=== PATIENT | female | born 1990 | race Caucasian/White ===

== ENCOUNTER 2016-06-29 15:29 | Emergency (ER) | payer MEDICAID ==
[~2016-06-29] VITALS: Ht 154.9 cm; Wt 68.5 kg
[~2016-06-29 15:29] MED LIST: ALB0.5V IH; AMOX500C2 PO; BENZ-13 PO; BENZ200C25 PO; BUTA1CAP45 PO; CEFD300C3 PO; CEPH-507 PO; CEPH500C PO; CLIN-81 PO; CYCL10TA9 PO; DIPH25TA82 PO; FAMO20TA5 PO; GABA-488 PO; HYDR-3812 PO; HYDR-3816 PO; HYOS0.1216 PO; IBUP800T26 PO; MECL25TA56 PO; MELO7.5T46 PO; METH4TAB PO; NAPR-243 PO; NAPR500T PO; NITR-65 PO; ONDA-42 SL; PHEN-639 PO; POTA-51 PO; PRD20T PO; PRED20TA PO; PREN1TAB39; SULF-222 PO; SULF1TAB7 PO; TRAM50TA2 PO
[2016-06-29] MEDS ORDERED: AMOX500C2 PO ×2 (15:41→16:06)
[2016-06-29] MEDS ORDERED: ONDA8TAB9 PO ×2 (15:41→16:06)
--- NOTE | 2016-06-29 15:42 | ED General ---
General Stated Complaint: N/V, SINUS TROUBLE Source of Information: Patient Exam Limitations: No Limitations History of Present Illness Time Seen by Provider: 15:39 Initial Comments To ER with nasal congestion and rhinorrhea since 5 a.m. this morning. She's also had an itchy right ear as well as nausea without vomiting or diarrhea. No fevers or chills. She is taken nothing for this. Timing/Duration: 4-6 Hours Allergies and Home Medications Allergies Coded Allergies: metoclopramide (Unverified Allergy, Mild, 12/30/08) promethazine (Unverified Allergy, Mild, 12/30/08) morphine (Unverified Adverse Reaction, Severe, PAIN, 05/31/14) Home Medications Albuterol Sulfate 2.5 Mg/0.5 Ml Vial.neb #1 2.5 MG IH Q4H Prescribed by: JOSE RODRIGUEZ on 03/27/161856 Amoxicillin 500 Mg Capsule #21 500 MG PO TID Prescribed by: NUBIA MURRAY on 06/29/16 154 Benzonatate 100 Mg Capsule #30 1-2 TAB PO TID Prescribed by: JOSE RODRIGUEZ on 03/27/161851 Cefdinir 300 Mg Capsule #20 300 MG PO BID Prescribed by: JOSE RODRIGUEZ on 03/27/161851 Cyclobenzaprine HCl 10 Mg Tablet 10 MG PO HS (Reported) Methylprednisolone 4 Mg Tab.ds.pk #1 4 MG PO UD Prescribed by: JOSE RODRIGUEZ on 03/27/161851 Ondansetron 8 Mg Tab.rapdis #10 8 MG PO Q6H PRN PRN NAUSEA/VOMITING Prescribed by: NUBIA MURRAY on 06/29/16 1541 Constitutional: see HPI chillsNo fever EENTM: ear pain see HPI Respiratory: see HPI Cardiovascular: no symptoms reported Gastrointestinal: No abdominal pain, nauseaNo vomiting Genitourinary: no symptoms reported Musculoskeletal: no symptoms reported Skin: no symptoms reported Psychiatric/Neurological: No Symptoms Reported Past Vuxasyh-Ckerdd-Qsdpny Hx Patient Social History Type Used: Cigarettes Recent Foreign Travel: No Contact w/Someone Who Travel: No Recent Hopitalizations: No Immunizations Up To Date Tetanus Booster (TDap): Less than 5yrs PED Vaccines UTD: Yes Seasonal Allergies Seasonal Allergies: No Surgeries HX Surgeries: Yes (S-CECTION X 2, BTL. 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 Genitourinary Hx Genitourinary Disorders: Yes Genitourinary Disorders: Kidney Stones Gastrointestinal Hx Gastrointestinal Disorders: Yes Gastrointestinal Disorders: Irritable Bowel Musculoskeletal Hx Musculoskeletal Disorders: Yes Musculoskeletal Disorders: Chronic Back Pain Endocrine Hx Endocrine Disorders: No HEENT HX ENT Disorders: No Loss of Vision: Denies Hearing Impairment: Denies Cancer Hx Cancer: No Psychosocial Hx Psychiatric Problems: No Integumentary HX Skin/Integumentary Disorder: Yes (SHINGLES; CELLULITIS) Skin/Integumentary Disorders: Recent Skin Changes Blood Transfusions Hx Blood Disorders: No Adverse Reaction to a Blood Tr: No Family Medical History Significant Family History: Heart Disease Family Medial History: Diabetes mellitus 19 FATHER Myocardial infarction 19 FATHER Thyroid disease G8 SISTER Physical Exam Vital Signs Vital Sign - Last 12Hours 06/29/16 15:40 Temp 99.1 Pulse 86 Resp 16 B/P 134/101 Pulse Ox 97 O2 Delivery Room Air Capillary Refill : General Appearance: No Apparent Distress WD/WN Eyes: Bilateral Eye EOMI, Bilateral Eye Normal Inspection, Bilateral Eye PERRL HEENT: PERRL/EOMI TMs Normal TM Abnormal (R) (erythematous and bulging) Neck: Full Range of Motion Normal Inspection Respiratory: Normal Breath Sounds No Accessory Muscle Use No Respiratory Distress Cardiovascular: Regular Rate, Rhythm Normal Peripheral Pulses Gastrointestinal: Normal Bowel Sounds Non Tender Soft Extremity: Normal Capillary Refill Normal Inspection Neurologic/Psychiatric: Alert Oriented x3 Skin: Normal Color Warm/Dry Progress/Results/Core Measures Results/Orders My Orders Orders-NUBIA MURRAY APRN Ondansetron Oral Dissolve Tab (Zofran (06/29/16 15:45) Medications Given in ED Current Medications Medications Dose Ordered Sig/Elisabeth Route Start Time Stop Time Status Last Admin Dose Admin Ondansetron HCl 8 mg ONCE ONCE PO 06/29/16 15:45 06/29/16 15:46 DC 06/29/16 15:51 8 MG Vital Signs/I&O Vital Sign - Last 12Hours 06/29/16 15:40 Temp 99.1 Pulse 86 Resp 16 B/P 134/101 Pulse Ox 97 O2 Delivery Room Air Departure Impression Impression: Primary Impression: Right otitis media Qualified Code: H66.001 - Acute suppurative otitis media without spontaneous rupture of ear drum, right ear Disposition: HOME, SELF-CARE Condition: Stable Departure-Patient Inst. Decision time for Depature: 15:40 Referrals: NADEEN GERARD MD (PCP/Family) Primary Care Physician Patient Instructions: NO INSTRUCTIONS GIVEN Add. Discharge Instructions: 1. Tylenol and Motrin for pain or fevers 2. Nausea medication as directed 3. Antibiotics as directed 4. Follow-up with your regular doctor this week Scripts Ondansetron (Zofran Odt)8 Mg Tab.rapdis8 Mg PO Q6H PRN NAUSEA/VOMITING #10 TAB Prov:NUBIA MURRAY APRN 06/29/16 Amoxicillin 500 Mg Pavnpxi241 Mg PO TID #21 CAP Prov:NUBIA MURRAY APRN 06/29/16 Work/School Note: Work Release Form Date Seen in the Emergency Department: Jun 29, 2016 Return to Work: Jul 01, 2016 NUBIA MURRAY APRN Jun 29, 2016 15:41
[2016-06-29] MEDS ORDERED: ONDANSETRON 4 MG (ZOFRAN) ORAL DISSOLVE TAB PO ONE (15:45)
[2016-06-29 16:10] VITALS: BP 134/98
== END 2016-06-29 16:09 | disposition home or self-care (01) ==
LOC: EDUNIT# 15:29 → ER 15:31
DX: H66.91 Otitis media, unspecified, right ear (principal); R09.81 Nasal congestion
CPT/HCPCS: 99283

== ENCOUNTER 2016-10-12 13:12 | Emergency (ER) | payer SELFPAY ==
[~2016-10-12] VITALS: Ht 152.4 cm; Wt 65.8 kg
[~2016-10-12 13:12] MED LIST changes: +ONDA8TAB9 PO
[2016-10-12] MEDS ORDERED: AMOX500C2 PO (13:38)
[2016-10-12] MEDS ORDERED: TRAM-42 PO (13:38)
--- NOTE | 2016-10-12 13:39 | ED EENT ---
History of Present Illness General Chief Complaint: Dental Problems/Pain Stated Complaint: R SIDE DENTAL PAIN/HEADACHE Nursing Triage Note: AMB TO ROOM C/O TOOTH ACHE WITH HEADACHE Source: patient Exam Limitations: no limitations History of Present Illness Time seen by provider: 13:36 Initial Comments To ER with right lower dental pain and headache. Tooth has been bothering her for about a week. Plans on seeing health dental clinic tomorrow. Timing/Duration: gradual Severity: moderate Location: dental Associated Symptoms: No cough, No fever, tooth pain Allergies and Home Medications Allergies Coded Allergies: metoclopramide (Unverified Allergy, Mild, 12/30/08) promethazine (Unverified Allergy, Mild, 12/30/08) morphine (Unverified Adverse Reaction, Severe, PAIN, 05/31/14) Review of Systems Constitutional: see HPI, No chills, No fever Eyes: No Symptoms Reported Ears: No Symptoms Reported Nose: no symptoms reported Mouth: see HPI, pain, denies swelling Throat: no symptoms reported Respiratory: no symptoms reported Musculoskeletal: no symptoms reported Past Tukfait-Aaynqj-Kowagx Hx Patient Social History Alcohol Use: Denies Use Recreational Drug Use: No Smoking Status: Current Everyday Smoker Type Used: Cigarettes Recent Foreign Travel: No Contact w/Someone Who Travel: No Recent Infectious Disease Expo: No Recent Hopitalizations: No Immunizations Up To Date Tetanus Booster (TDap): Less than 5yrs PED Vaccines UTD: Yes Seasonal Allergies Seasonal Allergies: No Surgeries HX Surgeries: Yes (S-CECTION X 2, BTL. 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 Genitourinary Hx Genitourinary Disorders: Yes Genitourinary Disorders: Kidney Stones Gastrointestinal Hx Gastrointestinal Disorders: Yes Gastrointestinal Disorders: Irritable Bowel Musculoskeletal Hx Musculoskeletal Disorders: Yes Musculoskeletal Disorders: Chronic Back Pain Endocrine Hx Endocrine Disorders: No HEENT HX ENT Disorders: No Loss of Vision: Denies Hearing Impairment: Denies Cancer Hx Cancer: No Psychosocial Hx Psychiatric Problems: No Integumentary HX Skin/Integumentary Disorder: Yes (SHINGLES; CELLULITIS) Skin/Integumentary Disorders: Recent Skin Changes Blood Transfusions Hx Blood Disorders: No Adverse Reaction to a Blood Tr: No Family Medical History Significant Family History: Heart Disease Family Medial History: Diabetes mellitus 19 FATHER Myocardial infarction 19 FATHER Thyroid disease G8 SISTER Physical Exam Vital Signs Vital Sign - Last 12Hours 10/12/16 13:25 Temp 99.0 Pulse 105 Resp 18 B/P (MAP) 128/66 Pulse Ox 99 General Appearance: WD/WN, no apparent distress Eyes: bilateral eye EOMI, bilateral eye PERRL, bilateral eye normal inspection Ears: bilateral ear TM normal, bilateral ear auricle normal, bilateral ear canal normal Mouth/Throat: dental tenderness Neck: non-tender (daycare), full range of motion Respiratory: normal breath sounds, no respiratory distress, no accessory muscle use Gastrointestinal: normal bowel sounds, non tender, soft Progress/Results/Core Measures Results/Orders Vital Signs/I&O Vital Sign - Last 12Hours 10/12/16 13:25 Temp 99.0 Pulse 105 Resp 18 B/P (MAP) 128/66 Pulse Ox 99 Blood Pressure Mean: 86 Departure Impression Impression: Primary Impression: Dental caries Disposition: HOME, SELF-CARE Condition: Stable Departure-Patient Inst. Decision time for Depature: 13:37 Referrals: NADEEN GERARD MD (PCP/Family) Primary Care Physician Patient Instructions: Dental Pain (DC) Add. Discharge Instructions: 1. Medication as directed 2. Follow-up with your doctor next week 3. All discharge instructions reviewed with patient and/or family. Voiced understanding. Scripts Tramadol HCl (Ultram) 50 Mg Tablet 50 MG PO Q6H Y for PAIN-MODERATE, #14 TAB Do not fill unless amoxicillin was also filled Prov: NUBIA MURRAY APRN 10/12/16 Amoxicillin (Amoxicillin) 500 Mg Capsule 500 MG PO TID, #21 CAP Prov: NUBIA MURRAY APRN 10/12/16 Work/School Note: Work Release Form Date Seen in the Emergency Department: October 12, 2016 Return to Work: October 13, 2016 Images Mouth/Nose 1 - Caries NUBIA MURRAY APRN October 12, 2016 13:39
[2016-10-12 13:47] VITALS: BP 128/66
== END 2016-10-12 13:47 | disposition home or self-care (01) ==
LOC: EDUNIT# 13:12 → ER 13:14
DX: K02.9 Dental caries, unspecified (principal); F17.210 Nicotine dependence, cigarettes, uncomplicated
CPT/HCPCS: 99285

== ENCOUNTER 2016-11-07 17:12 | Emergency (ER) | payer MEDICAID, OTHER ==
[~2016-11-07] VITALS: Ht 154.9 cm; Wt 65.8 kg
[~2016-11-07 17:12] MED LIST changes: +TRAM-42 PO
[2016-11-07] MEDS ORDERED: CEPH-507 PO (18:18)
--- NOTE | 2016-11-07 18:18 | ED Integumentary General ---
General Chief Complaint: Skin/Wound Problems Stated Complaint: PAINFUL/ITCHY RED SPOTS ON SKIN Source: patient Exam Limitations: no limitations History of Present Illness Time seen by provider: 18:09 Initial Comments This 26-year-old young lady presents to the emergency room with intensely pruritic lesions that started yesterday. She does not know where she obtained them. She has spent a lot of time outside recently and may have obtained insect bites. She has fake nails and has deeply excoriated and bruised the lesions from scratching in her sleep. She has used some Benadryl but has otherwise not taken anything. She is concerned about their appearance because she has required hospitalization for cellulitis in the past. Her cellulitis was secondary to insect bites. Allergies and Home Medications Allergies Coded Allergies: metoclopramide (Unverified Allergy, Mild, 12/30/08) promethazine (Unverified Allergy, Mild, 12/30/08) morphine (Unverified Adverse Reaction, Severe, PAIN, 05/31/14) Home Medications Amoxicillin 500 Mg Capsule, 500 MG PO TID, #21 Prescribed by: NUBIA MURRAY on 10/12/16 1338 Cephalexin 500 Mg Capsule, 500 MG PO QID, #28 Prescribed by: DAX SU on 11/07/16 1818 Hydroxyzine HCl 25 Mg Tablet, 25 MG PO Q6H PRN for ITCHING, #20 Prescribed by: DAX SU on 11/07/16 1828 Tramadol HCl 50 Mg Tablet, 50 MG PO Q6H PRN for PAIN-MODERATE, #14 Do not fill unless amoxicillin was also filled Prescribed by: NUBIA MURRAY on 10/12/16 1338 Constitutional: no symptoms reported EENTM: no symptoms reported Respiratory: no symptoms reported Cardiovascular: no symptoms reported Gastrointestinal: no symptoms reported Genitourinary: no symptoms reported Musculoskeletal: no symptoms reported Skin: see HPI Psychiatric/Neurological: No Symptoms Reported Past Vgeiepr-Eprnqi-Ulpqpm Hx Patient Social History Type Used: Cigarettes Recent Foreign Travel: No Contact w/Someone Who Travel: No Recent Hopitalizations: No Immunizations Up To Date Tetanus Booster (TDap): Less than 5yrs PED Vaccines UTD: Yes Seasonal Allergies Seasonal Allergies: No Surgeries HX Surgeries: Yes (S-CECTION X 2, BTL. 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 Genitourinary Hx Genitourinary Disorders: Yes Genitourinary Disorders: Kidney Stones Gastrointestinal Hx Gastrointestinal Disorders: Yes Gastrointestinal Disorders: Irritable Bowel Musculoskeletal Hx Musculoskeletal Disorders: Yes Musculoskeletal Disorders: Chronic Back Pain Endocrine Hx Endocrine Disorders: No HEENT HX ENT Disorders: No Loss of Vision: Denies Hearing Impairment: Denies Cancer Hx Cancer: No Psychosocial Hx Psychiatric Problems: No Integumentary HX Skin/Integumentary Disorder: Yes (SHINGLES; CELLULITIS requiring hospitalization) Skin/Integumentary Disorders: Recent Skin Changes Blood Transfusions Hx Blood Disorders: No Adverse Reaction to a Blood Tr: No Family Medical History Significant Family History: Heart Disease Family Medial History: Diabetes mellitus 19 FATHER Myocardial infarction 19 FATHER Thyroid disease G8 SISTER Physical Exam Vital Signs Vital Sign - Last 12Hours 11/07/16 18:13 Temp 98.2 Pulse 74 Resp 16 B/P (MAP) 134/84 Pulse Ox 98 Capillary Refill : General Appearance: WD/WN, no apparent distress HEENT: normal ENT inspection Cardiovascular: regular rate, rhythm, no edema, no murmur Respiratory: lungs clear, normal breath sounds, no respiratory distress, no accessory muscle use Extremities: normal inspection, no pedal edema Neurologic/Psychiatric: herd tester II-XII nml as tested, no motor/sensory deficits, alert, normal mood/affect, oriented x 3, EOM palsy, depressed affect Skin: warm/dry, ecchymosis, other (scattered excoriated insect bites with surrounding ecchymosis and petechiae from scratching) Progress/Results/Core Measures Results/Orders Vital Signs/I&O Vital Sign - Last 12Hours 11/07/16 18:13 Temp 98.2 Pulse 74 Resp 16 B/P (MAP) 134/84 Pulse Ox 98 Departure Impression Impression: Primary Impression: Insect bite Qualified Codes: W57.XXXA - Bitten or stung by nonvenomous insect and other nonvenomous arthropods, initial encounter Disposition: 01 HOME, SELF-CARE Condition: Stable Departure-Patient Inst. Decision time for Depature: 18:16 Referrals: NADEEN GERARD MD (PCP/Family) Primary Care Physician Patient Instructions: Insect Bites and Stings Add. Discharge Instructions: You may continue using anti-itch medication such as Benadryl or the prescribed hydroxyzine. Hydroxyzine may help you sleep better than Benadryl. You may use topical anti-itch medication such as topical Benadryl (diphenhydramine), Solarcaine spray, etc. Inspect your bedding and mattress to ensure these bites are not caused by bedbugs. If you feel any of your spots are becoming infected (increasing pain and redness) start the antibiotic as prescribed. All discharge instructions reviewed with patient and/or family. Voiced understanding. Scripts Hydroxyzine HCl (Hydroxyzine HCl) 25 Mg Tablet 25 MG PO Q6H Y for ITCHING, #20 TAB Prov: DAX HELMS MD 11/07/16 Cephalexin (Keflex) 500 Mg Capsule 500 MG PO QID, #28 CAP Prov: DAX HELMS MD 11/07/16 DAX HELMS MD Nov 07, 2016 18:18
[2016-11-07] MEDS ORDERED: HYDR-700 PO (18:28)
[2016-11-07 18:35] VITALS: BP 134/84
== END 2016-11-07 18:35 | disposition home or self-care (01) ==
LOC: EDUNIT# 17:12 → ER 17:13
DX: L29.9 Pruritus, unspecified (principal); T14.8 Other injury of unspecified body region; W57.XXXA Bitten or stung by nonvenomous insect and other nonvenomous arthropods, initial encounter
CPT/HCPCS: 99282

== ENCOUNTER 2016-11-22 18:23 | Emergency (ER) | payer MEDICAID ==
[~2016-11-22] VITALS: Ht 152.4 cm; Wt 67.6 kg
[~2016-11-22 18:23] MED LIST changes: +HYDR-700 PO
--- NOTE | 2016-11-22 18:44 | ED Back Pain ---
General Chief Complaint: Back Problems Stated Complaint: BACK PAIN Source of Information: Patient Exam Limitations: No Limitations History of Present Illness Time Seen by Provider: 18:41 Initial Comments To ER with midline low back pain that occasionally radiates down the posterior aspect of the right thigh. This back pain began a few days ago after she states she was playing with her son and she lifted him up and felt a popping sensation of her back. She had no pain initially and was alarmed by this because she states she has back pain "all the time". No urinary symptoms. No fevers or chills. No fall or trauma. Location: Lumbar Spine Timing/Duration: 3-4 Days Severity: Moderate Associated Symptoms: lower back pain Allergies and Home Medications Allergies Coded Allergies: metoclopramide (Unverified Allergy, Mild, 12/30/08) promethazine (Unverified Allergy, Mild, 12/30/08) morphine (Unverified Adverse Reaction, Severe, PAIN, 05/31/14) Home Medications Amoxicillin 500 Mg Capsule, 500 MG PO TID, #21 Prescribed by: NUBIA MURRAY on 10/12/16 1338 Escitalopram Oxalate 10 Mg Tablet, 5 MG PO DAILY, (Reported) Hydrocodone/Acetaminophen 1 Each Tablet, 1 EACH PO Q4H PRN for PAIN, (Reported) Hydroxyzine HCl 25 Mg Tablet, 25 MG PO Q6H PRN for ITCHING, #20 Prescribed by: DAX SU on 11/07/16 1828 Constitutional: see HPI EENTM: see HPI Respiratory: no symptoms reported Cardiovascular: no symptoms reported Genitourinary: no symptoms reported Musculoskeletal: see HPI, back pain Skin: no symptoms reported Psychiatric/Neurological: No Symptoms Reported Past Mggpczi-Wkuvuq-Xyzmij Hx Patient Social History Type Used: Cigarettes 2nd Hand Smoke Exposure: No Recent Foreign Travel: No Contact w/Someone Who Travel: No Recent Hopitalizations: No Immunizations Up To Date Tetanus Booster (TDap): Less than 5yrs PED Vaccines UTD: Yes Seasonal Allergies Seasonal Allergies: No Surgeries HX Surgeries: Yes (S-CECTION X 2, BTL. 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 Genitourinary Hx Genitourinary Disorders: Yes Genitourinary Disorders: Kidney Stones Gastrointestinal Hx Gastrointestinal Disorders: Yes Gastrointestinal Disorders: Irritable Bowel Musculoskeletal Hx Musculoskeletal Disorders: Yes Musculoskeletal Disorders: Chronic Back Pain Endocrine Hx Endocrine Disorders: No HEENT HX ENT Disorders: No Loss of Vision: Denies Hearing Impairment: Denies Cancer Hx Cancer: No Psychosocial Hx Psychiatric Problems: No Integumentary HX Skin/Integumentary Disorder: Yes (SHINGLES; CELLULITIS requiring hospitalization) Skin/Integumentary Disorders: Recent Skin Changes Blood Transfusions Hx Blood Disorders: No Adverse Reaction to a Blood Tr: No Family Medical History Significant Family History: Heart Disease Family Medial History: Diabetes mellitus 19 FATHER Myocardial infarction 19 FATHER Thyroid disease G8 SISTER Physical Exam Vital Signs Vital Sign - Last 12Hours 11/22/16 18:41 Temp 98.1 Pulse 105 Resp 20 B/P (MAP) 147/91 Pulse Ox 99 O2 Delivery Room Air Capillary Refill : General Appearance: No Apparent Distress, WD/WN HEENT: PERRL/EOMI, TMs Normal Neck: Full Range of Motion, Normal Inspection Respiratory: No Accessory Muscle Use, No Respiratory Distress Gastrointestinal: Non Tender, Soft Extremity: Normal Capillary Refill, Normal Inspection Neurologic/Psychiatric: Alert, Oriented x3 Skin: Normal Color, Warm/Dry Progress/Results/Core Measures Results/Orders My Orders Orders - NUBIA MURRAY APRN Ketorolac Injection (Toradol Injection) (11/22/16 18:45) Orphenadrine Injection (Norflex Injectio (11/22/16 18:45) Vital Signs/I&O Vital Sign - Last 12Hours 11/22/16 18:41 Temp 98.1 Pulse 105 Resp 20 B/P (MAP) 147/91 Pulse Ox 99 O2 Delivery Room Air Departure Communication Progress Notes K tracks show the patient had a 5 day supply of hydrocodone filled 4 days ago. She does not report this as one of her medications to me. Impression Impression: Primary Impression: Acute low back pain Disposition: 01 HOME, SELF-CARE Condition: Stable Departure-Patient Inst. Decision time for Depature: 18:43 Referrals: NADEEN GERARD MD (Family) Primary Care Physician Patient Instructions: Low Back Pain (DC) Add. Discharge Instructions: 1. Medication as directed 2. All discharge instructions reviewed with patient and/or family. Voiced understanding. Scripts Cyclobenzaprine HCl (Cyclobenzaprine HCl) 5 Mg Tablet 5 MG PO TID Y for PAIN-MODERATE, #14 TAB Prov: NUBIA MURRAY APRN 11/22/16 Prednisone (Prednisone) 20 Mg Tab 40 MG PO DAILY, #8 TAB Prov: NUBIA MURRAY APRN 11/22/16 NUBIA MURRAY APRN Nov 22, 2016 18:44
[2016-11-22] MEDS ORDERED: ORPHENADRINE 60 MG/2 ML (NORFLEX) AMP IM ONE (18:45)
[2016-11-22] MEDS ORDERED: KETOROLAC 60 MG/2 ML VIAL IM ONE (18:45)
[2016-11-22] MEDS ORDERED: HYDR-3812 PO (18:45)
[2016-11-22] MEDS ORDERED: ESCI10TA PO (18:45)
[2016-11-22] MEDS ORDERED: CYCL5TAB PO (18:46)
[2016-11-22] MEDS ORDERED: PRD20T PO (18:46)
[2016-11-22 19:05] VITALS: BP 144/79
--- OUTSIDE RECORDS SUMMARY | 2016-11-24 17:26 | XMS REPORT | Continuity of Care Document ---
Author Author [facility] Address Unknown Phone Unavailable Allergies Active Description Code Type Severity Reaction Onset Reported/Identified Relationship to Patient Clinical Status Yes metoclopramide [id number] Drug Allergy Mild N/A 12/30/2008 Yes promethazine [id number] Drug Allergy Mild N/A 12/30/2008 Yes morphine [id number] Drug Allergy Severe PAIN 05/31/2014 Yes Phenergan Drug Allergy N/A N/A 08/22/2014 Yes Reglan Drug Allergy N/A N/A 08/22/2014 Medications Problems Date Dx Coded Attending Type Code Diagnosis Diagnosed By 09/26/2011 Ot 780.4 DIZZINESS AND GIDDINESS 09/26/2011 Ot 789.00 ABDOMINAL PAIN, UNSPECIFIED SITE 10/15/2011 Ot 373.11 HORDEOLUM EXTERNUM 10/15/2011 Ot 379.92 SWELLING OR MASS OF EYE 05/28/2014 NUBIA MURRAY APRN Ot 558.9 NONINF GASTROENTERIT NEC 05/28/2014 NUBIA MURRAY APRN Ot 787.03 VOMITING ALONE 05/31/2014 RICKY NELSON Ot 708.9 URTICARIA NOS 05/31/2014 RICKY NELSON Ot 913.4 INSECT BITE FOREARM 05/31/2014 RICKY NELSON Ot E000.8 OTHER EXTERNAL CAUSE STATUS 05/31/2014 RICKY NELSON Ot E849.0 ACCIDENT IN HOME 05/31/2014 RICKY NELSON Ot E906.4 NONVENOM ARTHROPOD BITE 08/10/2014 Ot 305.1 TOBACCO USE DISORDER 08/10/2014 Ot 682.3 CELLULITIS OF ARM 08/22/2014 MARCUS MARTINES DO 682.3 CELLULITIS AND ABSCESS OF UPPER ARM AND FOREARM 08/22/2014 MARCUS MARTINES DO 728.71 PLANTAR FASCIAL FIBROMATOSIS 08/22/2014 MARCUS MARTINES DO 783.1 ABNORMAL WEIGHT GAIN 12/10/2014 RICKY NELSON Ot 611.0 INFLAM DISEASE OF BREAST 12/10/2014 RICKY NELSON Ot 911.4 INSECT BITE TRUNK 12/10/2014 RICKY NELSON Ot E000.8 OTHER EXTERNAL CAUSE STATUS 12/10/2014 RICKY NELSON Ot E906.4 NONVENOM ARTHROPOD BITE 01/01/2015 DAX HELMS MD Ot 305.1 TOBACCO USE DISORDER 01/01/2015 DAX HELMS MD Ot 462 ACUTE PHARYNGITIS 01/01/2015 DAX HELMS MD Ot 465.9 ACUTE URI NOS 01/01/2015 DAX HELMS MD Ot 786.2 COUGH 01/20/2015 RICKY NELSON Ot 521.00 UNSPEC DENTAL CARIES 01/20/2015 RICKY NELSON Ot 784.92 JAW PAIN 03/27/2015 RICKY NELSON Ot E87.6 HYPOKALEMIA 03/27/2015 RICYK NELSON Ot F17.210 NICOTINE DEPENDENCE, CIGARETTES, UNCOMPL 03/27/2015 RICKY NELSON Ot M79.642 PAIN IN LEFT HAND 05/06/2015 RICKY NELSON Ot F17.210 NICOTINE DEPENDENCE, CIGARETTES, UNCOMPL 05/06/2015 RICKY NELSON Ot J06.9 ACUTE UPPER RESPIRATORY INFECTION, UNSPE 05/06/2015 RICKY NELSON Ot R10.9 UNSPECIFIED ABDOMINAL PAIN 05/06/2015 RICKY NELSON Ot R35.0 FREQUENCY OF MICTURITION 05/11/2015 SOPHIA JOSÉ MD Ot F17.210 NICOTINE DEPENDENCE, CIGARETTES, UNCOMPL 05/11/2015 SOPHIA JOSÉ MD Ot J01.90 ACUTE SINUSITIS, UNSPECIFIED 05/11/2015 SOPHIA JOSÉ MD Ot J06.9 ACUTE UPPER RESPIRATORY INFECTION, UNSPE 05/21/2015 SOPHIA JOSÉ MD Ot F17.210 NICOTINE DEPENDENCE, CIGARETTES, UNCOMPL 05/21/2015 SOPHIA JOSÉ MD Ot L03.115 CELLULITIS OF RIGHT LOWER LIMB 06/01/2015 RICKY NESLON Ot F17.210 NICOTINE DEPENDENCE, CIGARETTES, UNCOMPL 06/01/2015 RICKY NELSON Ot S93.602A UNSPECIFIED SPRAIN OF LEFT FOOT, INITIAL 06/01/2015 RICKY NELSON Ot W08.XXXA FALL FROM OTHER FURNITURE, INITIAL ENCOU 06/01/2015 RICKY NELSON Ot Y92.[address] [facility] PL[facility] IN SINGLE-FAMILY (PRIVATE) 06/01/2015 RICKY NELSON Ot Y93.83 ACTIVITY, ROUGH HOUSING AND HORSEPLAY 06/01/2015 RICKY NELSON Ot Y99.8 OTHER EXTERNAL CAUSE STATUS 07/17/2015 RICKY NELSON Ot F17.210 NICOTINE DEPENDENCE, CIGARETTES, UNCOMPL 07/17/2015 RIKCY NELSON Ot H92.02 OTALGIA, LEFT EAR 07/17/2015 RICKY NELSON Ot J03.90 ACUTE TONSILLITIS, UNSPECIFIED 08/08/2015 JOSE RODRIGUEZ DO Ot R51 HEADACHE 09/02/2015 Ot F17.210 NICOTINE DEPENDENCE, CIGARETTES, UNCOMPL 09/02/2015 Ot S46.911[facility]UP A 09/02/2015 Ot X58.XXXA EXPOSURE TO OTHER SPECIFIED FACTORS, INI 09/02/[address] IN [facility] NON-INSTITUT (PRIVATE 09/02/2015 Ot Y99.0 CIVILIAN ACTIVITY DONE FOR INCOME OR PAY 09/04/2015 Ot F17.210 09/04/2015 Ot S46.911A 09/04/2015 Ot X58.XXXA 09/04/2015 Ot Y92.009 09/04/2015 Ot Y99.0 12/21/2015 NUBIA MURRAY APRN Ot M54.12 RADICULOPATHY, CERVICAL REGION 01/07/2016 RICKY NELSON Ot F17.210 NICOTINE DEPENDENCE, CIGARETTES, UNCOMPL 01/07/2016 RICKY NELSON Ot J03.00 ACUTE STREPTOCOCCAL TONSILLITIS, UNSPECI 01/07/2016 RICKY NELSON Ot R50.9 FEVER, UNSPECIFIED 01/08/2016 RICKY NELSON Ot F17.210 NICOTINE DEPENDENCE, CIGARETTES, UNCOMPL 01/08/2016 RICKY NELSON Ot J03.00 ACUTE STREPTOCOCCAL TONSILLITIS, UNSPECI 01/08/2016 RICKY NELSON Ot R50.9 FEVER, UNSPECIFIED 02/09/2016 SOPHIA JOSÉ MD Ot F17.210 NICOTINE DEPENDENCE, CIGARETTES, UNCOMPL 02/09/2016 SOPHIA JOSÉ MD Ot J02.9 ACUTE PHARYNGITIS, UNSPECIFIED 02/09/2016 SOPHIA JOSÉ MD Ot J06.9 ACUTE UPPER RESPIRATORY INFECTION, UNSPE 02/09/2016 SOPHIA JOSÉ MD Ot M79.1 MYALGIA 02/12/2016 SOPHIA JOSÉ MD Ot F17.210 NICOTINE DEPENDENCE, CIGARETTES, UNCOMPL 02/12/2016 SOPHIA JOSÉ MD Ot J02.9 ACUTE PHARYNGITIS, UNSPECIFIED 02/12/2016 SOPHIA JOSÉ MD Ot J06.9 ACUTE UPPER RESPIRATORY INFECTION, UNSPE 02/12/2016 SOPHIA JOSÉ MD Ot M79.1 MYALGIA 03/07/2016 ELLIOT ROMERO, MANA Fried Ot R10.11 RIGHT UPPER QUADRANT PAIN 03/07/2016 ELLIOT ROMERO, MANA Fried Ot R10.11 RIGHT UPPER QUADRANT PAIN 03/19/2016 ELLIOT ROMERO, MANA Fried Ot R10.11 RIGHT UPPER QUADRANT PAIN 03/21/2016 ELLIOT ROMERO, MANA Fried Ot R10.11 RIGHT UPPER QUADRANT PAIN 03/24/2016 ELLIOT ROMERO, MANA Fried Ot R10.13 EPIGASTRIC PAIN 03/27/2016 VICTORIANO RODRIGUEZ DOA Sharon Ot J06.9 ACUTE UPPER RESPIRATORY INFECTION, UNSPE 03/27/2016 VCITORIANO RODRIGUEZ DOA Sharon Ot J20.9 ACUTE BRONCHITIS, UNSPECIFIED 03/27/2016 VICTORIANO RODRIGUEZ DOA Sharon Ot R06.02 SHORTNESS OF BREATH 2016 VICTROIANO RODRIGUEZ DOA Sharon Ot J06.9 ACUTE UPPER RESPIRATORY INFECTION, UNSPE 2016 VICTORIANO RODRIGUEZ DOA Sharon Ot J20.9 ACUTE BRONCHITIS, UNSPECIFIED 2016 JOSE RODRIGUEZ DO Ot R06.02 SHORTNESS OF BREATH 04/07/2016 ELLIOT ROMERO, MANA Fried Ot R10.13 EPIGASTRIC PAIN 06/29/2016 NUBIA MURRAY APRN Ot H66.91 OTITIS MEDIA, UNSPECIFIED, RIGHT EAR 06/29/2016 NUBIA MURRAY APRN Ot R09.81 NASAL CONGESTION 06/29/2016 NUBIA MURRAY APRN Ot R11.2 NAUSEA WITH VOMITING, UNSPECIFIED 07/01/2016 NUBIA MURRAY APRN Ot H66.91 OTITIS MEDIA, UNSPECIFIED, RIGHT EAR 07/01/2016 NUBIA MURRAY APRN Ot R09.81 NASAL CONGESTION 07/01/2016 NUBIA MURRAY APRN Ot R11.2 NAUSEA WITH VOMITING, UNSPECIFIED 10/12/2016 MANA ZARATE MD Ot R10.11 RIGHT UPPER QUADRANT PAIN 10/12/2016 MANA ZARATE MD Ot R10.13 EPIGASTRIC PAIN 10/12/2016 NUBIA MURRAY APRN Ot F17.210 NICOTINE DEPENDENCE, CIGARETTES, UNCOMPL 10/12/2016 NUBIA MURRAY APRN Ot K02.9 DENTAL CARIES, UNSPECIFIED 10/12/2016 NUBIA MURRAY APRN Ot K08.9 DISORDER OF TEETH AND SUPPORTING STRUCTU 10/12/2016 MANA ZARATE MD Ot R10.11 RIGHT UPPER QUADRANT PAIN 10/12/2016 MANA ZARATE MD Ot R10.13 EPIGASTRIC PAIN 10/14/2016 NUBIA MURRAY APRN Ot F17.210 NICOTINE DEPENDENCE, CIGARETTES, UNCOMPL 10/14/2016 NUBIA MURRAY APRN Ot K02.9 DENTAL CARIES, UNSPECIFIED 10/14/2016 NUBIA MURRAY APRN Ot K08.9 DISORDER OF TEETH AND SUPPORTING STRUCTU 11/07/2016 ANALIA ROMERO, DAX Foote Ot L29.9 PRURITUS, UNSPECIFIED 11/07/2016 ANALIA ROMERO, DAX Foote Ot T14.8 OTHER INJURY OF UNSPECIFIED BODY REGION 11/07/2016 ANALIA ROMERO, DAX Foote Ot W57.XXXA BIT/STUNG BY NONVENOM INSECT OTH NONVE 11/07/2016 MANA ZARATE MD Ot R10.11 RIGHT UPPER QUADRANT PAIN 11/07/2016 ELLIOT ROMERO, MANA Fried Ot R10.13 EPIGASTRIC PAIN 11/09/2016 ANALIA ROMERO, DAX Foote Ot L29.9 PRURITUS, UNSPECIFIED 11/09/2016 ANALIA ROMERO, DAX Foote Ot T14.8 OTHER INJURY OF UNSPECIFIED BODY REGION 11/09/2016 ANALIA ROMERO, DAX Foote Ot W57.XXXA BIT/STUNG BY NONVENOM INSECT OTH NONVE 11/13/2016 ANALIA ROMERO, DAX Foote Ot L29.9 PRURITUS, UNSPECIFIED 11/13/2016 ANALIA ROMERO, DAX Foote Ot T14.8 OTHER INJURY OF UNSPECIFIED BODY REGION 11/13/2016 ANALIA ROMREO, DAX Foote Ot W57.XXXA BIT/STUNG BY NONVENOM INSECT OTH NONVE Procedures Code [place] [address] ROUTINE VENIPUNCTURE 08/22/2014 THYANA THYROID ANALYZER 08/22/2014 Results Test Result Range Streptococcus pyogenes antigen detection - 01/07/16 17:45 Streptococcus pyogenes antigen detection POSITIVE NEGATIVE Streptococcus pyogenes antigen detection - 02/09/16 08:17 Streptococcus pyogenes antigen detection NEGATIVE NEGATIVE Bacterial throat culture - 02/09/16 08:17 Bacterial throat culture NBS NRG Encounters ACCT No. Visit Date/Time Discharge Status Pt. Type Provider Facility Loc./Unit Complaint [id number] 08/22/2014 14:39:00 08/22/2014 23: 59:59 [facility] Outpatient MARCUS MARTINES DO
== END 2016-11-22 19:05 | disposition home or self-care (01) ==
LOC: EDUNIT# 18:23 → ER 18:25
DX: M54.5 Low back pain (principal); F17.210 Nicotine dependence, cigarettes, uncomplicated; Z87.442 Personal history of urinary calculi
CPT/HCPCS: 99281

== ENCOUNTER 2017-01-03 20:35 | Emergency (ER) | payer MEDICAID ==
[~2017-01-03] VITALS: Ht 152.4 cm; Wt 66.7 kg
[~2017-01-03 20:35] MED LIST changes: +CYCL5TAB PO; +ESCI10TA PO
[2017-01-03] MEDS ORDERED: HYDROcodone/APAP 7.5 MG/325 MG (LORTAB, LORCET PLUS) TABLET PO STA (21:30)
[2017-01-03] MEDS ORDERED: LIDOCAINE 2% VISCOUS 15 ML UDC PO ONE (21:30)
[2017-01-03] MEDS ORDERED: RX-AMOXICILLIN 500 MG CAP #3 PPK PO ONE (21:30)
[2017-01-03] MEDS ORDERED: ONDANSETRON 4 MG (ZOFRAN) ORAL DISSOLVE TAB SL STA (21:30)
[2017-01-03] MEDS ORDERED: RX-HYDROCODONE/APAP 5/325 MG #4 TAB PK PO PRN (21:30)
[2017-01-03] MEDS ORDERED: AMOX500C2 PO (21:37)
[2017-01-03] MEDS ORDERED: HYDR-3812 PO (21:37)
--- NOTE | 2017-01-03 21:37 | ED EENT ---
History of Present Illness General Chief Complaint: Dental Problems/Pain Stated Complaint: TOOTH PAIN Nursing Triage Note: Patient advises dental pain began yesterday and has become progressively worse. History of Present Illness Time seen by provider: 21:15 Initial Comments Patient reports that she was told in September 2016 that she needed to have a root canal however she was unable to afford it. Her symptoms improved after taking amoxicillin and September. She acutely began having right lower dental pain yesterday , it has gotten worse today. Timing/Duration: abrupt Location: mouth Prearrival Treatment: no prearrival treatment Associated Symptoms: poor fluid intake, poor solids intake Allergies and Home Medications Allergies Coded Allergies: metoclopramide (Unverified Allergy, Mild, 01/03/17) promethazine (Unverified Allergy, Mild, 01/03/17) morphine (Unverified Adverse Reaction, Severe, PAIN, 01/03/17) Home Medications Amoxicillin 500 Mg Capsule, 500 MG PO TID, #21 Prescribed by: NUBIA MURRAY on 10/12/16 1338 Amoxicillin 500 Mg Capsule, 500 MG PO TID, #18 Ref 0 Prescribed by: TATIANA CIFUENTES on 01/03/17 2137 Cyclobenzaprine HCl 5 Mg Tablet, 5 MG PO TID PRN for PAIN-MODERATE, #14 Prescribed by: NUBIA MURRAY on 11/22/16 1846 Escitalopram Oxalate 10 Mg Tablet, 5 MG PO DAILY, (Reported) Hydrocodone/Acetaminophen 1 Each Tablet, 1 EACH PO Q4H PRN for PAIN, (Reported) Hydrocodone/Acetaminophen 1 Each Tablet, 1 EACH PO Q4H PRN for PAIN, #12 Ref 0 Prescribed by: TATIANA CIFUENTES on 01/03/172136 Hydroxyzine HCl 25 Mg Tablet, 25 MG PO Q6H PRN for ITCHING, #20 Prescribed by: DAX SU on 11/07/16 1828 Prednisone 20 Mg Tab, 40 MG PO DAILY, #8 Prescribed by: NUBIA MURRAY on 11/22/16 184 Review of Systems Constitutional: no symptoms reported, see HPI Mouth: see HPI, pain (right lower) All Other Systems Reviewed Negative Unless Noted: Yes Past Xaqwrai-Rgppma-Kacbet Hx Patient Social History Alcohol Use: Denies Use Recreational Drug Use: No Type Used: Cigarettes 2nd Hand Smoke Exposure: Yes Recent Foreign Travel: No Contact w/Someone Who Travel: No Recent Infectious Disease Expo: No Recent Hopitalizations: No Immunizations Up To Date Tetanus Booster (TDap): Less than 5yrs PED Vaccines UTD: Yes Seasonal Allergies Seasonal Allergies: No Surgeries HX Surgeries: Yes (S-CECTION X 2, BTL. 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 Genitourinary Hx Genitourinary Disorders: Yes Genitourinary Disorders: Kidney Stones Gastrointestinal Hx Gastrointestinal Disorders: Yes Gastrointestinal Disorders: Irritable Bowel Musculoskeletal Hx Musculoskeletal Disorders: Yes Musculoskeletal Disorders: Chronic Back Pain Endocrine Hx Endocrine Disorders: No HEENT HX ENT Disorders: No Loss of Vision: Denies Hearing Impairment: Denies Cancer Hx Cancer: No Psychosocial Hx Psychiatric Problems: No Integumentary HX Skin/Integumentary Disorder: Yes (SHINGLES; CELLULITIS requiring hospitalization) Skin/Integumentary Disorders: Recent Skin Changes Blood Transfusions Hx Blood Disorders: No Adverse Reaction to a Blood Tr: No Reviewed Nursing Assessment Reviewed/Agree w Nursing PMH: Yes Family Medical History Significant Family History: Heart Disease Family Medial History: Diabetes mellitus 19 FATHER Myocardial infarction 19 FATHER Thyroid disease G8 SISTER Physical Exam Vital Signs Vital Sign - Last 12Hours 01/03/17 20:53 Temp 98.5 Pulse 88 Resp 14 B/P (MAP) 142/102 Pulse Ox 98 O2 Delivery Room Air General Appearance: WD/WN, no apparent distress Eyes: bilateral eye EOMI, bilateral eye PERRL, bilateral eye normal inspection Ears: bilateral ear TM normal, bilateral ear auricle normal, bilateral ear canal normal Nose: normal inspection, No active bleeding, No discharge Mouth/Throat: pharynx normal, dental tenderness (right lower molars), No excessive drooling, No mandibular swelling, No maxillary swelling Neck: non-tender, normal inspection, lymphadenopathy (R) Cardiovascular: normal peripheral pulses, regular rate, rhythm Respiratory: chest non-tender, lungs clear Neurologic/Psychiatric: no motor/sensory deficits, alert, normal mood/affect, oriented x 3 Skin: normal color, warm/dry Progress/Results/Core Measures Results/Orders My Orders Orders - ESAU,TATIANA DISBURSING AGENT Rx-Amoxicillin Capsule (Rx-Polymox Capsu (01/03/17 21:30) Ondansetron Oral Dissolve Tab (Zofran (01/03/17 21:30) Hydrocodone/Apap 7.5/325 Tab (Lortab 7. (01/03/17 21:30) Rx-Hydrocodone/Apap 5-325 Mg (Rx-Vicodin (01/03/17 21:30) Lidocaine 2% Viscous 15 Ml (Xylocaine Vi (01/03/17 21:30) Medications Given in ED Current Medications Medications Dose Ordered Sig/Elisabeth Route Start Time Stop Time Status Last Admin Dose Admin Acetaminophen/ Hydrocodone Bitart 1 ea Q4H PRN PO 01/03/17 21:30 01/03/17 21:51 DC 01/03/17 21:44 1 EA Amoxicillin 500 mg ONCE ONCE PO 01/03/17 21:30 01/03/17 21:33 DC 01/03/17 21:44 500 MG Lidocaine HCl 5 ml ONCE ONCE PO 01/03/17 21:30 01/03/17 21:33 DC 01/03/17 21:44 5 ML Vital Signs/I&O Vital Sign - Last 12Hours 01/03/17 01/03/17 20:53 21:51 Temp 98.5 98.5 Pulse 88 83 Resp 14 16 B/P (MAP) 142/102 Pulse Ox 98 98 O2 Delivery Room Air Room Air Blood Pressure Mean: 115 Departure Impression Impression: Primary Impression: Dental caries Additional Impression: Dental abscess Disposition: 01 HOME, SELF-CARE Condition: Improved Departure-Patient Inst. Decision time for Depature: 21:30 Referrals: NO,LOCAL PHYSICIAN (PCP/Family) Primary Care Physician Patient Instructions: Fractured Tooth (DC), Tooth Decay, Adult (DC), Dental Pain (DC) Add. Discharge Instructions: Alternate heat and ice to cheek. Apply lidocaine patches every 2-4 hours as needed to area of dental pain, remove before sleeping. Ibuprofen 600 mg every 8 hours Take prescribed medicine as directed. Return to emergency department if symptoms worsen, fever greater than 101, inability to eat or drink, or new problems. See Dr. Alvarez on Thursday. All discharge instructions reviewed with patient and/or family. Voiced understanding. Scripts Hydrocodone/Acetaminophen (Hydrocodon -Acetaminophen 5-325) 1 Each Tablet 1 EACH PO Q4H Y for PAIN, #12 TAB 0 Refills Prov: TATIANA CIFUENTES 01/03/17 Amoxicillin (Amoxicillin) 500 Mg Capsule 500 MG PO TID, #18 CAP 0 Refills Prov: TATIANA CIFUENTES 01/03/17 TATIANA CIFUENTES Jan 03, 2017 21:37
[2017-01-03 21:51] VITALS: BP 139/94
== END 2017-01-03 21:51 | disposition home or self-care (01) ==
LOC: EDUNIT# 20:35 → ER 20:36
DX: K04.7 Periapical abscess without sinus (principal); K02.9 Dental caries, unspecified; Z98.51 Tubal ligation status; G89.29 Other chronic pain; M54.9 Dorsalgia, unspecified; G43.909 Migraine, unspecified, not intractable, without status migrainosus; J45.909 Unspecified asthma, uncomplicated; Z87.42 Personal history of other diseases of the female genital tract; Z87.59 Personal history of other complications of pregnancy, childbirth and the puerperium; Z87.442 Personal history of urinary calculi
CPT/HCPCS: 99283

== ENCOUNTER 2017-03-02 16:47 | Emergency (ER) | payer MEDICAID ==
[~2017-03-02] VITALS: Ht 152.4 cm; Wt 63.5 kg
--- NOTE | 2017-03-02 17:55 | ED GU-Female ---
General Stated Complaint: R SIDE LOWER BACK PAIN/NAUSEA Source: patient Exam Limitations: no limitations History of Present Illness Time seen by provider: 17:53 Initial Comments To ER with right sided back pain. This was very sharp and became worse upon standing just about 30 minutes before she came here. The pain radiated straight through to the front of her abdomen. She has associated nausea and dysuria stating that she feels as though when she does urinate she is unable to completely empty her bladder and she needs to go again very soon. Last menstrual period was 2 weeks ago and was normal for her. She states that she's actually been having a bit of achy pain to this region for the past few days. Timing/Duration: constant Severity/Quality: moderate Location: right flank Radiation: none Activities at Onset: none Prior Genitourinary Problems: none Modifying Factors: Improves With Analgesics Allergies and Home Medications Allergies Coded Allergies: metoclopramide (Unverified Allergy, Mild, 01/03/17) promethazine (Unverified Allergy, Mild, 01/03/17) morphine (Unverified Adverse Reaction, Severe, PAIN, 01/03/17) Home Medications Amoxicillin 500 Mg Capsule, 500 MG PO TID, #21 Prescribed by: NUBIA MURRAY on 10/12/16 1338 Amoxicillin 500 Mg Capsule, 500 MG PO TID, #18 Ref 0 Prescribed by: TATIANA CIFUENTES on 01/03/177 Cyclobenzaprine HCl 5 Mg Tablet, 5 MG PO TID PRN for PAIN-MODERATE, #14 Prescribed by: NUBIA MURRAY on 11/22/16 1846 Escitalopram Oxalate 10 Mg Tablet, 5 MG PO DAILY, (Reported) Hydrocodone/Acetaminophen 1 Each Tablet, 1 EACH PO Q4H PRN for PAIN, (Reported) Hydrocodone/Acetaminophen 1 Each Tablet, 1 EACH PO Q4H PRN for PAIN, #12 Ref 0 Prescribed by: TATIANA CIFUENTES on 01/03/177 Hydroxyzine HCl 25 Mg Tablet, 25 MG PO Q6H PRN for ITCHING, #20 Prescribed by: DAX SU on 11/07/16 1828 Prednisone 20 Mg Tab, 40 MG PO DAILY, #8 Prescribed by: NUBIA MURRAY on 11/22/16 1846 Constitutional: see HPI, No chills, No fever EENTM: see HPI Respiratory: no symptoms reported Cardiovascular: no symptoms reported Gastrointestinal: nausea, No vomiting Genitourinary: see HPI, dysuria, frequency, flank pain Musculoskeletal: see HPI, back pain Skin: no symptoms reported Psychiatric/Neurological: No Symptoms Reported Past Fcuynib-Hbdfic-Bexznc Hx Patient Social History Type Used: Cigarettes 2nd Hand Smoke Exposure: Yes Recent Foreign Travel: No Contact w/Someone Who Travel: No Recent Hopitalizations: No Immunizations Up To Date Tetanus Booster (TDap): Less than 5yrs PED Vaccines UTD: Yes Seasonal Allergies Seasonal Allergies: No Surgeries History of Surgeries: Yes (S-CECTION X 2, BTL. 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 Genitourinary Genitourinary Disorders: Kidney Stones Gastrointestinal History of Gastrointestinal Di: Yes Gastrointestinal Disorders: Irritable Bowel Musculoskeletal History of Musculoskeletal Dis: Yes Musculoskeletal Disorders: Chronic Back Pain Endocrine History of Endocrine Disorders: No HEENT Loss of Vision: Denies Hearing Impairment: Denies Cancer History of Cancer: No Psychosocial History of Psychiatric Problem: No Integumentary History of Skin or Integumenta: Yes (SHINGLES; CELLULITIS) Skin/Integumentary Disorders: Recent Skin Changes Blood Transfusions History of Blood Disorders: No Adverse Reaction to a Blood Tr: No Family Medical History Significant Family History: Heart Disease Family Medial History: Diabetes mellitus 19 FATHER Myocardial infarction 19 FATHER Thyroid disease G8 SISTER Physical Exam Vital Signs Vital Sign - Last 12Hours 03/02/17 17:58 Temp 97.6 Pulse 57 Resp 18 B/P (MAP) 147/85 Pulse Ox 99 Capillary Refill : General Appearance: WD/WN, no apparent distress HEENT: PERRL/EOMI, normal ENT inspection Neck: non-tender, full range of motion Respiratory: normal breath sounds, no respiratory distress, no accessory muscle use Gastrointestinal: normal bowel sounds, non tender, soft Back: normal inspection, CVA tenderness (R), No CVA tenderness (L) Extremities: normal range of motion, non-tender Neurologic/Psychiatric: alert, normal mood/affect, oriented x 3 Skin: normal color, warm/dry Progress/Results/Core Measures Results/Orders Lab Results Laboratory Tests Test 03/02/17 18:02 Range/Units Urine Color YELLOW Urine Clarity CLEAR Urine pH 7 5-9 Urine Specific [place] 1.015 L 1.016-1.022 Urine Protein NEGATIVE NEGATIVE Urine Glucose (UA) NEGATIVE NEGATIVE Urine Ketones NEGATIVE NEGATIVE Urine Nitrite NEGATIVE NEGATIVE Urine Bilirubin NEGATIVE NEGATIVE Urine Urobilinogen NORMAL NORMAL MG/DL Urine Leukocyte Esterase NEGATIVE NEGATIVE Urine RBC (Auto) NEGATIVE NEGATIVE Urine RBC NONE /HPF Urine WBC NONE /HPF Urine Squamous Epithelial Cells 10-25 H /HPF Urine Crystals NONE /LPF Urine Amorphous Sediment MOD JONO URATES H /LPF Urine Bacteria NEGATIVE /HPF Urine Casts NONE /LPF Urine Mucus NEGATIVE /LPF Urine Culture Indicated NO My Orders Orders - NUBIA MURRAY APRN Ua Culture If Indicated (03/02/17 17:46) Urine Bedside (03/02/17 17:46) Ondansetron Oral Dissolve Tab (Zofran (03/02/17 18:00) Vital Signs/I&O Vital Sign - Last 12Hours 03/02/17 17:58 Temp 97.6 Pulse 57 Resp 18 B/P (MAP) 147/85 Pulse Ox 99 Departure Impression Impression: Primary Impression: Musculoskeletal back pain Disposition: 01 HOME, SELF-CARE Condition: Stable Departure-Patient Inst. Decision time for Depature: 18:22 Referrals: NO,LOCAL PHYSICIAN (PCP/Family) Primary Care Physician Patient Instructions: Low Back Pain (DC) Add. Discharge Instructions: 1. Medication as directed 2. Return to ER for any concerns 3. See your doctor later this week Scripts Cyclobenzaprine HCl (Cyclobenzaprine HCl) 5 Mg Tablet 5 MG PO TID Y for PAIN-MODERATE TO SEVERE, #20 TAB Prov: NUBIA MURRAY APRN 03/02/17 Naproxen (Naprosyn) 500 Mg Tablet 500 MG PO BID Y for PAIN-MODERATE, #30 TAB Prov: NUBIA MURRAY APRN 03/02/17 NUBIA MURRAY APRN Mar 02, 2017 17:55
[2017-03-02] MEDS ORDERED: ONDANSETRON 4 MG (ZOFRAN) ORAL DISSOLVE TAB PO ONE (18:00)
[2017-03-02 18:16] LABS: BILIRUBIN,URINE NEGATIVE (NEGATIVE); KETONES,URINE NEGATIVE (NEGATIVE); LEUKOCYTE ESTERASE ,URINE NEGATIVE (NEGATIVE); NITRITE,URINE NEGATIVE (NEGATIVE); PH,URINE 7 (5-9); PROTEIN,URINE NEGATIVE (NEGATIVE); UROBILINOGEN,URINE NORMAL (NORMAL)
[2017-03-02] MEDS ORDERED: CYCL5TAB PO (18:23)
[2017-03-02] MEDS ORDERED: NAPR500T PO (18:23)
[2017-03-02 18:27] VITALS: BP 120/78
== END 2017-03-02 18:27 | disposition home or self-care (01) ==
LOC: EDUNIT# 16:47 → ER 16:48
DX: M79.1 Myalgia (principal); M54.5 Low back pain; G43.909 Migraine, unspecified, not intractable, without status migrainosus; J45.909 Unspecified asthma, uncomplicated; Z87.42 Personal history of other diseases of the female genital tract; Z98.51 Tubal ligation status; Z87.59 Personal history of other complications of pregnancy, childbirth and the puerperium; Z77.22 Contact with and (suspected) exposure to environmental tobacco smoke (acute) (chronic)
CPT/HCPCS: 81000; 84703; 99282

== ENCOUNTER 2017-03-13 18:28 | Emergency (ER) | payer MEDICAID ==
[~2017-03-13] VITALS: Ht 152.4 cm; Wt 63.5 kg
[2017-03-13] MEDS ORDERED: ONDANSETRON 4 MG (ZOFRAN) ORAL DISSOLVE TAB PO ONE (19:30)
[2017-03-13] MEDS ORDERED: ALPRAZolam 0.5 MG (XANAX) TAB PO SCH (19:30)
--- NOTE | 2017-03-13 19:31 | ED General ---
General Chief Complaint: Dizziness/Syncope Stated Complaint: LIGHTHEADEDNESS,DIZZINESS,SOA Nursing Triage Note: patient reports dizziness and hot flashes while at work Nursing Sepsis Screen: No Definite Risk Source of Information: Patient Exam Limitations: No Limitations History of Present Illness Time Seen by Provider: 19:30 Initial Comments To ER with reports of dizziness and hot flashes as well as facial redness. She felt as though her heart was in her throat and beating very quickly. She did feel a bit anxious. She also has some sharp pains in the lower abdomen. Timing/Duration: 1-3 Hours Severity: Moderate Allergies and Home Medications Allergies Coded Allergies: metoclopramide (Unverified Allergy, Mild, 01/03/17) promethazine (Unverified Allergy, Mild, 01/03/17) morphine (Unverified Adverse Reaction, Severe, PAIN, 01/03/17) Home Medications Escitalopram Oxalate 10 Mg Tablet, 5 MG PO DAILY, (Reported) Constitutional: see HPI EENTM: see HPI Respiratory: no symptoms reported Cardiovascular: no symptoms reported Genitourinary: no symptoms reported Musculoskeletal: no symptoms reported Skin: no symptoms reported Psychiatric/Neurological: See HPI, Anxiety, Headache (left-sided typical for her based on previous headaches) Hematologic/Lymphatic: No Symptoms Reported Immunological/Allergic: no symptoms reported Past Laulgnn-Folduy-Zkxrat Hx Patient Social History Alcohol Use: Denies Use Recreational Drug Use: No Type Used: Cigarettes 2nd Hand Smoke Exposure: Yes Recent Foreign Travel: No Contact w/Someone Who Travel: No Recent Infectious Disease Expo: No Recent Hopitalizations: No Physical Abuse: No Sexual Abuse: No Immunizations Up To Date Tetanus Booster (TDap): Less than 5yrs PED Vaccines UTD: Yes Seasonal Allergies Seasonal Allergies: No Surgeries History of Surgeries: Yes (S-CECTION X 2, BTL. 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 Genitourinary History of Genitourinary Disor: Yes Genitourinary Disorders: Kidney Stones Gastrointestinal History of Gastrointestinal Di: Yes Gastrointestinal Disorders: Irritable Bowel Musculoskeletal History of Musculoskeletal Dis: Yes Musculoskeletal Disorders: Chronic Back Pain Endocrine History of Endocrine Disorders: No HEENT Loss of Vision: Denies Hearing Impairment: Denies Cancer History of Cancer: No Psychosocial History of Psychiatric Problem: Yes Behavioral Health Disorders: Depression Suicide Risk Score: 0 Integumentary History of Skin or Integumenta: Yes (SHINGLES; CELLULITIS) Skin/Integumentary Disorders: Recent Skin Changes Blood Transfusions History of Blood Disorders: No Adverse Reaction to a Blood Tr: No Family Medical History Significant Family History: Heart Disease Family Medial History: Diabetes mellitus 19 FATHER Myocardial infarction 19 FATHER Thyroid disease G8 SISTER Physical Exam Vital Signs Vital Sign - Last 12Hours 03/13/17 19:11 Temp 97.9 Pulse 87 Resp 18 B/P (MAP) 137/92 Pulse Ox 100 Capillary Refill : Less Than 3 Seconds General Appearance: No Apparent Distress, WD/WN, Other (normal sinus rhythm with no ectopy on the athletic monitor) Eyes: Bilateral Eye Normal Inspection, Bilateral Eye PERRL, Bilateral Eye EOMI HEENT: PERRL/EOMI, TMs Normal Neck: Full Range of Motion, Normal Inspection Respiratory: Normal Breath Sounds, No Accessory Muscle Use, No Respiratory Distress Cardiovascular: Regular Rate, Rhythm, Normal Peripheral Pulses Gastrointestinal: Normal Bowel Sounds, Non Tender, Soft Extremity: Normal Capillary Refill, Normal Inspection Neurologic/Psychiatric: Alert, Oriented x3, No Motor/Sensory Deficits Skin: Normal Color, Warm/Dry Progress/Results/Core Measures Results/Orders Lab Results Laboratory Tests Test 03/13/17 19:35 Range/Units White Blood Count 5.9 4.3-11.0 10^3/uL Red Blood Count 4.08 L 4.35-5.85 10^6/uL Hemoglobin 12.4 11.5-16.0 G/DL Hematocrit 38 35-52 % Mean Corpuscular Volume 92 80-99 FL Mean Corpuscular Hemoglobin 30 25-34 PG Mean Corpuscular Hemoglobin Concent 33 32-36 G/DL Red Cell Distribution Width 12.0 10.0-14.5 % Platelet Count 284 130-400 10^3/uL Mean Platelet Volume 10.7 H 7.4-10.4 FL Neutrophils (%) (Auto) 43 42-75 % Lymphocytes (%) (Auto) 43 12-44 % Monocytes (%) (Auto) 11 0-12 % Eosinophils (%) (Auto) 3 0-10 % Basophils (%) (Auto) 0 0-10 % Neutrophils # (Auto) 2.5 1.8-7.8 X 10^3 Lymphocytes # (Auto) 2.5 1.0-4.0 X 10^3 Monocytes # (Auto) 0.7 0.0-1.0 X 10^3 Eosinophils # (Auto) 0.2 0.0-0.3 10^3/uL Basophils # (Auto) 0.0 0.0-0.1 10^3/uL Sodium Level 140 135-145 MMOL/L Potassium Level 3.8 3.6-5.0 MMOL/L Chloride Level 104 98-107 MMOL/L Carbon Dioxide Level 25 21-32 MMOL/L Anion Gap 11 5-14 MMOL/L Blood Urea Nitrogen 14 7-18 MG/DL Creatinine 0.76 0.60-1.30 MG/DL Estimat Glomerular Filtration Rate > 60 BUN/Creatinine Ratio 18 Glucose Level 108 H 70-105 MG/DL Calcium Level 9.6 8.5-10.1 MG/DL Total Bilirubin 0.2 0.1-1.0 MG/DL Aspartate Amino Transf (AST/SGOT) 18 5-34 U/L Alanine Aminotransferase (ALT/SGPT) 16 0-55 U/L Alkaline Phosphatase 97 40-136 U/L Total Protein 7.1 6.4-8.2 GM/DL Albumin 4.2 3.2-4.5 GM/DL My Orders Orders - NUBIA MURRAY APRN Ua Culture If Indicated (03/13/17 19:13) Drug Screen Stat (Urine) (03/13/17 19:13) Cbc With Automated Diff (03/13/17 19:13) Comprehensive Metabolic Panel (03/13/17 19:13) Ondansetron Oral Dissolve Tab (Zofran (03/13/17 19:30) Alprazolam Tablet (Xanax Tablet) (03/13/17 19:30) Urine Bedside (03/13/17 19:38) Medications Given in ED Current Medications Medications Dose Ordered Sig/Elisabeth Route Start Time Stop Time Status Last Admin Dose Admin Ondansetron HCl 4 mg ONCE ONCE PO 03/13/17 19:30 03/13/17 19:31 DC 03/13/17 19:34 4 MG Vital Signs/I&O Vital Sign - Last 12Hours 03/13/17 19:11 Temp 97.9 Pulse 87 Resp 18 B/P (MAP) 137/92 Pulse Ox 100 Blood Pressure Mean: 107 Departure Communication (Admissions) Progress Notes 2038- patient feels better at this time stating "now I feel like I can breathe" . She states she does have a bowel movement and believes that her lower abdominal pain earlier. Impression Impression: Primary Impression: Anxiety Additional Impression: Flushing Disposition: HOME, SELF-CARE Condition: Stable Departure-Patient Inst. Decision time for Depature: 20:39 Referrals: NO,LOCAL PHYSICIAN (PCP/Family) Primary Care Physician Patient Instructions: NO INSTRUCTIONS GIVEN Add. Discharge Instructions: 1. Return to ER for any concerns 2. All discharge instructions reviewed with patient and/or family. Voiced understanding. Work/School Note: Work Release Form Date Seen in the Emergency Department: Mar 13, 2017 Return to Work: Mar 14, 2017 NUBIA MURRAY APRN Mar 13, 2017 19:31
[2017-03-13 19:44] LABS: BASOPHILS % (AUTO) 0 % (0-10); EOSINOPHILS # (AUTO) 0.2 10^3/uL (0.0-0.3); EOSINOPHILS % (AUTO) 3 % (0-10); LYMPHOCYTES # (AUTO) 2.5 X 10^3 (1.0-4.0); LYMPHOCYTES % (AUTO) 43 % (12-44); MEAN CORPUSCULAR HEMOGLOBIN 30 PG (25-34); MEAN CORPUSCULAR HGB CONC 33 G/DL (32-36); MEAN CORPUSCULAR VOLUME 92 FL (80-99); MEAN PLATELET VOLUME 10.7 FL (7.4-10.4); MONOCYTES # (AUTO) 0.7 X 10^3 (0.0-1.0); MONOCYTES % (AUTO) 11 % (0-12); NEUTROPHILS # (AUTO) 2.5 X 10^3 (1.8-7.8); NEUTROPHILS % (AUTO) 43 % (42-75); PLATELET COUNT 284 10^3/uL (130-400); RED BLOOD COUNT 4.08 10^6/uL (4.35-5.85); WHITE BLOOD COUNT 5.9 10^3/uL (4.3-11.0)
[2017-03-13 20:01] LABS: ALANINE AMINOTRANSFERASE 16 U/L (0-55); ALBUMIN 4.2 GM/DL (3.2-4.5); ANION GAP 11 MMOL/L (5-14); ASPARTATE AMINO TRANSFERASE 18 U/L (5-34); BILIRUBIN,TOTAL 0.2 MG/DL (0.1-1.0); BLOOD UREA NITROGEN 14 MG/DL (7-18); BUN/CREATININE RATIO 18; CALCIUM 9.6 MG/DL (8.5-10.1); CARBON DIOXIDE 25 MMOL/L (21-32); CHLORIDE 104 MMOL/L (98-107); CREATININE SERUM 0.76 MG/DL (0.60-1.30); GFR ESTIMATED > 60; GLUCOSE 108 MG/DL (70-105); POTASSIUM 3.8 MMOL/L (3.6-5.0); SODIUM 140 MMOL/L (135-145); TOTAL PROTEIN 7.1 GM/DL (6.4-8.2)
[2017-03-13 20:47] VITALS: BP 137/92
== END 2017-03-13 20:47 | disposition home or self-care (01) ==
LOC: EDUNIT# 18:28 → ER 18:29
DX: F41.9 Anxiety disorder, unspecified (principal); F32.9 Major depressive disorder, single episode, unspecified; R23.2 Flushing; G43.909 Migraine, unspecified, not intractable, without status migrainosus; K58.9 Irritable bowel syndrome, unspecified; Z77.22 Contact with and (suspected) exposure to environmental tobacco smoke (acute) (chronic); Z98.51 Tubal ligation status; Z87.59 Personal history of other complications of pregnancy, childbirth and the puerperium; Z87.42 Personal history of other diseases of the female genital tract; Z82.49 Family history of ischemic heart disease and other diseases of the circulatory system
CPT/HCPCS: 36415; 80053; 85025; 99283

== ENCOUNTER 2017-06-04 17:22 | Emergency (ER) | payer MEDICAID ==
[~2017-06-04] VITALS: Ht 154.9 cm; Wt 67.1 kg
[~2017-06-04 17:22] MED LIST changes: +ACHD5005 PO; -HYDR-3812 PO; +NAPR-1071 PO; -NAPR500T PO
[2017-06-04] MEDS ORDERED: AMOX500C2 PO (17:31)
[2017-06-04] MEDS ORDERED: PRD20T PO (17:31)
--- NOTE | 2017-06-04 17:31 | ED EENT ---
History of Present Illness General Stated Complaint: SORE THROAT Source: patient Exam Limitations: no limitations History of Present Illness Time seen by provider: 17:28 Initial Comments To ER with sore throat, nasal congestion, purulent nasal discharge, cough, fever up to 102 since 5 days ago. Timing/Duration: last week Severity: moderate Associated Symptoms: cough, fever, sore throat Allergies and Home Medications Allergies Coded Allergies: metoclopramide (Unverified Allergy, Mild, 01/03/17) promethazine (Unverified Allergy, Mild, 01/03/17) morphine (Unverified Adverse Reaction, Severe, PAIN, 01/03/17) Home Medications Escitalopram Oxalate 10 Mg Tablet, 5 MG PO DAILY, (Reported) Review of Systems Constitutional: see HPI Eyes: No Symptoms Reported Ears: No Symptoms Reported Nose: no symptoms reported Mouth: no symptoms reported Throat: no symptoms reported Respiratory: see HPI, cough Cardiovascular: no symptoms reported Musculoskeletal: no symptoms reported Past Khnryfl-Jleofm-Bjmupo Hx Patient Social History Type Used: Cigarettes 2nd Hand Smoke Exposure: Yes Recent Foreign Travel: No Contact w/Someone Who Travel: No Recent Hopitalizations: No Immunizations Up To Date Tetanus Booster (TDap): Less than 5yrs PED Vaccines UTD: Yes Seasonal Allergies Seasonal Allergies: No Surgeries History of Surgeries: Yes (S-CECTION X 2, BTL. 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 Genitourinary History of Genitourinary Disor: Yes Genitourinary Disorders: Kidney Stones Gastrointestinal History of Gastrointestinal Di: Yes Gastrointestinal Disorders: Irritable Bowel Musculoskeletal History of Musculoskeletal Dis: Yes Musculoskeletal Disorders: Chronic Back Pain Endocrine History of Endocrine Disorders: No HEENT Loss of Vision: Denies Hearing Impairment: Denies Cancer History of Cancer: No Psychosocial History of Psychiatric Problem: Yes Behavioral Health Disorders: Depression Integumentary History of Skin or Integumenta: Yes (SHINGLES; CELLULITIS) Skin/Integumentary Disorders: Recent Skin Changes Blood Transfusions History of Blood Disorders: No Adverse Reaction to a Blood Tr: No Family Medical History Significant Family History: Heart Disease Family Medial History: Diabetes mellitus 19 FATHER Myocardial infarction 19 FATHER Thyroid disease G8 SISTER Physical Exam General Appearance: WD/WN, no apparent distress Eyes: bilateral eye normal inspection, bilateral eye PERRL, bilateral eye EOMI Ears: bilateral ear auricle normal, bilateral ear canal normal, bilateral ear TM normal Mouth/Throat: other (pharyngeal erythema with cobblestoning of the oropharynx but no evidence of peritonsillar abscess) Neck: non-tender, full range of motion, lymphadenopathy (R) (mild anterior cervical chain), lymphadenopathy (L) (mild anterior cervical chain) Respiratory: normal breath sounds, no respiratory distress, no accessory muscle use Gastrointestinal: normal bowel sounds, non tender Neurologic/Psychiatric: alert, normal mood/affect, oriented x 3 Skin: normal color, warm/dry Departure Impression Impression: Primary Impression: Upper respiratory infection Disposition: 01 HOME, SELF-CARE Condition: Stable Departure-Patient Inst. Decision time for Depature: 17:30 Referrals: NO,LOCAL PHYSICIAN (PCP) Primary Care Physician Patient Instructions: NO INSTRUCTIONS GIVEN Add. Discharge Instructions: 1. Medication as directed 2. Return to ER for any concerns 3. Use [id number] DayQuil and NyQuil for symptom relief Scripts Prednisone (Prednisone) 20 Mg Tab 40 MG PO DAILY, #6 TAB Prov: NUBIA MURRAY APRN 06/04/17 Amoxicillin (Amoxicillin) 500 Mg Capsule 500 MG PO TID, #21 CAP Prov: NUBIA MURRAY APRN 06/04/17 Work/School Note: Work Release Form Date Seen in the Emergency Department: Jun 04, 2017 Return to Work: Jun 06, 2017 NUBIA MURRAY APRN Jun 04, 2017 17:31
[2017-06-04 17:33] VITALS: BP 123/83
== END 2017-06-04 17:33 | disposition home or self-care (01) ==
LOC: EDUNIT# 17:22 → ER 17:23
DX: J06.9 Acute upper respiratory infection, unspecified (principal); J45.909 Unspecified asthma, uncomplicated; G43.909 Migraine, unspecified, not intractable, without status migrainosus; F32.9 Major depressive disorder, single episode, unspecified; Z82.49 Family history of ischemic heart disease and other diseases of the circulatory system; Z87.19 Personal history of other diseases of the digestive system; Z87.448 Personal history of other diseases of urinary system; Z77.22 Contact with and (suspected) exposure to environmental tobacco smoke (acute) (chronic); Z98.51 Tubal ligation status; Z87.59 Personal history of other complications of pregnancy, childbirth and the puerperium
CPT/HCPCS: 99282

== ENCOUNTER 2017-06-06 17:46 | Emergency (ER) | payer MEDICAID ==
[~2017-06-06] VITALS: Ht 154.9 cm; Wt 67.1 kg
--- OUTSIDE RECORDS SUMMARY | 2017-06-06 17:56 | XMS REPORT | Continuity of Care Document ---
Author Author [facility] of [facility] Address Unknown Phone Unavailable Allergies Active Description Code Type Severity Reaction Onset Reported/Identified Relationship to Patient Clinical Status Yes Phenergan Drug Allergy N/A N/A 08/22/2014 Yes Reglan Drug Allergy N/A N/A 08/22/2014 Yes morphine [id number] Drug Allergy Severe PAIN 01/03/2017 Yes metoclopramide [id number] Drug Allergy Mild N/A 01/03/2017 Yes promethazine [id number] Drug Allergy Mild N/A 01/03/2017 Medications There is no data. Problems Date Dx Coded Attending Type Code [...] MARTINES DO 728.71 PLANTAR FASCIAL FIBROMATOSIS 08/22/2014 MARTINES DO, MARCUS K 783.1 ABNORMAL WEIGHT GAIN 12/10/2014 RICKY NELSON [...] 03/27/2015 RICKY NELSON Ot E87.6 HYPOKALEMIA 03/27/2015 RICKY NELSON Ot F17.210 NICOTINE DEPENDENCE, CIGARETTES, [...] CELLULITIS OF RIGHT LOWER LIMB 06/01/2015 RICKY NELSON Ot F17.210 NICOTINE DEPENDENCE, CIGARETTES, UNCOMPL 06/01/2015 RICKY NELSON Ot S93.602A UNSPECIFIED SPRAIN OF LEFT FOOT, INITIAL 06/01/2015 RICKY NELSON Ot W08.XXXA FALL FROM OTHER FURNITURE, INITIAL ENCOU 06/01/2015 RICKY NELSON Ot Y92.019 [facility] [email or web address] PLACE IN SINGLE-FAMILY (PRIVATE) 06/01/2015 RICKY NELSON Ot Y93.83 ACTIVITY, ROUGH HOUSING AND HORSEPLAY 06/01/2015 RICKY NELSON Ot Y99.8 OTHER EXTERNAL CAUSE STATUS 07/17/2015 RICKY NELSON Ot F17.210 NICOTINE DEPENDENCE, CIGARETTES, UNCOMPL 07/17/2015 RICKY NELSON Ot H92.02 OTALGIA, LEFT EAR 07/17/2015 RICKY NELSON Ot J03.90 ACUTE TONSILLITIS, UNSPECIFIED 08/08/2015 JOSE RODRIGUEZ DO Ot R51 HEADACHE 09/02/2015 Ot F17.210 NICOTINE DEPENDENCE, CIGARETTES, UNCOMPL 09/02/2015 Ot S46.911A [facility]/UP A 09/02/2015 Ot X58.XXXA EXPOSURE TO OTHER SPECIFIED FACTORS, INI 09/02/[address] [facility] [email or web address] NON-INSTITUT (PRIVATE 09/02/2015 Ot Y99.0 CIVILIAN ACTIVITY [...] SOPHIA JOSÉ MD Ot M79.1 MYALGIA 03/07/2016 MANA ZARATE MD Ot R10.11 RIGHT UPPER QUADRANT PAIN 03/07/2016 ELLIOT ROMERO, MANA Fried Ot R10.11 RIGHT UPPER QUADRANT PAIN 03/19/2016 MANA ZARATE MD Ot R10.11 RIGHT UPPER QUADRANT PAIN 03/21/2016 MANA ZARATE MD Ot R10.11 RIGHT UPPER QUADRANT PAIN 03/24/2016 MANA ZARATE MD Ot R10.13 EPIGASTRIC PAIN 03/27/2016 VICTORIANO RODRIGUEZ DOA Sharon Ot J06.9 ACUTE UPPER RESPIRATORY INFECTION, UNSPE 03/27/2016 VICTORIANO RODRIGUEZ DOA Sharon Ot J20.9 ACUTE BRONCHITIS, UNSPECIFIED 03/27/2016 JOSE RODRIGUEZ DO Ot R06.02 SHORTNESS OF BREATH 2016 VICTORIANO RODRIGUEZ DOA Sharon Ot J06.9 ACUTE [...] DAX Foote Ot L29.9 PRURITUS, UNSPECIFIED 11/09/2016 DAX HELMS MD Ot T14.8 OTHER INJURY OF UNSPECIFIED BODY REGION 11/09/2016 DAX HELMS MD Ot W57.XXXA BIT/STUNG BY NONVENOM INSECT OTH NONVE 11/13/2016 DAX HELMS MD Ot L29.9 PRURITUS, UNSPECIFIED 11/13/2016 DAX HELMS MD Ot T14.8 OTHER INJURY OF UNSPECIFIED BODY REGION 11/13/2016 DAX HELMS MD Ot W57.XXXA BIT/STUNG BY NONVENOM INSECT OTH NONVE 11/22/2016 NUBIA MURRAY GENERAL REPAIRER Ot F17.210 NICOTINE DEPENDENCE, CIGARETTES, UNCOMPL 11/22/2016 NUBIA MURRAY APRN Ot M54.5 LOW BACK PAIN 11/22/2016 NUBIA MURRAY APRN Ot Z87.442 PERSONAL HISTORY OF URINARY CALCULI 11/22/2016 MANA ZARATE MD Ot R10.11 RIGHT UPPER QUADRANT PAIN 11/22/2016 MANA ZARATE MD Ot R10.13 EPIGASTRIC PAIN 11/28/2016 NUBIA MURRAY GENERAL REPAIRER Ot F17.210 NICOTINE DEPENDENCE, CIGARETTES, UNCOMPL 11/28/2016 NUBIA MURRAY APRN Ot M54.5 LOW BACK PAIN 11/28/2016 NUBIA MURARY GENERAL REPAIRER Ot Z87.442 PERSONAL HISTORY OF URINARY CALCULI 01/03/2017 MANA ZARATE MD Ot R10.11 RIGHT UPPER QUADRANT PAIN 01/03/2017 MANA ZARATE MD Ot R10.13 EPIGASTRIC PAIN 01/03/2017 TATIANA CIFUENTES Ot G43.909 MIGRAINE, UNSP, NOT INTRACTABLE, WITHOUT 01/03/2017 TATIANA CIFUENTES Ot G89.29 OTHER CHRONIC PAIN 01/03/2017 TATIANA CIFUENTES Ot J45.909 UNSPECIFIED ASTHMA, UNCOMPLICATED 01/03/2017 ESAU, TATIANA FORMS EXAMINER Ot K02.9 DENTAL CARIES, UNSPECIFIED 01/03/2017 ESAU, TATIANA FORMS EXAMINER Ot K04.7 PERIAPICAL ABSCESS WITHOUT SINUS 01/03/2017 ESAU, TATIANA FORMS EXAMINER Ot K08.89 OTHER SPECIFIED DISORDERS OF TEETH AND S 01/03/2017 ESAU, TATIANA FORMS EXAMINER Ot M54.9 DORSALGIA, UNSPECIFIED 01/03/2017 ESAU, TATIANA FORMS EXAMINER Ot Z87.42 PERSONAL HISTORY OF OTH DISEASES OF THE 01/03/2017 ESAU, TATIANA FORMS EXAMINER Ot Z87.442 PERSONAL HISTORY OF URINARY CALCULI 01/03/2017 ESAU, TATIANA FORMS EXAMINER Ot Z87.59 PERSONAL HISTORY OF COMP OF PREG, CHLDBR 01/03/2017 ESAU, TATIANA FORMS EXAMINER Ot Z98.51 TUBAL LIGATION STATUS 01/05/2017 ESUA, TATIANA FORMS EXAMINER Ot G43.909 MIGRAINE, UNSP, NOT INTRACTABLE, WITHOUT 01/05/2017 ESAU, TATIANA FORMS EXAMINER Ot G89.29 OTHER CHRONIC PAIN 01/05/2017 ESAU, TATIANA FORMS EXAMINER Ot J45.909 UNSPECIFIED ASTHMA, UNCOMPLICATED 01/05/2017 ESAU, TATIANA FORMS EXAMINER Ot K02.9 DENTAL CARIES, UNSPECIFIED 01/05/2017 ESAU, TATIANA FORMS EXAMINER Ot K04.7 PERIAPICAL ABSCESS WITHOUT SINUS 01/05/2017 ESAU, TATIANA FORMS EXAMINER Ot K08.89 OTHER SPECIFIED DISORDERS OF TEETH AND S 01/05/2017 ESAU, TATIANA FORMS EXAMINER Ot M54.9 DORSALGIA, UNSPECIFIED 01/05/2017 ESAU, TATIANA FORMS EXAMINER Ot Z87.42 PERSONAL HISTORY OF OTH DISEASES OF THE 01/05/2017 ESAU, TATIANA FORMS EXAMINER Ot Z87.442 PERSONAL HISTORY OF URINARY CALCULI 01/05/2017 ESAU, TATIANA FORMS EXAMINER Ot Z87.59 PERSONAL HISTORY OF COMP OF PREG, CHLDBR 01/05/2017 ESAU, TATIANA FORMS EXAMINER Ot Z98.51 TUBAL LIGATION STATUS 01/09/2017 ESAU, TATIANA FORMS EXAMINER Ot G43.909 MIGRAINE, UNSP, NOT INTRACTABLE, WITHOUT 01/09/2017 ESAU, TATIANA FORMS EXAMINER Ot G89.29 OTHER CHRONIC PAIN 01/09/2017 ESAU, TATIANA FORMS EXAMINER Ot J45.909 UNSPECIFIED ASTHMA, UNCOMPLICATED 01/09/2017 ESAU, TATIANA FORMS EXAMINER Ot K02.9 DENTAL CARIES, UNSPECIFIED 01/09/2017 TATIANA CIFUENTESP Ot K04.7 PERIAPICAL ABSCESS WITHOUT SINUS 01/09/2017 TATIANA CIFUENTES FORMS EXAMINER Ot K08.89 OTHER SPECIFIED DISORDERS OF TEETH AND S 01/09/2017 ESAU TATIANA JORDANP Ot M54.9 DORSALGIA, UNSPECIFIED 01/09/2017 TATIANA CIFUENTES FORMS EXAMINER Ot Z87.42 PERSONAL HISTORY OF OTH DISEASES OF THE 01/09/2017 ESAU TATIANA JORDANP Ot Z87.442 PERSONAL HISTORY OF URINARY CALCULI 01/09/2017 TATIANA CIFUENTES FORMS EXAMINER Ot Z87.59 PERSONAL HISTORY OF COMP OF PREG, CHLDBR 01/09/2017 TATIANA CIFUENTESP Ot Z98.51 TUBAL LIGATION STATUS 03/02/2017 NUBIA MURRAY APRN Ot G43.909 MIGRAINE, UNSP, NOT INTRACTABLE, WITHOUT 03/02/2017 NUBIA MURRAY APRN Ot J45.909 UNSPECIFIED ASTHMA, UNCOMPLICATED 03/02/2017 NUBIA MURRAY APRN Ot M54.5 LOW BACK PAIN 03/02/2017 NUBIA MURRAY APRN Ot M79.1 MYALGIA 03/02/2017 NUBIA MURRAY APRN Ot Z77.22 CNTCT W AND EXPSR TO ENVIRON TOBACCO SMO 03/02/2017 NUBIA MURRAY APRN Ot Z87.42 PERSONAL HISTORY OF OTH DISEASES OF THE 03/02/2017 NUBIA MURRAY APRN Ot Z87.59 PERSONAL HISTORY OF COMP OF PREG, CHLDBR 03/02/2017 NUBIA MURRAY APRN Ot Z98.51 TUBAL LIGATION STATUS 03/04/2017 NUBIA MURRAY APRN Ot G43.909 MIGRAINE, UNSP, NOT INTRACTABLE, WITHOUT 03/04/2017 NUBIA MURRAY APRN Ot J45.909 UNSPECIFIED ASTHMA, UNCOMPLICATED 03/04/2017 NUBIA MURRAY APRN Ot M54.5 LOW BACK PAIN 03/04/2017 NUBIA MURRAY APRN Ot M79.1 MYALGIA 03/04/2017 NUBIA MURRAY APRN Ot Z77.22 CNTCT W AND EXPSR TO ENVIRON TOBACCO SMO 03/04/2017 NUBIA MURRAY APRN Ot Z87.42 PERSONAL HISTORY OF OTH DISEASES OF THE 03/04/2017 NUBIA MURRAY APRN Ot Z87.59 PERSONAL HISTORY OF COMP OF PREG, CHLDBR 03/04/2017 NUBIA MURRAY APRN Ot Z98.51 TUBAL LIGATION STATUS 03/13/2017 NBUIA MURRAY APRN Ot F32.9 MAJOR DEPRESSIVE DISORDER, SINGLE EPISOD 03/13/2017 NUBIA MURRAY APRN Ot F41.9 ANXIETY DISORDER, UNSPECIFIED 03/13/2017 NUBIA MURRAY APRN Ot G43.909 MIGRAINE, UNSP, NOT INTRACTABLE, WITHOUT 03/13/2017 NUBIA MURRAY APRN Ot K58.9 IRRITABLE BOWEL SYNDROME WITHOUT DIARRHE 03/13/2017 NUBIA MURRAY APRN Ot R23.2 FLUSHING 03/13/2017 NUBIA MURRAY APRN Ot R42 DIZZINESS AND GIDDINESS 03/13/2017 NUBIA MURRAY APRN Ot Z77.22 CNTCT W AND EXPSR TO ENVIRON TOBACCO SMO 03/13/2017 NUBIA MURRAY APRN Ot Z82.49 FAMILY HX OF ISCHEM HEART DIS AND OTH DI 03/13/2017 NUBIA MURRAY APRN Ot Z87.42 PERSONAL HISTORY OF OTH DISEASES OF THE 03/13/2017 NUBIA MURRAY APRN Ot Z87.59 PERSONAL HISTORY OF COMP OF PREG, CHLDBR 03/13/2017 NUBIA MURRAY APRN Ot Z98.51 TUBAL LIGATION STATUS 04/12/2017 ANALIA ROMERO, DAX Foote Ot F17.210 NICOTINE DEPENDENCE, CIGARETTES, UNCOMPL 04/12/2017 DAX HELMS MD Ot F32.9 MAJOR DEPRESSIVE DISORDER, SINGLE EPISOD 04/12/2017 DAX HELMS MD Ot G43.909 MIGRAINE, UNSP, NOT INTRACTABLE, WITHOUT 04/12/2017 DAX HELMS MD Ot J45.909 UNSPECIFIED ASTHMA, UNCOMPLICATED 04/12/2017 DAX HELMS MD Ot K58.9 IRRITABLE BOWEL SYNDROME WITHOUT DIARRHE 04/12/2017 DAX HELMS MD Ot M53.3 SACROCOCCYGEAL DISORDERS, NOT ELSEWHERE 04/12/2017 DAX HELMS MD Ot M54.5 LOW BACK PAIN 04/12/2017 DAX HELMS MD, Ot R10.32 LEFT LOWER QUADRANT PAIN 04/12/2017 DAX HELMS MD, Ot Z82.49 FAMILY HX OF ISCHEM HEART DIS AND OTH DI 04/12/2017 DAX HELMS MD, Ot Z87.42 PERSONAL HISTORY OF OTH DISEASES OF THE 04/12/2017 DAX HELMS MD, Ot Z87.442 PERSONAL HISTORY OF URINARY CALCULI 04/12/2017 DAX HELMS MD, Ot Z87.59 PERSONAL HISTORY OF COMP OF PREG, CHLDBR 04/12/2017 DAX HELMS MD, Ot Z98.51 TUBAL LIGATION STATUS Procedures Code Description [place] [id number] ROUTINE VENIPUNCTURE 08/22/2014 THYANA THYROID ANALYZER 08/22/2014 Results Test Result Range Streptococcus pyogenes antigen detection - 01/07/16 17:45 Streptococcus pyogenes antigen detection POSITIVE NEGATIVE Streptococcus pyogenes antigen detection - 02/09/16 08:17 Streptococcus pyogenes antigen detection NEGATIVE NEGATIVE Bacterial throat culture - 02/09/16 08:17 Bacterial throat culture NBS NRG Complete urinalysis with reflex to culture - 03/02/17 18:02 Urine color determination YELLOW NRG Urine clarity determination CLEAR NRG Urine pH measurement by test strip 7 5-9 Specific gravity of urine by test strip 1.015 1.016- 1.022 Urine protein assay by test strip, semi-quantitative NEGATIVE NEGATIVE Urine glucose detection by automated test strip NEGATIVE NEGATIVE Erythrocytes detection in urine sediment by light microscopy NEGATIVE NEGATIVE Urine ketones detection by automated test strip NEGATIVE NEGATIVE Urine nitrite detection by test strip NEGATIVE NEGATIVE Urine total bilirubin detection by test strip NEGATIVE NEGATIVE Urine urobilinogen measurement by automated test strip (mass/volume) NORMAL NORMAL Urine leukocyte esterase detection by dipstick NEGATIVE NEGATIVE Automated urine sediment erythrocyte count by microscopy (number/high power field) NONE NRG Automated urine sediment leukocyte count by microscopy (number/high power field ) NONE NRG Bacteria detection in urine sediment by light microscopy NEGATIVE NRG Squamous epithelial cells detection in urine sediment by light microscopy 10-25 NRG Crystals detection in urine sediment by light microscopy NONE NRG Casts detection in urine sediment by light microscopy NONE NRG Mucus detection in urine sediment by light microscopy NEGATIVE NRG Complete urinalysis with reflex to culture NO NRG Amorphous sediment detection in urine sediment by light microscopy MOD JONO URATES NRG Complete blood count (CBC) with automated white blood cell (WBC) differential - 03/13/17 19:35 Blood leukocytes automated count (number/volume) 5.9 10*3/uL 4.3-11.0 Blood erythrocytes automated count (number/volume) 4.08 10*6/uL 4.35-5.85 Venous blood hemoglobin measurement (mass/volume) 12.4 g/dL 11.5-16.0 Blood hematocrit (volume fraction) 38 % 35-52 Automated erythrocyte mean corpuscular volume 92 [foz_us] 80-99 Automated erythrocyte mean corpuscular hemoglobin (mass per erythrocyte) 30 pg 25-34 Automated erythrocyte mean corpuscular hemoglobin concentration measurement ( mass/volume) 33 g/dL 32-36 Automated erythrocyte distribution width ratio 12.0 % 10.0-14.5 Automated blood platelet count (count/volume) 284 10*3/uL 130-400 Automated blood platelet mean volume measurement 10.7 [foz_us] 7.4-10.4 Automated blood neutrophils/100 leukocytes 43 % 42-75 Automated blood lymphocytes/100 leukocytes 43 % 12-44 Blood monocytes/100 leukocytes 11 % 0-12 Automated blood eosinophils/100 leukocytes 3 % 0-10 Automated blood basophils/100 leukocytes 0 % 0-10 Blood neutrophils automated count (number/volume) 2.5 10*3 1.8-7.8 Blood lymphocytes automated count (number/volume) 2.5 10*3 1.0-4.0 Blood monocytes automated count (number/volume) 0.7 10*3 0.0-1.0 Automated eosinophil count 0.2 10*3/uL 0.0-0.3 Automated blood basophil count (count/volume) 0.0 10*3/uL 0.0-0.1 Comprehensive metabolic panel - 03/13/17 19:35 Serum or plasma sodium measurement (moles/volume) 140 mmol/L 135-145 Serum or plasma potassium measurement (moles/volume) 3.8 mmol/L 3.6-5.0 Serum or plasma chloride measurement (moles/volume) 104 mmol/L 98-107 Carbon dioxide 25 mmol/L 21-32 Serum or plasma anion gap determination (moles/volume) 11 mmol/L 5-14 Serum or plasma urea nitrogen measurement (mass/volume) 14 mg/dL 7-18 Serum or plasma creatinine measurement (mass/volume) 0.76 mg/dL 0.60-1.30 Serum or plasma urea nitrogen/creatinine mass ratio 18 NRG Serum or plasma creatinine measurement with calculation of estimated glomerular filtration rate > NRG Serum or plasma glucose measurement (mass/volume) 108 mg/dL 70-105 Serum or plasma calcium measurement (mass/volume) 9.6 mg/dL 8.5-10.1 Serum or plasma total bilirubin measurement (mass/volume) 0.2 mg/dL 0.1-1.0 Serum or plasma alkaline phosphatase measurement (enzymatic activity/volume) 97 U/L 40-136 Serum or plasma aspartate aminotransferase measurement (enzymatic activity/ volume) 18 U/L 5-34 Serum or plasma alanine aminotransferase measurement (enzymatic activity/volume ) 16 U/L 0-55 Serum or plasma protein measurement (mass/volume) 7.1 g/dL 6.4-8.2 Serum or plasma albumin measurement (mass/volume) 4.2 g/dL 3.2-4.5 Complete urinalysis with reflex to culture - 04/11/17 21:18 Urine color determination YELLOW NRG Urine clarity determination SLIGHTLY CLOUDY NRG Urine pH measurement by test strip 6 5-9 Specific gravity of urine by test strip 1.025 1.016- 1.022 Urine protein assay by test strip, semi-quantitative NEGATIVE NEGATIVE Urine glucose detection by automated test strip NEGATIVE NEGATIVE Erythrocytes detection in urine sediment by light microscopy 1+ NEGATIVE Urine ketones detection by automated test strip NEGATIVE NEGATIVE Urine nitrite detection by test strip NEGATIVE NEGATIVE Urine total bilirubin detection by test strip NEGATIVE NEGATIVE Urine urobilinogen measurement by automated test strip (mass/volume) 1 mg/dL NORMAL Urine leukocyte esterase detection by dipstick 1+ NEGATIVE Automated urine sediment erythrocyte count by microscopy (number/high power field) RARE NRG Automated urine sediment leukocyte count by microscopy (number/high power field ) [HPF] NRG Bacteria detection in urine sediment by light microscopy FEW NRG Squamous epithelial cells detection in urine sediment by light microscopy 25-50 NRG Crystals detection in urine sediment by light microscopy NONE NRG Casts detection in urine sediment by light microscopy NONE NRG Mucus detection in urine sediment by light microscopy MODERATE NRG Complete urinalysis with reflex to culture NO NRG Complete blood count (CBC) with automated white blood cell (WBC) differential - 04/11/17 22:00 Blood leukocytes automated count (number/volume) 8.0 10*3/uL 4.3-11.0 Blood erythrocytes automated count (number/volume) 4.03 10*6/uL 4.35-5.85 Venous blood hemoglobin measurement (mass/volume) 12.8 g/dL 11.5-16.0 Blood hematocrit (volume fraction) 37 % 35-52 Automated erythrocyte mean corpuscular volume 91 [foz_us] 80-99 Automated erythrocyte mean corpuscular hemoglobin (mass per erythrocyte) 32 pg 25-34 Automated erythrocyte mean corpuscular hemoglobin concentration measurement ( mass/volume) 35 g/dL 32-36 Automated erythrocyte distribution width ratio 12.0 % 10.0-14.5 Automated blood platelet count (count/volume) 284 10*3/uL 130-400 Automated blood platelet mean volume measurement 10.4 [foz_us] 7.4-10.4 Automated blood neutrophils/100 leukocytes 51 % 42-75 Automated blood lymphocytes/100 leukocytes 35 % 12-44 Blood monocytes/100 leukocytes 10 % 0-12 Automated blood eosinophils/100 leukocytes 3 % 0-10 Automated blood basophils/100 leukocytes 0 % 0-10 Blood neutrophils automated count (number/volume) 4.1 10*3 1.8-7.8 Blood lymphocytes automated count (number/volume) 2.8 10*3 1.0-4.0 Blood monocytes automated count (number/volume) 0.8 10*3 0.0-1.0 Automated eosinophil count 0.3 10*3/uL 0.0-0.3 Automated blood basophil count (count/volume) 0.0 10*3/uL 0.0-0.1 Serum or plasma choriogonadotropin ( test) detection - 04/11/17 22:00 Serum or plasma choriogonadotropin ( test) detection NEGATIVE NEGATIVE Comprehensive metabolic panel - 04/11/17 22:00 Serum or plasma sodium measurement (moles/volume) 139 mmol/L 135-145 Serum or plasma potassium measurement (moles/volume) 3.8 mmol/L 3.6-5.0 Serum or plasma chloride measurement (moles/volume) 107 mmol/L 98-107 Carbon dioxide 23 mmol/L 21-32 Serum or plasma anion gap determination (moles/volume) 9 mmol/L 5-14 Serum or plasma urea nitrogen measurement (mass/volume) 12 mg/dL 7-18 Serum or plasma creatinine measurement (mass/volume) 0.71 mg/dL 0.60-1.30 Serum or plasma urea nitrogen/creatinine mass ratio 17 NRG Serum or plasma creatinine measurement with calculation of estimated glomerular filtration rate > NRG Serum or plasma glucose measurement (mass/volume) 90 mg/dL 70-105 Serum or plasma calcium measurement (mass/volume) 9.5 mg/dL 8.5-10.1 Serum or plasma total bilirubin measurement (mass/volume) 0.3 mg/dL 0.1-1.0 Serum or plasma alkaline phosphatase measurement (enzymatic activity/volume) 77 U/L 40-136 Serum or plasma aspartate aminotransferase measurement (enzymatic activity/ volume) 17 U/L 5-34 Serum or plasma alanine aminotransferase measurement (enzymatic activity/volume ) 18 U/L 0-55 Serum or plasma protein measurement (mass/volume) 6.7 g/dL 6.4-8.2 Serum or plasma albumin measurement (mass/volume) 4.1 g/dL 3.2-4.5 Lipase - 04/11/17 22:00 Lipase 26 U/L 8-78 Encounters ACCT No. Visit Date/Time Discharge Status Pt. Type Provider Facility Loc./Unit Complaint [id number] 08/22/2014 14:39:00 08/22/2014 23:59:59 [facility] Outpatient BOBBI MARCUS URBAN [id number] 04/11/2017 20:49:00 04/12/2017 01:59:00 DIS Emergency ANALIA ROMERO, DAX Foote [facility] ER KIDNEY PAIN,NAUSEA [id number] 03/13/2017 18:29:00 03/13/2017 20:47:00 DIS Emergency NUBIA MURRAY APRN [facility] ER LIGHTHEADEDNESS,DIZZINESS, SOA [id number] 03/02/2017 16:48:00 03/02/2017 18:27:00 DIS Emergency NUBIA MURRAY APRN [facility] ER R SIDE LOWER BACK PAIN/ NAUSEA [id number] 01/03/2017 20:36:00 01/03/2017 21:51:00 DIS Emergency TATIANA CIFUENTES [facility] ER TOOTH PAIN [id number] 11/22/2016 18:25:00 11/22/2016 19:05:00 DIS Emergency NUBIA MURRAY APRN [facility] ER BACK PAIN [id number] 11/07/2016 17:13:00 11/07/2016 18:35:00 DIS Emergency DAX HELMS MD [facility] ER PAINFUL/ITCHY RED SPOTS ON SKIN [id number] 10/12/2016 13:14:00 10/12/2016 13:47:00 DIS Emergency NUBIA MURRAY APRN [facility] ER R SIDE DENTAL PAIN/ HEADACHE [id number] 06/29/2016 15:31:00 06/29/2016 16:09:00 DIS Emergency NUBIA MURRAY APRN [facility] ER N/V, SINUS TROUBLE [id number] 03/27/2016 17:52:00 03/27/2016 19:21:00 DIS Emergency JOSE RODRIGUEZ DO [facility] ER SOA [id number] 03/21/2016 11:40:00 03/21/2016 23:59:59 CLS Outpatient MANA ZARATE MD [facility] CARD RT UPPRER ABDOMINAL PAIN [id number] 03/06/2016 08:31:00 03/06/2016 23:59:59 CLS Outpatient MANA ZARATE MD [facility] RAD RUQ ABD PAIN [id number] 02/09/2016 07:28:00 02/09/2016 08:48:00 DIS Emergency SOPHIA JOSÉ MD [facility] ER BODY ACHES [id number] 01/07/2016 17:31:00 01/07/2016 18:53:00 DIS Emergency RICKY NELSON [facility] ER FEVER [id number] 12/21/2015 12:08:00 12/21/2015 13:24:00 DIS Emergency NUBIA MURRAY APRN [facility] ER RIGHT SHOULDER PAIN [id number] 08/08/2015 09:08:00 08/08/2015 12:16:00 DIS Emergency JOSE RODRIGUEZ DO [facility] ER MIGRAINE [id number] 07/17/2015 19:11:00 07/17/2015 21:23:00 DIS Emergency RICKY NELSON [facility] ER L EAR PAIN [id number] 06/01/2015 18:38:00 06/01/2015 19:47:00 DIS Emergency RICKY NELSON [facility] ER L FOOT INJ/PAIN [id number] 05/20/2015 23:50:00 05/21/2015 01:32:00 DIS Emergency SOPHIA JOSÉ MD [facility] ER RT LEG PAIN/KNOT [id number] 05/11/2015 21:12:00 05/11/2015 22:49:00 DIS Emergency SOPHIA JOSÉ MD [facility] ER SORE THROAT;COUGH; FEVER [id number] 05/06/2015 18:32:00 05/06/2015 23:32:00 DIS Emergency RICKY NELSON [facility] ER FEVER,CHILLS/BODY ACHES [id number] 03/26/2015 20:21:00 03/27/2015 00:12:00 DIS Emergency RICKY NELSON [facility] ER L HAND JULIET [id number] 01/20/2015 17:58:00 01/20/2015 19:17:00 DIS Emergency RICKY NELSON [facility] ER ORAL PAIN/LFT JAW [id number] 01/01/2015 18:57:00 01/01/2015 20:16:00 DIS Emergency DAX HELMS MD [facility] ER COUGHING,SOA [id number] 12/10/2014 21:39:00 12/10/2014 22:19:00 DIS Emergency RICKY NELSON [facility] ER SPIDER BITE [id number] 05/31/2014 16:59:00 05/31/2014 18:10:00 DIS Emergency RICKY NELSON [facility] ER INSECT BITE/STING [id number] 05/28/2014 16:45:00 05/28/2014 18:23:00 DIS Emergency NUBIA MURRAY APRN [facility] ER VOMITING,FEVER [id number] 09/02/2015 20:34:00 Document Registration [id number] 05/14/2015 18:01:00 Document Registration [id number] 05/14/2015 18:01:00 Document Registration [id number] 08/09/2014 01:45:00 Document Registration [id number] 10/15/2011 17:32:00 Document Registration [id number] 09/26/2011 12:18:00 Document Registration
[2017-06-06] MEDS ORDERED: RT-ALBUTEROL/IPRATROPIUM 3 ML (DUONEB) VIAL INH ONE (18:30)
[2017-06-06] MEDS ORDERED: DEXAMETHASONE 4 MG/ML SDV (DECADRON) IH ONE (18:30)
--- NOTE | 2017-06-06 18:31 | ED Cough/URI ---
General Chief Complaint: Respiratory Problems Stated Complaint: SOA Nursing Triage Note: pt reports soa/cough/congestion worse starting today. pt states she was diagnosed with a virus several days ago but thinks her asthma is acting up. Source: patient, old records History of Present Illness Time seen by provider: 18:15 Initial Comments PT STATES SHE HAS BEEN SICK X 1 WEEK WITH COUGH/CONGESTION AND SORE THROAT HAS HAD FEVER-- UP TO 103 LAST PM LAST PM SHE COUGHED REALLY HARD AND COUGHED UP "HARD MUCOUS" AND HAS BEEN SHORT OF BREATH SINCE THEN CHEST HURTS TO BREATHE SEEN HERE 06/04/16 FOR THIS PROBLEM AND GIVEN RX FOR AMOXIL AND PREDNISONE-- FINISHED PREDNISONE TODAY STATES IT FEELS LIKE SHE IS HAVING AN ASTHMA ATTACK BUT NO RELIEF WITH ALBUTEROL INHALER X 1 AT 0830 THIS AM AND ALBUTEROL NEBULIZER X 1 TODAY AT 1500 --HAS NOT USED AT ANY OTHER TIME THIS WEEK HAS NOT TAKEN ANYTHING ELSE FOR SYMPTOMS NO KNOWN SICK CONTACTS, AND HAS CHILDREN AT HOME--THEY ARE NOT ILL DID NOT RECEIVE FLU VACCINE THIS YEAR LMP 1 MONTH AGO, NORMAL, S/P BTL MULTIPLE ER VISITS--USUALLY VARIOUS PAIN COMPLAINTS--8 VISITS IN 2017 PCP: LEANNA- Allergies and Home Medications Allergies Coded Allergies: metoclopramide (Unverified Allergy, Mild, 01/03/17) promethazine (Unverified Allergy, Mild, 01/03/17) morphine (Unverified Adverse Reaction, Severe, PAIN, 01/03/17) Home Medications Amoxicillin 500 Mg Capsule, 500 MG PO TID, #21 Prescribed by: NUBIA MURRAY on 06/04/171730 Benzonatate 100 Mg Capsule, 1-2 TAB PO TID, #30 Prescribed by: JOSE RODRIGUEZ on 06/06/171957 Budesonide 1 Mg/2 Ml Ampul.neb, 1 MG IH BID, #1 Prescribed by: JOSE RODRIGUEZ on 06/06/171957 Cefdinir 300 Mg Capsule, 300 MG PO BID, #20 Prescribed by: JOSE RODRIGUEZ on 06/06/171957 Escitalopram Oxalate 10 Mg Tablet, 5 MG PO DAILY, (Reported) Methylprednisolone 4 Mg Tab.ds.pk, 4 MG PO UD, #1 Prescribed by: JOSE RODRIGUEZ on 06/06/171957 Prednisone 20 Mg Tab, 40 MG PO DAILY, #6 Prescribed by: NUBIA MURRAY on 06/04/17 1731 Constitutional: see HPI, fever, malaise, weakness EENTM: see HPI, nose congestion, throat pain Respiratory: see HPI, cough, phlegm, short of breath Cardiovascular: see HPI, chest pain (FROM COUGHING) Gastrointestinal: no symptoms reported Genitourinary: no symptoms reported : No LMP: May 05, 2017 Musculoskeletal: no symptoms reported Skin: no symptoms reported Psychiatric/Neurological: No Symptoms Reported Hematologic/Lymphatic: No Symptoms Reported Immunological/Allergic: no symptoms reported Past Cmgfbnh-Xsbqkr-Jolwdv Hx Patient Social History Alcohol Use: Denies Use Recreational Drug Use: No Smoking Status: Current Everyday Smoker (1 PPD) Type Used: Cigarettes (1 PPD) 2nd Hand Smoke Exposure: Yes Recent Foreign Travel: No Contact w/Someone Who Travel: No Recent Infectious Disease Expo: No Recent Hopitalizations: No Physical Abuse: No Sexual Abuse: No Mistreated: No Fear: No Immunizations Up To Date Tetanus Booster (TDap): Less than 5yrs PED Vaccines UTD: Yes Seasonal Allergies Seasonal Allergies: No Surgeries History of Surgeries: Yes (S-CECTION X 2, BTL. 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 Genitourinary History of Genitourinary Disor: Yes Genitourinary Disorders: Kidney Stones Gastrointestinal History of Gastrointestinal Di: Yes Gastrointestinal Disorders: Irritable Bowel Musculoskeletal History of Musculoskeletal Dis: Yes Musculoskeletal Disorders: Chronic Back Pain Endocrine History of Endocrine Disorders: No HEENT History of HEENT Disorders: No Loss of Vision: Denies Hearing Impairment: Denies Cancer History of Cancer: No Psychosocial History of Psychiatric Problem: Yes Behavioral Health Disorders: Anxiety, Depression Suicide Risk Score: 0 Integumentary History of Skin or Integumenta: Yes (SHINGLES; CELLULITIS) Blood Transfusions History of Blood Disorders: No Adverse Reaction to a Blood Tr: No Family Medical History Significant Family History: Heart Disease Family Medial History: Diabetes mellitus 19 FATHER Myocardial infarction 19 FATHER Thyroid disease G8 SISTER Physical Exam Vital Signs Vital Sign - Last 12Hours 06/06/17 06/06/17 17:55 19:30 Temp 97.6 Pulse 92 Resp 18 B/P (MAP) 144/91 (108) Pulse Ox 99 O2 Delivery Room Air Capillary Refill : Less Than 3 Seconds General Appearance: WD/WN, other (DRAMATIC, "LABORED" BREATHING WHEN STAFF IN ROOM; HAIR IS T[place]ISE/GREEN) HEENT: PERRL/EOMI, normal ENT inspection, TMs normal, pharynx normal Neck: non-tender, full range of motion, supple, normal inspection, No lymphadenopathy (R), No lymphadenopathy (L) Respiratory: normal breath sounds, no respiratory distress, no accessory muscle use, other (NO TACHYPNEA) Cardiovascular: normal peripheral pulses, regular rate, rhythm, no edema, no JVD, no murmur, No tachycardia Gastrointestinal: normal bowel sounds, non tender, soft Extremities: normal inspection, no pedal edema, no calf tenderness, normal capillary refill 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, no motor/sensory deficits, alert, oriented x 3 Skin: normal color, warm/dry, tattoos/piercings Focused Exam Evaluation Lactate Level Laboratory Tests 06/06/17 18:42: Lactic Acid Level 2.19*H Lactic Acid Level Laboratory Tests Test 06/06/17 18:42 Lactic Acid Level 2.19 MMOL/L (0.50-2.00) *H Progress/Results/Core Measures Suspected Sepsis Recent Fever Within 48 Hours: No Infection Criteria Present: None New/Unexplained Altered Menta: No Sepsis Screen: No Definite Risk Sepsis Diagnosis: SIRS Temperature:97.6 Pulse: 92 Respiratory Rate: 18 Laboratory Tests 06/06/17 18:42: White Blood Count 12.8H Blood Pressure 144 /91 Mean: 108 Laboratory Tests 06/06/17 18:42: Lactic Acid Level 2.19*H Laboratory Tests 06/06/17 18:42: Creatinine 0.72, Platelet Count 356, Total Bilirubin 0.2 Results/Orders Lab Results Laboratory Tests Test 06/06/17 18:42 Range/Units White Blood Count 12.8 H 4.3-11.0 10^3/uL Red Blood Count 4.36 4.35-5.85 10^6/uL Hemoglobin 13.4 11.5-16.0 G/DL Hematocrit 38 35-52 % Mean Corpuscular Volume 87 80-99 FL Mean Corpuscular Hemoglobin 31 25-34 PG Mean Corpuscular Hemoglobin Concent 36 32-36 G/DL Red Cell Distribution Width 11.7 10.0-14.5 % Platelet Count 356 130-400 10^3/uL Mean Platelet Volume 10.4 7.4-10.4 FL Neutrophils (%) (Auto) 93 H 42-75 % Lymphocytes (%) (Auto) 5 L 12-44 % Monocytes (%) (Auto) 3 0-12 % Eosinophils (%) (Auto) 0 0-10 % Basophils (%) (Auto) 0 0-10 % Neutrophils # (Auto) 11.9 H 1.8-7.8 X 10^3 Lymphocytes # (Auto) 0.6 L 1.0-4.0 X 10^3 Monocytes # (Auto) 0.4 0.0-1.0 X 10^3 Eosinophils # (Auto) 0.0 0.0-0.3 10^3/uL Basophils # (Auto) 0.0 0.0-0.1 10^3/uL Neutrophils % (Manual) 87 % Lymphocytes % (Manual) 7 % Monocytes % (Manual) 4 % Eosinophils % (Manual) 0 % Basophils % (Manual) 0 % Band Neutrophils 2 % Blood Morphology Comment NORMAL Sodium Level 140 135-145 MMOL/L Potassium Level 4.1 3.6-5.0 MMOL/L Chloride Level 106 98-107 MMOL/L Carbon Dioxide Level 21 21-32 MMOL/L Anion Gap 13 5-14 MMOL/L Blood Urea Nitrogen 8 7-18 MG/DL Creatinine 0.72 0.60-1.30 MG/DL Estimat Glomerular Filtration Rate > 60 BUN/Creatinine Ratio 11 Glucose Level 184 H 70-105 MG/DL Lactic Acid Level 2.19 *H 0.50-2.00 MMOL/L Calcium Level 9.7 8.5-10.1 MG/DL Magnesium Level 2.1 1.8-2.4 MG/DL Total Bilirubin 0.2 0.1-1.0 MG/DL Aspartate Amino Transf (AST/SGOT) 17 5-34 U/L Alanine Aminotransferase (ALT/SGPT) 24 0-55 U/L Alkaline Phosphatase 101 40-136 U/L Total Protein 7.8 6.4-8.2 GM/DL Albumin 4.5 3.2-4.5 GM/DL Serum Test, Qualitative NEGATIVE NEGATIVE Micro Results Microbiology 06/06/17 Influenza Types A,B Antigen (BETZAIDA) - Final, Complete My Orders Orders - JENNIFERJOSE Sharon DO Saline Lock/Iv-Start (06/06/17 18:24) Monitor-Rhythm Ecg Trace Only (06/06/17 18:24) Cbc With Automated Diff (06/06/17 18:24) Comprehensive Metabolic Panel (06/06/17 18:24) Hcg,Qualitative Serum (06/06/17 18:24) Magnesium (06/06/17 18:24) Blood Culture (06/06/17 18:24) Influenza A And B Antigens (06/06/17 18:24) Chest Pa/Lat (2 View) (06/06/17 18:24) Albuterol/Ipra Inhalation Soln (Duoneb I (06/06/17 18:30) Dexamethasone Injection (Decadron Inject (06/06/17 18:30) Rt Request For Service (06/06/17 18:24) Svn Sm Volume Nebulizer Rt-Rfs (06/06/17 18:24) Lactic Acid Analyzer (06/06/17 18:31) Manual Differential (06/06/17 18:42) Methylprednisolone Sod Succ (Solu-Medrol (06/06/17 19:56) Ceftriaxone Injection (Rocephin Injectio (06/06/17 20:00) Benzonatate Capsule (Tessalon Perles) (06/06/17 20:00) Medications Given in ED Current Medications Medications Dose Ordered Sig/Elisabeth Route Start Time Stop Time Status Last Admin Dose Admin Albuterol/ Ipratropium 3 ml ONCE ONCE INH 06/06/17 18:30 06/06/17 18:31 DC 06/06/17 19:30 3 ML Ceftriaxone Sodium 1000 mg/ Sodium Chloride 50 ml @ 100 mls/hr ONCE ONCE IV 06/06/17 20:00 06/06/17 20:29 06/06/17 20:02 100 MLS/HR Dexamethasone Sodium Phosphate 20 mg ONCE ONCE IH 06/06/17 18:30 06/06/17 18:31 DC 06/06/17 19:30 20 MG Vital Signs/I&O Vital Sign - Last 12Hours 06/06/17 06/06/17 17:55 19:30 Temp 97.6 Pulse 92 Resp 18 B/P (MAP) 144/91 (108) Pulse Ox 99 95 O2 Delivery Room Air Capillary Refill : Less Than 3 Seconds Blood Pressure Mean: 108 Progress Note : Progress Note O2 SAT 100% ON ROOM AIR NO LONGER WITH "LABORED" BREATHING AT DISMISSAL NO COUGH NOTED AT DISMISSAL Diagnostic Imaging Comments CXR--NO ACUTE PROCESS, PER RADIOLOGIST REPORT @ 1954 Reviewed: Reviewed by Me Departure Impression Impression: Primary Impression: Bronchitis Disposition: HOME, SELF-CARE Condition: Stable Departure-Patient Inst. Referrals: [facility] Patient Instructions: Acute Bronchitis, Adult (DC) Add. Discharge Instructions: LOTS OF CLEAR LIQUIDS USE YOUR ALBUTEROL INHALER OR NEBULIZER EVERY 4 HOURS NEEDED FOR BREATHING TYLENOL AND MOTRIN FOR PAIN OR FEVER FOLLOW UP WITH YOUR DR IN 3-4 DAYS IF NO BETTER All discharge instructions reviewed with patient and/or family. Voiced understanding. Scripts Benzonatate (Tessalon Perle) 100 Mg Capsule 1-2 TAB PO TID for Cough, #30 CAP Prov: JOSE RODRIGUEZ DO 06/06/17 Budesonide (Pulmicort) 1 Mg/2 Ml Ampul.neb 1 MG IH BID, #1 UNIT Prov: JOSE RODRIGUEZ DO 06/06/17 Methylprednisolone (Medrol) 4 Mg Tab.ds.pk 4 MG PO UD, #1 PKG Prov: JOSE RODRIGUEZ DO 06/06/17 Cefdinir (Cefdinir) 300 Mg Capsule 300 MG PO BID for FOR INFECTION, #20 CAP Prov: JOSE RODRIGUEZ K DO 06/06/17 JOSE RODRIGUEZ DO Jun 06, 2017 18:31
[2017-06-06 18:59] LABS: BASOPHILS % (AUTO) 0 % (0-10); EOSINOPHILS % (AUTO) 0 % (0-10); HEMATOCRIT 38 % (35-52); HEMOGLOBIN 13.4 G/DL (11.5-16.0); LYMPHOCYTES # (AUTO) 0.6 X 10^3 (1.0-4.0); LYMPHOCYTES % (AUTO) 5 % (12-44); MEAN CORPUSCULAR HEMOGLOBIN 31 PG (25-34); MEAN CORPUSCULAR HGB CONC 36 G/DL (32-36); MEAN CORPUSCULAR VOLUME 87 FL (80-99); MEAN PLATELET VOLUME 10.4 FL (7.4-10.4); MONOCYTES # (AUTO) 0.4 X 10^3 (0.0-1.0); MONOCYTES % (AUTO) 3 % (0-12); NEUTROPHILS # (AUTO) 11.9 X 10^3 (1.8-7.8); NEUTROPHILS % (AUTO) 93 % (42-75); PLATELET COUNT 356 10^3/uL (130-400); RED BLOOD COUNT 4.36 10^6/uL (4.35-5.85); RED CELL DISTRIBUTION WIDTH 11.7 % (10.0-14.5); WHITE BLOOD COUNT 12.8 10^3/uL (4.3-11.0)
[2017-06-06 19:23] LABS: BAND NEUTROPHILS 2 %; BASOPHILS % (MANUAL) 0 %; EOSINOPHILS % (MANUAL) 0 %; LYMPHOCYTES % (MANUAL) 7 %; MONOCYTES % (MANUAL) 4 %; NEUTROPHILS % (MANUAL) 87 %; RBC MORPH NORMAL
[2017-06-06 19:24] LABS: ALANINE AMINOTRANSFERASE 24 U/L (0-55); ALBUMIN 4.5 GM/DL (3.2-4.5); ALKALINE PHOSPHATASE 101 U/L (40-136); BILIRUBIN,TOTAL 0.2 MG/DL (0.1-1.0); BUN/CREATININE RATIO 11; CALCIUM 9.7 MG/DL (8.5-10.1); CARBON DIOXIDE 21 MMOL/L (21-32); CHLORIDE 106 MMOL/L (98-107); CREATININE SERUM 0.72 MG/DL (0.60-1.30); GFR ESTIMATED > 60; GLUCOSE 184 MG/DL (70-105); MAGNESIUM 2.1 MG/DL (1.8-2.4); POTASSIUM 4.1 MMOL/L (3.6-5.0); SODIUM 140 MMOL/L (135-145); TOTAL PROTEIN 7.8 GM/DL (6.4-8.2)
--- NOTE | 2017-06-06 19:50 | Diagnostic Imaging Report ---
INDICATION: Cough and sore throat. Comparison is made to prior from 03/27/2016. FINDINGS: The lungs demonstrate no focal infiltrate or evidence of an effusion. There is no pneumothorax. Heart size and mediastinal contours are appropriate. Pulmonary vascularity appears normal. There is no acute osseous abnormality. IMPRESSION: No radiographic evidence of an acute cardiopulmonary process. Dictated by: Dictated on workstation # [id number]
[2017-06-06] MEDS ORDERED: methylPREDNISolone 125 MG (Solu-MEDROL) VIAL IV STA (19:56)
[2017-06-06] MEDS ORDERED: BENZ-13 PO (19:58)
[2017-06-06] MEDS ORDERED: BUDE1AMP IH (19:58)
[2017-06-06] MEDS ORDERED: CEFD300C3 PO (19:58)
[2017-06-06] MEDS ORDERED: METH4TAB PO (19:58)
[2017-06-06] MEDS ORDERED: BENZONATATE 100 MG (TESSALON) CAPSULE PO SCH (20:00)
[2017-06-06] MEDS ORDERED: cefTRIAXone INJECTION 1,000 MG in NS (IVPB) 50 ML IV ONE (20:00)
[2017-06-06 20:07] VITALS: BP 120/91
== END 2017-06-06 20:07 | disposition home or self-care (01) ==
LOC: EDUNIT# 17:46 → ER 17:47
DX: J40 Bronchitis, not specified as acute or chronic (principal); G43.909 Migraine, unspecified, not intractable, without status migrainosus; F41.9 Anxiety disorder, unspecified; F32.9 Major depressive disorder, single episode, unspecified; F17.210 Nicotine dependence, cigarettes, uncomplicated; Z87.59 Personal history of other complications of pregnancy, childbirth and the puerperium; Z87.42 Personal history of other diseases of the female genital tract; Z87.442 Personal history of urinary calculi; Z98.51 Tubal ligation status; Z82.49 Family history of ischemic heart disease and other diseases of the circulatory system
CPT/HCPCS: 36415; 71046; 80053; 83605; 83735; 84703; 85007; 85027; 87040; 87804; 93041; 94640

== ENCOUNTER 2017-08-15 23:31 | Emergency (ER) | payer MEDICAID ==
[~2017-08-15] VITALS: Ht 154.9 cm; Wt 67.1 kg
[~2017-08-15 23:31] MED LIST changes: +BUDE1AMP IH; +HYDR-34 PO; -HYDR-3816 PO
--- OUTSIDE RECORDS SUMMARY | 2017-08-15 23:42 | XMS REPORT | Continuity of Care Document ---
Author Author Formerly [facility] Address Unknown Phone Unavailable Allergies Active Description Code Type Severity Reaction Onset Reported/Identified Relationship to Patient Clinical Status Yes Phenergan Drug Allergy N/A N/A 08/22/2014 Yes Reglan Drug Allergy N/A N/A 08/22/2014 Yes morphine [id number] Drug Allergy Severe PAIN 01/03/2017 Yes metoclopramide [id number] Drug Allergy Mild N/A 01/03/2017 Yes promethazine [id number] Drug Allergy Mild N/A 01/03/2017 Medications There [...] INITIAL ENCOU 06/01/2015 RICKY NELSON Ot Y92.[address] [facility] PL[address] IN SINGLE-FAMILY (PRIVATE) 06/01/2015 RICKY [...] DEPENDENCE, CIGARETTES, UNCOMPL 09/02/2015 Ot S46.911[facility]/UP A 09/02/2015 Ot X58.XXXA EXPOSURE TO OTHER SPECIFIED FACTORS, INI 09/02/[address] [facility] NON-INSTITUT (PRIVATE 09/02/2015 Ot Y99.0 CIVILIAN [...] Foote Ot L29.9 PRURITUS, UNSPECIFIED 11/09/2016 DAX HEMLS MD Ot T14.8 OTHER INJURY OF UNSPECIFIED BODY REGION 11/09/2016 DAX HELMS MD Ot W57.XXXA BIT/STUNG BY NONVENOM INSECT OTH NONVE 11/13/2016 DAX HELMS MD Ot L29.9 PRURITUS, UNSPECIFIED 11/13/2016 DAX HELMS MD Ot T14.8 OTHER INJURY OF UNSPECIFIED BODY REGION 11/13/2016 DAX HELMS MD Ot W57.XXXA BIT/STUNG BY NONVENOM INSECT OTH NONVE 11/22/2016 NUBIA MURRAY EDGE BONDER Ot F17.210 NICOTINE DEPENDENCE, CIGARETTES, UNCOMPL 11/22/2016 NUBIA MURRAY APRN Ot M54.5 LOW BACK PAIN 11/22/2016 NUBIA MURRAY APRN Ot Z87.442 PERSONAL HISTORY OF URINARY CALCULI 11/22/2016 MANA ZARATE MD Ot R10.11 RIGHT UPPER QUADRANT PAIN 11/22/2016 MANA ZARATE MD Ot R10.13 EPIGASTRIC PAIN 11/28/2016 NUBIA MURRAY EDGE BONDER Ot F17.210 NICOTINE DEPENDENCE, CIGARETTES, UNCOMPL 11/28/2016 NUBIA MURRAY APRN Ot M54.5 LOW BACK PAIN 11/28/2016 NUBIA MURRAY EDGE BONDER Ot Z87.442 PERSONAL HISTORY OF URINARY CALCULI 01/03/2017 MANA ZARATE MD Ot R10.11 RIGHT UPPER QUADRANT PAIN 01/03/2017 MAAN ZARATE MD Ot R10.13 EPIGASTRIC PAIN 01/03/2017 TATIANA CIFUENTES Ot G43.909 MIGRAINE, UNSP, NOT INTRACTABLE, WITHOUT 01/03/2017 TATIANA CIFUENTES Ot G89.29 OTHER CHRONIC PAIN 01/03/2017 TATIANA CIFUENTES Ot J45.909 UNSPECIFIED ASTHMA, UNCOMPLICATED 01/03/2017 ESAU, TATIANA SOLID WASTE MANAGER Ot K02.9 DENTAL CARIES, UNSPECIFIED 01/03/2017 ESAU, TATIANA SOLID WASTE MANAGER Ot K04.7 PERIAPICAL ABSCESS WITHOUT SINUS 01/03/2017 ESAU, TATIANA SOLID WASTE MANAGER Ot K08.89 OTHER SPECIFIED DISORDERS OF TEETH AND S 01/03/2017 ESAU, TATIANA SOLID WASTE MANAGER Ot M54.9 DORSALGIA, UNSPECIFIED 01/03/2017 ESAU, TATIANA SOLID WASTE MANAGER Ot Z87.42 PERSONAL HISTORY OF OTH DISEASES OF THE 01/03/2017 ESAU, TATIANA SOLID WASTE MANAGER Ot Z87.442 PERSONAL HISTORY OF URINARY CALCULI 01/03/2017 ESAU, TATIANA SOLID WASTE MANAGER Ot Z87.59 PERSONAL HISTORY OF COMP OF PREG, CHLDBR 01/03/2017 ESAU, TATIANA SOLID WASTE MANAGER Ot Z98.51 TUBAL LIGATION STATUS 01/05/2017 ESAU, TATIANA SOLID WASTE MANAGER Ot G43.909 MIGRAINE, UNSP, NOT INTRACTABLE, WITHOUT 01/05/2017 ESAU, TATIANA SOLID WASTE MANAGER Ot G89.29 OTHER CHRONIC PAIN 01/05/2017 ESAU, TATIANA SOLID WASTE MANAGER Ot J45.909 UNSPECIFIED ASTHMA, UNCOMPLICATED 01/05/2017 ESAU, TATIANA SOLID WASTE MANAGER Ot K02.9 DENTAL CARIES, UNSPECIFIED 01/05/2017 ESAU, TATIANA SOLID WASTE MANAGER Ot K04.7 PERIAPICAL ABSCESS WITHOUT SINUS 01/05/2017 ESAU, TATIANA SOLID WASTE MANAGER Ot K08.89 OTHER SPECIFIED DISORDERS OF TEETH AND S 01/05/2017 ESAU, TATIANA SOLID WASTE MANAGER Ot M54.9 DORSALGIA, UNSPECIFIED 01/05/2017 ESAU, TATIANA SOLID WASTE MANAGER Ot Z87.42 PERSONAL HISTORY OF OTH DISEASES OF THE 01/05/2017 ESAU, TATIANA SOLID WASTE MANAGER Ot Z87.442 PERSONAL HISTORY OF URINARY CALCULI 01/05/2017 ESAU, TATIANA SOLID WASTE MANAGER Ot Z87.59 PERSONAL HISTORY OF COMP OF PREG, CHLDBR 01/05/2017 ESAU, TATIANA SOLID WASTE MANAGER Ot Z98.51 TUBAL LIGATION STATUS 01/09/2017 ESAU, TATIANA SOLID WASTE MANAGER Ot G43.909 MIGRAINE, UNSP, NOT INTRACTABLE, WITHOUT 01/09/2017 ESAU, TATIANA SOLID WASTE MANAGER Ot G89.29 OTHER CHRONIC PAIN 01/09/2017 ESAU, TATIANA SOLID WASTE MANAGER Ot J45.909 UNSPECIFIED ASTHMA, UNCOMPLICATED 01/09/2017 ESAU, TATIANA SOLID WASTE MANAGER Ot K02.9 DENTAL CARIES, UNSPECIFIED 01/09/2017 TATIANA CIFUENTESP Ot K04.7 PERIAPICAL ABSCESS WITHOUT SINUS 01/09/2017 TATIANA CIFUENTES SOLID WASTE MANAGER Ot K08.89 OTHER SPECIFIED DISORDERS OF TEETH AND S 01/09/2017 ESAU TATIANA JORDANP Ot M54.9 DORSALGIA, UNSPECIFIED 01/09/2017 TATIANA CIFUENTES SOLID WASTE MANAGER Ot Z87.42 PERSONAL HISTORY OF OTH DISEASES OF THE 01/09/2017 ESAU TATIANA JORDANP Ot Z87.442 PERSONAL HISTORY OF URINARY CALCULI 01/09/2017 TATIANA CIFUENTES SOLID WASTE MANAGER Ot Z87.59 PERSONAL HISTORY OF COMP OF [...] APRN Ot Z98.51 TUBAL LIGATION STATUS 03/13/2017 NUBIA MURRAY APRN Ot F32.9 MAJOR DEPRESSIVE DISORDER, [...] M54.5 LOW BACK PAIN 04/12/2017 DAX HELMS MD Ot R10.32 LEFT LOWER QUADRANT PAIN 04/12/2017 DAX HELMS MD Ot Z82.49 FAMILY HX OF ISCHEM HEART DIS AND OTH DI 04/12/2017 DAX HELMS MD Ot Z87.42 PERSONAL HISTORY OF OTH DISEASES OF THE 04/12/2017 DAX HELMS MD Ot Z87.442 PERSONAL HISTORY OF URINARY CALCULI 04/12/2017 DXA HELMS MD Ot Z87.59 PERSONAL HISTORY OF COMP OF PREG, CHLDBR 04/12/2017 DAX HELMS MD Ot Z98.51 TUBAL LIGATION STATUS 06/04/2017 NUBIA MURRAY APRN Ot F32.9 MAJOR DEPRESSIVE DISORDER, SINGLE EPISOD 06/04/2017 NUBIA MURRAY APRN Ot G43.909 MIGRAINE, UNSP, NOT INTRACTABLE, WITHOUT 06/04/2017 NUBIA MURRAY APRN Ot J02.9 ACUTE PHARYNGITIS, UNSPECIFIED 06/04/2017 NUBIA MURRAY APRN Ot J06.9 ACUTE UPPER RESPIRATORY INFECTION, UNSPE 06/04/2017 NUBIA MURRAY APRN Ot J45.909 UNSPECIFIED ASTHMA, UNCOMPLICATED 06/04/2017 NUBIA MURRAY APRN Ot Z77.22 CNTCT W AND EXPSR TO ENVIRON TOBACCO SMO 06/04/2017 NUBIA MURRAY APRN Ot Z82.49 FAMILY HX OF ISCHEM HEART DIS AND OTH DI 06/04/2017 NUBIA MURRAY APRN Ot Z87.19 PERSONAL HISTORY OF OTHER DISEASES OF TH 06/04/2017 NUBIA MURRAY APRN Ot Z87.448 PERSONAL HISTORY OF OTHER DISEASES OF UR 06/04/2017 NUBIA MURRAY APRN Ot Z87.59 PERSONAL HISTORY OF COMP OF PREG, CHLDBR 06/04/2017 NUBIA MURRAY APRN Ot Z98.51 TUBAL LIGATION STATUS 06/04/2017 MANA ZARATE MD Ot R10.11 RIGHT UPPER QUADRANT PAIN 06/04/2017 MANA ZARATE MD Ot R10.13 EPIGASTRIC PAIN 06/06/2017 JOSE RODRIGUEZ DO Ot F17.210 NICOTINE DEPENDENCE, CIGARETTES, UNCOMPL 06/06/2017 JOSE RODRIGUEZ DO Ot F32.9 MAJOR DEPRESSIVE DISORDER, SINGLE EPISOD 06/06/2017 JOSE RODRIGUEZ DO Ot F41.9 ANXIETY DISORDER, UNSPECIFIED 06/06/2017 JOSE RODRIGUEZ DO Ot G43.909 MIGRAINE, UNSP, NOT INTRACTABLE, WITHOUT 06/06/2017 JENNIFER DO JOSE K Ot J40 BRONCHITIS, NOT SPECIFIED ACUTE OR CH 06/06/2017 JENNIFER URBAN JOSE Sharon Ot R06.02 SHORTNESS OF BREATH 06/06/2017 JENNIFER URBAN JOSE Sharon Ot Z82.49 FAMILY HX OF ISCHEM HEART DIS AND OTH DI 06/06/2017 JENNIFER URBAN JOSE K Ot Z87.42 PERSONAL HISTORY OF OTH DISEASES OF THE 06/06/2017 JENINFER URBANJOSE Ot Z87.442 PERSONAL HISTORY OF URINARY CALCULI 06/06/2017 JENNIFER DO JOSE K Ot Z87.59 PERSONAL HISTORY OF COMP OF PREG, CHLDBR 06/06/2017 JENNIFER JOSE K Ot Z98.51 TUBAL LIGATION STATUS 06/08/2017 NUBIA MURRAY APRN Ot F32.9 MAJOR DEPRESSIVE DISORDER, SINGLE EPISOD 06/08/2017 NUBIA MURRAY APRN Ot G43.909 MIGRAINE, UNSP, NOT INTRACTABLE, WITHOUT 06/08/2017 NUBIA MURRAY APRN Ot J02.9 ACUTE PHARYNGITIS, UNSPECIFIED 06/08/2017 NUBIA MURRAY APRN Ot J06.9 ACUTE UPPER RESPIRATORY INFECTION, UNSPE 06/08/2017 NUBIA MURRAY APRN Ot J45.909 UNSPECIFIED ASTHMA, UNCOMPLICATED 06/08/2017 NUBIA MURRAY APRN Ot Z77.22 CNTCT W AND EXPSR TO ENVIRON TOBACCO SMO 06/08/2017 NUBIA MURRAY APRN Ot Z82.49 FAMILY HX OF ISCHEM HEART DIS AND OTH DI 06/08/2017 NUBIA MURRAY APRN Ot Z87.19 PERSONAL HISTORY OF OTHER DISEASES OF TH 06/08/2017 NUBIA MURRAY APRN Ot Z87.448 PERSONAL HISTORY OF OTHER DISEASES OF UR 06/08/2017 NUBIA MURRAY APRN Ot Z87.59 PERSONAL HISTORY OF COMP OF PREG, CHLDBR 06/08/2017 NUBIA MURRAY APRN Ot Z98.51 TUBAL LIGATION STATUS 06/10/2017 NUBIA MURRAY APRN Ot F32.9 MAJOR DEPRESSIVE DISORDER, SINGLE EPISOD 06/10/2017 NUBIA MURRAY APRN Ot G43.909 MIGRAINE, UNSP, NOT INTRACTABLE, WITHOUT 06/10/2017 NUBIA MURRAY APRN Ot J02.9 ACUTE PHARYNGITIS, UNSPECIFIED 06/10/2017 NUBIA MURRAY APRN Ot J06.9 ACUTE UPPER RESPIRATORY INFECTION, UNSPE 06/10/2017 NUBIA MURRAY APRN Ot J45.909 UNSPECIFIED ASTHMA, UNCOMPLICATED 06/10/2017 NUBIA MURRAY APRN Ot Z77.22 CNTCT W AND EXPSR TO ENVIRON TOBACCO SMO 06/10/2017 NUBIA MURRAY APRN Ot Z82.49 FAMILY HX OF ISCHEM HEART DIS AND OTH DI 06/10/2017 NUBIA MURRAY APRN Ot Z87.19 PERSONAL HISTORY OF OTHER DISEASES OF TH 06/10/2017 NUBIA MURRAY APRN Ot Z87.448 PERSONAL HISTORY OF OTHER DISEASES OF UR 06/10/2017 NUBIA MURRAY APRN Ot Z87.59 PERSONAL HISTORY OF COMP OF PREG, CHLDBR 06/10/2017 NUBIA MURRAY APRN Ot Z98.51 TUBAL LIGATION STATUS Procedures Code Description [place] [id number] ROUTINE VENIPUNCTURE 08/22/2014 THYANA THYROID ANALYZER 08/22/2014 [...] - 04/11/17 22:00 Lipase 26 U/L 8-78 Serum or plasma choriogonadotropin ( test) detection - 06/06/17 18:42 Serum or plasma choriogonadotropin ( test) detection NEGATIVE NEGATIVE Blood lactic acid measurement (moles/volume) - 06/06/17 18:42 Blood lactic acid measurement (moles/volume) 2.19 mmol/L 0.50-2.00 Complete blood count (CBC) with automated white blood cell (WBC) differential - 06/06/17 18:42 Blood leukocytes automated count (number/volume) 12.8 10*3/uL 4.3-11.0 Blood erythrocytes automated count (number/volume) 4.36 10*6/uL 4.35-5.85 Venous blood hemoglobin measurement (mass/volume) 13.4 g/dL 11.5-16.0 Blood hematocrit (volume fraction) 38 % 35-52 Automated erythrocyte mean corpuscular volume 87 [foz_us] 80-99 Automated erythrocyte mean corpuscular hemoglobin (mass per erythrocyte) 31 pg 25-34 Automated erythrocyte mean corpuscular hemoglobin concentration measurement ( mass/volume) 36 g/dL 32-36 Automated erythrocyte distribution width ratio 11.7 % 10.0-14.5 Automated blood platelet count (count/volume) 356 10*3/uL 130-400 Automated blood platelet mean volume measurement 10.4 [foz_us] 7.4-10.4 Automated blood neutrophils/100 leukocytes 93 % 42-75 Automated blood lymphocytes/100 leukocytes 5 % 12-44 Blood monocytes/100 leukocytes 3 % 0-12 Automated blood eosinophils/100 leukocytes 0 % 0-10 Automated blood basophils/100 leukocytes 0 % 0-10 Blood neutrophils automated count (number/volume) 11.9 10*3 1.8-7.8 Blood lymphocytes automated count (number/volume) 0.6 10*3 1.0-4.0 Blood monocytes automated count (number/volume) 0.4 10*3 0.0-1.0 Automated eosinophil count 0.0 10*3/uL 0.0-0.3 Automated blood basophil count (count/volume) 0.0 10*3/uL 0.0-0.1 Blood manual differential performed detection - 06/06/17 18:42 Blood monocytes/100 leukocytes 4 % NR Manual blood segmented neutrophils/100 leukocytes 87 % NRG Blood band neutrophils/100 leukocytes 2 % NRG Manual blood lymphocytes/100 leukocytes 7 % NRG Manual eosinophils/100 leukocytes in nose 0 % NR Manual blood basophils/100 leukocytes 0 % NR Blood erythrocyte morphology finding identification [facility] Comprehensive metabolic panel - 06/06/17 18:42 Serum or plasma sodium measurement (moles/volume) 140 mmol/L 135-145 Serum or plasma potassium measurement (moles/volume) 4.1 mmol/L 3.6-5.0 Serum or plasma chloride measurement (moles/volume) 106 mmol/L 98-107 Carbon dioxide 21 mmol/L 21-32 Serum or plasma anion gap determination (moles/volume) 13 mmol/L 5-14 Serum or plasma urea nitrogen measurement (mass/volume) 8 mg/dL 7-18 Serum or plasma creatinine measurement (mass/volume) 0.72 mg/dL 0.60-1.30 Serum or plasma urea nitrogen/creatinine mass ratio 11 NRG Serum or plasma creatinine measurement with calculation of estimated glomerular filtration rate > NRG Serum or plasma glucose measurement (mass/volume) 184 mg/dL 70-105 Serum or plasma calcium measurement (mass/volume) 9.7 mg/dL 8.5-10.1 Serum or plasma total bilirubin measurement (mass/volume) 0.2 mg/dL 0.1-1.0 Serum or plasma alkaline phosphatase measurement (enzymatic activity/volume) 101 U/L 40-136 Serum or plasma aspartate aminotransferase measurement (enzymatic activity/ volume) 17 U/L 5-34 Serum or plasma alanine aminotransferase measurement (enzymatic activity/volume ) 24 U/L 0-55 Serum or plasma protein measurement (mass/volume) 7.8 g/dL 6.4-8.2 Serum or plasma albumin measurement (mass/volume) 4.5 g/dL 3.2-4.5 Magnesium - 06/06/17 18:42 Magnesium 2.1 mg/dL 1.8-2.4 Influenza virus A and B antigen detection - 06/06/17 18:44 FLU RESULT NEGATIVE FOR INFLUENZA A AND B ANTIGENS BY IA NRG Bacterial blood culture - 06/06/17 18:44 Bacterial blood culture NG NRG Bacterial blood culture - 06/06/17 18:48 Bacterial blood culture NG NRG Encounters ACCT No. Visit Date/Time Discharge Status Pt. Type Provider Facility Loc./Unit Complaint [id number] 08/22/2014 14:39:00 08/22/2014 23:59:59 CLS Outpatient MARCUS MARTINES DO [id number] 06/06/2017 17:47:00 06/06/2017 20:07:00 DIS Emergency JOSE RODRIGUEZ DO [facility] ER SOA [id number] 06/04/2017 17:23:00 06/04/2017 17:33:00 DIS Emergency NUBIA MURRAY APRN [facility] ER SORE THROAT [id number] 04/11/2017 20:49:00 04/12/2017 01:59:00 DIS Emergency ANALIA ROMERO, DAX Foote [facility] ER KIDNEY PAIN,NAUSEA [id number] 03/13/2017 18:29:00 03/13/2017 20:47:00 DIS Emergency NUBIA MURRAY APRN [facility] ER LIGHTHEADEDNESS,DIZZINESS, SOA [id number] 03/02/2017 16:48:00 03/02/2017 18:27:00 DIS Emergency NUBIA MURRAY APRN [facility] ER R SIDE LOWER BACK PAIN/ NAUSEA [id number] 01/03/2017 20:36:00 01/03/2017 21:51:00 DIS Emergency ESAUTATIANA [facility] ER TOOTH PAIN [id number] 11/22/2016 18:25:00 11/22/2016 19:05:00 DIS Emergency NUBIA MURRAY APRN [facility] ER BACK PAIN [id number] 11/07/2016 17:13:00 11/07/2016 18:35:00 DIS Emergency DAX HELMS MD [facility] ER PAINFUL/ITCHY RED SPOTS ON SKIN [id number] 10/12/2016 13:14:00 10/12/2016 13:47:00 DIS Emergency NUBIA MURRAY APRN [facility] ER R SIDE DENTAL PAIN/ HEADACHE [id number] 06/29/2016 15:31:00 06/29/2016 16:09:00 DIS Emergency NUBIA MURRAY APRN [facility] ER N/V, SINUS TROUBLE [id number] 03/27/2016 17:52:00 03/27/2016 19:21:00 DIS Emergency JOSE RODRIGUEZ DO [facility] ER SOA [id number] 03/21/2016 11:40:00 03/21/2016 23:59:59 [facility] Outpatient ELLIOT ROMERO, MANA Fried [facility] CARD RT UPPRER ABDOMINAL PAIN [id number] 03/06/2016 08:31:00 03/06/2016 23:59:59 CLS Outpatient ELLIOT ROMERO, MANA Fried [facility] RAD RUQ ABD PAIN [id number] 02/09/2016 07:28:00 02/09/2016 08:48:00 DIS Emergency SOPHIA JOSÉ MD [facility] ER BODY ACHES [id number] 01/07/2016 17:31:00 01/07/2016 18:53:00 DIS Emergency RICKY NELSON [facility] ER FEVER [id number] 12/21/2015 12:08:00 12/21/2015 13:24:00 DIS Emergency NUBIA MURRAY APRN [facility] ER RIGHT SHOULDER PAIN [id number] 08/08/2015 09:08:00 08/08/2015 12:16:00 DIS Emergency JENNIFER JOSE K [facility] ER MIGRAINE [id number] 07/17/2015 19:11:00 07/17/2015 21:23:00 DIS Emergency RICKY NELSON [facility] ER L EAR PAIN [id number] 06/01/2015 18:38:00 06/01/2015 19:47:00 DIS Emergency RICKY NELSON [facility] ER L FOOT INJ/PAIN [id number] 05/20/2015 23:50:00 05/21/2015 01:32:00 DIS Emergency SOPHIA JOSÉ MD [facility] ER RT LEG PAIN/KNOT [id number] 05/11/2015 21:12:00 05/11/2015 22:49:00 DIS Emergency SOPHIA JOSÉ MD [facility] ER SORE THROAT;COUGH; FEVER [id number] 05/06/2015 18:32:00 05/06/2015 23:32:00 DIS Emergency RICKY NELSON [facility] ER FEVER,CHILLS/BODY ACHES [id number] 03/26/2015 20:21:00 03/27/2015 00:12:00 DIS Emergency RICKY NELSON [facility] ER L HAND JULIET [id number] 01/20/2015 17:58:00 01/20/2015 19:17:00 DIS Emergency RICKY NELSON [facility] ER ORAL PAIN/LFT JAW [id number] 01/01/2015 18:57:00 01/01/2015 20:16:00 DIS Emergency DAX HELMS MD [facility] ER COUGHING,SOA [id number] 12/10/2014 21:39:00 12/10/2014 22:19:00 DIS Emergency RICKY NELSON [facility] ER SPIDER BITE [id number] 05/31/2014 16:59:00 05/31/2014 18:10:00 DIS Emergency RICKY NELSON [facility] ER INSECT BITE/STING [id number] 05/28/2014 16:45:00 05/28/2014 18:23:00 DIS Emergency NUBIA MURRAY APRN [facility] ER VOMITING,FEVER [id number] 09/02/2015 20:34:00 Document Registration [id number] 05/14/2015 18:01:00 Document Registration [id number] 05/14/2015 18:01:00 Document Registration [id number] 08/09/2014 01:45:00 Document Registration [id number] 10/15/2011 17:32:00 Document Registration [id number] 09/26/2011 12:18:00 Document Registration
--- NOTE | 2017-08-15 23:55 | ED EENT ---
History of Present Illness General Chief Complaint: Dental Problems/Pain Stated Complaint: TOOTH AND GUM PAIN Nursing Triage Note: c/o L upper dental pain since the of this month. patient reports taking motrin and aspirin without relief. patient denies contacting dentist Source: patient History of Present Illness Date Seen by Provider: Aug 15, 2017 Time Seen by Provider: 23:54 Initial Comments C/O DENTAL PAIN SINCE Thursday08/13/17, ALONG WITH SWELLING TO ROOF OF MOUTH NO FEVER STATES " I DIDN'T THING ANYTHING ABOUT IT UNTIL I GOT NAUSEATED TONIGHT" HAS NOT TAKEN ANYTHING FOR PAIN HAS NOT ATTEMPTED TO CONTACT DENTIST FOR THIS PROBLEM MULTITUDE OF ER VISITS--33 SINCE 2008 MOST FOR VARIOUS PAIN COMPLAINTS PCP: [facility] DENTIST: DR. VAZQUEZ' OFFICE--HAS NOT BEEN IN A YEAR Allergies and Home Medications Allergies Coded Allergies: metoclopramide (Unverified Allergy, Mild, 01/03/17) promethazine (Unverified Allergy, Mild, 01/03/17) morphine (Unverified Adverse Reaction, Severe, PAIN, 01/03/17) Home Medications Lidocaine HCl 15 Ml Solution, 5 ML MM Q 1-2 HOURS Prescribed by: JOSE RODRIGUEZ on 08/16/172 Naproxen 500 Mg Tablet, 500 MG PO BID Prescribed by: JOSE RODRIGUEZ on 08/16/172 Penicillin V Potassium 500 Mg Tablet, 500 MG PO QID Prescribed by: JOSE RODRIGUEZ on 08/16/17 0003 Patient Home Medication List Home Medication List Reviewed: Yes Review of Systems Constitutional: no symptoms reported, No chills, No fever Eyes: No Symptoms Reported Ears: No Symptoms Reported Nose: no symptoms reported Mouth: see HPI, pain, swelling Throat: no symptoms reported Respiratory: no symptoms reported Cardiovascular: no symptoms reported Gastrointestinal: see HPI, nausea, No vomiting LMP: Aug 11, 2017 (BTL) Musculoskeletal: no symptoms reported Skin: no symptoms reported Neurological: No Symptoms Reported Hematologic/Lymphatic: No Symptoms Reported Immunological/Allergic: no symptoms reported Past Qmdycgx-Wezapd-Zevnla Hx Patient Social History Alcohol Use: Denies Use Recreational Drug Use: No Smoking Status: Current Everyday Smoker (1 PPD) Type Used: Cigarettes (1 PPD) 2nd Hand Smoke Exposure: Yes Recent Foreign Travel: No Contact w/Someone Who Travel: No Recent Infectious Disease Expo: No Recent Hopitalizations: No Physical Abuse: No Sexual Abuse: No Immunizations Up To Date Tetanus Booster (TDap): Less than 5yrs PED Vaccines UTD: Yes Seasonal Allergies Seasonal Allergies: No Surgeries History of Surgeries: Yes (S-CECTION X 2, BTL. 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: Tubal Ligation Genitourinary History of Genitourinary Disor: Yes Genitourinary Disorders: Kidney Stones Gastrointestinal History of Gastrointestinal Di: Yes Gastrointestinal Disorders: Irritable Bowel Musculoskeletal History of Musculoskeletal Dis: Yes Musculoskeletal Disorders: Chronic Back Pain Endocrine History of Endocrine Disorders: No HEENT History of HEENT Disorders: Yes (DENTAL CARIES) Loss of Vision: Denies Hearing Impairment: Denies Cancer History of Cancer: No Psychosocial History of Psychiatric Problem: Yes Behavioral Health Disorders: Anxiety, Depression Suicide Risk Score: 0 Integumentary History of Skin or Integumenta: Yes (SHINGLES; CELLULITIS) Skin/Integumentary Disorders: Recent Skin Changes Blood Transfusions History of Blood Disorders: No Adverse Reaction to a Blood Tr: No Family Medical History Significant Family History: Heart Disease Family Medial History: Diabetes mellitus 19 FATHER Myocardial infarction 19 FATHER Thyroid disease G8 SISTER Physical Exam Vital Signs Vital Signs - First Documented 08/15/17 23:49 Temp 98.3 Pulse 88 Resp 18 B/P (MAP) 139/99 (112) Pulse Ox 96 General Appearance: WD/WN, no apparent distress Eyes: bilateral eye normal inspection, bilateral eye PERRL, bilateral eye EOMI Ears: bilateral ear auricle normal, bilateral ear canal normal, bilateral ear TM normal Nose: normal inspection Mouth/Throat: pharynx normal, dental tenderness, No mandibular swelling, No maxillary swelling, other (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 NO AREAS OF FLUCTUANCE. NO FACIAL SWELLING OR ERYTHEMA. ) Neck: normal inspection Cardiovascular: regular rate, rhythm, no murmur Respiratory: normal breath sounds Neurologic/Psychiatric: master control supervisor II-XII nml as tested, no motor/sensory deficits, alert, normal mood/affect, oriented x 3 Skin: normal color, warm/dry Progress/Results/Core Measures Results/Orders My Orders Orders - JENNIFER,JOSE K DO Rx-Naproxen (Rx-Naprosyn) (08/16/17 00:00) Rx-Penicillin Vk Tablet (Rx-Pen-Vee K Ta (08/16/17 00:00) Lidocaine 2% Viscous 15 Ml (Xylocaine Vi (08/16/17 00:00) Rx-Naproxen (Rx-Naprosyn) (08/16/17 00:06) Lidocaine 2% Viscous 15 Ml (Xylocaine Vi (08/16/17 00:06) Rx-Amoxicillin Capsule (Rx-Polymox Capsu (08/16/17 00:11) Rx-Amoxicillin Capsule (Rx-Polymox Capsu (08/16/17 00:16) Medications Given in ED Current Medications Medications Dose Ordered Sig/Elisabeth Route Start Time Stop Time Status Last Admin Dose Admin Lidocaine HCl 5 ml ONCE ONCE MM 08/16/17 00:00 08/16/17 00:01 DC 08/16/17 00:16 5 ML Vital Signs/I&O Vital Sign - Last 12Hours 08/15/17 23:49 Temp 98.3 Pulse 88 Resp 18 B/P (MAP) 139/99 (112) Pulse Ox 96 Blood Pressure Mean: 112 Departure Impression Impression: Primary Impression: Dental caries Additional Impression: Dental abscess Disposition: HOME, SELF-CARE Condition: Stable Departure-Patient Inst. Referrals: [facility] Patient Instructions: Tooth Decay, Adult (DC), Tooth Abscess (DC) Add. Discharge Instructions: FREQUENT [place] SWISHES FOLLOW UP WITH DENTIST THIS WEEK FOR FURTHER CARE All discharge instructions reviewed with patient and/or family. Voiced understanding. Scripts Naproxen (Naproxen) 500 Mg Tablet 500 MG PO BID, #20 TAB Prov: JENNIFER,JOSE K DO 08/16/17 Lidocaine HCl (Lidocaine HCl Viscous) 15 Ml Solution 5 ML MM Q 1-2 HOURS for Pain, #100 ML Prov: JENNIFER,JOSE K DO 08/16/17 Penicillin V Potassium (Penicillin V Potassium) 500 Mg Tablet 500 MG PO QID for FOR INFECTION, #40 TAB Prov: JOSE RODRIGUEZ DO 08/16/17 Images Mouth/Nose 1 - Caries, Swelling, Tenderness JOSE RODRIGUEZ DO Aug 15, 2017 23:55
[2017-08-16] MEDS ORDERED: RX-PENICILLIN V K 250MG TAB PPK#4 PO STA
[2017-08-16] MEDS ORDERED: RX-NAPROXEN (NAPROSYN) 250 MG TAB PPK#4 PO STA
[2017-08-16] MEDS ORDERED: LIDOCAINE 2% VISCOUS 15 ML UDC MM ONE
[2017-08-16] MEDS ORDERED: NAPR-915 PO (00:03)
[2017-08-16] MEDS ORDERED: PENI500T PO (00:03)
[2017-08-16] MEDS ORDERED: LIDO15SO2 MM (00:03)
[2017-08-16] MEDS ORDERED: RX-NAPROXEN (NAPROSYN) 250 MG TAB PPK#4 PO ONE (00:06)
[2017-08-16] MEDS ORDERED: LIDOCAINE 2% VISCOUS 15 ML UDC ONE (00:06)
[2017-08-16] MEDS ORDERED: RX-AMOXICILLIN 500 MG CAP #3 PPK PO ONE (00:11)
[2017-08-16] MEDS ORDERED: RX-AMOXICILLIN 500 MG CAP #3 PPK PO STA (00:16)
[2017-08-16 00:17] VITALS: BP 139/99
== END 2017-08-16 00:17 | disposition home or self-care (01) ==
LOC: EDUNIT# 23:31 → ER 23:34
DX: K02.9 Dental caries, unspecified (principal); K04.7 Periapical abscess without sinus; J45.909 Unspecified asthma, uncomplicated; F32.9 Major depressive disorder, single episode, unspecified; F41.9 Anxiety disorder, unspecified; G43.909 Migraine, unspecified, not intractable, without status migrainosus; F17.210 Nicotine dependence, cigarettes, uncomplicated; Z82.49 Family history of ischemic heart disease and other diseases of the circulatory system; Z88.5 Allergy status to narcotic agent; Z87.448 Personal history of other diseases of urinary system; Z87.19 Personal history of other diseases of the digestive system; Z88.8 Allergy status to other drugs, medicaments and biological substances; Z87.59 Personal history of other complications of pregnancy, childbirth and the puerperium; Z98.51 Tubal ligation status; Z97.5 Presence of (intrauterine) contraceptive device
CPT/HCPCS: 99283

== ENCOUNTER 2017-10-11 19:28 | Emergency (ER) | payer SELFPAY ==
[~2017-10-11] VITALS: Ht 154.9 cm; Wt 67.1 kg
[~2017-10-11 19:28] MED LIST changes: +LIDO15SO2 MM; +NAPR-915 PO; +PENI500T PO
--- OUTSIDE RECORDS SUMMARY | 2017-10-11 19:34 | XMS REPORT ---
Author Author HEMANT JOHNSON Organization [facility] Address [address] [place] [address] Care Team Providers Care Farm Contractor Buyer Name Role Phone HEMANT JOHNSON Unavailable PROBLEMS Type Condition ICD9-CM Code [id number] Code Onset Dates Condition Status SNOMED Code Problem Abnormal weight gain 783.1 Active 751882194 Problem Generalized anxiety disorder F41.1 Active 91235173 Problem Severe episode of recurrent major depressive disorder, without psychotic features F33.2 Active 60217057 Problem Cellulitis and abscess of upper arm and forearm 682.3 Active 361560621 Problem Plantar fascial fibromatosis 728.71 Active 55065130 Problem Dysthymic disorder F34.1 Active 44094682 Problem Panic disorder F41.0 Active 068983845 ALLERGIES Substance Reaction Event Type Date Status Reglan restless and ''very uneasy'' Drug Allergy Dec, Active Phenergan restless and ''very uneasy'' Drug Allergy Dec, Active ENCOUNTERS Encounter Location Date Diagnosis [facility] [id number] [place] [phone] 05 May, 2017 Abdominal pain R10.9 and Viral gastroenteritis A08.4 [facility] [id number] [place] [phone] Apr, Acute gastroenteritis K52.9 [facility] [address] [place] [id number] Dec, Encounter for dental examination Z01.20 [facility] [place] [id number] [place] [phone] Oct, Panic disorder F41.0 ; Generalized anxiety disorder F41.1 and Severe episode of recurrent major depressive disorder, without psychotic features F33.2 [facility] [place] [id number] [place] [address] [phone] 14 Oct, 2016 Dysthymic disorder F34.1 and Panic disorder F41.0 [facility] [place] [id number] [place] [address] 45114- [phone] 06 Jan, 2016 Pain in right shoulder M25.511 and Other chronic pain G89.29 [facility] [place] [id number] [place] [address] [phone] Nov, Pain in right shoulder M25.511 [facility] [place] [id number] [place] [address] [phone]- [phone] Aug, Rotator cuff strain S46.019A [facility] [id number] [place] [phone] Aug, Right shoulder injury S49.91XA [facility] [address] [id number] Dec, Dental examination V72.2 [facility] [address] [id number] Dec, Dental examination V72.2 [facility] [place] [id number] [place] [address] [phone] Dec, Tooth pain 525.9 [facility] [place] [id number] [place] [address] [phone] 14 Aug, 2014 [facility] [place] [id number] [place] [address] [phone] Aug, [facility] [place] [id number] [place] [address] [phone] Jul, [facility] [place] [id number] [place] [address] [phone] Jul, [facility] [place] [id number] [place] [address] [phone] Jul, [facility] [place] [id number] [place] [address] [phone] Jul, IMMUNIZATIONS No Known Immunizations SOCIAL HISTORY Never Assessed REASON FOR VISIT PLAN OF CARE Activity Details Follow Up as needed Reason: VITAL SIGNS MEDICATIONS Medication Instructions Dosage Frequency Start Date End Date Duration Status [place] 5-325 MG Orally every 6 hrs 1 tablet as needed 6h Dec,Jan 3 days Active Lexapro 10 mg Orally Once a day for two weeks, then 1 tablet daily 0.5 tablet Oct, 30 day(s) Active Amoxicillin 500 MG Orally every 12 hrs 1 capsule 12h Active RESULTS No Results PROCEDURES Procedure Date Ordered Result Body Site LTD ORAL EVALUATION - PROBLEM FOCUS Jan 29, 2017 INTRAORL-PERIAPICAL 1 FILM [id number] Jan 29, 2017 INSTRUCTIONS MEDICATIONS ADMINISTERED No Known Medications MEDICAL (GENERAL) HISTORY Type Description Date Medical History asthma Surgical History wisdom teeth 2008 Surgical History section x2 Surgical History tubal ligation Hospitalization History x3 days for cellulitis 2014 Hospitalization History kidney stones 2010
--- OUTSIDE RECORDS SUMMARY | 2017-10-11 19:36 | XMS REPORT ---
Author Author AUTUMN TUTTLE [facility] Address [address] [place] [address] Care Team Providers Care Drawing Supervisor Name Role Phone AUTUMN TUTTLE Unavailable PROBLEMS Type Condition ICD9-CM Code NDT52-EP Code Onset Dates Condition Status SNOMED Code Problem Abnormal weight gain 783.1 Active 720023943 Problem Generalized anxiety disorder F41.1 Active 98517578 Problem Severe episode of recurrent major depressive disorder, without psychotic features F33.2 Active 27998008 Problem Cellulitis and abscess of upper arm and forearm 682.3 Active 783438062 Problem Plantar fascial fibromatosis 728.71 Active 52961414 Problem Dysthymic disorder F34.1 Active 68334220 Problem Panic disorder F41.0 Active 150472040 ALLERGIES Substance Reaction Event Type Date Status Reglan restless and ''very uneasy'' Drug Allergy Oct, Active Phenergan restless and ''very uneasy'' Drug Allergy Oct, Active ENCOUNTERS Encounter Location Date Diagnosis [facility] [id number] [place] [phone] May, Abdominal pain R10.9 and Viral gastroenteritis A08.4 [facility] [id number] [place] [phone] Apr, Acute gastroenteritis K52.9 [facility] [id number] [place] [address] [phone] Dec, Encounter for dental examination Z01.20 [facility] [id number] [place] [address] [phone] Oct, Panic disorder F41.0 ; Generalized anxiety disorder F41.1 and Severe episode of recurrent major depressive disorder, without psychotic features F33.2 [facility] [id number] [place] [address] [phone] 14 Oct, 2016 Dysthymic disorder F34.1 and Panic disorder F41.0 [facility] [address] [place] [address] [phone]- [phone] 06 Jan, 2016 Pain in right shoulder M25.511 and Other chronic pain G89.29 [facility] [id number] [place] [address] [phone] Nov, Pain in right shoulder M25.511 [facility] [id number] [place] [address] 92940- [phone] Aug, Rotator cuff strain S46.019A [facility] [id number] [place] [address] 12016 -[phone] Aug, Right shoulder injury S49.91XA [facility] [id number] [place] [address] [phone] Dec, Dental examination V72.2 [facility] [address] [id number] Dec, Dental examination V72.2 [facility] [id number] [place] [address] [phone]- [phone] Dec, Tooth pain 525.9 [facility] [address] [place] [address] [phone] 14 Aug, 2014 [facility] [address] [place] [address] [phone] Aug, [facility] [id number] [place] [address] [phone] Jul, [facility] [id number] [place] [address] [phone] Jul, [facility] [id number] [place] [address] [phone] Jul, [facility] [id number] [place] [address] [phone] Jul, IMMUNIZATIONS No Known Immunizations SOCIAL HISTORY Never Assessed REASON FOR VISIT intake - Lew DOE PLAN OF CARE Activity Details Follow Up 4 Weeks Reason: f/u VITAL SIGNS Height 60 in 2016-11-20 Weight 149.2 lbs 2016-11-20 Heart Rate 72 bpm 2016-11-20 Respiratory Rate 18 2016-11-20 BMI 29.14 kg/m2 2016-11-20 Blood pressure systolic 132 mmHg 2016-11-20 Blood pressure diastolic 93 mmHg 2016-11-20 MEDICATIONS Medication Instructions Dosage Frequency Start Date End Date Duration Status Lexapro 10 mg Orally Once a day for two weeks, then 1 tablet daily 0.5 tablet Oct, 30 day(s) Active HydrOXYzine HCl 50 mg Orally 2 times a day as needed for sleep/anxiety 0.5-1 tablet as needed Oct, 30 days Active Amoxicillin 500 MG Orally every 12 hrs 1 capsule 12h Active RESULTS No Results PROCEDURES No Known procedures INSTRUCTIONS MEDICATIONS ADMINISTERED No Known Medications MEDICAL (GENERAL) HISTORY Type Description Date Medical History asthma Surgical History wisdom teeth 2008 Surgical History section x2 Surgical History tubal ligation Hospitalization History x3 days for cellulitis 2014 Hospitalization History kidney stones 2010
--- OUTSIDE RECORDS SUMMARY | 2017-10-11 19:37 | XMS REPORT | Continuity of Care Document ---
Author Author [facility] Ctr of [facility] Ctr of [facility] Address Unknown Phone Unavailable Allergies Active Description Code Type Severity Reaction Onset Reported/Identified Relationship to Patient Clinical Status Yes Phenergan Drug Allergy N/A N/A 08/22/2014 Yes Reglan Drug Allergy N/A N/A 08/22/2014 Yes morphine [id number] Drug Allergy Severe PAIN 01/03/2017 Yes metoclopramide [id number] Drug Allergy Mild N/A 01/03/2017 Yes promethazine [id number] Drug Allergy Mild N/A 01/03/2017 Medications There [...] NELSON Ot E906.4 NONVENOM ARTHROPOD BITE 01/01/2015 DXA HELMS MD Ot 305.1 TOBACCO USE DISORDER [...] INITIAL ENCOU 06/01/2015 RICKY NELSON Ot Y92.019 [facility] PL[facility] IN SINGLE-FAMILY (PRIVATE) 06/01/2015 RICKY NELSON [...] DEPENDENCE, CIGARETTES, UNCOMPL 09/02/2015 Ot S46.911[facility]/UP A 09/02/2015 Ot X58.XXXA EXPOSURE TO OTHER SPECIFIED FACTORS, INI 09/02/[address] IN [facility] NON-INSTITUT (PRIVATE 09/02/2015 Ot Y99.0 CIVILIAN ACTIVITY [...] NONVENOM INSECT OTH NONVE 11/22/2016 NUBIA MURRAY ASBESTOS BRAKE LINING FINISHER Ot F17.210 NICOTINE DEPENDENCE, CIGARETTES, UNCOMPL 11/22/2016 NUBIA MURRAY APRN Ot M54.5 LOW BACK PAIN 11/22/2016 NUBIA MURRAY APRN Ot Z87.442 PERSONAL HISTORY OF URINARY CALCULI 11/22/2016 MANA ZARATE MD Ot R10.11 RIGHT UPPER QUADRANT PAIN 11/22/2016 MANA ZARATE MD Ot R10.13 EPIGASTRIC PAIN 11/28/2016 NUBIA MURRAY ASBESTOS BRAKE LINING FINISHER Ot F17.210 NICOTINE DEPENDENCE, CIGARETTES, UNCOMPL 11/28/2016 NUBIA MURRAY APRN Ot M54.5 LOW BACK PAIN 11/28/2016 NUBIA MURRAY ASBESTOS BRAKE LINING FINISHER Ot Z87.442 PERSONAL HISTORY OF URINARY CALCULI 01/03/2017 MANA ZARATE MD Ot R10.11 RIGHT UPPER QUADRANT PAIN 01/03/2017 MANA ZARATE MD Ot R10.13 EPIGASTRIC PAIN 01/03/2017 TATIANA CIFUENTES Ot G43.909 MIGRAINE, UNSP, NOT INTRACTABLE, WITHOUT 01/03/2017 TATIANA CIFUENTES Ot G89.29 OTHER CHRONIC PAIN 01/03/2017 TATIANA CIFUENTES Ot J45.909 UNSPECIFIED ASTHMA, UNCOMPLICATED 01/03/2017 ESAU, TATIANA PART TIME RECEPTIONIST Ot K02.9 DENTAL CARIES, UNSPECIFIED 01/03/2017 ESAU, TATIANA PART TIME RECEPTIONIST Ot K04.7 PERIAPICAL ABSCESS WITHOUT SINUS 01/03/2017 ESAU, TATIANA PART TIME RECEPTIONIST Ot K08.89 OTHER SPECIFIED DISORDERS OF TEETH AND S 01/03/2017 ESAU, TATIANA PART TIME RECEPTIONIST Ot M54.9 DORSALGIA, UNSPECIFIED 01/03/2017 ESAU, TATIANA PART TIME RECEPTIONIST Ot Z87.42 PERSONAL HISTORY OF OTH DISEASES OF THE 01/03/2017 ESAU, TATIANA PART TIME RECEPTIONIST Ot Z87.442 PERSONAL HISTORY OF URINARY CALCULI 01/03/2017 ESAU, TATIANA PART TIME RECEPTIONIST Ot Z87.59 PERSONAL HISTORY OF COMP OF PREG, CHLDBR 01/03/2017 ESAU, TATIANA PART TIME RECEPTIONIST Ot Z98.51 TUBAL LIGATION STATUS 01/05/2017 ESAU, TATIANA PART TIME RECEPTIONIST Ot G43.909 MIGRAINE, UNSP, NOT INTRACTABLE, WITHOUT 01/05/2017 ESAU, TATIANA PART TIME RECEPTIONIST Ot G89.29 OTHER CHRONIC PAIN 01/05/2017 ESAU, TATIANA PART TIME RECEPTIONIST Ot J45.909 UNSPECIFIED ASTHMA, UNCOMPLICATED 01/05/2017 ESAU, TATIANA PART TIME RECEPTIONIST Ot K02.9 DENTAL CARIES, UNSPECIFIED 01/05/2017 ESAU, TATIANA PART TIME RECEPTIONIST Ot K04.7 PERIAPICAL ABSCESS WITHOUT SINUS 01/05/2017 ESAU, TATIANA PART TIME RECEPTIONIST Ot K08.89 OTHER SPECIFIED DISORDERS OF TEETH AND S 01/05/2017 ESAU, TATIANA PART TIME RECEPTIONIST Ot M54.9 DORSALGIA, UNSPECIFIED 01/05/2017 ESAU, TATIANA PART TIME RECEPTIONIST Ot Z87.42 PERSONAL HISTORY OF OTH DISEASES OF THE 01/05/2017 ESAU, TATIANA PART TIME RECEPTIONIST Ot Z87.442 PERSONAL HISTORY OF URINARY CALCULI 01/05/2017 ESAU, TATIANA PART TIME RECEPTIONIST Ot Z87.59 PERSONAL HISTORY OF COMP OF PREG, CHLDBR 01/05/2017 ESAU, TATIANA PART TIME RECEPTIONIST Ot Z98.51 TUBAL LIGATION STATUS 01/09/2017 ESAU, TATIANA PART TIME RECEPTIONIST Ot G43.909 MIGRAINE, UNSP, NOT INTRACTABLE, WITHOUT 01/09/2017 ESAU, TATIANA PART TIME RECEPTIONIST Ot G89.29 OTHER CHRONIC PAIN 01/09/2017 ESAU, TATIANA PART TIME RECEPTIONIST Ot J45.909 UNSPECIFIED ASTHMA, UNCOMPLICATED 01/09/2017 ESAU, TATIANA PART TIME RECEPTIONIST Ot K02.9 DENTAL CARIES, UNSPECIFIED 01/09/2017 TATIANA CIFUENTESP Ot K04.7 PERIAPICAL ABSCESS WITHOUT SINUS 01/09/2017 TATIANA CIFUENTES PART TIME RECEPTIONIST Ot K08.89 OTHER SPECIFIED DISORDERS OF TEETH AND S 01/09/2017 ESAU TATIANA JORDANP Ot M54.9 DORSALGIA, UNSPECIFIED 01/09/2017 TATIANA CIFUENTES PART TIME RECEPTIONIST Ot Z87.42 PERSONAL HISTORY OF OTH DISEASES OF THE 01/09/2017 ESAU TATIANA JORDANP Ot Z87.442 PERSONAL HISTORY OF URINARY CALCULI 01/09/2017 TATIANA CIFUENTES PART TIME RECEPTIONIST Ot Z87.59 PERSONAL HISTORY OF COMP OF [...] HISTORY OF URINARY CALCULI 04/12/2017 DAX HELMS MD Ot Z87.59 PERSONAL HISTORY OF [...] HISTORY OF OTH DISEASES OF THE 06/06/2017 JENNIFER URBANJOSE Ot Z87.442 PERSONAL HISTORY OF URINARY [...] Ot J45.909 UNSPECIFIED ASTHMA, UNCOMPLICATED 06/08/2017 NUBIA MURARY APRN Ot Z77.22 CNTCT W AND EXPSR [...] MURRAY APRN Ot Z98.51 TUBAL LIGATION STATUS 08/15/2017 ELLIOT ROMERO, MANA Fried Ot R10.11 RIGHT UPPER QUADRANT PAIN 08/15/2017 MANA ZARATE MD Ot R10.13 EPIGASTRIC PAIN 08/16/2017 JOSE RODRIGUEZ DO Ot F17.210 NICOTINE DEPENDENCE, CIGARETTES, UNCOMPL 08/16/2017 VICTORIANO RODRIGUEZ DOA Sharon Ot F32.9 MAJOR DEPRESSIVE DISORDER, SINGLE EPISOD 08/16/2017 VICTORIANO RODRIGUEZ DOA Sharon Ot F41.9 ANXIETY DISORDER, UNSPECIFIED 08/16/2017 JOSE RODRIGUEZ DO Ot G43.909 MIGRAINE, UNSP, NOT INTRACTABLE, WITHOUT 08/16/2017 JENNIFERVICTORIANO Cristina DOA K Ot J45.909 UNSPECIFIED ASTHMA, UNCOMPLICATED 08/16/2017 VICTORIANO RODRIGUEZ DOA Sharon Ot K02.9 DENTAL CARIES, UNSPECIFIED 08/16/2017 JOSE RODRIGUEZ DO Ot K04.7 PERIAPICAL ABSCESS WITHOUT SINUS 08/16/2017 JENNIFER JOSE URBAN Ot K08.89 OTHER SPECIFIED DISORDERS OF TEETH AND S 08/16/2017 JOSE RODRIGUEZ DO Ot Z82.49 FAMILY HX OF ISCHEM HEART DIS AND OTH DI 08/16/2017 JENNIFER JOSE URBAN Ot Z87.19 PERSONAL HISTORY OF OTHER DISEASES OF TH 08/16/2017 JENNIFER JOSE URBAN Ot Z87.448 PERSONAL HISTORY OF OTHER DISEASES OF UR 08/16/2017 JENNIFER JOSE URBAN Ot Z87.59 PERSONAL HISTORY OF COMP OF PREG, CHLDBR 08/16/2017 JENNIFER JOSE URBAN Ot Z88.5 ALLERGY STATUS TO NARCOTIC AGENT STATUS 08/16/2017 JENNIFER JOSE URBAN Ot Z88.8 ALLERGY STATUS TO OTH DRUG/MEDS/BIOL SUB 08/16/2017 JENNIFER JOSE URBAN Ot Z97.5 PRESENCE OF (INTRAUTERINE) CONTRACEPTIVE 08/16/2017 JENNIFER JOSE URBAN Ot Z98.51 TUBAL LIGATION STATUS 08/18/2017 JENNIFER JOSE URBAN Ot F17.210 NICOTINE DEPENDENCE, CIGARETTES, UNCOMPL 08/18/2017 JENNIFER JOSE URBAN Ot F32.9 MAJOR DEPRESSIVE DISORDER, SINGLE EPISOD 08/18/2017 JENNIFER JOSE URBAN Ot F41.9 ANXIETY DISORDER, UNSPECIFIED 08/18/2017 JENNIFER JOSE URBAN Ot G43.909 MIGRAINE, UNSP, NOT INTRACTABLE, WITHOUT 08/18/2017 JENNIFER JOSE URBAN Ot J45.909 UNSPECIFIED ASTHMA, UNCOMPLICATED 08/18/2017 JENNIFER JOSE URBAN Ot K02.9 DENTAL CARIES, UNSPECIFIED 08/18/2017 CAMDEN JOSE URBAN Ot K04.7 PERIAPICAL ABSCESS WITHOUT SINUS 08/18/2017 JENNIFER JOES URBAN Ot K08.89 OTHER SPECIFIED DISORDERS OF TEETH AND S 08/18/2017 JENNIFER JOSE URBAN Ot Z82.49 FAMILY HX OF ISCHEM HEART DIS AND OTH DI 08/18/2017 EJNNIFER JOSE URBAN Ot Z87.19 PERSONAL HISTORY OF OTHER DISEASES OF TH 08/18/2017 JENNIFER JOSE URBAN Ot Z87.448 PERSONAL HISTORY OF OTHER DISEASES OF UR 08/18/2017 JOSE RODRIGUEZ DO Ot Z87.59 PERSONAL HISTORY OF COMP OF PREG, CHLDBR 08/18/2017 JOSE RODRIGUEZ DO Ot Z88.5 ALLERGY STATUS TO NARCOTIC AGENT STATUS 08/18/2017 JOSE RODRIGUEZ DO Ot Z88.8 ALLERGY STATUS TO OTH DRUG/MEDS/BIOL SUB 08/18/2017 JOSE RODRIGUEZ DO Ot Z97.5 PRESENCE OF (INTRAUTERINE) CONTRACEPTIVE 08/18/2017 JOSE RODRIGUEZ DO Ot Z98.51 TUBAL LIGATION STATUS Procedures Code Description [place] [address] ROUTINE VENIPUNCTURE 08/22/2014 THYANA THYROID ANALYZER 08/22/2014 [...] 06/06/17 18:42 Blood monocytes/100 leukocytes 4 % NRG Manual blood segmented neutrophils/100 leukocytes 87 % NRG Blood band neutrophils/100 leukocytes 2 % NRG Manual blood lymphocytes/100 leukocytes 7 % NRG Manual eosinophils/100 leukocytes in nose 0 % NRG Manual blood basophils/100 leukocytes 0 % NRG Blood erythrocyte morphology finding identification [facility] Comprehensive metabolic panel - 06/06/17 18:42 Serum [...] Status Pt. Type Provider Facility Loc./Unit Complaint [id number] 08/22/2014 14:39:00 08/22/2014 23:59:59 CLS Outpatient MARTINES MARCUS URBAN [id number] 05/05/2017 08:35:00 05/05/2017 23:59:59 CLS Outpatient NINI MALDONADO [facility] [id number] 08/15/2017 23:34:00 08/16/2017 00:17:00 DIS Emergency JOSE RODRIGUEZ DO Via [facility] ER TOOTH AND GUM PAIN [id number] 06/06/2017 17:47:00 06/06/2017 20:07:00 DIS Emergency JOSE RODRIGUEZ DO Via [facility] ER SOA [id number] 06/04/2017 17:23:00 06/04/2017 17:33:00 DIS Emergency NUBIA MURRAY APRN [facility] ER SORE THROAT [id number] 04/11/2017 20:49:00 04/12/2017 01:59:00 DIS Emergency ANALIA ROMERO, DAX Foote Via [facility] ER KIDNEY PAIN,NAUSEA [id number] 03/13/2017 18:29:00 03/13/2017 20:47:00 DIS Emergency NUBIA MURRAY APRN [facility] ER LIGHTHEADEDNESS,DIZZINESS, SOA [id number] 03/02/2017 16:48:00 03/02/2017 18:27:00 DIS Emergency NUBIA MURRAY APRN Via [facility] ER R SIDE LOWER BACK PAIN/ NAUSEA [id number] 01/03/2017 20:36:00 01/03/2017 21:51:00 DIS Emergency TATIANA CIFUENTES Via [facility] ER TOOTH PAIN [id number] 11/22/2016 18:25:00 11/22/2016 19:05:00 DIS Emergency NUBIA MURRAY APRN [facility] ER BACK PAIN [id number] 11/07/2016 17:13:00 11/07/2016 18:35:00 DIS Emergency DAX HELMS MD Via [facility] ER PAINFUL/ITCHY RED SPOTS ON SKIN [id number] 10/12/2016 13:14:00 10/12/2016 13:47:00 DIS Emergency NUBIA MURRAY APRN [facility] ER R SIDE DENTAL PAIN/ HEADACHE [id number] 06/29/2016 15:31:00 06/29/2016 16:09:00 DIS Emergency NUBIA MURRAY APRN Via [facility] ER N/V, SINUS TROUBLE [id number] 03/27/2016 17:52:00 03/27/2016 19:21:00 DIS Emergency JENNIFER URBAN JOSE K [facility] ER SOA [id number] 03/21/2016 11:40:00 03/21/2016 23:59:59 CLS Outpatient MANA ZARATE MD [facility] CARD RT UPPRER ABDOMINAL PAIN [id number] 03/06/2016 08:31:00 03/06/2016 23:59:59 CLS Outpatient MANA ZARATE MD [facility] RAD RUQ ABD PAIN [id number] 02/09/2016 07:28:00 02/09/2016 08:48:00 DIS Emergency SOPHIA JOSÉ MD [facility] ER BODY ACHES [id number] 01/07/2016 17:31:00 01/07/2016 18:53:00 DIS Emergency RICKY NELSON [facility] ER FEVER [id number] 12/21/2015 12:08:00 12/21/2015 13:24:00 DIS Emergency TREVOR NUBIA Acosta APRN [facility] ER RIGHT SHOULDER PAIN [id number] 08/08/2015 09:08:00 08/08/2015 12:16:00 DIS Emergency JOSE RODRIGUEZ DO [facility] ER MIGRAINE [id number] 07/17/2015 19:11:00 07/17/2015 21:23:00 DIS Emergency RICKY NELSON [facility] ER L EAR PAIN [id number] 06/01/2015 18:38:00 06/01/2015 19:47:00 DIS Emergency RICKY NELSON [facility] ER L FOOT INJ/PAIN [id number] 05/20/2015 23:50:00 05/21/2015 01:32:00 DIS Emergency SOPHIA JOSÉ MD [facility] ER RT LEG PAIN/KNOT [id number] 05/11/2015 21:12:00 05/11/2015 22:49:00 DIS Emergency SOPHIA JOSÉ MD [facility] ER SORE THROAT;COUGH; FEVER [id number] 05/06/2015 18:32:00 05/06/2015 23:32:00 DIS Emergency RICKY NELSON [facility] ER FEVER,CHILLS/BODY ACHES [id number] 03/26/2015 20:21:00 03/27/2015 00:12:00 DIS Emergency RICKY NELSON [facility] ER L HAND JULIET [id number] 01/20/2015 17:58:00 01/20/2015 19:17:00 DIS Emergency RICKY NELSON [facility] ER ORAL PAIN/LFT JAW [id number] 01/01/2015 18:57:00 01/01/2015 20:16:00 DIS Emergency DAX HELMS MD [facility] ER COUGHING,SOA [id number] 12/10/2014 21:39:00 12/10/2014 22:19:00 DIS Emergency RICKY NELSON [facility] ER SPIDER BITE [id number] 05/31/2014 16:59:00 05/31/2014 18:10:00 DIS Emergency RICKY NELSON [facility] ER INSECT BITE/STING [id number] 05/28/2014 16:45:00 05/28/2014 18:23:00 DIS Emergency NUBIA MURRAY APRN [facility] ER VOMITING,FEVER [id number] 09/02/2015 20:34:00 Document Registration [id number] 05/14/2015 18:01:00 Document Registration [id number] 05/14/2015 18:01:00 Document Registration [id number] 08/09/2014 01:45:00 Document Registration [id number] 10/15/2011 17:32:00 Document Registration [id number] 09/26/2011 12:18:00 Document Registration
[2017-10-11] MEDS ORDERED: NAPR-1071 PO (19:51)
[2017-10-11] MEDS ORDERED: ORPH100T PO (19:51)
--- NOTE | 2017-10-11 19:52 | ED Upper Extremity ---
General Chief Complaint: Upper Extremity Stated Complaint: R SHOULDER PAIN Nursing Triage Note: c/o R shoulder pain since night/thursday morning. Patient denies injury. Nursing Sepsis Screen: No Definite Risk Source: patient Exam Limitations: no limitations History of Present Illness Date Seen by Provider: October 11, 2017 Time Seen by Provider: 19:47 Initial Comments To ER with right shoulder pain since 10/08/17 after playing with her niece. Does not recall any particular injury but she does report a grinding sensation and limited range of motion due to pain with any movement of the right shoulder. The pain seems to radiate up into the base of her neck and to the right scapula. Onset: last week Severity: moderate Pain/Injury Location: right shoulder Modifying Factors: Worse With Movement Allergies and Home Medications Allergies Coded Allergies: metoclopramide (Unverified Allergy, Mild, 01/03/17) promethazine (Unverified Allergy, Mild, 01/03/17) morphine (Unverified Adverse Reaction, Severe, PAIN, 01/03/17) Home Medications Lidocaine HCl 15 Ml Solution, 5 ML MM Q 1-2 HOURS Prescribed by: JOSE RODRIGUEZ on 08/16/172 Naproxen 500 Mg Tablet, 500 MG PO BID Prescribed by: JOSE RODRIGUEZ on 08/16/172 Naproxen 500 Mg Tablet, 500 MG PO BID Prescribed by: NUBIA MURRAY on 10/11/171950 Orphenadrine Citrate 100 Mg Tablet.er, 100 MG PO BID PRN for PAIN-MODERATE Prescribed by: NUBIA MURRAY on 10/11/171950 Penicillin V Potassium 500 Mg Tablet, 500 MG PO QID Prescribed by: JOSE RODRIGUEZ on 08/16/17 0003 Patient Home Medication List Home Medication List Reviewed: Yes Constitutional: see HPI EENTM: see HPI Respiratory: no symptoms reported Cardiovascular: no symptoms reported Genitourinary: no symptoms reported Musculoskeletal: see HPI Skin: no symptoms reported Psychiatric/Neurological: No Symptoms Reported Past Esbqlin-Ldsand-Hhnqoq Hx Patient Social History Alcohol Use: Denies Use Recreational Drug Use: No Type Used: Cigarettes 2nd Hand Smoke Exposure: Yes Recent Foreign Travel: No Contact w/Someone Who Travel: No Recent Infectious Disease Expo: No Recent Hopitalizations: No Physical Abuse: No Sexual Abuse: No Immunizations Up To Date Tetanus Booster (TDap): Less than 5yrs PED Vaccines UTD: Yes Seasonal Allergies Seasonal Allergies: No Past Medical History Surgeries: Yes (S-CECTION X 2, BTL. 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 Sexually Transmitted Disease: No HIV/AIDS: No Genitourinary: Yes Kidney Stones Gastrointestinal: Yes Irritable Bowel Musculoskeletal: Yes Chronic Back Pain Endocrine: No HEENT: Yes (DENTAL CARIES) Loss of Vision: Denies Hearing Impairment: Denies Cancer: No Psychosocial: Yes Anxiety, Depression Nursing Suicide Risk Score: 0 Integumentary: Yes (SHINGLES; CELLULITIS) Recent Skin Changes Blood Disorders: No Adverse Reaction/Blood Tranf: No Family Medical History Diabetes mellitus 19 FATHER Myocardial infarction 19 FATHER Thyroid disease G8 SISTER Heart Disease Physical Exam Vital Signs Vital Signs - First Documented 10/11/17 19:40 Temp 98.2 Pulse 90 Resp 18 B/P (MAP) 137/88 (104) Pulse Ox 97 Capillary Refill : Less Than 3 Seconds General Appearance: WD/WN, no apparent distress HEENT: PERRL/EOMI, normal ENT inspection Neck: non-tender, full range of motion Respiratory: no respiratory distress, no accessory muscle use Gastrointestinal: normal bowel sounds, non tender Shoulder: normal inspection, non-tender, limited ROM, pain Elbow/Forearm: normal inspection, non-tender, Right Wrist: Yes normal inspection, Yes non-tender Hand: normal inspection, non-tender Neurologic/Psychiatric: alert, normal mood/affect, oriented x 3 Skin: normal color, warm/dry Progress/Results/Core Measures Results/Orders My Orders Orders - NUBIA MURRAY APRN Shoulder, Right, 3 Views (10/11/17 19:46) Ketorolac Injection (Toradol Injection) (10/11/17 20:00) Orphenadrine Injection (Norflex Injectio (10/11/17 20:00) Medications Given in ED Current Medications Medications Dose Ordered Sig/Elisabeth Route Start Time Stop Time Status Last Admin Dose Admin Ketorolac Tromethamine 60 mg ONCE ONCE IM 10/11/17 20:00 10/11/17 20:01 DC 10/11/17 20:04 60 MG Orphenadrine Citrate 60 mg ONCE ONCE IM 10/11/17 20:00 10/11/17 20:01 DC 10/11/17 20:04 60 MG Vital Signs/I&O 10/11/17 10/11/17 19:40 20:20 Temp 98.2 98.2 Pulse 90 90 Resp 18 18 B/P (MAP) 137/88 (104) 137/88 (104) Pulse Ox 97 97 Blood Pressure Mean: 104 Departure Impression Primary Impression: Internal derangement of right shoulder Disposition: HOME, SELF-CARE Condition: Stable Departure-Patient Inst. Decision time for Depature: 19:49 Referrals: NO,LOCAL PHYSICIAN (PCP/Family) Primary Care Physician Patient Instructions: Shoulder Sprain Add. Discharge Instructions: 1. Wear the sling as directed 2. Ice pack to the shoulder several times per day 3. Medication as directed 4. Follow-up with an orthopedic surgeon of your choosing this week to have further evaluation of the shoulder.. Alternatively you may follow-up with your family physician for further evaluation of the shoulder. All discharge instructions reviewed with patient and/or family. Voiced understanding. Scripts Orphenadrine Citrate (Orphenadrine Citrate) 100 Mg Tablet.er 100 MG PO BID PRN for PAIN-MODERATE, #20 TAB Prov: NUBIA MURRAY APRN 10/11/17 Naproxen (Naprosyn) 500 Mg Tablet 500 MG PO BID, #30 TAB Prov: NUBIA MURRAY APRN 10/11/17 Work/School Note: Work Release Form Date Seen in the Emergency Department: October 11, 2017 Return to Work: October 12, 2017 Other Restrictions Listed Below: Right Arm in sling times one week NUBIA MURRAY APRN October 11, 2017 19:52
--- NOTE | 2017-10-11 19:58 | Diagnostic Imaging Report ---
INDICATION: Right shoulder pain x 3 days. EXAMINATION: Three views of the right shoulder were obtained. FINDINGS: No fracture, dislocation or other acute abnormality. IMPRESSION: Normal right shoulder. Dictated by: Dictated on workstation # [id number]
[2017-10-11] MEDS ORDERED: ORPHENADRINE 60 MG/2 ML (NORFLEX) AMP IM ONE (20:00)
[2017-10-11] MEDS ORDERED: KETOROLAC 60 MG/2 ML VIAL IM ONE (20:00)
[2017-10-11 20:20] VITALS: BP 137/88
== END 2017-10-11 20:20 | disposition home or self-care (01) ==
LOC: EDUNIT# 19:28 → ER 19:29
DX: M24.111 Other articular cartilage disorders, right shoulder (principal); G43.909 Migraine, unspecified, not intractable, without status migrainosus; F41.9 Anxiety disorder, unspecified; F32.9 Major depressive disorder, single episode, unspecified; Z87.442 Personal history of urinary calculi; Z88.8 Allergy status to other drugs, medicaments and biological substances; Z88.6 Allergy status to analgesic agent; Z77.22 Contact with and (suspected) exposure to environmental tobacco smoke (acute) (chronic); Z98.51 Tubal ligation status; Z87.59 Personal history of other complications of pregnancy, childbirth and the puerperium; Z82.49 Family history of ischemic heart disease and other diseases of the circulatory system
CPT/HCPCS: 73030; 96372

== ENCOUNTER 2017-11-05 22:31 | Emergency (ER) | payer SELFPAY ==
[~2017-11-05] VITALS: Ht 154.9 cm; Wt 67.1 kg
[~2017-11-05 22:31] MED LIST changes: +ORPH100T PO
--- OUTSIDE RECORDS SUMMARY | 2017-11-05 22:40 | XMS REPORT ---
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 Name Role Phone RANDY DALE Unavailable PROBLEMS Type Condition ICD9-CM Code [id number] Code Onset Dates Condition Status SNOMED Code Problem Abnormal weight gain 783.1 Active 736369851 Problem Generalized anxiety disorder F41.1 Active 07497185 Problem Severe episode of recurrent major depressive disorder, without psychotic features F33.2 Active 13306795 Problem Cellulitis and abscess of upper arm and forearm 682.3 Active 863644813 Problem Plantar fascial fibromatosis 728.71 Active 36669443 Problem Dysthymic disorder F34.1 Active 49410174 Problem Panic disorder F41.0 Active 608627801 ALLERGIES Substance Reaction Event Type Date Status Reglan restless and ''very uneasy'' Drug Allergy May, Active Phenergan restless and ''very uneasy'' Drug Allergy May, Active ENCOUNTERS Encounter Location Date Diagnosis [facility] IN [facility] [id number] [place] [phone] May, Abdominal pain R10.9 and Viral gastroenteritis A08.4 [facility] [id number] [place] [phone] Apr, Acute gastroenteritis K52.9 [facility] [id number] [place] [phone] Dec, Encounter for dental examination Z01.20 [facility] [id number] [place] [phone] Oct, Panic disorder F41.0 ; Generalized anxiety disorder F41.1 and Severe episode of recurrent major depressive disorder, without psychotic features F33.2 [facility] [id number] [place] [phone] 14 Oct, 2016 Dysthymic disorder F34.1 and Panic disorder F41.0 [facility] [id number] [place] [phone] 06 Jan, 2016 Pain in right shoulder M25.511 and Other chronic pain G89.29 [facility] [id number] [place] [phone] Nov, Pain in right shoulder M25.511 [facility] [id number] [place] [phone] Aug, Rotator cuff strain S46.019A [facility] [id number] [place] [phone] Aug, Right shoulder injury S49.91XA [facility] [id number] [place] [address] [phone] Dec, Dental examination V72.2 [facility] [id number] [place] [phone] Dec, Dental examination V72.2 [facility] [id number] [place] [phone] Dec, Tooth pain 525.9 [facility] [address] [place] [phone][address] [phone] 14 Aug, 2014 [facility] [id number] [place] [address] [phone] Aug, [facility] [id number] [place] [phone] Jul, [facility] [id number] [place] [phone] Jul, [facility] [id number] [place] [address] [phone] Jul, [facility] [id number] [place] [address] [phone] Jul, IMMUNIZATIONS No Known Immunizations SOCIAL HISTORY Never Assessed REASON FOR VISIT Abdominal pain RUQ that comes and goes. sharp pain. happened one time last noc...woke up and have vomitted 2 times this am. pt reports the pain has eased up. last menstural period was 3 weeks ago. denies pain with intercourse. [email or web address] PLAN OF CARE Activity Details Follow Up prn Reason: VITAL SIGNS Height 60 in 2017-05-05 Weight 148.2 lbs 2017-05-05 Temperature 98.9 degrees Fahrenheit 2017-05-05 Heart Rate 84 bpm 2017-05-05 Respiratory Rate 20 2017-05-05 BMI 28.94 kg/m2 2017-05-05 Blood pressure systolic 118 mmHg 2017-05-05 Blood pressure diastolic 72 mmHg 2017-05-05 MEDICATIONS Medication Instructions Dosage Frequency Start Date End Date Duration Status Cyclobenzaprine HCl 10 mg Orally Three times a day 1 tablet 8h Aug, Not-Taking Motrin 800 mg Orally tid, ac 1 tablet Dec, Not-Taking Lexapro 10 mg Orally Once a day for two weeks, then 1 tablet daily 0.5 tablet Oct, 30 day(s) Active Zofran ODT 4 MG Orally every 8 hrs 1 tablet on the tongue and allow to dissolve 8h May, 5 days Active Tylenol 325 MG Orally every 6 hrs 2 tablets as needed 6h Not- Taking HydrOXYzine HCl 50 mg Orally 2 times a day as needed for sleep/anxiety 0.5-1 tablet as needed Oct, 30 days Not-Taking Amoxicillin 500 MG Orally every 12 hrs 1 capsule 12h Not-Taking RESULTS Name Result Date Reference Range UA LONG DIP (IN HOUSE) 2017-05-05 Lot # [id number] Exp date 04/30/18 Clarity clear Color yellow Odor no GLU Trace NIURKA negative KET negative SG 1.020 BLO negative pH 7.0 Protein negative URO 0.2 NIT negative JULIO CESAR negative Lot # [id number] Exp date 07/2017 Xray : KUB (IN HOUSE) 2017-05-05 PROCEDURES Procedure Date Ordered Result Body Site URINALYSIS, AUTO, W/O SCOPE May 05, 2017 X-RAY EXAM OF ABDOMEN May 05, 2017 INSTRUCTIONS MEDICATIONS ADMINISTERED No Known Medications MEDICAL (GENERAL) HISTORY Type Description Date Medical History asthma Surgical History wisdom teeth 2008 Surgical History section x2 Surgical History tubal ligation Hospitalization History x3 days for cellulitis 2014 Hospitalization History kidney stones 2011
[2017-11-05] MEDS ORDERED: RT-ALBUTEROL/IPRATROPIUM 3 ML (DUONEB) VIAL INH ONE (23:00)
[2017-11-05] MEDS ORDERED: methylPREDNISolone 125 MG (Solu-MEDROL) VIAL IM STA (23:36)
[2017-11-05 23:41] LABS: BILIRUBIN,URINE NEGATIVE (NEGATIVE); COLOR,URINE YELLOW; GLUCOSE, URINE (UA) NEGATIVE (NEGATIVE); KETONES,URINE NEGATIVE (NEGATIVE); LEUKOCYTE ESTERASE ,URINE 3+ (NEGATIVE); NITRITE,URINE NEGATIVE (NEGATIVE); PH,URINE 8 (5-9); PROTEIN,URINE NEGATIVE (NEGATIVE); UROBILINOGEN,URINE NORMAL (NORMAL)
[2017-11-05] MEDS ORDERED: LIDOCAINE 1% INJ 50 ML (XYLOCAINE) VIAL IJ ONE (23:45)
[2017-11-05] MEDS ORDERED: cefTRIAXone 1 GM (ROCEPHIN) VIAL IM ONE (23:45)
[2017-11-05] MEDS ORDERED: LIDOCAINE 1% INJ 20 ML 20 ML VIAL ONE (23:48)
[2017-11-05 23:52] LABS: BACTERIA,URINE TRACE /HPF; CLARITY,URINE SLIGHTLY CLOUDY; SQUAMOUS EPITHELIAL CELL,UR 25-50 /HPF; WBC,URINE 0-2 /HPF
[2017-11-05 23:53] LABS: AMORPHOUS SEDIMENT,UR MOD AMOR PHOSPHATE /LPF
[2017-11-05 23:55] LABS: AMPHETAMINE SCREEN, URINE POSITIVE (NEGATIVE); BARBITURATE SCREEN URINE NEGATIVE (NEGATIVE); BENZODIAZEPINES SCREEN URINE NEGATIVE (NEGATIVE); CANNABINOID SCREEN, URINE NEGATIVE (NEGATIVE); COCAINE SCREEN URINE NEGATIVE (NEGATIVE); METHADONE STAT NEGATIVE (NEGATIVE); METHAMPHETAMINE SCREEN URINE S NEGATIVE (NEGATIVE); OPIATE SCREEN URINE NEGATIVE (NEGATIVE); OXYCODONE STAT NEGATIVE (NEGATIVE); PROPOXYPHENE STAT NEGATIVE (NEGATIVE); TRICYCLIC ANTIDEPRESSANTS SCRE NEGATIVE (NEGATIVE)
--- NOTE | 2017-11-06 00:12 | ED Respiratory ---
General Chief Complaint: Respiratory Problems Stated Complaint: CONGESTION/SOB Nursing Triage Note: c/o SOA since thursday Source: patient History of Present Illness Date Seen by Provider: Nov 05, 2017 Time Seen by Provider: 22:49 Initial Comments PT ARRIVES VIA POV FROM HOME C/O NON-PRODUCTIVE COUGH AND NASAL CONGESTION X 1 WEEK STATES SYMPTOMS ARE WORSE WITH LAYING DOWN--STATES THIS MORNING IT FEELS LIKE SOMEONE HAS THEIR HANDS AROUND MY THROAT" HAS ASTHMA, AND HAS ALBUTEROL, BUT HAS NOT USED IT TODAY, USED IT ONCE YESTERDAY AND WAS BETTER FOR 30 MINUTES THEN BAD AGAIN. HAS NEVER HAD A SPACER. HAD FEVER OF 102.7--TOOK TYLENOL 2-3 HOURS AGO TOOK BENADRYL 50 MG AT 0600 THIS AM--STATES IT FELT LIKE ALLERGIES NO KNOWN SICK CONTACTS LMP 10/12/17. NORMAL . NO CONTROL. PT WITH MULTITUDE OF VISITS--5 IN 2018, VARIOUS COMPLAINTS, BUT USUALLY PAIN COMPLAINTS OR RESPIRATORY COMPLAINTS PT CONTINUES TO SMOKE AT LEAST 1 PPD. PCP: [facility] Allergies and Home Medications Allergies Coded Allergies: metoclopramide (Unverified Allergy, Mild, 01/03/17) promethazine (Unverified Allergy, Mild, 01/03/17) morphine (Unverified Adverse Reaction, Severe, PAIN, 01/03/17) Home Medications Albuterol Sulfate 1 Puff Puff, 2 PUFF IH Q4H USE WITH SPACER AT ALL TIMES Prescribed by: JOSE RODRIGUEZ on 11/06/1713 Benzonatate 100 Mg Capsule, 1-2 TAB PO TID Prescribed by: JOSE RODRIGUEZ on 11/06/1713 Cefdinir 300 Mg Capsule, 300 MG PO BID Prescribed by: JOSE RODRIGUEZ on 11/06/1713 Lidocaine HCl 15 Ml Solution, 5 ML MM Q 1-2 HOURS Prescribed by: JOSE RODRIGUEZ on 08/16/172 Methylprednisolone 4 Mg Tab.ds.pk, 4 MG PO UD Prescribed by: JOSE RODRIGUEZ on 11/06/1713 Naproxen 500 Mg Tablet, 500 MG PO BID Prescribed by: JOSE RODRIGUEZ on 08/16/172 Naproxen 500 Mg Tablet, 500 MG PO BID Prescribed by: NUBIA MURRAY on 10/11/171950 Orphenadrine Citrate 100 Mg Tablet.er, 100 MG PO BID PRN for PAIN-MODERATE Prescribed by: NUBIA MURRAY on 10/11/17 195 Penicillin V Potassium 500 Mg Tablet, 500 MG PO QID Prescribed by: JOSE RODRIGUEZ on 08/16/17 0003 Triamcinolone Acetonide 10.8 Ml [place], 2 SPRAY NSEACH BID Prescribed by: JOSE RODRIGUEZ on 11/06/17 0014 Patient Home Medication List Home Medication List Reviewed: Yes Review of Systems Constitutional: see HPI, fever EENTM: see HPI, nose congestion, throat pain Respiratory: see HPI, cough, short of breath Cardiovascular: no symptoms reported Gastrointestinal: no symptoms reported Genitourinary: no symptoms reported Musculoskeletal: no symptoms reported Skin: no symptoms reported Psychiatric/Neurological: No Symptoms Reported, Other (QUIT TAKING LEXAPRO IN SEPTEMBER BECAUSE SHE THINKS IT CAUSED INSOMNIA) Hematologic/Lymphatic: No Symptoms Reported Immunological/Allergic: see HPI Past Anoadik-Yvkmoa-Pefeyn Hx Patient Social History Alcohol Use: Occasionally Uses Recreational Drug Use: Yes (THC) Smoking Status: Current Everyday Smoker (1 PPD) Type Used: Cigarettes 2nd Hand Smoke Exposure: Yes Recent Foreign Travel: No Contact w/Someone Who Travel: No Recent Infectious Disease Expo: No Recent Hopitalizations: No Physical Abuse: No Sexual Abuse: No Immunizations Up To Date Tetanus Booster (TDap): Less than 5yrs PED Vaccines UTD: Yes Seasonal Allergies Seasonal Allergies: Yes Past Medical History Surgeries: Yes (S-CECTION X 2, BTL. 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 Transmitted Disease: No HIV/AIDS: No Genitourinary: Yes Kidney Stones Gastrointestinal: Yes Irritable Bowel Musculoskeletal: Yes Chronic Back Pain Endocrine: No HEENT: Yes (DENTAL CARIES) Loss of Vision: Denies Hearing Impairment: Denies Cancer: No Psychosocial: Yes Anxiety, Depression Nursing Suicide Risk Score: 0 Integumentary: Yes (SHINGLES; CELLULITIS) Blood Disorders: No Adverse Reaction/Blood Tranf: No Family Medical History Diabetes mellitus 19 FATHER Myocardial infarction 19 FATHER Thyroid disease G8 SISTER Heart Disease Physical Exam Vital Signs Capillary Refill : Less Than 3 Seconds General Appearance: WD/WN, no apparent distress, other (DRAMATIC, WITH HARSH/ FORCED DRY COUGH WHEN STAFF IN ROOM. THIS STOPS WHEN STAFF LEAVE ROOM. ANXIOUS. TALKS VERY RAPIDLY. REEKS OF CIGARETTES ) HEENT: PERRL/EOMI, TMs normal; No pharyngeal erythema, No tonsillar exudate; other (NASAL CONGESTION AND CLEAR POST NASAL DRAINAGE. 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, no motor/sensory deficits, alert, oriented x 3 Skin: normal color, warm/dry, tattoos/piercings (TATTOOS) Progress/Results/Core Measures Suspected Sepsis Recent Fever Within 48 Hours: No Infection Criteria Present: None New/Unexplained Altered Menta: No Sepsis Screen: No Definite Risk SIRS Temperature:100.2 Pulse: 111 Respiratory Rate: 20 Blood Pressure 128 /96 Mean: 107 Results/Orders Lab Results Laboratory Tests Test 11/05/17 23:30 Range/Units Urine Color YELLOW Urine Clarity SLIGHTLY CLOUDY Urine pH 8 5-9 Urine Specific [place] 1.015 L 1.016-1.022 Urine Protein NEGATIVE NEGATIVE Urine Glucose (UA) NEGATIVE NEGATIVE Urine Ketones NEGATIVE NEGATIVE Urine Nitrite NEGATIVE NEGATIVE Urine Bilirubin NEGATIVE NEGATIVE Urine Urobilinogen NORMAL NORMAL MG/DL Urine Leukocyte Esterase 3+ H NEGATIVE Urine RBC (Auto) 1+ H NEGATIVE Urine RBC NONE /HPF Urine WBC 0-2 /HPF Urine Squamous Epithelial Cells 25-50 H /HPF Urine Crystals PRESENT H /LPF Urine Amorphous Sediment MOD JONO PHOSPHATE H /LPF Urine Bacteria TRACE /HPF Urine Casts NONE /LPF Urine Mucus NEGATIVE /LPF Urine Culture Indicated NO Urine Test NEGATIVE NEGATIVE Urine Opiates Screen NEGATIVE NEGATIVE Urine Oxycodone Screen NEGATIVE NEGATIVE Urine Methadone Screen NEGATIVE NEGATIVE Urine Propoxyphene Screen NEGATIVE NEGATIVE Urine Barbiturates Screen NEGATIVE NEGATIVE Ur Tricyclic Antidepressants Screen NEGATIVE NEGATIVE Urine Phencyclidine Screen NEGATIVE NEGATIVE Urine Amphetamines Screen POSITIVE H NEGATIVE Urine Methamphetamines Screen NEGATIVE NEGATIVE Urine Benzodiazepines Screen NEGATIVE NEGATIVE Urine Cocaine Screen NEGATIVE NEGATIVE Urine Cannabinoids Screen NEGATIVE NEGATIVE My Orders Orders - JOSE RODRIGUEZ DO Drug Screen Stat (Urine) (11/05/17 22:51) Ua Culture If Indicated (11/05/17 22:51) Chest Pa/Lat (2 View) (11/05/17 22:51) Albuterol/Ipra Inhalation Soln (Duoneb I (11/05/17 23:00) Rt Request For Service (11/05/17 22:51) Svn Small Volume Nebulizer (11/05/17 22:51) Urine Bedside (11/05/17 22:51) Ceftriaxone Injection (Rocephin Injectio (11/05/17 23:45) Methylprednisolone Sod Succ (Solu-Medrol (11/05/17 23:36) Lidocaine 1% Inj 50 Ml (Xylocaine 1% Inj (11/05/17 23:45) Lidocaine 1% Inj 20 Ml (Xylocaine 1% Inj (11/05/17 23:48) Hcg,Qualitative Urine (11/06/17 00:06) Im/Sub-Q Injection Non-Ab Ed (11/05/17 ) Im Injection Antibiotic Ed (11/05/17 ) Medications Given in ED Vital Signs/I&O Capillary Refill : Less Than 3 Seconds Blood Pressure Mean: 107 Progress Note : Progress Note SYMPTOMS IMPROVED AT DISMISSAL--INCREASED AERATION, DECREASED COUGH. Departure Impression Primary Impression: Bronchitis Additional Impressions: Smoker Upper respiratory infection Disposition: 01 HOME, SELF-CARE Condition: Improved Departure-Patient Inst. Referrals: [facility] Patient Instructions: Acute Bronchitis, Adult (DC) Add. Discharge Instructions: NO SMOKING TYLENOL AND MOTRIN NEEDED FOR PAIN OR FEVER ROBITUSSIN DM FOR COUGH USE INHALER WITH SPACER AT ALL TIMES LOTS OF CLEAR LIQUIDS FOLLOW UP WITH [facility] IN 2-3 DAYS IF NO BETTER RETURN TO ER IF WORSE All discharge instructions reviewed with patient and/or family. Voiced understanding. Scripts Benzonatate (Tessalon Perle) 100 Mg Capsule 1-2 TAB PO TID for Cough, #30 CAP Prov: JENNIFER,JOSE K DO 11/06/17 Triamcinolone Acetonide (Nasacort) 10.8 Ml [place] 2 SPRAY NSEACH BID, #1 SPRAY Prov: JENNIFER,JOSE K DO 11/06/17 Methylprednisolone (Medrol) 4 Mg Tab.ds.pk 4 MG PO UD, #1 PKG Prov: JENNIFER,JOSE K DO 11/06/17 Cefdinir (Cefdinir) 300 Mg Capsule 300 MG PO BID for FOR INFECTION, #20 CAP Prov: JOSE RODRIGUEZ DO 11/06/17 Albuterol Sulfate (PROAIR HFA) 1 Puff Puff 2 PUFF IH Q4H for BREATHING, #1 GM USE WITH SPACER AT ALL TIMES Prov: JOSE RODRIGUEZ DO 11/06/17 JOSE RODRIGUEZ DO Nov 06, 2017 00:12
[2017-11-06] MEDS ORDERED: CEFD300C3 PO (00:14)
[2017-11-06] MEDS ORDERED: RT-ALBUINH IH (00:14)
[2017-11-06] MEDS ORDERED: BENZ-13 PO (00:14)
[2017-11-06] MEDS ORDERED: METH4TAB PO (00:14)
[2017-11-06] MEDS ORDERED: TRIA10.8 NSEACH (00:14)
[2017-11-06 00:20] VITALS: BP 128/96
--- NOTE | 2017-11-06 08:08 | Diagnostic Imaging Report ---
INDICATION: Cough and shortness of breath PA and lateral chest obtained at 1131 PM. Heart and mediastinal silhouette are normal in appearance. The lungs are clear. There is no pneumothorax or pleural fluid. IMPRESSION: Negative chest. Dictated by: Dictated on workstation # [id number]
== END 2017-11-06 00:20 | disposition home or self-care (01) ==
LOC: EDUNIT# 22:31 → ER 22:32
DX: J40 Bronchitis, not specified as acute or chronic (principal); F41.9 Anxiety disorder, unspecified; F32.9 Major depressive disorder, single episode, unspecified; G43.909 Migraine, unspecified, not intractable, without status migrainosus; F17.210 Nicotine dependence, cigarettes, uncomplicated; Z87.59 Personal history of other complications of pregnancy, childbirth and the puerperium; Z87.448 Personal history of other diseases of urinary system; Z82.49 Family history of ischemic heart disease and other diseases of the circulatory system; Z87.442 Personal history of urinary calculi; Z98.51 Tubal ligation status; Z88.8 Allergy status to other drugs, medicaments and biological substances; Z88.5 Allergy status to narcotic agent; Z79.52 Long term (current) use of systemic steroids; Z79.51 Long term (current) use of inhaled steroids
CPT/HCPCS: 71046; 80306; 81000; 84703; 94640; 96372

== ENCOUNTER 2018-02-03 18:48 | Emergency (ER) | payer SELFPAY ==
[~2018-02-03] VITALS: Ht 154.9 cm; Wt 67.1 kg
[~2018-02-03 18:48] MED LIST changes: -BENZ-13 PO; +BENZ100C18 PO; +RT-ALBUINH IH; +TRIA10.8 NSEACH
--- NOTE | 2018-02-03 18:56 | ED EENT ---
History of Present Illness General Stated Complaint: L SIDE FACIAL/DENTAL PAIN Source: patient Exam Limitations: no limitations History of Present Illness Date Seen by Provider: Feb 03, 2018 Time Seen by Provider: 19:07 Initial Comments To ER with left upper dental pain that began last night. She's been seen here before for this. She tried to call her dentist but was unable to contact her. Timing/Duration: abrupt Severity: moderate Location: dental Allergies and Home Medications Allergies Coded Allergies: metoclopramide (Unverified Allergy, Mild, 01/03/17) promethazine (Unverified Allergy, Mild, 01/03/17) morphine (Unverified Adverse Reaction, Severe, PAIN, 01/03/17) Home Medications Albuterol Sulfate 1 Puff Puff, 2 PUFF IH Q4H USE WITH SPACER AT ALL TIMES Prescribed by: JOSE RODRIGUEZ on 11/06/1713 Benzonatate 100 Mg Capsule, 1-2 TAB PO TID Prescribed by: JOSE RODRIGUEZ on 11/06/1713 Cefdinir 300 Mg Capsule, 300 MG PO BID Prescribed by: JOSE RODRIGUEZ on 11/06/1713 Lidocaine HCl 15 Ml Solution, 5 ML MM Q 1-2 HOURS Prescribed by: JOSE RODRIGUEZ on 08/16/172 Methylprednisolone 4 Mg Tab.ds.pk, 4 MG PO UD Prescribed by: JOSE RODRIGUEZ on 11/06/1713 Naproxen 500 Mg Tablet, 500 MG PO BID Prescribed by: JOSE RODRIGUEZ on 08/16/172 Naproxen 500 Mg Tablet, 500 MG PO BID Prescribed by: NUBIA MURRAY on 10/11/171950 Naproxen 500 Mg Tablet, 500 MG PO BID PRN for PAIN-MODERATE TO SEVERE Prescribed by: NUBIA MURRAY on 02/03/181857 Orphenadrine Citrate 100 Mg Tablet.er, 100 MG PO BID PRN for PAIN-MODERATE Prescribed by: NUBIA MURRAY on 10/11/171950 Penicillin V Potassium 500 Mg Tablet, 500 MG PO QID Prescribed by: JOSE RODRIGUEZ on 08/16/172 Penicillin V Potassium 500 Mg Tablet, 500 MG PO Q6H Prescribed by: NUBIA MURRAY on 02/03/181857 Triamcinolone Acetonide 10.8 Ml [place], 2 SPRAY NSEACH BID Prescribed by: JOSE RODRIGUEZ on 11/06/17 0014 Patient Home Medication List Home Medication List Reviewed: Yes Review of Systems Review of Systems Constitutional: see HPI Eyes: No Symptoms Reported Ears: No Symptoms Reported Nose: no symptoms reported Mouth: see HPI, pain Throat: no symptoms reported Respiratory: no symptoms reported Cardiovascular: no symptoms reported Musculoskeletal: no symptoms reported Skin: no symptoms reported Neurological: No Symptoms Reported Hematologic/Lymphatic: No Symptoms Reported Past Dpjuoks-Srpdww-Bnpyzl Hx Patient Social History Type Used: Cigarettes 2nd Hand Smoke Exposure: Yes Recent Foreign Travel: No Contact w/Someone Who Travel: No Recent Hopitalizations: No Immunizations Up To Date Tetanus Booster (TDap): Less than 5yrs PED Vaccines UTD: Yes Seasonal Allergies Seasonal Allergies: Yes Past Medical History Surgeries: Yes (S-CECTION X 2, BTL. 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 0oz. 67.017606uq; 28.91 BMI Method:Stated General Appearance: WD/WN, no apparent distress Eyes: bilateral eye normal inspection, bilateral eye PERRL, bilateral eye EOMI Ears: bilateral ear auricle normal, bilateral ear canal normal, bilateral ear TM normal Mouth/Throat: dental tenderness; No mandibular swelling, No maxillary swelling , No tonsillar swelling, No trismus, No uvula swelling Neck: non-tender, full range of motion Respiratory: no respiratory distress Gastrointestinal: normal bowel sounds, non tender Neurologic/Psychiatric: alert, normal mood/affect, oriented x 3 Skin: normal color, warm/dry Departure Impression Primary Impression: Pain, dental Disposition: 01 HOME, SELF-CARE Condition: Stable Departure-Patient Inst. Decision time for Depature: 18:56 Referrals: NO,LOCAL PHYSICIAN (PCP/Family) Primary Care Physician Patient Instructions: Dental Pain Add. Discharge Instructions: 1. Call your dentist tomorrow. Return to ER for any concerns 2. Antibiotics as directed Scripts Naproxen (Naprosyn) 500 Mg Tablet 500 MG PO BID PRN for PAIN-MODERATE TO SEVERE, #20 TAB Prov: NUBIA MURRAY APRN 02/03/18 Penicillin V Potassium (Penicillin V Potassium) 500 Mg Tablet 500 MG PO Q6H, #28 TAB Prov: NUBIA MURRAY APRN 02/03/18 Work/School Note: Work Release Form Date Seen in the Emergency Department: Feb 03, 2018 Return to Work: Feb 04, 2018 Images Mouth/Nose 1 - Caries, Tenderness NUBIA MURRAY APRN Feb 03, 2018 18:56
[2018-02-03] MEDS ORDERED: PENI500T PO (18:58)
[2018-02-03] MEDS ORDERED: NAPR-1071 PO (18:58)
--- OUTSIDE RECORDS SUMMARY | 2018-02-03 19:01 | XMS REPORT | Continuity of Care Document ---
Author Author [facility] of [facility] Address Unknown Phone Unavailable Allergies Active Description Code Type Severity Reaction Onset Reported/Identified Relationship to Patient Clinical Status Yes Phenergan Drug Allergy N/A N/A 08/22/2014 Yes Reglan Drug Allergy N/A N/A 08/22/2014 Yes morphine [id number] Drug Allergy Severe PAIN 01/03/2017 Yes metoclopramide [id number] Drug Allergy Mild N/A 01/03/2017 Yes promethazine [id number] Drug Allergy Mild N/A 01/03/2017 Medications There [...] INITIAL ENCOU 06/01/[address] [facility] PL[facility] IN SINGLE-FAMILY (PRIVATE) 06/01/2015 [...] DEPENDENCE, CIGARETTES, UNCOMPL 09/02/2015 Ot S46.911A [facility]TEND AT SHLDR/UP A 09/02/2015 Ot X58.XXXA EXPOSURE TO OTHER SPECIFIED FACTORS, INI 09/02/[address] [facility] NON-INSTITUT (PRIVATE 09/02/2015 Ot Y99.0 [...] NONVENOM INSECT OTH NONVE 11/22/2016 NUBIA MURRAY RATE CLERK Ot F17.210 NICOTINE DEPENDENCE, CIGARETTES, UNCOMPL 11/22/2016 NUBIA MURRAY APRN Ot M54.5 LOW BACK PAIN 11/22/2016 NUBIA MURRAY APRN Ot Z87.442 PERSONAL HISTORY OF URINARY CALCULI 11/22/2016 MANA ZARATE MD Ot R10.11 RIGHT UPPER QUADRANT PAIN 11/22/2016 MANA ZARATE MD Ot R10.13 EPIGASTRIC PAIN 11/28/2016 NUBIA MURRAY RATE CLERK Ot F17.210 NICOTINE DEPENDENCE, CIGARETTES, UNCOMPL 11/28/2016 NUBIA MURRAY APRN Ot M54.5 LOW BACK PAIN 11/28/2016 NUBIA MURRAY RATE CLERK Ot Z87.442 PERSONAL HISTORY OF URINARY CALCULI 01/03/2017 MANA ZARATE MD Ot R10.11 RIGHT UPPER QUADRANT PAIN 01/03/2017 MANA ZARATE MD Ot R10.13 EPIGASTRIC PAIN 01/03/2017 TATIANA CIFUENTES Ot G43.909 MIGRAINE, UNSP, NOT INTRACTABLE, WITHOUT 01/03/2017 TATIANA CIFUENTES Ot G89.29 OTHER CHRONIC PAIN 01/03/2017 TATIANA CIFUENTES Ot J45.909 UNSPECIFIED ASTHMA, UNCOMPLICATED 01/03/2017 ESAU, TATIANA GRAIN UNLOADER MACHINE Ot K02.9 DENTAL CARIES, UNSPECIFIED 01/03/2017 ESAU, TATIANA GRAIN UNLOADER MACHINE Ot K04.7 PERIAPICAL ABSCESS WITHOUT SINUS 01/03/2017 ESAU, TATIANA GRAIN UNLOADER MACHINE Ot K08.89 OTHER SPECIFIED DISORDERS OF TEETH AND S 01/03/2017 ESAU, TATIANA GRAIN UNLOADER MACHINE Ot M54.9 DORSALGIA, UNSPECIFIED 01/03/2017 ESAU, TATIANA GRAIN UNLOADER MACHINE Ot Z87.42 PERSONAL HISTORY OF OTH DISEASES OF THE 01/03/2017 ESAU, TATIANA GRAIN UNLOADER MACHINE Ot Z87.442 PERSONAL HISTORY OF URINARY CALCULI 01/03/2017 ESAU, TATIANA GRAIN UNLOADER MACHINE Ot Z87.59 PERSONAL HISTORY OF COMP OF PREG, CHLDBR 01/03/2017 ESAU, TATIANA GRAIN UNLOADER MACHINE Ot Z98.51 TUBAL LIGATION STATUS 01/05/2017 ESAU, TATIANA GRAIN UNLOADER MACHINE Ot G43.909 MIGRAINE, UNSP, NOT INTRACTABLE, WITHOUT 01/05/2017 ESAU, TATIANA GRAIN UNLOADER MACHINE Ot G89.29 OTHER CHRONIC PAIN 01/05/2017 ESAU, TATIANA GRAIN UNLOADER MACHINE Ot J45.909 UNSPECIFIED ASTHMA, UNCOMPLICATED 01/05/2017 ESAU, TATIANA GRAIN UNLOADER MACHINE Ot K02.9 DENTAL CARIES, UNSPECIFIED 01/05/2017 ESAU, TATIANA GRAIN UNLOADER MACHINE Ot K04.7 PERIAPICAL ABSCESS WITHOUT SINUS 01/05/2017 ESAU, TATIANA GRAIN UNLOADER MACHINE Ot K08.89 OTHER SPECIFIED DISORDERS OF TEETH AND S 01/05/2017 ESAU, TATIANA GRAIN UNLOADER MACHINE Ot M54.9 DORSALGIA, UNSPECIFIED 01/05/2017 ESAU, TATIANA GRAIN UNLOADER MACHINE Ot Z87.42 PERSONAL HISTORY OF OTH DISEASES OF THE 01/05/2017 ESAU, TATIANA GRAIN UNLOADER MACHINE Ot Z87.442 PERSONAL HISTORY OF URINARY CALCULI 01/05/2017 ESAU, TATIANA GRAIN UNLOADER MACHINE Ot Z87.59 PERSONAL HISTORY OF COMP OF PREG, CHLDBR 01/05/2017 ESAU, TATIANA GRAIN UNLOADER MACHINE Ot Z98.51 TUBAL LIGATION STATUS 01/09/2017 ESAU, TATIANA GRAIN UNLOADER MACHINE Ot G43.909 MIGRAINE, UNSP, NOT INTRACTABLE, WITHOUT 01/09/2017 ESAU, TATIANA GRAIN UNLOADER MACHINE Ot G89.29 OTHER CHRONIC PAIN 01/09/2017 ESAU, TATIANA GRAIN UNLOADER MACHINE Ot J45.909 UNSPECIFIED ASTHMA, UNCOMPLICATED 01/09/2017 ESAU, TATIANA GRAIN UNLOADER MACHINE Ot K02.9 DENTAL CARIES, UNSPECIFIED 01/09/2017 TATIANA CIFUENTESP Ot K04.7 PERIAPICAL ABSCESS WITHOUT SINUS 01/09/2017 TATIANA CIFUENTES GRAIN UNLOADER MACHINE Ot K08.89 OTHER SPECIFIED DISORDERS OF TEETH AND S 01/09/2017 ESAU TATIANA JORDANP Ot M54.9 DORSALGIA, UNSPECIFIED 01/09/2017 TATIANA CIFUENTES GRAIN UNLOADER MACHINE Ot Z87.42 PERSONAL HISTORY OF OTH DISEASES OF THE 01/09/2017 ESAU TATIANA JORDANP Ot Z87.442 PERSONAL HISTORY OF URINARY CALCULI 01/09/2017 TATIANA CIFUENTES GRAIN UNLOADER MACHINE Ot Z87.59 PERSONAL HISTORY OF COMP OF [...] APRN Ot Z98.51 TUBAL LIGATION STATUS 03/04/2017 NUIBA MURRAY APRN Ot G43.909 MIGRAINE, UNSP, NOT [...] APRN Ot J45.909 UNSPECIFIED ASTHMA, UNCOMPLICATED 06/04/2017 NUIBA MURRAY APRN Ot Z77.22 CNTCT W AND [...] URBAN Ot K02.9 DENTAL CARIES, UNSPECIFIED 08/18/2017 [place] JOSE URBAN Ot K04.7 PERIAPICAL ABSCESS WITHOUT SINUS 08/18/2017 JENNIFER JOSE URBAN Ot K08.89 OTHER SPECIFIED DISORDERS OF TEETH AND S 08/18/2017 JENNIFER JOSE URBAN Ot Z82.49 FAMILY HX OF ISCHEM HEART DIS AND OTH DI 08/18/2017 JENNIFER JOSE URBAN Ot Z87.19 PERSONAL HISTORY OF OTHER DISEASES OF TH 08/18/2017 JENNIFER JOSE URBAN Ot Z87.448 PERSONAL HISTORY OF OTHER DISEASES OF UR 08/18/2017 JENNIFER DOJOSE Ot Z87.59 PERSONAL HISTORY OF COMP OF PREG, CHLDBR 08/18/2017 JENNIFER URBAN JOSE Sharon Ot Z88.5 ALLERGY STATUS TO NARCOTIC AGENT STATUS 08/18/2017 JENNIFER URBAN JOSE K Ot Z88.8 ALLERGY STATUS TO OTH DRUG/MEDS/BIOL SUB 08/18/2017 JENNIFER URBAN JOSE Sharon Ot Z97.5 PRESENCE OF (INTRAUTERINE) CONTRACEPTIVE 08/18/2017 JENNIFER DOJOSE Ot Z98.51 TUBAL LIGATION STATUS 10/11/2017 NUBIA MURRAY APRN Ot F32.9 MAJOR DEPRESSIVE DISORDER, SINGLE EPISOD 10/11/2017 NUBIA MURRAY APRN Ot F41.9 ANXIETY DISORDER, UNSPECIFIED 10/11/2017 NUBIA MURRAY APRN Ot G43.909 MIGRAINE, UNSP, NOT INTRACTABLE, WITHOUT 10/11/2017 NUBIA MURRAY APRN Ot M24.111 OTHER ARTICULAR CARTILAGE DISORDERS, RIG 10/11/2017 NUBIA MURRAY APRN Ot M25.511 PAIN IN RIGHT SHOULDER 10/11/2017 NUIBA MURRAY APRN Ot Z77.22 CNTCT W AND EXPSR TO ENVIRON TOBACCO SMO 10/11/2017 NUBIA MURRAY APRN Ot Z82.49 FAMILY HX OF ISCHEM HEART DIS AND OTH DI 10/11/2017 NUBIA MURRAY APRN Ot Z87.442 PERSONAL HISTORY OF URINARY CALCULI 10/11/2017 NUBIA MURRAY APRN Ot Z87.59 PERSONAL HISTORY OF COMP OF PREG, CHLDBR 10/11/2017 NUBIA MURRAY APRN Ot Z88.6 ALLERGY STATUS TO ANALGESIC AGENT STATUS 10/11/2017 NUBIA MURRAY APRN Ot Z88.8 ALLERGY STATUS TO OTH DRUG/MEDS/BIOL SUB 10/11/2017 NUBIA MURRAY APRN Ot Z98.51 TUBAL LIGATION STATUS 10/11/2017 ELLIOT ROMERO, MANA Fried Ot R10.11 RIGHT UPPER QUADRANT PAIN 10/11/2017 ELLIOT ROMERO, MANA Fried Ot R10.13 EPIGASTRIC PAIN 10/17/2017 NUBIA MURRAY APRN Ot F32.9 MAJOR DEPRESSIVE DISORDER, SINGLE EPISOD 10/17/2017 NUBIA MURRAY APRN Ot F41.9 ANXIETY DISORDER, UNSPECIFIED 10/17/2017 NUBIA MURRAY APRN Ot G43.909 MIGRAINE, UNSP, NOT INTRACTABLE, WITHOUT 10/17/2017 NUBIA MURRAY APRN Ot M24.111 OTHER ARTICULAR CARTILAGE DISORDERS, RIG 10/17/2017 NUBIA MURRAY APRN Ot M25.511 PAIN IN RIGHT SHOULDER 10/17/2017 NUBIA MURRAY APRN Ot Z77.22 CNTCT W AND EXPSR TO ENVIRON TOBACCO SMO 10/17/2017 NUBIA MURRAY APRN Ot Z82.49 FAMILY HX OF ISCHEM HEART DIS AND OTH DI 10/17/2017 NUBIA MURRAY APRN Ot Z87.442 PERSONAL HISTORY OF URINARY CALCULI 10/17/2017 NUBIA MURRAY APRN Ot Z87.59 PERSONAL HISTORY OF COMP OF PREG, CHLDBR 10/17/2017 NUBIA MURRAY APRN Ot Z88.6 ALLERGY STATUS TO ANALGESIC AGENT STATUS 10/17/2017 NUBIA MURRAY APRN Ot Z88.8 ALLERGY STATUS TO OTH DRUG/MEDS/BIOL SUB 10/17/2017 NUBIA MURRAY APRN Ot Z98.51 TUBAL LIGATION STATUS 11/09/2017 JOSE RODRIGUEZ DO Ot F17.210 NICOTINE DEPENDENCE, CIGARETTES, UNCOMPL 11/09/2017 JOSE RODRIGUEZ DO Ot F32.9 MAJOR DEPRESSIVE DISORDER, SINGLE EPISOD 11/09/2017 JOSE RODRIGUEZ DO Ot F41.9 ANXIETY DISORDER, UNSPECIFIED 11/09/2017 JOSE RODRIGUEZ DO Ot G43.909 MIGRAINE, UNSP, NOT INTRACTABLE, WITHOUT 11/09/2017 JOSE RODRIGUEZ DO Ot J40 BRONCHITIS, NOT SPECIFIED ACUTE OR CH 11/09/2017 JOSE RODRIGUEZ DO Ot R06.02 SHORTNESS OF BREATH 11/09/2017 JOSE RODRIGUEZ DO Ot Z79.51 CONTROL CLERK (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 OF INHALED STERO 11/09/2017 JOSE RODRIGUEZ DO Ot Z79.52 CONTROL CLERK (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 OF SYSTEMIC STER 11/09/2017 JOSE RODRIGUEZ DO Ot Z82.49 FAMILY HX OF ISCHEM HEART DIS AND OTH DI 11/09/2017 JOSE RODRIGUEZ DO Ot Z87.442 PERSONAL HISTORY OF URINARY CALCULI 11/09/2017 JOSE RODRIGUEZ DO Ot Z87.448 PERSONAL HISTORY OF OTHER DISEASES OF UR 11/09/2017 JOSE RODRIGUEZ DO Ot Z87.59 PERSONAL HISTORY OF COMP OF PREG, CHLDBR 11/09/2017 JOSE RODRIGUEZ DO Ot Z88.5 ALLERGY STATUS TO NARCOTIC AGENT STATUS 11/09/2017 JOSE RODRIGUEZ DO Ot Z88.8 ALLERGY STATUS TO OTH DRUG/MEDS/BIOL SUB 11/09/2017 JOSE RODRIGUEZ DO Ot Z98.51 TUBAL LIGATION STATUS Procedures Code Description [place] [address] ROUTINE VENIPUNCTURE 08/22/2014 THYANA THYROID ANALYZER 08/22/2014 [...] NRG Blood erythrocyte morphology finding identification NORMAL [facility] Comprehensive metabolic panel - 06/06/17 18:42 [...] 06/06/17 18:48 Bacterial blood culture NG NRG Complete urinalysis with reflex to culture - 11/05/17 23:30 Urine color determination YELLOW NRG Urine clarity determination SLIGHTLY CLOUDY NRG Urine pH measurement by test strip 8 5-9 Specific gravity of urine by test [...] NORMAL Urine leukocyte esterase detection by dipstick 3+ NEGATIVE Automated urine sediment erythrocyte count by microscopy (number/high power field) NONE NRG Automated urine sediment leukocyte count by microscopy (number/high power field ) [HPF] NRG Bacteria detection in urine sediment by light microscopy TRACE NRG Squamous epithelial cells detection in urine sediment by light microscopy 25-50 NRG Crystals detection in urine sediment by light microscopy PRESENT NRG Casts detection in urine sediment by light microscopy NONE NRG Mucus detection in urine sediment by light microscopy NEGATIVE NRG Complete urinalysis with reflex to culture NO NRG Amorphous sediment detection in urine sediment by light microscopy MOD JONO PHOSPHATE NRG Urine drug screening test - 11/05/17 23:30 Urine phencyclidine detection by screening method NEGATIVE NEGATIVE Urine benzodiazepines detection by screening method NEGATIVE NEGATIVE Urine cocaine detection NEGATIVE NEGATIVE Urine amphetamines detection by screening method POSITIVE NEGATIVE Urine methamphetamine detection by screening method NEGATIVE NEGATIVE Urine cannabinoids detection by screening method NEGATIVE NEGATIVE Urine opiates detection by screening method NEGATIVE NEGATIVE Urine barbiturates detection NEGATIVE NEGATIVE Screening urine tricyclic antidepressants detection NEGATIVE NEGATIVE Urine methadone detection by screening method NEGATIVE NEGATIVE Urine oxycodone detection NEGATIVE NEGATIVE Urine propoxyphene detection NEGATIVE NEGATIVE Urine beta human chorionic gonadotropin (hCG) measurement - 11/05/17 23:30 Urine beta human chorionic gonadotropin (hCG) measurement NEGATIVE NEGATIVE Encounters ACCT No. Visit Date/Time Discharge Status Pt. Type Provider Facility Loc./Unit Complaint [id number] 08/22/2014 14:39:00 08/22/2014 23:59:59 [place] [id number] 05/05/2017 08:35:00 05/05/2017 23:59:59 CLS Outpatient NINI MALDONADO [id number] 11/12/2017 15:04:29 11/12/2017 23:59:59 CLS Outpatient [id number] 11/05/2017 22:32:00 11/06/2017 00:20:00 DIS Outpatient JENNIFERJOSE Cristina DO [facility] ER CONGESTION/SOB [id number] 10/11/2017 19:29:00 10/11/2017 20:20:00 DIS Outpatient NUBIA MURRAY APRN [facility] ER R SHOULDER PAIN [id number] 08/15/2017 23:34:00 08/16/2017 00:17:00 DIS Emergency JOSE RODRIGUEZ DO [facility] ER TOOTH AND GUM PAIN [id number] 06/06/2017 17:47:00 06/06/2017 20:07:00 DIS Emergency JENNIFER JOSE URBAN [facility] ER SOA [id number] 06/04/2017 17:23:00 06/04/2017 17:33:00 DIS Emergency NUBIA MURRAY APRN [facility] ER SORE THROAT [id number] 04/11/2017 20:49:00 04/12/2017 01:59:00 DIS Emergency DAX HELMS MD [facility] ER KIDNEY PAIN,NAUSEA [id number] 03/13/2017 18:29:00 03/13/2017 20:47:00 DIS Emergency NUBIA MURRAY APRN [facility] ER LIGHTHEADEDNESS,DIZZINESS, SOA [id number] 03/02/2017 16:48:00 03/02/2017 18:27:00 DIS Emergency NUBIA MURRAY APRN [facility] ER R SIDE LOWER BACK PAIN/ NAUSEA [id number] 01/03/2017 20:36:00 01/03/2017 21:51:00 DIS Emergency TATIANA CIFUENTES [facility] ER TOOTH PAIN [id number] 11/22/2016 18:25:00 11/22/2016 19:05:00 DIS Emergency NUBIA MURRAY APRN [facility] ER BACK PAIN [id number] 11/07/2016 17:13:00 11/07/2016 18:35:00 DIS Emergency DAX HELMS MD [facility] ER PAINFUL/ITCHY RED SPOTS ON SKIN [id number] 10/12/2016 13:14:00 10/12/2016 13:47:00 DIS Emergency NUBIA MURRAY APRN [facility] ER R SIDE DENTAL PAIN/ HEADACHE [id number] 06/29/2016 15:31:00 06/29/2016 16:09:00 DIS Emergency NUBIA MURRAY APRN [facility] ER N/V, SINUS TROUBLE [id number] 03/27/2016 17:52:00 03/27/2016 19:21:00 DIS Emergency JOSE RODRIGUEZ DO [facility] ER SOA [id number] 03/21/2016 11:40:00 03/21/2016 23:59:59 CLS Outpatient MANA ZARATE MD [facility] CARD RT UPPRER ABDOMINAL PAIN [id number] 03/06/2016 08:31:00 03/06/2016 23:59:59 CLS Outpatient MANA ZARATE MD [facility] RAD RUQ ABD PAIN [id number] 02/09/2016 07:28:00 02/09/2016 08:48:00 DIS Emergency SOPHIA JOSÉ MD [facility] ER BODY ACHES [id number] 01/07/2016 17:31:00 01/07/2016 18:53:00 DIS Emergency RICKY NELSON [facility] ER FEVER [id number] 12/21/2015 12:08:00 12/21/2015 13:24:00 DIS Emergency MURRAYNUBIA APRN [facility] ER RIGHT SHOULDER PAIN [id number] 08/08/2015 09:08:00 08/08/2015 12:16:00 DIS Emergency JOSE RODRIGUEZ DO [facility] ER MIGRAINE [id number] 07/17/2015 19:11:00 07/17/2015 21:23:00 DIS Emergency RICKY NELSON [facility] ER L EAR PAIN [id number] 06/01/2015 18:38:00 06/01/2015 19:47:00 DIS Emergency RICKY NELSON [facility] ER L FOOT INJ/PAIN [id number] 05/20/2015 23:50:00 05/21/2015 01:32:00 DIS Emergency SOPHIA JOSÉ MD [facility] ER RT LEG PAIN/KNOT [id number] 05/11/2015 21:12:00 05/11/2015 22:49:00 DIS Emergency SOPHIA JOSÉ MD [facility] ER SORE THROAT;COUGH; FEVER [id number] 05/06/2015 18:32:00 05/06/2015 23:32:00 DIS Emergency RICKY NELSON [facility] ER FEVER,CHILLS/BODY ACHES [id number] 03/26/2015 20:21:00 03/27/2015 00:12:00 DIS Emergency RICKY NELSON [facility] ER L HAND JULIET [id number] 01/20/2015 17:58:00 01/20/2015 19:17:00 DIS Emergency RICKY NELSON [facility] ER ORAL PAIN/LFT JAW [id number] 01/01/2015 18:57:00 01/01/2015 20:16:00 DIS Emergency DAX HELMS MD [facility] ER COUGHING,SOA [id number] 12/10/2014 21:39:00 12/10/2014 22:19:00 DIS Emergency RICKY NELSON [facility] ER SPIDER BITE [id number] 05/31/2014 16:59:00 05/31/2014 18:10:00 DIS Emergency RICKY NELSON [facility] ER INSECT BITE/STING [id number] 05/28/2014 16:45:00 05/28/2014 18:23:00 DIS Emergency NUBIA MURRAY APRN [facility] ER VOMITING,FEVER [id number] 09/02/2015 20:34:00 Document Registration [id number] 05/14/2015 18:01:00 Document Registration [id number] 05/14/2015 18:01:00 Document Registration [id number] 08/09/2014 01:45:00 Document Registration [id number] 10/15/2011 17:32:00 Document Registration [id number] 09/26/2011 12:18:00 Document Registration
[2018-02-03] MEDS ORDERED: AMOXICILLIN 500 MG (POLYMOX) CAP PO STA (19:07)
[2018-02-03] MEDS ORDERED: ONDANSETRON 4 MG (ZOFRAN) ORAL DISSOLVE TAB PO ONE (19:15)
[2018-02-03] MEDS ORDERED: KETOROLAC 60 MG/2 ML VIAL IM ONE (19:15)
[2018-02-03 19:20] VITALS: BP 153/99
== END 2018-02-03 19:20 | disposition home or self-care (01) ==
LOC: EDUNIT# 18:48 → ER 18:49
DX: K08.89 Other specified disorders of teeth and supporting structures (principal); J45.909 Unspecified asthma, uncomplicated; G43.909 Migraine, unspecified, not intractable, without status migrainosus; F41.9 Anxiety disorder, unspecified; F32.9 Major depressive disorder, single episode, unspecified; Z82.49 Family history of ischemic heart disease and other diseases of the circulatory system; Z86.19 Personal history of other infectious and parasitic diseases; Z87.19 Personal history of other diseases of the digestive system; Z87.448 Personal history of other diseases of urinary system; Z88.5 Allergy status to narcotic agent; Z88.8 Allergy status to other drugs, medicaments and biological substances; Z79.51 Long term (current) use of inhaled steroids; Z79.52 Long term (current) use of systemic steroids; Z77.22 Contact with and (suspected) exposure to environmental tobacco smoke (acute) (chronic); Z98.890 Other specified postprocedural states; Z98.51 Tubal ligation status
CPT/HCPCS: 96372; 99284

== ENCOUNTER 2018-02-11 15:47 | Emergency (ER) | payer SELFPAY ==
[~2018-02-11] VITALS: Ht 154.9 cm; Wt 66.2 kg
--- NOTE | 2018-02-11 17:12 | ED Lower Extremity ---
General Chief Complaint: Lower Extremity Stated Complaint: R SIDE HIP PAIN,HEARD IT POP WHEN BENDING DOWN Nursing Triage Note: Pt c/o R side hip pain. Pt reports dull pain x1 year but pain much worse for past 2-3 days. 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 Nursing Sepsis Screen: No Definite Risk Source: patient Exam Limitations: no limitations History of Present Illness Date Seen by Provider: Feb 11, 2018 Time Seen by Provider: 17:09 Initial Comments To ER with reports of right lateral hip pain, numbness, pain worse than usual for a couple of hours. She has some chronic aches and pains but feels like she has [id number] in her right hip. She states that she bent down to check the bottom shelf at work and upon standing up she felt a popping sensation in the right hip. Her right foot intermittently goes numb. No low back pain. Onset: just prior to arrival Severity: moderate Pain/Injury Location: right hip Method of Injury: fell Modifying Factors: Worse With Movement Allergies and Home Medications Allergies Coded Allergies: metoclopramide (Unverified Allergy, Mild, 01/03/17) promethazine (Unverified Allergy, Mild, 01/03/17) morphine (Unverified Adverse Reaction, Severe, PAIN, 01/03/17) Home Medications Albuterol Sulfate 1 Puff Puff, 2 PUFF IH Q4H USE WITH SPACER AT ALL TIMES Prescribed by: JOSE RODRIGUEZ on 11/06/1713 Benzonatate 100 Mg Capsule, 1-2 TAB PO TID Prescribed by: JOSE RODRIGUEZ on 11/06/1713 Cefdinir 300 Mg Capsule, 300 MG PO BID Prescribed by: JOSE RODRIGUEZ on 11/06/1713 Lidocaine HCl 15 Ml Solution, 5 ML MM Q 1-2 HOURS Prescribed by: JOSE RODRIGUEZ on 08/16/172 Methylprednisolone 4 Mg Tab.ds.pk, 4 MG PO UD Prescribed by: JOSE RODRIGUEZ on 11/06/1713 Naproxen 500 Mg Tablet, 500 MG PO BID Prescribed by: JOSE RODRIGUEZ on 08/16/172 Naproxen 500 Mg Tablet, 500 MG PO BID Prescribed by: NUBIA MURRAY on 10/11/171950 Naproxen 500 Mg Tablet, 500 MG PO BID PRN for PAIN-MODERATE TO SEVERE Prescribed by: NUBIA MURRAY on 02/03/181857 Orphenadrine Citrate 100 Mg Tablet.er, 100 MG PO BID PRN for PAIN-MODERATE Prescribed by: NUBIA MURRAY on 10/11/171950 Penicillin V Potassium 500 Mg Tablet, 500 MG PO QID Prescribed by: JOSE RODRIGUEZ on 08/16/17 0003 Penicillin V Potassium 500 Mg Tablet, 500 MG PO Q6H Prescribed by: NUBIA MURRAY on 02/03/181857 Triamcinolone Acetonide 10.8 Ml Kerrick, 2 SPRAY NSEACH BID Prescribed by: JOSE RODRIGUEZ on 11/06/17 0014 Patient Home Medication List Home Medication List Reviewed: Yes Review of Systems Constitutional: see HPI EENTM: see HPI Respiratory: no symptoms reported Cardiovascular: no symptoms reported Genitourinary: no symptoms reported Musculoskeletal: see HPI Skin: no symptoms reported Psychiatric/Neurological: No Symptoms Reported Past Keirlsa-Fqhytb-Pvghyh Hx Patient Social History Alcohol Use: Denies Use Recreational Drug Use: No Type Used: Cigarettes 2nd Hand Smoke Exposure: Yes Recent Foreign Travel: No Contact w/Someone Who Travel: No Recent Infectious Disease Expo: No Recent Hopitalizations: No Immunizations Up To Date Tetanus Booster (TDap): Less than 5yrs PED Vaccines UTD: Yes Seasonal Allergies Seasonal Allergies: Yes Past Medical History Surgeries: Yes (S-CECTION X 2, BTL. 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 Sexually Transmitted Disease: No HIV/AIDS: No Genitourinary: Yes Kidney Stones Gastrointestinal: Yes Irritable Bowel Musculoskeletal: Yes Chronic Back Pain Endocrine: No HEENT: Yes (DENTAL CARIES) Loss of Vision: Denies Hearing Impairment: Denies Cancer: No Psychosocial: Yes Anxiety, Depression Integumentary: Yes (SHINGLES; CELLULITIS) Recent Skin Changes Blood Disorders: No Adverse Reaction/Blood Tranf: No Family Medical History Diabetes mellitus 19 FATHER Myocardial infarction 19 FATHER Thyroid disease G8 SISTER Heart Disease Physical Exam Vital Signs Vital Signs - First Documented 02/11/18 17:02 Temp 98.2 Pulse 86 Resp 18 B/P (MAP) 124/91 (102) Pulse Ox 96 O2 Delivery Room Air Capillary Refill : Less Than 3 Seconds Height, Weight, BMI Height: 5'1.00" Weight: 146lbs. 0oz. 66.630261ef; 28.91 BMI Method:Stated General Appearance: WD/WN, no apparent distress HEENT: PERRL/EOMI, normal ENT inspection Neck: non-tender, full range of motion Cardiovascular: regular rate, rhythm, no murmur Respiratory: normal breath sounds, no respiratory distress, no accessory muscle use Gastrointestinal: normal bowel sounds, non tender, soft Hips: right hip pain, right hip soft tissue tenderness, right hip swelling Legs: bilateral leg non-tender, bilateral leg normal inspection, bilateral leg normal range of motion Knees: bilateral knee non-tender, bilateral knee normal inspection, bilateral knee normal range of motion Ankles: bilateral ankle non-tender, bilateral ankle normal inspection, bilateral ankle normal range of motion Feet: bilateral foot non-tender, bilateral foot normal inspection, bilateral foot normal range of motion Neurologic/Tendon: normal sensation, normal motor functions Neurologic/Psychiatric: alert, normal mood/affect, oriented x 3 Skin: normal color, warm/dry Progress/Results/Core Measures Results/Orders My Orders Orders - NUBIA MURRAY APRN Ketorolac Injection (Toradol Injection) (02/11/18 17:15) Orphenadrine Injection (Norflex Injectio (02/11/18 17:15) Hip, Right, 2 Views (02/11/18 17:09) Vital Signs/I&O 02/11/18 17:02 Temp 98.2 Pulse 86 Resp 18 B/P (MAP) 124/91 (102) Pulse Ox 96 O2 Delivery Room Air Blood Pressure Mean: 102 Departure Impression Primary Impression: Sprain of right hip Disposition: 01 HOME, SELF-CARE Condition: Stable Departure-Patient Inst. Decision time for Depature: 17:15 Referrals: NO,LOCAL PHYSICIAN (PCP/Family) Primary Care Physician Patient Instructions: Hip Pain Add. Discharge Instructions: 1. Return to ER for any concerns 2. Follow-up with your doctor next week 3. Scripts Methocarbamol (Robaxin-750) 750 Mg Tablet 750 MG PO Q6H PRN for PAIN-SEVERE, #10 TAB Prov: NUBIA MURRAY APRN 02/11/18 Work/School Note: Work Release Form Date Seen in the Emergency Department: Feb 11, 2018 Return to Work: Feb 12, 2018 NUBIA MURRAY APRN Feb 11, 2018 17:11
[2018-02-11] MEDS ORDERED: ORPHENADRINE 60 MG/2 ML (NORFLEX) AMP IM ONE (17:15)
[2018-02-11] MEDS ORDERED: KETOROLAC 60 MG/2 ML VIAL IM ONE (17:15)
[2018-02-11] MEDS ORDERED: METH-313 PO (17:16)
--- NOTE | 2018-02-11 17:39 | Diagnostic Imaging Report ---
Two views of the right hip. INDICATION: Hip pain. Previous hip dislocation. FINDINGS: The right hip currently appears located. The morphology of the femoral head appears normal. There is no proximal femoral fracture evident. Acetabulum appears normal in configuration. The visualized portion of the pelvic ring appears intact. IMPRESSION: 1. Right hip currently located without evidence of an acute fracture. Dictated by: Dictated on workstation # [id number]
[2018-02-11 18:35] VITALS: BP 124/91
== END 2018-02-11 18:35 | disposition home or self-care (01) ==
LOC: EDUNIT# 15:47 → ER 15:48
DX: S73.101A Unspecified sprain of right hip, initial encounter (principal); J45.909 Unspecified asthma, uncomplicated; G43.909 Migraine, unspecified, not intractable, without status migrainosus; F41.9 Anxiety disorder, unspecified; F32.9 Major depressive disorder, single episode, unspecified; Z86.19 Personal history of other infectious and parasitic diseases; Z82.49 Family history of ischemic heart disease and other diseases of the circulatory system; Z87.19 Personal history of other diseases of the digestive system; Z87.442 Personal history of urinary calculi; Z88.5 Allergy status to narcotic agent; Z88.8 Allergy status to other drugs, medicaments and biological substances; Z79.51 Long term (current) use of inhaled steroids; Z79.52 Long term (current) use of systemic steroids; Z77.22 Contact with and (suspected) exposure to environmental tobacco smoke (acute) (chronic); Z98.890 Other specified postprocedural states; Z98.51 Tubal ligation status; X50.1XXA Overexertion from prolonged static or awkward postures, initial encounter; Y92.59 Other trade areas as the place of occurrence of the external cause; Y99.0 Civilian activity done for income or pay
CPT/HCPCS: 73502; 96372; 99284

== ENCOUNTER 2018-02-19 09:00 | Emergency (ER) | payer SELFPAY ==
[~2018-02-19] VITALS: Ht 154.9 cm; Wt 66.2 kg
[~2018-02-19 09:00] MED LIST changes: +METH-313 PO
--- OUTSIDE RECORDS SUMMARY | 2018-02-19 09:13 | XMS REPORT | Continuity of Care Document ---
Author Author [facility] Address Unknown Phone Unavailable Allergies Active Description Code Type Severity Reaction Onset Reported/Identified Relationship to Patient Clinical Status Yes Phenergan Drug Allergy N/A N/A 08/22/2014 Yes Reglan Drug Allergy N/A N/A 08/22/2014 Yes morphine [id number] Drug Allergy Severe PAIN 01/03/2017 Yes metoclopramide [id number] Drug Allergy Mild N/A 01/03/2017 Yes promethazine [id number] Drug Allergy Mild N/A 01/03/2017 Medications There [...] H66.91 OTITIS MEDIA, UNSPECIFIED, RIGHT EAR 07/01/2016 NBUIA MURRAY APRN Ot R09.81 NASAL CONGESTION 07/01/2016 [...] NONVENOM INSECT OTH NONVE 11/22/2016 NUBIA MURRAY CORPORATE DEVELOPMENT INTERN Ot F17.210 NICOTINE DEPENDENCE, CIGARETTES, UNCOMPL 11/22/2016 NUBIA MURRAY APRN Ot M54.5 LOW BACK PAIN 11/22/2016 NUBIA MURRAY APRN Ot Z87.442 PERSONAL HISTORY OF URINARY CALCULI 11/22/2016 MANA ZARATE MD Ot R10.11 RIGHT UPPER QUADRANT PAIN 11/22/2016 MANA ZARATE MD Ot R10.13 EPIGASTRIC PAIN 11/28/2016 NUBIA MURRAY CORPORATE DEVELOPMENT INTERN Ot F17.210 NICOTINE DEPENDENCE, CIGARETTES, UNCOMPL 11/28/2016 NUBIA MURRAY APRN Ot M54.5 LOW BACK PAIN 11/28/2016 NUBIA MURRAY CORPORATE DEVELOPMENT INTERN Ot Z87.442 PERSONAL HISTORY OF URINARY CALCULI 01/03/2017 MANA ZARATE MD Ot R10.11 RIGHT UPPER QUADRANT PAIN 01/03/2017 MANA ZARATE MD Ot R10.13 EPIGASTRIC PAIN 01/03/2017 TATIANA CIFUENTES Ot G43.909 MIGRAINE, UNSP, NOT INTRACTABLE, WITHOUT 01/03/2017 TATIANA CIFUENTES Ot G89.29 OTHER CHRONIC PAIN 01/03/2017 TATIANA CIFUENTES Ot J45.909 UNSPECIFIED ASTHMA, UNCOMPLICATED 01/03/2017 ESAU, TATIANA DIRECTOR OF PRODUCT MANAGEMENT Ot K02.9 DENTAL CARIES, UNSPECIFIED 01/03/2017 ESAU, TATIANA DIRECTOR OF PRODUCT MANAGEMENT Ot K04.7 PERIAPICAL ABSCESS WITHOUT SINUS 01/03/2017 ESAU, TATIANA DIRECTOR OF PRODUCT MANAGEMENT Ot K08.89 OTHER SPECIFIED DISORDERS OF TEETH AND S 01/03/2017 ESAU, TATIANA DIRECTOR OF PRODUCT MANAGEMENT Ot M54.9 DORSALGIA, UNSPECIFIED 01/03/2017 ESAU, TATIANA DIRECTOR OF PRODUCT MANAGEMENT Ot Z87.42 PERSONAL HISTORY OF OTH DISEASES OF THE 01/03/2017 ESAU, TATIANA DIRECTOR OF PRODUCT MANAGEMENT Ot Z87.442 PERSONAL HISTORY OF URINARY CALCULI 01/03/2017 ESAU, TATIANA DIRECTOR OF PRODUCT MANAGEMENT Ot Z87.59 PERSONAL HISTORY OF COMP OF PREG, CHLDBR 01/03/2017 ESAU, TATIANA DIRECTOR OF PRODUCT MANAGEMENT Ot Z98.51 TUBAL LIGATION STATUS 01/05/2017 ESAU, TATIANA DIRECTOR OF PRODUCT MANAGEMENT Ot G43.909 MIGRAINE, UNSP, NOT INTRACTABLE, WITHOUT 01/05/2017 ESAU, TATIANA DIRECTOR OF PRODUCT MANAGEMENT Ot G89.29 OTHER CHRONIC PAIN 01/05/2017 ESAU, TATIANA DIRECTOR OF PRODUCT MANAGEMENT Ot J45.909 UNSPECIFIED ASTHMA, UNCOMPLICATED 01/05/2017 ESAU, TATIANA DIRECTOR OF PRODUCT MANAGEMENT Ot K02.9 DENTAL CARIES, UNSPECIFIED 01/05/2017 ESAU, TATIANA DIRECTOR OF PRODUCT MANAGEMENT Ot K04.7 PERIAPICAL ABSCESS WITHOUT SINUS 01/05/2017 ESAU, TATIANA DIRECTOR OF PRODUCT MANAGEMENT Ot K08.89 OTHER SPECIFIED DISORDERS OF TEETH AND S 01/05/2017 ESAU, TATIANA DIRECTOR OF PRODUCT MANAGEMENT Ot M54.9 DORSALGIA, UNSPECIFIED 01/05/2017 ESAU, TATIANA DIRECTOR OF PRODUCT MANAGEMENT Ot Z87.42 PERSONAL HISTORY OF OTH DISEASES OF THE 01/05/2017 ESAU, TATIANA DIRECTOR OF PRODUCT MANAGEMENT Ot Z87.442 PERSONAL HISTORY OF URINARY CALCULI 01/05/2017 ESAU, TATIANA DIRECTOR OF PRODUCT MANAGEMENT Ot Z87.59 PERSONAL HISTORY OF COMP OF PREG, CHLDBR 01/05/2017 ESAU, TATIANA DIRECTOR OF PRODUCT MANAGEMENT Ot Z98.51 TUBAL LIGATION STATUS 01/09/2017 ESAU, TATIANA DIRECTOR OF PRODUCT MANAGEMENT Ot G43.909 MIGRAINE, UNSP, NOT INTRACTABLE, WITHOUT 01/09/2017 ESAU, TATIANA DIRECTOR OF PRODUCT MANAGEMENT Ot G89.29 OTHER CHRONIC PAIN 01/09/2017 ESAU, TATIANA DIRECTOR OF PRODUCT MANAGEMENT Ot J45.909 UNSPECIFIED ASTHMA, UNCOMPLICATED 01/09/2017 ESAU, TATIANA DIRECTOR OF PRODUCT MANAGEMENT Ot K02.9 DENTAL CARIES, UNSPECIFIED 01/09/2017 TATIANA CIFUENTESP Ot K04.7 PERIAPICAL ABSCESS WITHOUT SINUS 01/09/2017 TATIANA CIFUENTES DIRECTOR OF PRODUCT MANAGEMENT Ot K08.89 OTHER SPECIFIED DISORDERS OF TEETH AND S 01/09/2017 ESAU TATIANA JORDANP Ot M54.9 DORSALGIA, UNSPECIFIED 01/09/2017 TATIANA CIFUENTES DIRECTOR OF PRODUCT MANAGEMENT Ot Z87.42 PERSONAL HISTORY OF OTH DISEASES OF THE 01/09/2017 SEAU TATIANA JORDANP Ot Z87.442 PERSONAL HISTORY OF URINARY CALCULI 01/09/2017 TATIANA CIFUENTES DIRECTOR OF PRODUCT MANAGEMENT Ot Z87.59 PERSONAL HISTORY OF COMP OF PREG, CHLDBR 01/09/2017 TATIANA CIFUENTESP Ot Z98.51 TUBAL LIGATION STATUS 03/02/2017 NUBIA MURARY APRN Ot G43.909 MIGRAINE, UNSP, NOT INTRACTABLE, [...] MIGRAINE, UNSP, NOT INTRACTABLE, WITHOUT 04/12/2017 DAX HELSM MD Ot J45.909 UNSPECIFIED ASTHMA, UNCOMPLICATED 04/12/2017 [...] Sharon Ot R06.02 SHORTNESS OF BREATH 06/06/2017 JNENIFER URABN JOSE Sharon Ot Z82.49 FAMILY HX OF [...] URBAN Ot K02.9 DENTAL CARIES, UNSPECIFIED 08/18/2017 [place] JOSE URBAN Ot K04.7 PERIAPICAL ABSCESS WITHOUT [...] Ot M25.511 PAIN IN RIGHT SHOULDER 10/11/2017 NUBIA MURRAY APRN Ot Z77.22 CNTCT W [...] MURRAY APRN Ot Z98.51 TUBAL LIGATION STATUS 11/06/2017 JOSE RODRIGUEZ DO Ot F17.210 NICOTINE DEPENDENCE, CIGARETTES, UNCOMPL 11/06/2017 JOSE RODRIGUEZ DO Ot F32.9 MAJOR DEPRESSIVE DISORDER, SINGLE EPISOD 11/06/2017 JOSE RODRIGUEZ DO Ot F41.9 ANXIETY DISORDER, UNSPECIFIED 11/06/2017 JOSE RODRIGUEZ DO Ot G43.909 MIGRAINE, UNSP, NOT INTRACTABLE, WITHOUT 11/06/2017 JOSE RODRIGUEZ DO Ot J40 BRONCHITIS, NOT SPECIFIED ACUTE OR CH 11/06/2017 JOSE RODRIGUEZ DO Ot R06.02 SHORTNESS OF BREATH 11/06/2017 JOSE RODRIGUEZ DO Ot 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.51 FORESTRY 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 OF INHALED STERO 11/06/2017 JOSE RODRIGUEZ DO Ot Z79.52 FORESTRY 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 OF SYSTEMIC STER 11/06/2017 JOSE RODRIGUEZ DO Ot Z82.49 FAMILY HX OF ISCHEM HEART DIS AND OTH DI 11/06/2017 JOSE RODRIGUEZ DO Ot Z87.442 PERSONAL HISTORY OF URINARY CALCULI 11/06/2017 JOSE RODRIGUEZ DO Ot Z87.448 PERSONAL HISTORY OF OTHER DISEASES OF UR 11/06/2017 JOSE RODRIGUEZ DO Ot Z87.59 PERSONAL HISTORY OF COMP OF PREG, CHLDBR 11/06/2017 JENNIFER JOSE URBAN Ot Z88.5 ALLERGY STATUS TO NARCOTIC AGENT STATUS 11/06/2017 JENNIFER JOSE URBAN Ot Z88.8 ALLERGY STATUS TO OTH DRUG/MEDS/BIOL SUB 11/06/2017 JENNIFER DOJOSE Ot Z98.51 TUBAL LIGATION STATUS 11/09/2017 JENNIFER JOSE URBAN Ot F17.210 NICOTINE DEPENDENCE, CIGARETTES, UNCOMPL 11/09/2017 JOSE RODRIGUEZ DO Ot F32.9 MAJOR DEPRESSIVE DISORDER, SINGLE EPISOD 11/09/2017 JENNIFER JOSE URBAN Ot F41.9 ANXIETY DISORDER, UNSPECIFIED 11/09/2017 JENNIFER JOSE URBAN Ot G43.909 MIGRAINE, UNSP, NOT INTRACTABLE, WITHOUT 11/09/2017 JOSE RODRIGUEZ DO Ot J40 BRONCHITIS, NOT SPECIFIED ACUTE OR CH 11/09/2017 JOSE RODRIGUEZ DO Ot R06.02 SHORTNESS OF BREATH 11/09/2017 JOSE RODRIGUEZ DO Ot 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.51 FORESTRY 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 OF 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 STERO 11/09/2017 JOSE RODRIGUEZ DO Ot Z79.52 FORESTRY 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 OF SYSTEMIC STER 11/09/2017 JOSE RODRIGUEZ DO Ot Z82.49 FAMILY HX OF ISCHEM HEART DIS AND OTH DI 11/09/2017 JOSE RODRIGUEZ DO Ot Z87.442 PERSONAL HISTORY OF URINARY CALCULI 11/09/2017 JENNIFER JOSE URBAN Ot Z87.448 PERSONAL HISTORY OF OTHER DISEASES OF UR 11/09/2017 JENNIFER JOSE URBAN Ot Z87.59 PERSONAL HISTORY OF COMP OF PREG, CHLDBR 11/09/2017 JOSE RODRIGUEZ DO Ot Z88.5 ALLERGY STATUS TO NARCOTIC AGENT STATUS 11/09/2017 JENNIFER JOSE URBAN Ot Z88.8 ALLERGY STATUS TO OTH DRUG/MEDS/BIOL SUB 11/09/2017 JENNIFER JOSE URBAN Ot Z98.51 TUBAL LIGATION STATUS 02/03/2018 NUBIA MURRAY APRN Ot F32.9 MAJOR DEPRESSIVE DISORDER, SINGLE EPISOD 02/03/2018 NUBIA MURRAY APRN Ot F41.9 ANXIETY DISORDER, UNSPECIFIED 02/03/2018 NUBIA MURRAY APRN Ot G43.909 MIGRAINE, UNSP, NOT INTRACTABLE, WITHOUT 02/03/2018 NUBIA MURRAY APRN Ot J45.909 UNSPECIFIED ASTHMA, UNCOMPLICATED 02/03/2018 NUBIA MURRAY APRN Ot K08.89 OTHER SPECIFIED DISORDERS OF TEETH AND S 02/03/2018 NUBIA MURRAY APRN Ot Z77.22 CNTCT W AND EXPSR TO ENVIRON TOBACCO SMO 02/03/2018 NUBIA MURRAY APRN Ot Z79.51 JAIL (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 OF INHALED STERO 02/03/2018 NUBIA MURRAY APRN Ot Z79.52 FORESTRY 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 OF SYSTEMIC STER 02/03/2018 NUBIA MURRAY APRN Ot Z82.49 FAMILY HX OF ISCHEM HEART DIS AND OTH DI 02/03/2018 NUBIA MURRAY APRN Ot Z86.19 PERSONAL HISTORY OF OTHER INFECTIOUS AND 02/03/2018 NUBIA MURRAY APRN Ot Z87.19 PERSONAL HISTORY OF OTHER DISEASES OF TH 02/03/2018 NUBIA MURRAY APRN Ot Z87.448 PERSONAL HISTORY OF OTHER DISEASES OF UR 02/03/2018 NUBIA MURRAY APRN Ot Z88.5 ALLERGY STATUS TO NARCOTIC AGENT STATUS 02/03/2018 UNBIA MURRAY APRN Ot Z88.8 ALLERGY STATUS TO OTH DRUG/MEDS/BIOL SUB 02/03/2018 NUBIA MURRAY APRN Ot Z98.51 TUBAL LIGATION STATUS 02/03/2018 NUBIA MURRAY APRN Ot Z98.890 OTHER SPECIFIED POSTPROCEDURAL STATES 02/05/2018 NUBIA MURRAY APRN Ot F32.9 MAJOR DEPRESSIVE DISORDER, SINGLE EPISOD 02/05/2018 NUBIA MURRAY APRN Ot F41.9 ANXIETY DISORDER, UNSPECIFIED 02/05/2018 NUBIA MURRAY APRN Ot G43.909 MIGRAINE, UNSP, NOT INTRACTABLE, WITHOUT 02/05/2018 NUBIA MURRAY APRN Ot J45.909 UNSPECIFIED ASTHMA, UNCOMPLICATED 02/05/2018 NUBIA MURRAY APRN Ot K08.89 OTHER SPECIFIED DISORDERS OF TEETH AND S 02/05/2018 NUBIA MURRAY APRN Ot Z77.22 CNTCT W AND EXPSR TO ENVIRON TOBACCO SMO 02/05/2018 NUBIA MURRAY APRN Ot Z79.51 JAIL (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 OF INHALED STERO 02/05/2018 NUBIA MURRAY APRN Ot Z79.52 FORESTRY 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 OF SYSTEMIC STER 02/05/2018 NUBIA MURRAY APRN Ot Z82.49 FAMILY HX OF ISCHEM HEART DIS AND OTH DI 02/05/2018 NUBIA MURRAY APRN Ot Z86.19 PERSONAL HISTORY OF OTHER INFECTIOUS AND 02/05/2018 NUBIA MURRAY APRN Ot Z87.19 PERSONAL HISTORY OF OTHER DISEASES OF TH 02/05/2018 NUBIA MURRAY APRN Ot Z87.448 PERSONAL HISTORY OF OTHER DISEASES OF UR 02/05/2018 NUBIA MURRAY APRN Ot Z88.5 ALLERGY STATUS TO NARCOTIC AGENT STATUS 02/05/2018 NUBIA MURRAY APRN Ot Z88.8 ALLERGY STATUS TO OTH DRUG/MEDS/BIOL SUB 02/05/2018 NUBIA MURRAY APRN Ot Z98.51 TUBAL LIGATION STATUS 02/05/2018 NUBIA MURRAY APRN Ot Z98.890 OTHER SPECIFIED POSTPROCEDURAL STATES 02/10/2018 NUBIA MURRAY APRN Ot F32.9 MAJOR DEPRESSIVE DISORDER, SINGLE EPISOD 02/10/2018 NUBIA MURRAY APRN Ot F41.9 ANXIETY DISORDER, UNSPECIFIED 02/10/2018 NUBIA MURRAY APRN Ot G43.909 MIGRAINE, UNSP, NOT INTRACTABLE, WITHOUT 02/10/2018 NUBIA MURRAY APRN Ot J45.909 UNSPECIFIED ASTHMA, UNCOMPLICATED 02/10/2018 NUBAI MURRAY APRN Ot K08.89 OTHER SPECIFIED DISORDERS OF TEETH AND S 02/10/2018 NUBIA MURRAY APRN Ot Z77.22 CNTCT W AND EXPSR TO ENVIRON TOBACCO SMO 02/10/2018 NUBIA MURRAY APRN Ot 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.51 FORESTRY 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 OF 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 STERO 02/10/2018 NUBIA MURRAY APRN Ot Z79.52 FORESTRY 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 OF SYSTEMIC STER 02/10/2018 NUBIA MURRAY APRN Ot Z82.49 FAMILY HX OF ISCHEM HEART DIS AND OTH DI 02/10/2018 NUBIA MURRAY APRN Ot Z86.19 PERSONAL HISTORY OF OTHER INFECTIOUS AND 02/10/2018 NUBIA MURRAY APRN Ot Z87.19 PERSONAL HISTORY OF OTHER DISEASES OF TH 02/10/2018 NUBIA MURRAY APRN Ot Z87.448 PERSONAL HISTORY OF OTHER DISEASES OF UR 02/10/2018 NUBIA MURRAY APRN Ot Z88.5 ALLERGY STATUS TO NARCOTIC AGENT STATUS 02/10/2018 NUBIA MURRAY APRN Ot Z88.8 ALLERGY STATUS TO OT DRUG/MEDS/BIOL SUB 02/10/2018 NUBIA MURRAY APRN Ot Z98.51 TUBAL LIGATION STATUS 02/10/2018 NUBIA MURRAY APRN Ot Z98.890 OTHER SPECIFIED POSTPROCEDURAL STATES 02/11/2018 ELLIOT ROMERO, MANA Fried Ot R10.11 RIGHT UPPER QUADRANT PAIN 02/11/2018 ELLIOT ROMERO, MANA Fried Ot R10.13 EPIGASTRIC PAIN 02/15/2018 NUBIA MURRAY APRN Ot F32.9 MAJOR DEPRESSIVE DISORDER, SINGLE EPISOD 02/15/2018 NUBIA MURRAY APRN Ot F41.9 ANXIETY DISORDER, UNSPECIFIED 02/15/2018 NUBIA MURRAY APRN Ot G43.909 MIGRAINE, UNSP, NOT INTRACTABLE, WITHOUT 02/15/2018 NUBIA MURRAY APRN Ot J45.909 UNSPECIFIED ASTHMA, UNCOMPLICATED 02/15/2018 NUBIA MURRAY APRN Ot M25.551 PAIN IN RIGHT HIP 02/15/2018 NUBIA MURRAY APRN Ot S73.101A UNSPECIFIED SPRAIN OF RIGHT HIP, INITIAL 02/15/2018 NUBIA MURRAY APRN Ot X50.1XXA OVEREXERTION FROM PROLONGED STATIC OR AW 02/15/2018 NUBIA MURRAY APRN Ot Y92.[address] 02/15/2018 NUBIA MURRAY APRN Ot Y99.0 CIVILIAN ACTIVITY DONE FOR INCOME OR PAY 02/15/2018 NUBIA MURRAY APRN Ot Z77.22 CNTCT W AND EXPSR TO ENVIRON TOBACCO SMO 02/15/2018 NUBIA MURRAY APRN Ot Z79.51 FORESTRY 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 OF INHALED STERO 02/15/2018 NUBIA MURRAY APRN Ot Z79.52 FORESTRY 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 OF SYSTEMIC STER 02/15/2018 NUBIA MURRAY APRN Ot Z82.49 FAMILY HX OF ISCHEM HEART DIS AND OTH DI 02/15/2018 NUBIA MURRAY APRN Ot Z86.19 PERSONAL HISTORY OF OTHER INFECTIOUS AND 02/15/2018 NUBIA MURRAY APRN Ot Z87.19 PERSONAL HISTORY OF OTHER DISEASES OF TH 02/15/2018 NUBIA MURRAY APRN Ot Z87.442 PERSONAL HISTORY OF URINARY CALCULI 02/15/2018 NUBIA MURRAY APRN Ot Z88.5 ALLERGY STATUS TO NARCOTIC AGENT STATUS 02/15/2018 NUBIA MURRAY APRN Ot Z88.8 ALLERGY STATUS TO OT DRUG/MEDS/BIOL SUB 02/15/2018 NUBIA MURRAY APRN Ot Z98.51 TUBAL LIGATION STATUS 02/15/2018 NUBIA MURRAY APRN Ot Z98.890 OTHER SPECIFIED POSTPROCEDURAL STATES Procedures Code [place] [address] ROUTINE VENIPUNCTURE 08/22/2014 THYANA THYROID ANALYZER 08/22/2014 Results Test Result Range Streptococcus pyogenes antigen detection - 01/07/16 17:45 Streptococcus pyogenes antigen detection POSITIVE NEGATIVE Streptococcus pyogenes antigen detection - 02/09/16 08:17 Streptococcus pyogenes antigen detection NEGATIVE NEGATIVE Bacterial throat culture - 02/09/16 08:17 Bacterial throat culture [facility] NRG Complete urinalysis with reflex to culture [...] 35-52 Automated erythrocyte mean corpuscular volume 87 [[facility]] 80-99 Automated erythrocyte mean corpuscular hemoglobin (mass [...] NRG Blood erythrocyte morphology finding identification [facility] Comprehensive metabolic panel - 06/06/17 18:42 Serum [...] Status Pt. Type Provider Facility Loc./Unit Complaint [id number] 08/22/2014 14:39:00 08/22/2014 23:59:59 [place] [id number] 05/05/2017 08:35:00 05/05/2017 23:59:59 CLS Outpatient NINI MALDONADO [facility] [id number] 11/12/2017 15:04:29 11/12/2017 23:59:59 CLS Outpatient [id number] 02/11/2018 15:48:00 02/11/2018 18:35:00 DIS Outpatient NUBIA MURRAY APRN [facility] ER R SIDE HIP PAIN,HEARD IT POP WHEN BENDING DOWN [id number] 02/03/2018 18:49:00 02/03/2018 19:20:00 DIS Outpatient NUBIA MURRAY APRN [facility] ER L SIDE FACIAL/DENTAL PAIN [id number] 11/05/2017 22:32:00 11/06/2017 00:20:00 DIS Emergency JENNIFER JOSE K [facility] ER CONGESTION/SOB [id number] 10/11/2017 19:29:00 10/11/2017 20:20:00 DIS Emergency NUBIA MURRAY APRN [facility] ER R SHOULDER PAIN [id number] 08/15/2017 23:34:00 08/16/2017 00:17:00 DIS Emergency JENNIFER DOJOSE K [facility] ER TOOTH AND GUM PAIN [id number] 06/06/2017 17:47:00 06/06/2017 20:07:00 DIS Emergency JOSE RODRIGUEZ DO K [facility] ER SOA [id number] 06/04/2017 17:23:00 06/04/2017 17:33:00 DIS Emergency NUBIA MURRAY APRN [facility] ER SORE THROAT [id number] 04/11/2017 20:49:00 04/12/2017 01:59:00 DIS Emergency ANALIA ROMERO, DAX Foote [facility] ER KIDNEY PAIN,NAUSEA [id number] 03/13/2017 18:29:00 03/13/2017 20:47:00 DIS Emergency NUBIA MURRAY APRN [facility] ER LIGHTHEADEDNESS,DIZZINESS, SOA [id number] 03/02/2017 16:48:00 03/02/2017 18:27:00 DIS Emergency NUBIA MURRAY APRN [facility] ER R SIDE LOWER BACK PAIN/ NAUSEA [id number] 01/03/2017 20:36:00 01/03/2017 21:51:00 DIS Emergency ESAU, TATIANA DIRECTOR OF PRODUCT MANAGEMENT [facility] ER TOOTH PAIN [id number] 11/22/2016 18:25:00 11/22/2016 19:05:00 DIS Emergency NUBIA MURRAY APRN [facility] ER BACK PAIN [id number] 11/07/2016 17:13:00 11/07/2016 18:35:00 DIS Emergency DAX HELMS MD [facility] ER PAINFUL/ITCHY RED SPOTS ON SKIN [id number] 10/12/2016 13:14:00 10/12/2016 13:47:00 DIS Emergency NUBIA MURRAY APRN [facility] ER R SIDE DENTAL PAIN/ HEADACHE [id number] 06/29/2016 15:31:00 06/29/2016 16:09:00 DIS Emergency NUBIA MURRAY APRN [facility] ER N/V, SINUS TROUBLE [id number] 03/27/2016 17:52:00 03/27/2016 19:21:00 DIS Emergency JOSE RODRIGUEZ DO [facility] ER SOA [id number] 03/21/2016 11:40:00 03/21/2016 23:59:59 CLS Outpatient MANA ZARATE MD [facility] CARD RT UPPRER ABDOMINAL PAIN [id number] 03/06/2016 08:31:00 03/06/2016 23:59:59 CLS Outpatient MANA ZARATE MD [facility] RAD RUQ ABD PAIN [id number] 02/09/2016 07:28:00 02/09/2016 08:48:00 DIS Emergency SOPHIA JOSÉ MD [facility] ER BODY ACHES [id number] 01/07/2016 17:31:00 01/07/2016 18:53:00 DIS Emergency RICKY NELSON [facility] ER FEVER [id number] 12/21/2015 12:08:00 12/21/2015 13:24:00 DIS Emergency NUBIA MURRAY APRN [facility] ER RIGHT SHOULDER PAIN [id number] 08/08/2015 09:08:00 08/08/2015 12:16:00 DIS Emergency JOSE RODRIGUEZ DO [facility] ER MIGRAINE [id number] 07/17/2015 19:11:00 07/17/2015 21:23:00 DIS Emergency RICKY NELSON [facility] ER L EAR PAIN [id number] 06/01/2015 18:38:00 06/01/2015 19:47:00 DIS Emergency RICKY NELSON [facility] ER L FOOT INJ/PAIN [id number] 05/20/2015 23:50:00 05/21/2015 01:32:00 DIS Emergency SOPHIA JOSÉ MD [facility] ER RT LEG PAIN/KNOT [id number] 05/11/2015 21:12:00 05/11/2015 22:49:00 DIS Emergency ESTEFANÍA ROMERO, SOPHIA Fields [facility] ER SORE THROAT;COUGH; FEVER [id number] 05/06/2015 18:32:00 05/06/2015 23:32:00 DIS Emergency RICKY NELSON [facility] ER FEVER,CHILLS/BODY ACHES [id number] 03/26/2015 20:21:00 03/27/2015 00:12:00 DIS Emergency RICKY NELSON [facility] ER L HAND JULIET [id number] 01/20/2015 17:58:00 01/20/2015 19:17:00 DIS Emergency RICKY NELSON [facility] ER ORAL PAIN/LFT JAW [id number] 01/01/2015 18:57:00 01/01/2015 20:16:00 DIS Emergency ANALIA ROMERO, DAX Foote [facility] ER COUGHING,SOA [id number] 12/10/2014 21:39:00 12/10/2014 22:19:00 DIS Emergency RICKY NELSON [facility] ER SPIDER BITE [id number] 05/31/2014 16:59:00 05/31/2014 18:10:00 DIS Emergency RICKY NELSON [facility] ER INSECT BITE/STING [id number] 05/28/2014 16:45:00 05/28/2014 18:23:00 DIS Emergency NUBIA MURRAY APRN [facility] ER VOMITING,FEVER [id number] 09/02/2015 20:34:00 Document Registration [id number] 05/14/2015 18:01:00 Document Registration [id number] 05/14/2015 18:01:00 Document Registration [id number] 08/09/2014 01:45:00 Document Registration [id number] 10/15/2011 17:32:00 Document Registration [id number] 09/26/2011 12:18:00 Document Registration
--- NOTE | 2018-02-19 09:40 | ED Integumentary General ---
General Chief Complaint: Bite-Animal/Human/Insect Stated Complaint: BUG BITE Nursing Triage Note: PT HAS BITE ON R UPPER ARM, STATES NOTICED YESTERDAY AREA TODAY LARGE, REDDEND ITCHY AND TENDER TO TOUCH. Source: patient Exam Limitations: no limitations History of Present Illness Date Seen by Provider: Feb 19, 2018 Time Seen by Provider: 09:35 Initial Comments This 27-year-old white female presents with a complaint of a progressive cellulitis to the right upper extremity. The patient had an area of redness to the medial aspect of her right arm just superior to the elbow last night. This was circled by the nurse last night. This morning the redness had clearly increased and a second st. croix was placed. Patient was sent to the emergency department for further evaluation and care. Patient is complaining of pain over the inflamed area of the medial aspect of the right arm as well as in the axilla of the right arm. The patient's had a similar episode in the past requiring treatment with 3 days of IV vancomycin. Patient denies IV drug use. She denies history of immune incompetency, subacute bacterial endocarditis, associated shortness of breath, chest discomfort, or productive cough. Allergies and Home Medications Allergies Coded Allergies: metoclopramide (Unverified Allergy, Mild, 01/03/17) promethazine (Unverified Allergy, Mild, 01/03/17) morphine (Unverified Adverse Reaction, Severe, PAIN, 01/03/17) Home Medications Amoxicillin/Potassium Clav 1 Each Tablet, 1 EACH PO BID Prescribed by: YVETTE CHRISTENSEN on 02/19/18 1125 Methocarbamol 750 Mg Tablet, 750 MG PO Q6H PRN for PAIN-SEVERE Prescribed by: NUBIA MURRAY on 02/11/18 1716 Sulfamethoxazole/Trimethoprim 1 Each Tablet, 1 EACH PO BID Prescribed by: YVETTE CHRISTENSEN on 02/19/18 1125 Patient Home Medication List Home Medication List Reviewed: Yes Review of Systems Review of Systems Constitutional: No chills, No fever; malaise EENTM: No hearing loss Respiratory: No cough, No short of breath Cardiovascular: No chest pain, No palpitations Gastrointestinal: No abdominal pain, No diarrhea, No nausea, No vomiting Genitourinary: No dysuria : No Musculoskeletal: No back pain Skin: other (there is an area of erythema approximately 20 cm in diameter extending from just superior to the elbow to just inferior to the axilla.) Psychiatric/Neurological: No Symptoms Reported Endocrine: No Symptoms Reported Hematologic/Lymphatic: No Symptoms Reported Past Ozihpeh-Kqdbdq-Pqaura Hx Past Med/Social Hx: Reviewed Nursing Past Med/Soc Hx Patient Social History Alcohol Use: Denies Use Recreational Drug Use: No Smoking Status: Current Everyday Smoker Type Used: Cigarettes 2nd Hand Smoke Exposure: Yes Recent Foreign Travel: No Contact w/Someone Who Travel: No Recent Infectious Disease Expo: No Recent Hopitalizations: No Physical Abuse: No Sexual Abuse: No Immunizations Up To Date Tetanus Booster (TDap): Less than 5yrs PED Vaccines UTD: Yes Seasonal Allergies Seasonal Allergies: Yes Past Medical History Surgeries: Yes (S-CECTION X 2, BTL. 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 Sexually Transmitted Disease: No HIV/AIDS: No Genitourinary: Yes Kidney Stones Gastrointestinal: Yes Irritable Bowel Musculoskeletal: Yes Chronic Back Pain Endocrine: No HEENT: Yes (DENTAL CARIES) Loss of Vision: Denies Hearing Impairment: Denies Cancer: No Psychosocial: Yes Anxiety, Depression Integumentary: Yes (SHINGLES; CELLULITIS) Recent Skin Changes Blood Disorders: No Adverse Reaction/Blood Tranf: No Family Medical History Diabetes mellitus 19 FATHER Myocardial infarction 19 FATHER Thyroid disease G8 SISTER Heart Disease Physical Exam Vital Signs Vital Signs - First Documented 02/19/18 09:10 Temp 97.7 Pulse 84 Resp 18 B/P (MAP) 140/68 (92) Pulse Ox 96 Capillary Refill : Less Than 3 Seconds General Appearance: WD/WN, no apparent distress HEENT: normal ENT inspection Neck: supple, normal inspection Cardiovascular: regular rate, rhythm Respiratory: lungs clear Gastrointestinal: normal bowel sounds Back: normal inspection Extremities: normal range of motion Neurologic/Psychiatric: no motor/sensory deficits, alert, normal mood/affect Skin: other (there is area of inflammation suggestive of a cellulitis to the medial aspect of the right arm from the elbow to the armpit.) Skin Problem Location: upper extremities (right upper extremity.) Skin Problem Character: erythema Lymphatic: axilla node tender (R) (right axilla) Progress/Results/Core Measures Results/Orders Lab Results Laboratory Tests Test 02/19/18 09:49 Range/Units White Blood Count 6.7 4.3-11.0 10^3/uL Red Blood Count 4.26 L 4.35-5.85 10^6/uL Hemoglobin 13.1 11.5-16.0 G/DL Hematocrit 38 35-52 % Mean Corpuscular Volume 89 80-99 FL Mean Corpuscular Hemoglobin 31 25-34 PG Mean Corpuscular Hemoglobin Concent 35 32-36 G/DL Red Cell Distribution Width 12.6 10.0-14.5 % Platelet Count 303 130-400 10^3/uL Mean Platelet Volume 10.9 H 7.4-10.4 FL Neutrophils (%) (Auto) 54 42-75 % Lymphocytes (%) (Auto) 30 12-44 % Monocytes (%) (Auto) 11 0-12 % Eosinophils (%) (Auto) 4 0-10 % Basophils (%) (Auto) 0 0-10 % Neutrophils # (Auto) 3.7 1.8-7.8 X 10^3 Lymphocytes # (Auto) 2.0 1.0-4.0 X 10^3 Monocytes # (Auto) 0.7 0.0-1.0 X 10^3 Eosinophils # (Auto) 0.3 0.0-0.3 10^3/uL Basophils # (Auto) 0.0 0.0-0.1 10^3/uL Sodium Level 138 135-145 MMOL/L Potassium Level 3.7 3.6-5.0 MMOL/L Chloride Level 104 98-107 MMOL/L Carbon Dioxide Level 24 21-32 MMOL/L Anion Gap 10 5-14 MMOL/L Blood Urea Nitrogen 8 7-18 MG/DL Creatinine 0.76 0.60-1.30 MG/DL Estimat Glomerular Filtration Rate > 60 BUN/Creatinine Ratio 11 Glucose Level 78 70-105 MG/DL Lactic Acid Level 0.69 0.50-2.00 MMOL/L Calcium Level 9.5 8.5-10.1 MG/DL Corrected Calcium 8.5-10.1 MG/DL Total Bilirubin 0.6 0.1-1.0 MG/DL Aspartate Amino Transf (AST/SGOT) 17 5-34 U/L Alanine Aminotransferase (ALT/SGPT) 12 0-55 U/L Alkaline Phosphatase 93 40-136 U/L C-Reactive Protein High Sensitivity 1.30 H 0.00-0.50 MG/DL Total Protein 7.3 6.4-8.2 GM/DL Albumin 4.6 H 3.2-4.5 GM/DL My Orders Orders - DINORA SHELDON MD Cbc With Automated Diff (02/19/18 09:32) Comprehensive Metabolic Panel (02/19/18 09:32) Hs C Reactive Protein (02/19/18 09:32) Ondansetron Injection (Zofran Injectio (02/19/18 09:45) Vancomycin Injection (Vancomycin Injecti (02/19/18 09:45) Blood Culture (02/19/18 09:33) Lactic Acid Analyzer (02/19/18 09:33) Fentanyl Injection (Sublimaze Injection (02/19/18 09:45) Medications Given in ED Current Medications Medications Dose Ordered Sig/Elisabeth Route Start Time Stop Time Status Last Admin Dose Admin Fentanyl Citrate 50 mcg ONCE ONCE IVP 02/19/18 09:45 02/19/18 09:46 DC 02/19/18 09:55 50 MCG Ondansetron HCl 4 mg ONCE ONCE IVP 02/19/18 09:45 02/19/18 09:46 DC 02/19/18 09:55 4 MG Vancomycin HCl 1000 mg/Sodium Chloride 250 ml @ 250 mls/hr ONCE ONCE IV 02/19/18 09:45 02/19/18 10:44 DC 02/19/18 10:59 250 MLS/HR Vital Signs/I&O 02/19/18 09:10 Temp 97.7 Pulse 84 Resp 18 B/P (MAP) 140/68 (92) Pulse Ox 96 Blood Pressure Mean: 92 Progress Progress Note : Time: 11:26 Progress Note The patient received a gram of vancomycin IV. Patient's CBC was unremarkable. Her CRP was minimally elevated. I talked to Dr. Christensen concerning the patient's presentation. We will arrange for the patient to receive Augmentin 875 twice a day and Bactrim DS twice a day for the next 10 days. Medication was TO apply for care by Dr. Christensen. Arrangements were made for close follow-up on February 22 at [facility] with Dr. Lew. I asked patient to watch the area closely for further increase in redness swelling or pain. I invited her to return to the emergency room should any further problems or questions. Initial ECG Impression Date: Feb 19, 2018 Departure Impression Primary Impression: Cellulitis of right arm Disposition: 01 HOME, SELF-CARE Condition: Improved Departure-Patient Inst. Decision time for Depature: 11:28 Referrals: [facility] (PCP/Family) Primary Care Physician Patient Instructions: Cellulitis (Skin Infection), Adult (DC) Add. Discharge Instructions: Go to a [facility] pharmacy now for Bactrim and Augmentin for 10 days of treatment. Follow up closely with Dr. Lew on February 22, Thursday, for further close evaluation. Watch for further signs of redness swelling or progressive pain in the right arm. Return to emergency department if the inflammation is getting worse. All discharge instructions reviewed with patient and/or family. Voiced understanding. Scripts Sulfamethoxazole/Trimethoprim (Bactrim Ds Tablet) 1 Each Tablet 1 EACH PO BID, #10 TAB Prov: YVETTE CHRISTENSEN DO 02/19/18 Amoxicillin/Potassium Clav (Augmentin 875-125 Tablet) 1 Each Tablet 1 EACH PO BID, #20 TAB Prov: YVETTE CHRISTENSEN DO 02/19/18 DINORA SHELDON MD Feb 19, 2018 09:40
[2018-02-19] MEDS ORDERED: ONDANSETRON 4 MG/2 ML (SDV) Z0FRAN IVP ONE (09:45)
[2018-02-19] MEDS ORDERED: fentaNYL INJECTION 100 MCG/2 ML AMP IVP ONE (09:45)
[2018-02-19] MEDS ORDERED: VANCOMYCIN INJECTION 1,000 MG in NS (IVPB) 250 ML IV ONE (09:45)
[2018-02-19 09:57] LABS: BASOPHILS % (AUTO) 0 % (0-10); EOSINOPHILS # (AUTO) 0.3 10^3/uL (0.0-0.3); EOSINOPHILS % (AUTO) 4 % (0-10); HEMATOCRIT 38 % (35-52); HEMOGLOBIN 13.1 G/DL (11.5-16.0); LYMPHOCYTES % (AUTO) 30 % (12-44); MEAN CORPUSCULAR HEMOGLOBIN 31 PG (25-34); MEAN CORPUSCULAR HGB CONC 35 G/DL (32-36); MEAN CORPUSCULAR VOLUME 89 FL (80-99); MEAN PLATELET VOLUME 10.9 FL (7.4-10.4); MONOCYTES # (AUTO) 0.7 X 10^3 (0.0-1.0); MONOCYTES % (AUTO) 11 % (0-12); NEUTROPHILS # (AUTO) 3.7 X 10^3 (1.8-7.8); NEUTROPHILS % (AUTO) 54 % (42-75); PLATELET COUNT 303 10^3/uL (130-400); RED BLOOD COUNT 4.26 10^6/uL (4.35-5.85); RED CELL DISTRIBUTION WIDTH 12.6 % (10.0-14.5); WHITE BLOOD COUNT 6.7 10^3/uL (4.3-11.0)
[2018-02-19 10:14] LABS: ALANINE AMINOTRANSFERASE 12 U/L (0-55); ALBUMIN 4.6 GM/DL (3.2-4.5); ALKALINE PHOSPHATASE 93 U/L (40-136); BILIRUBIN,TOTAL 0.6 MG/DL (0.1-1.0); BUN/CREATININE RATIO 11; CALCIUM 9.5 MG/DL (8.5-10.1); CARBON DIOXIDE 24 MMOL/L (21-32); CHLORIDE 104 MMOL/L (98-107); CREATININE SERUM 0.76 MG/DL (0.60-1.30); GFR ESTIMATED > 60; GLUCOSE 78 MG/DL (70-105); POTASSIUM 3.7 MMOL/L (3.6-5.0); SODIUM 138 MMOL/L (135-145); TOTAL PROTEIN 7.3 GM/DL (6.4-8.2)
[2018-02-19] MEDS ORDERED: AMOX-358 PO (11:25)
[2018-02-19] MEDS ORDERED: SULF1TAB35 PO (11:25)
--- NOTE | 2018-02-19 11:28 | Progress Note-Hospitalist ---
Progress Note Contacted by Dr Cespedes in need of close f/u with [facility] her PCP for cellulitis since labs were normal and not septic so sent in needed meds to [facility] and obtained f/u appt with Honey Osei for 02/22/18 at 1:40pm with Dr Lew. YVETTE CHRISTENSEN DO Feb 19, 2018 11:28
[2018-02-19] MEDS ORDERED: methylPREDNISolone 125 MG (Solu-MEDROL) VIAL IVP ONE (11:45)
[2018-02-19] MEDS ORDERED: diphenhydrAMINE 50 MG/ML INJ (BENADRYL) IVP ONE (11:45)
[2018-02-19 12:12] VITALS: BP 140/68
== END 2018-02-19 12:12 | disposition home or self-care (01) ==
LOC: EDUNIT# 09:00 → ER 09:01
DX: L03.113 Cellulitis of right upper limb (principal); J45.909 Unspecified asthma, uncomplicated; G43.909 Migraine, unspecified, not intractable, without status migrainosus; F41.9 Anxiety disorder, unspecified; F32.9 Major depressive disorder, single episode, unspecified; F17.210 Nicotine dependence, cigarettes, uncomplicated; Z87.442 Personal history of urinary calculi; Z87.19 Personal history of other diseases of the digestive system; Z98.51 Tubal ligation status; Z82.49 Family history of ischemic heart disease and other diseases of the circulatory system; Z87.448 Personal history of other diseases of urinary system; Z98.890 Other specified postprocedural states; Z88.5 Allergy status to narcotic agent; Z88.8 Allergy status to other drugs, medicaments and biological substances
CPT/HCPCS: 36415; 80053; 83605; 85025; 86141; 87040; 96365; 96375

== ENCOUNTER 2018-03-23 08:17 | Emergency (ER) | payer SELFPAY ==
[~2018-03-23] VITALS: Ht 154.9 cm; Wt 70.8 kg
[~2018-03-23 08:17] MED LIST changes: +AMOX-358 PO; +SULF1TAB35 PO
--- OUTSIDE RECORDS SUMMARY | 2018-03-23 08:24 | XMS REPORT ---
Author Author ALLAN STEELE [facility] Address [address] [place] [address] Care Team Providers Care Direct Care Provider Name Role Phone ALLAN STEELE Unavailable PROBLEMS ALLERGIES ENCOUNTERS IMMUNIZATIONS No Known Immunizations SOCIAL HISTORY No smoking Hx information available REASON FOR VISIT PLAN OF CARE VITAL SIGNS MEDICATIONS RESULTS No Results PROCEDURES No Known procedures INSTRUCTIONS MEDICATIONS ADMINISTERED No Known Medications MEDICAL (GENERAL) HISTORY
--- OUTSIDE RECORDS SUMMARY | 2018-03-23 08:32 | XMS REPORT | Continuity of Care Document ---
Author Author [facility] Address Unknown Phone Unavailable Allergies Active Description Code Type Severity Reaction Onset Reported/Identified Relationship to Patient Clinical Status Yes Phenergan Drug Allergy N/A N/A 08/22/2014 Yes Reglan Drug Allergy N/A N/A 08/22/2014 Yes morphine [id number] Drug Allergy Severe PAIN 01/03/2017 Yes metoclopramide [id number] Drug Allergy Mild N/A 01/03/2017 Yes promethazine [id number] Drug Allergy Mild N/A 01/03/2017 Yes vancomycin [id number] Drug Allergy Unknown N/A 02/19/2018 Medications There is no data. Problems Date [...] PLANTAR FASCIAL FIBROMATOSIS 08/22/2014 MARCUS MARTINES DO K 783.1 ABNORMAL WEIGHT GAIN 12/10/2014 RIKCY NELSON Ot 611.0 INFLAM DISEASE OF BREAST [...] Ot F17.210 NICOTINE DEPENDENCE, CIGARETTES, UNCOMPL 05/21/2015 FRANKIE JOSÉ MDOTHY D Ot L03.115 CELLULITIS OF RIGHT LOWER LIMB 06/01/2015 RICKY NELSON Ot F17.210 NICOTINE DEPENDENCE, CIGARETTES, UNCOMPL 06/01/2015 RICKY NELSON Ot S93.602A UNSPECIFIED SPRAIN OF LEFT FOOT, INITIAL 06/01/2015 RICKY NELSON Ot W08.XXXA FALL FROM OTHER FURNITURE, INITIAL ENCOU 06/01/2015 RICKY NELSON Ot Y92.[address] [facility] PL[facility] IN SINGLE-FAMILY (PRIVATE) 06/01/2015 RICKY NELSON [...] DEPENDENCE, CIGARETTES, UNCOMPL 09/02/2015 Ot S46.911A STRAIN [facility] MUSC/FASC/TEND AT SHLDR/UP A 09/02/2015 Ot X58.XXXA EXPOSURE TO OTHER SPECIFIED FACTORS, INI 09/02/2015 Ot Y92.[address] [facility] [address] IN [facility] NON-INSTITUT (PRIVATE 09/02/2015 Ot Y99.0 CIVILIAN ACTIVITY [...] Ot R10.11 RIGHT UPPER QUADRANT PAIN 03/07/2016 MANA ZARATE MD Ot R10.11 RIGHT UPPER QUADRANT PAIN 03/19/2016 MANA ZARATE MD Ot R10.11 RIGHT UPPER QUADRANT PAIN 03/21/2016 MANA ZARATE MD Ot R10.11 RIGHT UPPER QUADRANT PAIN 03/24/2016 MANA ZARATE MD Ot R10.13 EPIGASTRIC PAIN 03/27/2016 JOSE RODRIGUEZ DO Ot J06.9 ACUTE UPPER RESPIRATORY INFECTION, UNSPE 03/27/2016 JOSE RODRIGUEZ DO Ot J20.9 ACUTE BRONCHITIS, UNSPECIFIED 03/27/2016 JOSE RODRIGUEZ DO Ot R06.02 SHORTNESS OF BREATH 2016 JOSE RODRIGUEZ DO Ot J06.9 ACUTE UPPER RESPIRATORY INFECTION, UNSPE 2016 JOSE RODRIGUEZ DO Ot J20.9 ACUTE BRONCHITIS, UNSPECIFIED 2016 JOSE RODRIGUEZ DO Ot R06.02 SHORTNESS OF BREATH 04/07/2016 MANA ZARATE MD Ot R10.13 EPIGASTRIC PAIN 06/29/2016 NUBIA MURRAY [...] Ot R10.11 RIGHT UPPER QUADRANT PAIN 11/07/2016 MANA ZARATE MD Ot R10.13 EPIGASTRIC PAIN 11/09/2016 ANALIA ROMERO, DAX Fotoe Ot L29.9 PRURITUS, UNSPECIFIED 11/09/2016 ANALIA ROMERO, [...] NONVENOM INSECT OTH NONVE 11/22/2016 NUBIA MURRAY ROBOTICS TECHNICIAN Ot F17.210 NICOTINE DEPENDENCE, CIGARETTES, UNCOMPL 11/22/2016 NUBIA MURRAY APRN Ot M54.5 LOW BACK PAIN 11/22/2016 NUBIA MURRAY APRN Ot Z87.442 PERSONAL HISTORY OF URINARY CALCULI 11/22/2016 MANA ZARATE MD Ot R10.11 RIGHT UPPER QUADRANT PAIN 11/22/2016 MANA ZARATE MD Ot R10.13 EPIGASTRIC PAIN 11/28/2016 NUBIA MURRAY ROBOTICS TECHNICIAN Ot F17.210 NICOTINE DEPENDENCE, CIGARETTES, UNCOMPL 11/28/2016 NUBIA MURRAY APRN Ot M54.5 LOW BACK PAIN 11/28/2016 NUBIA MURRAY ROBOTICS TECHNICIAN Ot Z87.442 PERSONAL HISTORY OF URINARY CALCULI 01/03/2017 MANA ZARATE MD Ot R10.11 RIGHT UPPER QUADRANT PAIN 01/03/2017 MANA ZARATE MD Ot R10.13 EPIGASTRIC PAIN 01/03/2017 TATIANA CIFUENTES Ot G43.909 MIGRAINE, UNSP, NOT INTRACTABLE, WITHOUT 01/03/2017 TATIANA CIFUENTES Ot G89.29 OTHER CHRONIC PAIN 01/03/2017 ESAU, TATIANA COIL INSPECTOR Ot J45.909 UNSPECIFIED ASTHMA, UNCOMPLICATED 01/03/2017 ESAU, TATIANA COIL INSPECTOR Ot K02.9 DENTAL CARIES, UNSPECIFIED 01/03/2017 ESAU, TATIANA COIL INSPECTOR Ot K04.7 PERIAPICAL ABSCESS WITHOUT SINUS 01/03/2017 ESAU, TATIANA COIL INSPECTOR Ot K08.89 OTHER SPECIFIED DISORDERS OF TEETH AND S 01/03/2017 ESAU, TATIANA COIL INSPECTOR Ot M54.9 DORSALGIA, UNSPECIFIED 01/03/2017 ESAU, TATIAAN COIL INSPECTOR Ot Z87.42 PERSONAL HISTORY OF OTH DISEASES OF THE 01/03/2017 ESAU, TATIANA COIL INSPECTOR Ot Z87.442 PERSONAL HISTORY OF URINARY CALCULI 01/03/2017 ESAU, TATIANA COIL INSPECTOR Ot Z87.59 PERSONAL HISTORY OF COMP OF PREG, CHLDBR 01/03/2017 ESAU, TATIANA COIL INSPECTOR Ot Z98.51 TUBAL LIGATION STATUS 01/05/2017 ESAU, TATIANA COIL INSPECTOR Ot G43.909 MIGRAINE, UNSP, NOT INTRACTABLE, WITHOUT 01/05/2017 ESAU, TATIANA COIL INSPECTOR Ot G89.29 OTHER CHRONIC PAIN 01/05/2017 ESAU, TATIANA COIL INSPECTOR Ot J45.909 UNSPECIFIED ASTHMA, UNCOMPLICATED 01/05/2017 ESAU, TATIANA COIL INSPECTOR Ot K02.9 DENTAL CARIES, UNSPECIFIED 01/05/2017 ESAU, TATIANA COIL INSPECTOR Ot K04.7 PERIAPICAL ABSCESS WITHOUT SINUS 01/05/2017 ESAU, TATIANA COIL INSPECTOR Ot K08.89 OTHER SPECIFIED DISORDERS OF TEETH AND S 01/05/2017 ESAU, TATIANA COIL INSPECTOR Ot M54.9 DORSALGIA, UNSPECIFIED 01/05/2017 ESAU, TATIANA COIL INSPECTOR Ot Z87.42 PERSONAL HISTORY OF OTH DISEASES OF THE 01/05/2017 ESAU, TATIANA COIL INSPECTOR Ot Z87.442 PERSONAL HISTORY OF URINARY CALCULI 01/05/2017 ESAU, TATIANA COIL INSPECTOR Ot Z87.59 PERSONAL HISTORY OF COMP OF PREG, CHLDBR 01/05/2017 ESAU, TATIANA COIL INSPECTOR Ot Z98.51 TUBAL LIGATION STATUS 01/09/2017 ESAU, TATIANA COIL INSPECTOR Ot G43.909 MIGRAINE, UNSP, NOT INTRACTABLE, WITHOUT 01/09/2017 ESAU, TATIANA COIL INSPECTOR Ot G89.29 OTHER CHRONIC PAIN 01/09/2017 ESAU, TATIANA COIL INSPECTOR Ot J45.909 UNSPECIFIED ASTHMA, UNCOMPLICATED 01/09/2017 TATIANA CIFUENTESP Ot K02.9 DENTAL CARIES, UNSPECIFIED 01/09/2017 TATIANA CIFUENTESP Ot K04.7 PERIAPICAL ABSCESS WITHOUT SINUS 01/09/2017 TATIANA CIFUENTES COIL INSPECTOR Ot K08.89 OTHER SPECIFIED DISORDERS OF TEETH AND S 01/09/2017 ESAU TATIANA JORDANP Ot M54.9 DORSALGIA, UNSPECIFIED 01/09/2017 ESAU TATIANA COIL INSPECTOR Ot Z87.42 PERSONAL HISTORY OF OTH DISEASES OF THE 01/09/2017 ESAUTATIANA COIL INSPECTOR Ot Z87.442 PERSONAL HISTORY OF URINARY CALCULI 01/09/2017 TATIANA CIFUENTES COIL INSPECTOR Ot Z87.59 PERSONAL HISTORY OF COMP OF [...] SACROCOCCYGEAL DISORDERS, NOT ELSEWHERE 04/12/2017 DAX HELMS MD, Ot M54.5 LOW BACK PAIN 04/12/2017 DAX [...] MIGRAINE, UNSP, NOT INTRACTABLE, WITHOUT 06/06/2017 JENNIFER URBAN JOSE Sharon Ot J40 BRONCHITIS, NOT SPECIFIED ACUTE OR CH 06/06/2017 JOSE RODRIGUEZ DO Ot R06.02 SHORTNESS OF BREATH 06/06/2017 JENNIFER URBAN JOSE Herrera Ot Z82.49 FAMILY HX OF ISCHEM HEART DIS AND OTH DI 06/06/2017 JENNIFER URBAN JOSE Herrera Ot Z87.42 PERSONAL HISTORY OF OTH DISEASES OF THE 06/06/2017 JENNIFER URBAN JOSE Sharon Ot Z87.442 PERSONAL HISTORY OF URINARY CALCULI 06/06/2017 JENNIFER URBAN JOSE Sharon Ot Z87.59 PERSONAL HISTORY OF COMP OF PREG, CHLDBR 06/06/2017 JENNIFER URBAN JOSE Sharon Ot Z98.51 TUBAL LIGATION STATUS 06/08/2017 NUBIA [...] APRN Ot Z98.51 TUBAL LIGATION STATUS 08/15/2017 MANA ZARATE MD Ot R10.11 RIGHT UPPER QUADRANT PAIN 08/15/2017 MANA ZARATE MD Ot R10.13 EPIGASTRIC PAIN 08/16/2017 JENNIFER URBAN JOSE K Ot F17.210 NICOTINE DEPENDENCE, CIGARETTES, UNCOMPL 08/16/2017 JENNIFER DO JOSE K Ot F32.9 MAJOR DEPRESSIVE DISORDER, SINGLE EPISOD 08/16/2017 JENNIFER DO JOES K Ot F41.9 ANXIETY DISORDER, UNSPECIFIED 08/16/2017 JENNIFER DO JOSE K Ot G43.909 MIGRAINE, UNSP, NOT INTRACTABLE, WITHOUT 08/16/2017 JENNIFER DO JOSE K Ot J45.909 UNSPECIFIED ASTHMA, UNCOMPLICATED 08/16/2017 JENNIFER DO JOSE K Ot K02.9 DENTAL CARIES, UNSPECIFIED 08/16/[facility] PERIAPICAL ABSCESS WITHOUT SINUS 08/16/2017 JENNIFER JOSE URBAN Ot K08.89 OTHER SPECIFIED DISORDERS OF TEETH AND S 08/16/2017 JENNIFER JOSE URBAN Ot Z82.49 FAMILY HX OF ISCHEM HEART DIS AND OTH DI 08/16/2017 JOSE RODRIGUEZ DO Ot Z87.19 PERSONAL HISTORY OF OTHER DISEASES OF TH 08/16/2017 JENNIFER JOSE URBAN Ot Z87.448 PERSONAL HISTORY OF OTHER DISEASES OF UR 08/16/2017 JENNIFER JOSE URBAN Ot Z87.59 PERSONAL HISTORY OF COMP OF PREG, CHLDBR 08/16/2017 JENNIFER JOSE URBAN Ot Z88.5 ALLERGY STATUS TO NARCOTIC AGENT STATUS 08/16/2017 JENNIFER DOJOSE Ot Z88.8 ALLERGY STATUS TO OTH DRUG/MEDS/BIOL SUB 08/16/2017 JENNIFER JOSE URBAN Ot Z97.5 PRESENCE OF (INTRAUTERINE) CONTRACEPTIVE 08/16/2017 JENNIFER JOSE URBAN Ot Z98.51 TUBAL LIGATION STATUS 08/18/2017 JENNIFER JOSE URBAN Ot F17.210 NICOTINE DEPENDENCE, CIGARETTES, UNCOMPL 08/18/2017 JOSE RODRIGUEZ DO Ot F32.9 MAJOR DEPRESSIVE DISORDER, SINGLE EPISOD 08/18/2017 JENNIFER JOSE URBAN Ot F41.9 ANXIETY DISORDER, UNSPECIFIED 08/18/2017 JENNIFER JOSE URBAN Ot G43.909 MIGRAINE, UNSP, NOT INTRACTABLE, WITHOUT 08/18/2017 JENNIFER JOSE URBAN Ot J45.909 UNSPECIFIED ASTHMA, UNCOMPLICATED 08/18/2017 JENNIFER JOSE URBAN Ot K02.9 DENTAL CARIES, UNSPECIFIED 08/18/2017 JENNIFER JOSE URBAN Ot K04.7 PERIAPICAL ABSCESS WITHOUT SINUS 08/18/2017 JENNIFER JOSE URBAN Ot K08.89 OTHER SPECIFIED DISORDERS OF TEETH AND S 08/18/2017 JOSE RODRIGUEZ DO Ot Z82.49 FAMILY HX OF ISCHEM HEART DIS AND OTH DI 08/18/2017 JENNIFER JOSE URBAN Ot Z87.19 PERSONAL HISTORY OF OTHER DISEASES OF TH 08/18/2017 JOSE RODRIGUEZ DO Sharon Ot Z87.448 PERSONAL HISTORY OF OTHER DISEASES OF UR 08/18/2017 JOSE RODRIGUEZ DO Sharon Ot Z87.59 PERSONAL HISTORY OF COMP OF PREG, CHLDBR 08/18/2017 JOSE RODRIGUEZ DO Ot Z88.5 ALLERGY STATUS TO NARCOTIC AGENT STATUS 08/18/2017 JOSE RODRIGUEZ DO Ot Z88.8 ALLERGY STATUS TO OTH DRUG/MEDS/BIOL SUB 08/18/2017 JOSE RODRIGUEZ DO Ot Z97.5 PRESENCE OF (INTRAUTERINE) CONTRACEPTIVE 08/18/2017 JENNIFER URBANJOSE Ot Z98.51 TUBAL LIGATION STATUS 10/11/2017 NUBIA [...] APRN Ot Z98.51 TUBAL LIGATION STATUS 10/11/2017 MANA ZARATE MD Ot R10.11 RIGHT UPPER QUADRANT PAIN 10/11/2017 MANA ZARATE MD Ot R10.13 EPIGASTRIC PAIN 10/17/2017 NUBIA MURRAY [...] DO Ot F41.9 ANXIETY DISORDER, UNSPECIFIED 11/06/2017 JOES RODRIGUEZ DO Ot G43.909 MIGRAINE, UNSP, NOT INTRACTABLE, WITHOUT 11/06/2017 JOSE RODRIGUEZ DO Ot J40 BRONCHITIS, NOT SPECIFIED ACUTE OR CH 11/06/2017 JOSE RODRIGUEZ DO Ot R06.02 SHORTNESS OF BREATH 11/06/2017 JOSE RODRIGUEZ DO Ot Z79.51 [facility] (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 OF INHALED STERO 11/06/2017 JOSE RODRIGUEZ DO Ot Z79.52 [facility] (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 OF SYSTEMIC STER 11/06/2017 JOSE RODRIGUEZ DO Ot Z82.49 FAMILY HX OF ISCHEM HEART DIS AND OTH DI 11/06/2017 JOSE RODRIGUEZ DO Ot Z87.442 PERSONAL HISTORY OF URINARY CALCULI 11/06/2017 JOSE RODRIGUEZ DO Ot Z87.448 PERSONAL HISTORY OF OTHER DISEASES OF UR 11/06/2017 JOSE RODRIGUEZ DO Ot Z87.59 PERSONAL HISTORY OF COMP OF PREG, CHLDBR 11/06/2017 JOSE RODRIGUEZ DO Ot Z88.5 ALLERGY STATUS TO NARCOTIC AGENT STATUS 11/06/2017 JOSE RODRIGUEZ DO Ot Z88.8 ALLERGY STATUS TO OTH DRUG/MEDS/BIOL SUB 11/06/2017 JOSE RODRIGUEZ DO Ot Z98.51 TUBAL LIGATION STATUS 11/09/2017 JOSE [...] BREATH 11/09/2017 JOSE RODRIGUEZ DO Ot Z79.51 DIRECTOR SAFETY (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 OF INHALED STERO 11/09/2017 JOSE RODRIGUEZ DO Ot Z79.52 [facility] (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 OF SYSTEMIC STER 11/09/2017 JOSE [...] STATUS TO OTH DRUG/MEDS/BIOL SUB 11/09/2017 JENNIFER URBAN JOSE Sharon Ot Z98.51 TUBAL LIGATION STATUS 02/03/2018 NUBIA [...] SMO 02/03/2018 NUBIA MURRAY APRN Ot Z79.51 DIRECTOR SAFETY (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 OF INHALED STERO 02/03/2018 NUBIA MURRAY APRN Ot Z79.52 [facility] (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 OF SYSTEMIC STER 02/03/2018 NUBIA [...] ALLERGY STATUS TO NARCOTIC AGENT STATUS 02/03/2018 NUBIA MURRAY APRN Ot Z88.8 ALLERGY STATUS [...] SMO 02/05/2018 NUBIA MURRAY APRN Ot Z79.51 DIRECTOR SAFETY (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 OF INHALED STERO 02/05/2018 NUBIA MURRAY APRN Ot Z79.52 DIRECTOR SAFETY (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 OF SYSTEMIC STER 02/05/2018 NUBIA [...] APRN Ot J45.909 UNSPECIFIED ASTHMA, UNCOMPLICATED 02/10/2018 NUBIA MURRAY APRN Ot K08.89 OTHER SPECIFIED DISORDERS OF TEETH AND S 02/10/2018 NUBIA MURRAY APRN Ot Z77.22 CNTCT W AND EXPSR TO ENVIRON TOBACCO SMO 02/10/2018 NUBIA MURRAY APRN Ot Z79.51 DIRECTOR SAFETY (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 OF INHALED STERO 02/10/2018 NUBIA MURRAY APRN Ot Z79.52 DIRECTOR SAFETY (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 OF SYSTEMIC STER 02/10/2018 NUBIA MURRAY APRN Ot Z82.49 FAMILY HX OF ISCHEM HEART DIS AND OTH DI 02/10/2018 NUBIA MURRAY APRN Ot Z86.19 PERSONAL HISTORY OF OTHER INFECTIOUS AND 02/10/2018 NUBIA MURRAY APRN Ot Z87.19 PERSONAL HISTORY OF OTHER DISEASES OF TH 02/10/2018 NUBIA MURRAY APRN Ot Z87.448 PERSONAL HISTORY OF OTHER DISEASES OF UR 02/10/2018 NUIBA MURRAY APRN Ot Z88.5 ALLERGY STATUS TO NARCOTIC AGENT STATUS 02/10/2018 NUBIA MURRAY APRN Ot Z88.8 ALLERGY STATUS TO OTH DRUG/MEDS/BIOL SUB 02/10/2018 NUBIA MURRAY APRN Ot Z98.51 TUBAL LIGATION STATUS 02/10/2018 NUBIA MURRAY APRN Ot Z98.890 OTHER SPECIFIED POSTPROCEDURAL STATES 02/11/2018 NUBIA MURRAY APRN Ot F32.9 MAJOR DEPRESSIVE DISORDER, SINGLE EPISOD 02/11/2018 NUBIA MURRAY APRN Ot F41.9 ANXIETY DISORDER, UNSPECIFIED 02/11/2018 NUBIA MURRAY APRN Ot G43.909 MIGRAINE, UNSP, NOT INTRACTABLE, WITHOUT 02/11/2018 NUBIA MURRAY APRN Ot J45.909 UNSPECIFIED ASTHMA, UNCOMPLICATED 02/11/2018 NUBIA MURRAY APRN Ot M25.551 PAIN IN RIGHT HIP 02/11/2018 NUBIA MURRAY APRN Ot S73.101A UNSPECIFIED SPRAIN OF RIGHT HIP, INITIAL 02/11/2018 NUBIA MURRAY APRN Ot X50.1XXA OVEREXERTION FROM PROLONGED STATIC OR AW 02/11/2018 NUBIA MURRAY APRN Ot Y92.[address] 02/11/2018 NUBIA MURRAY APRN Ot Y99.0 CIVILIAN ACTIVITY DONE FOR INCOME OR PAY 02/11/2018 NUBIA MURRAY APRN Ot Z77.22 CNTCT W AND EXPSR TO ENVIRON TOBACCO SMO 02/11/2018 NUBIA MURRAY APRN Ot Z79.51 DIRECTOR SAFETY (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 OF INHALED STERO 02/11/2018 NUBIA MURRAY APRN Ot Z79.52 DIRECTOR SAFETY (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 OF SYSTEMIC STER 02/11/2018 NUBIA MURRAY APRN Ot Z82.49 FAMILY HX OF ISCHEM HEART DIS AND OTH DI 02/11/2018 NUBIA MURRAY APRN Ot Z86.19 PERSONAL HISTORY OF OTHER INFECTIOUS AND 02/11/2018 NUBIA MURRAY APRN Ot Z87.19 PERSONAL HISTORY OF OTHER DISEASES OF TH 02/11/2018 NUBIA MURRAY APRN Ot Z87.442 PERSONAL HISTORY OF URINARY CALCULI 02/11/2018 NUBIA MURRAY APRN Ot Z88.5 ALLERGY STATUS TO NARCOTIC AGENT STATUS 02/11/2018 NUBIA MURRAY APRN Ot Z88.8 ALLERGY STATUS TO [facility] DRUG/MEDS/BIOL SUB 02/11/2018 NUBIA MURRAY APRN Ot Z98.51 TUBAL LIGATION STATUS 02/11/2018 NUBIA MURRAY APRN Ot Z98.890 OTHER SPECIFIED [...] SMO 02/15/2018 NUBIA MURRAY APRN Ot Z79.51 [facility] (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 OF INHALED STERO 02/15/2018 NUBIA MURRAY APRN Ot Z79.52 DIRECTOR SAFETY (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 OF SYSTEMIC STER 02/15/2018 NUBIA [...] Z88.8 ALLERGY STATUS TO OTH DRUG/MEDS/BIOL SUB 02/15/2018 NUBIA MURRAY APRN Ot Z98.51 TUBAL LIGATION STATUS 02/15/2018 NUBIA MURRAY APRN Ot Z98.890 OTHER SPECIFIED POSTPROCEDURAL STATES 02/19/2018 MONALISA ROMERO, DINORA Wilde Ot F17.210 NICOTINE DEPENDENCE, CIGARETTES, UNCOMPL 02/19/2018 MONALISA ROMERO, DINORA Wilde Ot F32.9 MAJOR DEPRESSIVE DISORDER, SINGLE EPISOD 02/19/2018 MONALISA ROMERO, DINORA Wilde Ot F41.9 ANXIETY DISORDER, UNSPECIFIED 02/19/2018 MONALISA ROMERO, DINORA Wilde Ot G43.909 MIGRAINE, UNSP, NOT INTRACTABLE, WITHOUT 02/19/2018 MONALISA ROMERO, DINORA Wilde Ot J45.909 UNSPECIFIED ASTHMA, UNCOMPLICATED 02/19/2018 MONALISA ROMERO, DINORA Wilde Ot L03.113 CELLULITIS OF RIGHT UPPER LIMB 02/19/2018 MONALISA ROMERO, DINORA Wilde Ot Z82.49 FAMILY HX OF ISCHEM HEART DIS AND OTH DI 02/19/2018 DINORA SHELDON MD Ot Z87.19 PERSONAL HISTORY OF OTHER DISEASES OF TH 02/19/2018 DINORA SHELDON MD Ot Z87.442 PERSONAL HISTORY OF URINARY CALCULI 02/19/2018 DINORA SHELDON MD Ot Z87.448 PERSONAL HISTORY OF OTHER DISEASES OF UR 02/19/2018 MONALISA ROMERO, DINORA Wilde Ot Z88.5 ALLERGY STATUS TO NARCOTIC AGENT STATUS 02/19/2018 MONALISA ROMERO, DINORA Wilde Ot Z88.8 ALLERGY STATUS TO OTH DRUG/MEDS/BIOL SUB 02/19/2018 MONALISA ROMERO, DINORA Wilde Ot Z98.51 TUBAL LIGATION STATUS 02/19/2018 MONALISA ROMERO, DINORA Wilde Ot Z98.890 OTHER SPECIFIED POSTPROCEDURAL STATES 02/22/2018 MONALISA ROMERO, DINORA Wilde Ot F17.210 NICOTINE DEPENDENCE, CIGARETTES, UNCOMPL 02/22/2018 MONALISA ROMERO, DINORA Wilde Ot F32.9 MAJOR DEPRESSIVE DISORDER, SINGLE EPISOD 02/22/2018 MONALISA ROMERO, DINORA Wilde Ot F41.9 ANXIETY DISORDER, UNSPECIFIED 02/22/2018 MONALISA ROMERO, DINORA Wilde Ot G43.909 MIGRAINE, UNSP, NOT INTRACTABLE, WITHOUT 02/22/2018 MONALISA ROMERO, DINORA Wilde Ot J45.909 UNSPECIFIED ASTHMA, UNCOMPLICATED 02/22/2018 OMNALISA ROMERO, DINORA Wilde Ot L03.113 CELLULITIS OF RIGHT UPPER LIMB 02/22/2018 MONALISA ROMERO, DINORA Wilde Ot Z82.49 FAMILY HX OF ISCHEM HEART DIS AND OTH DI 02/22/2018 MONALISA ROMERO, DINORA Wilde Ot Z87.19 PERSONAL HISTORY OF OTHER DISEASES OF TH 02/22/2018 MONALISA ROMERO, DINORA Wilde Ot Z87.442 PERSONAL HISTORY OF URINARY CALCULI 02/22/2018 MONALISA ROMREO, DINORA Wilde Ot Z87.448 PERSONAL HISTORY OF OTHER DISEASES OF UR 02/22/2018 MONALISA ROMERO, DINORA Wilde Ot Z88.5 ALLERGY STATUS TO NARCOTIC AGENT STATUS 02/22/2018 MONALISA ROMERO, DINORA Wilde Ot Z88.8 ALLERGY STATUS TO OTH DRUG/MEDS/BIOL SUB 02/22/2018 DINORA SHELDON MD Ot Z98.51 TUBAL LIGATION STATUS 02/22/2018 DINORA SHELDON MD Ot Z98.890 OTHER SPECIFIED POSTPROCEDURAL STATES 02/25/2018 DINORA SHELDON MD Ot F17.210 NICOTINE DEPENDENCE, CIGARETTES, UNCOMPL 02/25/2018 DINORA SHELDON MD Ot F32.9 MAJOR DEPRESSIVE DISORDER, SINGLE EPISOD 02/25/2018 MONALISADINORA Thao MD Ot F41.9 ANXIETY DISORDER, UNSPECIFIED 02/25/2018 DINORA SHELDON MD Ot G43.909 MIGRAINE, UNSP, NOT INTRACTABLE, WITHOUT 02/25/2018 DINORA SHELDON MD Ot J45.909 UNSPECIFIED ASTHMA, UNCOMPLICATED 02/25/2018 DNIORA SHELDON MD Ot L03.113 CELLULITIS OF RIGHT UPPER LIMB 02/25/2018 DINORA SHELDON MD Ot Z82.49 FAMILY HX OF ISCHEM HEART DIS AND OTH DI 02/25/2018 DINORA SHELDON MD Ot Z87.19 PERSONAL HISTORY OF OTHER DISEASES OF TH 02/25/2018 DINORA SHELDON MD Ot Z87.442 PERSONAL HISTORY OF URINARY CALCULI 02/25/2018 DINORA SHELDON MD Ot Z87.448 PERSONAL HISTORY OF OTHER DISEASES OF UR 02/25/2018 DINORA SHELDON MD Ot Z88.5 ALLERGY STATUS TO NARCOTIC AGENT STATUS 02/25/2018 DINORA SHELDON MD Ot Z88.8 ALLERGY STATUS TO OTH DRUG/MEDS/BIOL SUB 02/25/2018 DINORA SHELDON MD Ot Z98.51 TUBAL LIGATION STATUS 02/25/2018 DINORA SHELDON MD Ot Z98.890 OTHER SPECIFIED POSTPROCEDURAL STATES 03/16/2018 MANA ZARATE MD Ot R10.11 RIGHT UPPER QUADRANT PAIN 03/16/2018 MANA ZARATE MD Ot R10.13 EPIGASTRIC PAIN Procedures Code Description [place] [id number] ROUTINE VENIPUNCTURE 08/22/2014 THYANA THYROID ANALYZER 08/22/2014 [...] NRG Blood erythrocyte morphology finding identification NORMAL [facility] Comprehensive metabolic panel - 06/06/17 18:42 Serum [...] INFLUENZA A AND B ANTIGENS BY IA [facility] Bacterial blood culture - 06/06/17 18:44 Bacterial blood culture NG [facility] Bacterial blood culture - 06/06/17 18:48 Bacterial blood culture NG [facility] Complete urinalysis with reflex to culture - 11/05/17 23:30 Urine color determination YELLOW [facility] Urine clarity determination SLIGHTLY CLOUDY [facility] Urine pH measurement by test strip 8 [...] human chorionic gonadotropin (hCG) measurement NEGATIVE NEGATIVE Complete blood count (CBC) with automated white blood cell (WBC) differential - 02/19/18 09:49 Blood leukocytes automated count (number/volume) 6.7 10*3/uL 4.3-11.0 Blood erythrocytes automated count (number/volume) 4.26 10*6/uL 4.35-5.85 Venous blood hemoglobin measurement (mass/volume) 13.1 g/dL 11.5-16.0 Blood hematocrit (volume fraction) 38 % 35-52 Automated erythrocyte mean corpuscular volume 89 [foz_us] 80-99 Automated erythrocyte mean corpuscular hemoglobin (mass per erythrocyte) 31 pg 25-34 Automated erythrocyte mean corpuscular hemoglobin concentration measurement ( mass/volume) 35 g/dL 32-36 Automated erythrocyte distribution width ratio 12.6 % 10.0-14.5 Automated blood platelet count (count/volume) 303 10*3/uL 130-400 Automated blood platelet mean volume measurement 10.9 [foz_us] 7.4-10.4 Automated blood neutrophils/100 leukocytes 54 % 42-75 Automated blood lymphocytes/100 leukocytes 30 % 12-44 Blood monocytes/100 leukocytes 11 % 0-12 Automated blood eosinophils/100 leukocytes 4 % 0-10 Automated blood basophils/100 leukocytes 0 % 0-10 Blood neutrophils automated count (number/volume) 3.7 10*3 1.8-7.8 Blood lymphocytes automated count (number/volume) 2.0 10*3 1.0-4.0 Blood monocytes automated count (number/volume) 0.7 10*3 0.0-1.0 Automated eosinophil count 0.3 10*3/uL 0.0-0.3 Automated blood basophil count (count/volume) 0.0 10*3/uL 0.0-0.1 Blood lactic acid measurement (moles/volume) - 02/19/18 09:49 Blood lactic acid measurement (moles/volume) 0.69 mmol/L 0.50-2.00 Comprehensive metabolic panel - 02/19/18 09:49 Serum or plasma sodium measurement (moles/volume) 138 mmol/L 135-145 Serum or plasma potassium measurement (moles/volume) 3.7 mmol/L 3.6-5.0 Serum or plasma chloride measurement (moles/volume) 104 mmol/L 98-107 Carbon dioxide 24 mmol/L 21-32 Serum or plasma anion gap determination (moles/volume) 10 mmol/L 5-14 Serum or plasma urea nitrogen measurement (mass/volume) 8 mg/dL 7-18 Serum or plasma creatinine measurement (mass/volume) 0.76 mg/dL 0.60-1.30 Serum or plasma urea nitrogen/creatinine mass ratio 11 NRG Serum or plasma creatinine measurement with calculation of estimated glomerular filtration rate > NRG Serum or plasma glucose measurement (mass/volume) 78 mg/dL 70-105 Serum or plasma calcium measurement (mass/volume) 9.5 mg/dL 8.5-10.1 Serum or plasma total bilirubin measurement (mass/volume) 0.6 mg/dL 0.1-1.0 Serum or plasma alkaline phosphatase measurement (enzymatic activity/volume) 93 U/L 40-136 Serum or plasma aspartate aminotransferase measurement (enzymatic activity/ volume) 17 U/L 5-34 Serum or plasma alanine aminotransferase measurement (enzymatic activity/volume ) 12 U/L 0-55 Serum or plasma protein measurement (mass/volume) 7.3 g/dL 6.4-8.2 Serum or plasma albumin measurement (mass/volume) 4.6 g/dL 3.2-4.5 Serum or plasma C reactive protein measurement (mass/volume) - 02/19/18 09:49 Serum or plasma C reactive protein measurement (mass/volume) 1.30 mg /dL 0.00-0.50 Bacterial blood culture - 02/19/18 09:49 Bacterial blood culture NG NRG Bacterial blood culture - 02/19/18 10:43 Bacterial blood culture NG NRG Encounters ACCT No. Visit Date/Time Discharge Status Pt. Type Provider Facility Loc./Unit Complaint [id number] 08/22/2014 14:39:00 08/22/2014 23:59:59 [place] [id number] 05/05/2017 08:35:00 05/05/2017 23:59:59 CLS Outpatient NINI MALDONADO LAC [facility] [id number] 11/12/2017 15:04:29 11/12/2017 23:59:59 CLS Outpatient [id number] 02/19/2018 09:01:00 02/19/2018 12:12:00 DIS Emergency MONALISA ROMERO, DINORA Wilde [facility] ER BUG BITE [id number] 02/11/2018 15:48:00 02/11/2018 18:35:00 DIS Emergency NUBIA MURRAY APRN [facility] ER R SIDE HIP PAIN,HEARD IT POP WHEN BENDING DOWN [id number] 02/03/2018 18:49:00 02/03/2018 19:20:00 DIS Emergency NUBIA MURRAY APRN [facility] ER L SIDE FACIAL/DENTAL PAIN [id number] 11/05/2017 22:32:00 11/06/2017 00:20:00 DIS Emergency JOSE RODRIGUEZ DO [facility] ER CONGESTION/SOB [id number] 10/11/2017 19:29:00 10/11/2017 20:20:00 DIS Emergency NUBIA MURRAY APRN [facility] ER R SHOULDER PAIN [id number] 08/15/2017 23:34:00 08/16/2017 00:17:00 DIS Emergency JOSE RODRIGUEZ DO [facility] ER TOOTH AND GUM PAIN [id number] 06/06/2017 17:47:00 06/06/2017 20:07:00 DIS Emergency JOSE RODRIGUEZ DO [facility] ER SOA [id number] 06/04/2017 17:23:00 06/04/2017 17:33:00 DIS Emergency NUBIA MURRAY APRN [facility] ER SORE THROAT [id number] 04/11/2017 20:49:00 04/12/2017 01:59:00 DIS Emergency ANALIA ROMERO, DAX Foote [facility] ER KIDNEY PAIN,NAUSEA [id number] 03/13/2017 18:29:00 03/13/2017 20:47:00 DIS Emergency NUBIA MURRAY APRN [facility] ER LIGHTHEADEDNESS,DIZZINESS, SOA [id number] 03/02/2017 16:48:00 03/02/2017 18:27:00 DIS Emergency [facility]UR[facility] System ER R SIDE LOWER BACK PAIN/ NAUSEA [id number] 01/03/2017 20:36:00 01/03/2017 21:51:00 DIS Emergency ESAUTATIANA [facility] ER TOOTH PAIN [id number] 11/22/2016 18:25:00 11/22/2016 19:05:00 DIS Emergency NUBIA MURRAY APRN [facility] ER BACK PAIN [id number] 11/07/2016 17:13:00 11/07/2016 18:35:00 DIS Emergency ANALIA ROMERO, DAX Foote [facility] ER PAINFUL/ITCHY RED SPOTS ON SKIN [id number] 10/12/2016 13:14:00 10/12/2016 13:47:00 DIS Emergency NUBIA MURRAY APRN [facility] ER R SIDE DENTAL PAIN/ HEADACHE [id number] 06/29/2016 15:31:00 06/29/2016 16:09:00 DIS Emergency NUBIA MURRAY APRN [facility] ER N/V, SINUS TROUBLE [id number] 03/27/2016 17:52:00 03/27/2016 19:21:00 DIS Emergency JENNIFER DO JOSE Herrera [facility] ER SOA [id number] 03/21/2016 11:40:00 03/21/2016 23:59:59 CLS Outpatient MANA ZARATE MD [facility] CARD RT UPPRER ABDOMINAL PAIN [id number] 03/06/2016 08:31:00 03/06/2016 23:59:59 CLS Outpatient MANA ZARATE MD [facility] RAD RUQ ABD PAIN [id number] 02/09/2016 07:28:00 02/09/2016 08:48:00 DIS Emergency SOPHIA JOSÉ MD [facility] ER BODY ACHES [id number] 01/07/2016 17:31:00 01/07/2016 18:53:00 DIS Emergency RICKY NELSON [facility] ER FEVER [id number] 12/21/2015 12:08:00 12/21/2015 13:24:00 DIS Emergency NUBIA MURRAY APRN [facility] ER RIGHT SHOULDER PAIN [id number] 08/08/2015 09:08:00 08/08/2015 12:16:00 DIS Emergency JOSE RODRIGUEZ DO [facility] ER MIGRAINE [id number] 07/17/2015 19:11:00 07/17/2015 21:23:00 DIS Emergency RICKY NELSON [facility] ER L EAR PAIN [id number] 06/01/2015 18:38:00 06/01/2015 19:47:00 DIS Emergency RICKY NELSON [facility] ER L FOOT INJ/PAIN [id number] 05/20/2015 23:50:00 05/21/2015 01:32:00 DIS Emergency SOPHIA JOSÉ MD [facility] ER RT LEG PAIN/KNOT [id number] 05/11/2015 21:12:00 05/11/2015 22:49:00 DIS Emergency ESTEFANÍA ROMERO SOPHIA Fields [facility] ER SORE THROAT;COUGH; FEVER [id number] 05/06/2015 18:32:00 05/06/2015 23:32:00 DIS Emergency RICKY NELSON [facility] ER FEVER,CHILLS/BODY ACHES [id number] 03/26/2015 20:21:00 03/27/2015 00:12:00 DIS Emergency RICKY NELSON [facility] ER L HAND JULIET [id number] 01/20/2015 17:58:00 01/20/2015 19:17:00 DIS Emergency RICKY NELSON [facility] ER ORAL PAIN/LFT JAW [id number] 01/01/2015 18:57:00 01/01/2015 20:16:00 DIS Emergency DAX HELMS MD [facility] ER COUGHING,SOA [id number] 12/10/2014 21:39:00 12/10/2014 22:19:00 DIS Emergency RICKY NELSON [facility] ER SPIDER BITE [id number] 05/31/2014 16:59:00 05/31/2014 18:10:00 DIS Emergency RICKY NELSON [facility] ER INSECT BITE/STING [id number] 05/28/2014 16:45:00 05/28/2014 18:23:00 DIS Emergency NUBIA MURRAY APRN [facility] ER VOMITING,FEVER [id number] 03/23/2018 08:19:00 ACT Emergency SOPHIA JOSÉ MD [facility] ER ROOF OF MOUTH HURTS [id number] 09/02/2015 20:34:00 Document Registration [id number] 05/14/2015 18:01:00 Document Registration [id number] 05/14/2015 18:01:00 Document Registration [id number] 08/09/2014 01:45:00 Document Registration [id number] 10/15/2011 17:32:00 Document Registration [id number] 09/26/2011 12:18:00 Document Registration
[2018-03-23] MEDS ORDERED: HYDROcodone/APAP 7.5 MG/325 MG (LORTAB, LORCET PLUS) TABLET PO STA (09:53)
--- NOTE | 2018-03-23 09:54 | ED EENT ---
History of Present Illness General Chief Complaint: Oral/Throat Problems Stated Complaint: ROOF OF MOUTH HURTS Nursing Triage Note: PT PRESENTS TO ED WITH COMPLAINTS OF ORAL/PALATE PAIN/LESION STARTING YESTERDAY Source: patient Exam Limitations: no limitations History of Present Illness Date Seen by Provider: Mar 23, 2018 Time Seen by Provider: 09:43 Initial Comments Here with report of dental pain. Has tooth behind her rotation upper jaw left side of central that is inflamed. She is just finishing a course of antibiotics. She was unable to get in her dentist today but feels like she can get in this week. She has tried ibuprofen and Tylenol that has not helped. Reports pain significant that it's almost causing vomiting. Timing/Duration: gradual, last week Severity: moderate Location: dental Prearrival Treatment: over the counter meds, prescription meds Associated Symptoms: No fever, No sinus infection, No sore throat; tooth pain; No voice change Allergies and Home Medications Allergies Coded Allergies: metoclopramide (Unverified Allergy, Mild, 01/03/17) promethazine (Unverified Allergy, Mild, 01/03/17) vancomycin (Verified Allergy, Unknown, 02/19/18) morphine (Unverified Adverse Reaction, Severe, PAIN, 01/03/17) Home Medications Amoxicillin/Potassium Clav 1 Each Tablet, 1 EACH PO BID Prescribed by: YVETTE CHRISTENSEN on 02/19/18 1125 Methocarbamol 750 Mg Tablet, 750 MG PO Q6H PRN for PAIN-SEVERE Prescribed by: NUBIA MURRAY on 02/11/18 1716 Sulfamethoxazole/Trimethoprim 1 Each Tablet, 1 EACH PO BID Prescribed by: YVETTE CHRISTENSEN on 02/19/18 1125 Patient Home Medication List Home Medication List Reviewed: Yes Review of Systems Review of Systems Constitutional: see HPI; No fever Ears: No Symptoms Reported Nose: no symptoms reported Mouth: see HPI Throat: no symptoms reported Respiratory: no symptoms reported Cardiovascular: no symptoms reported Gastrointestinal: see HPI; No abdominal pain Past Mjjxyxp-Uwgstu-Qjainl Hx Past Med/Social Hx: Reviewed Nursing Past Med/Soc Hx Patient Social History Alcohol Use: Denies Use Recreational Drug Use: No Smoking Status: Current Everyday Smoker Type Used: Cigarettes 2nd Hand Smoke Exposure: Yes Recent Foreign Travel: No Contact w/Someone Who Travel: No Recent Infectious Disease Expo: No Recent Hopitalizations: No Physical Abuse: No Sexual Abuse: No Fear: No Immunizations Up To Date Tetanus Booster (TDap): Less than 5yrs PED Vaccines UTD: Yes Seasonal Allergies Seasonal Allergies: Yes Past Medical History Surgeries: Yes (S-CECTION X 2, BTL. 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 Sexually Transmitted Disease: No HIV/AIDS: No Genitourinary: Yes Kidney Stones Gastrointestinal: Yes Irritable Bowel Musculoskeletal: Yes Chronic Back Pain Endocrine: No HEENT: Yes (DENTAL CARIES) Loss of Vision: Denies Hearing Impairment: Denies Cancer: No Psychosocial: Yes Anxiety, Depression Integumentary: Yes (SHINGLES; CELLULITIS) Recent Skin Changes Blood Disorders: No Adverse Reaction/Blood Tranf: No Family Medical History Reviewed Nursing Family Hx Diabetes mellitus 19 FATHER Myocardial infarction 19 FATHER Thyroid disease G8 SISTER Heart Disease Physical Exam Vital Signs Vital Signs - First Documented 03/23/18 08:28 Temp 97.1 Pulse 72 Resp 18 B/P (MAP) 133/86 (102) Pulse Ox 99 Height, Weight, BMI Height: 5'1.00" Weight: 156lbs. 0oz. 70.918516yk; 28.91 BMI Method:Stated General Appearance: WD/WN, no apparent distress Mouth/Throat: pharynx normal, other (does have a tooth protruding through the gum line tissue just behind the lateral incisor/eyetooth area. This area is red , inflamed and very tender.) Neck: full range of motion, supple Cardiovascular: regular rate, rhythm, no murmur Respiratory: lungs clear, normal breath sounds Neurologic/Psychiatric: alert, oriented x 3 Progress/Results/Core Measures Results/Orders My Orders Orders - SOPHIA JOSÉ MD Hydrocodone/Apap 7.5/325 Tab (Lortab 7. (03/23/18 09:53) Lidocaine 2% Viscous 15 Ml (Xylocaine Vi (03/23/18 10:00) Vital Signs/I&O 03/23/18 08:28 Temp 97.1 Pulse 72 Resp 18 B/P (MAP) 133/86 (102) Pulse Ox 99 Blood Pressure Mean: 102 Progress Progress Note : Progress Note Seen and evaluated. Hydrocodone 7.5 one tab by mouth given. Lidocaine gauze pack given. Discharged home with return precautions. Patient verbalize understanding instructions and agreement with plan. Departure Impression Primary Impression: Pain, dental Disposition: HOME, SELF-CARE Condition: Stable Departure-Patient Inst. Decision time for Depature: 09:58 Referrals: [facility] (PCP/Family) Primary Care Physician Patient Instructions: Dental Pain (DC) Add. Discharge Instructions: All discharge instructions reviewed with patient and/or family. Voiced understanding. Follow-up with your dentist in the next one to 2 days. Take medications as directed. You may take ibuprofen 800 mg every 8 hours as needed for pain. You may take Tylenol/acetaminophen 1000 mg every 8 hours as needed for pain if you are not using the prescribed pain medicine. Do not take both as they both have acetaminophen in them. Follow-up with a dentist [facility]. Return for worse pain, fever, vomiting, breathing problems or other concerns as needed. Scripts Hydrocodone Bit/Acetaminophen (Hydrocodone/Acetaminophen 5/325mg Tablet) 1 Tab Tab 1 EACH PO Q6H PRN for PAIN-MODERATE MDD 10, #8 TAB Prov: SOPHIA JOSÉ MD 03/23/18 Amoxicillin (Amoxicillin) 500 Mg Capsule 500 MG PO TID, #21 CAP 0 Refills Prov: SOPHIA JOSÉ MD 03/23/18 SOPHIA JOSÉ MD Mar 23, 2018 09:54
[2018-03-23] MEDS ORDERED: ACHD5005 PO (10:00)
[2018-03-23] MEDS ORDERED: LIDOCAINE 2% VISCOUS 15 ML UDC PO ONE (10:00)
[2018-03-23] MEDS ORDERED: AMOX500C2 PO (10:00)
[2018-03-23 10:46] VITALS: BP 132/87
== END 2018-03-23 10:45 | disposition home or self-care (01) ==
LOC: EDUNIT# 08:17 → ER 08:19
DX: K08.89 Other specified disorders of teeth and supporting structures (principal); F17.210 Nicotine dependence, cigarettes, uncomplicated; J45.909 Unspecified asthma, uncomplicated; G43.909 Migraine, unspecified, not intractable, without status migrainosus; F41.9 Anxiety disorder, unspecified; F32.9 Major depressive disorder, single episode, unspecified; Z87.442 Personal history of urinary calculi; Z88.8 Allergy status to other drugs, medicaments and biological substances; Z88.6 Allergy status to analgesic agent; Z98.51 Tubal ligation status
CPT/HCPCS: 99283

== ENCOUNTER 2018-04-01 19:27 | Emergency (ER) | payer SELFPAY ==
[~2018-04-01] VITALS: Ht 152.4 cm; Wt 70.3 kg
--- OUTSIDE RECORDS SUMMARY | 2018-04-01 19:41 | XMS REPORT | Continuity of Care Document ---
Author Author [facility] Address Unknown Phone Unavailable Allergies Active Description Code Type Severity Reaction Onset Reported/Identified Relationship to Patient Clinical Status Yes Phenergan Drug Allergy N/A N/A 08/22/2014 Yes Reglan Drug Allergy N/A N/A 08/22/2014 Yes morphine [id number] Drug Allergy Severe PAIN 01/03/2017 Yes metoclopramide [id number] Drug Allergy Mild N/A 01/03/2017 Yes promethazine [id number] Drug Allergy Mild N/A 01/03/2017 Yes vancomycin [id number] Drug Allergy Unknown N/A 02/19/2018 Medications There [...] DO K 783.1 ABNORMAL WEIGHT GAIN 12/10/2014 RICKY [...] INITIAL ENCOU 06/01/2015 RICKY NELSON Ot Y92.[address] [facility] PLACE IN SINGLE-FAMILY (PRIVATE) 06/01/2015 RICKY NELSON [...] DEPENDENCE, CIGARETTES, UNCOMPL 09/02/2015 Ot S46.911A STRAIN [facility] MUSC/FASC/TEND AT SHLDR/UP A 09/02/2015 Ot X58.XXXA EXPOSURE TO OTHER SPECIFIED FACTORS, INI 09/02/2015 Ot Y92.[address] [facility] PL[address] IN [facility] NON-INSTITUT (PRIVATE 09/02/2015 Ot Y99.0 CIVILIAN ACTIVITY [...] R10.11 RIGHT UPPER QUADRANT PAIN 03/24/2016 MANA AZRATE MD Ot R10.13 EPIGASTRIC PAIN 03/27/2016 JOSE RODRIGUEZ DO Ot J06.9 ACUTE UPPER RESPIRATORY INFECTION, UNSPE 03/27/2016 JOSE RODRIGUEZ DO Ot J20.9 ACUTE BRONCHITIS, UNSPECIFIED 03/27/2016 JOSE RODRIGUEZ DO Ot R06.02 SHORTNESS OF BREATH 2016 OJSE RODRIGUEZ DO Ot J06.9 ACUTE UPPER RESPIRATORY INFECTION, UNSPE 2016 JOSE RODRIGEUZ DO Ot J20.9 ACUTE BRONCHITIS, UNSPECIFIED 2016 [...] NONVENOM INSECT OTH NONVE 11/22/2016 NUBIA MURRAY SHOTBLASTER Ot F17.210 NICOTINE DEPENDENCE, CIGARETTES, UNCOMPL 11/22/2016 NUBIA MURRAY APRN Ot M54.5 LOW BACK PAIN 11/22/2016 NUBIA MURRAY APRN Ot Z87.442 PERSONAL HISTORY OF URINARY CALCULI 11/22/2016 MANA ZARATE MD Ot R10.11 RIGHT UPPER QUADRANT PAIN 11/22/2016 MANA ZARATE MD Ot R10.13 EPIGASTRIC PAIN 11/28/2016 NUBIA MURRAY SHOTBLASTER Ot F17.210 NICOTINE DEPENDENCE, CIGARETTES, UNCOMPL 11/28/2016 NUBIA MURRAY APRN Ot M54.5 LOW BACK PAIN 11/28/2016 NUBIA MURRAY SHOTBLASTER Ot Z87.442 PERSONAL HISTORY OF URINARY CALCULI 01/03/2017 MANA ZARATE MD Ot R10.11 RIGHT UPPER QUADRANT PAIN 01/03/2017 MANA ZARATE MD Ot R10.13 EPIGASTRIC PAIN 01/03/2017 TATIANA CIFUENTES Ot G43.909 MIGRAINE, UNSP, NOT INTRACTABLE, WITHOUT 01/03/2017 TATIANA CIFUENTES Ot G89.29 OTHER CHRONIC PAIN 01/03/2017 ESAU, TATIANA CUSTOM HARVESTER Ot J45.909 UNSPECIFIED ASTHMA, UNCOMPLICATED 01/03/2017 ESAU, TATIANA CUSTOM HARVESTER Ot K02.9 DENTAL CARIES, UNSPECIFIED 01/03/2017 ESAU, TATIANA CUSTOM HARVESTER Ot K04.7 PERIAPICAL ABSCESS WITHOUT SINUS 01/03/2017 ESAU, TATIANA CUSTOM HARVESTER Ot K08.89 OTHER SPECIFIED DISORDERS OF TEETH AND S 01/03/2017 ESAU, TATIANA CUSTOM HARVESTER Ot M54.9 DORSALGIA, UNSPECIFIED 01/03/2017 ESAU, TATIANA CUSTOM HARVESTER Ot Z87.42 PERSONAL HISTORY OF OTH DISEASES OF THE 01/03/2017 ESAU, TATIANA CUSTOM HARVESTER Ot Z87.442 PERSONAL HISTORY OF URINARY CALCULI 01/03/2017 ESAU, TATIANA CUSTOM HARVESTER Ot Z87.59 PERSONAL HISTORY OF COMP OF PREG, CHLDBR 01/03/2017 ESAU, TATIANA CUSTOM HARVESTER Ot Z98.51 TUBAL LIGATION STATUS 01/05/2017 ESAU, TATIANA CUSTOM HARVESTER Ot G43.909 MIGRAINE, UNSP, NOT INTRACTABLE, WITHOUT 01/05/2017 ESAU, TATIANA CUSTOM HARVESTER Ot G89.29 OTHER CHRONIC PAIN 01/05/2017 ESAU, TATIANA CUSTOM HARVESTER Ot J45.909 UNSPECIFIED ASTHMA, UNCOMPLICATED 01/05/2017 SEAU, TATIANA CUSTOM HARVESTER Ot K02.9 DENTAL CARIES, UNSPECIFIED 01/05/2017 ESAU, TATIANA CUSTOM HARVESTER Ot K04.7 PERIAPICAL ABSCESS WITHOUT SINUS 01/05/2017 ESAU, TATIANA CUSTOM HARVESTER Ot K08.89 OTHER SPECIFIED DISORDERS OF TEETH AND S 01/05/2017 ESAU, TATIANA CUSTOM HARVESTER Ot M54.9 DORSALGIA, UNSPECIFIED 01/05/2017 ESAU, TATIANA CUSTOM HARVESTER Ot Z87.42 PERSONAL HISTORY OF OTH DISEASES OF THE 01/05/2017 ESAU, TATIANA CUSTOM HARVESTER Ot Z87.442 PERSONAL HISTORY OF URINARY CALCULI 01/05/2017 ESAU, TATIANA CUSTOM HARVESTER Ot Z87.59 PERSONAL HISTORY OF COMP OF PREG, CHLDBR 01/05/2017 ESAU, TATIANA CUSTOM HARVESTER Ot Z98.51 TUBAL LIGATION STATUS 01/09/2017 ESAU, TATIANA CUSTOM HARVESTER Ot G43.909 MIGRAINE, UNSP, NOT INTRACTABLE, WITHOUT 01/09/2017 ESAU, TATIANA CUSTOM HARVESTER Ot G89.29 OTHER CHRONIC PAIN 01/09/2017 ESAU, TATIANA CUSTOM HARVESTER Ot J45.909 UNSPECIFIED ASTHMA, UNCOMPLICATED 01/09/2017 TATIANA CIFUENTESP Ot K02.9 DENTAL CARIES, UNSPECIFIED 01/09/2017 TATIANA CIFUENTESP Ot K04.7 PERIAPICAL ABSCESS WITHOUT SINUS 01/09/2017 TATIANA CIFUENTES CUSTOM HARVESTER Ot K08.89 OTHER SPECIFIED DISORDERS OF TEETH AND S 01/09/2017 ESAU TATIANA JORDANP Ot M54.9 DORSALGIA, UNSPECIFIED 01/09/2017 ESAU TATIANA CUSTOM HARVESTER Ot Z87.42 PERSONAL HISTORY OF OTH DISEASES OF THE 01/09/2017 ESAUTATIANA CUSTOM HARVESTER Ot Z87.442 PERSONAL HISTORY OF URINARY CALCULI 01/09/2017 TATIANA CIFUENTES CUSTOM HARVESTER Ot Z87.59 PERSONAL HISTORY OF COMP OF [...] OF PREG, CHLDBR 06/06/2017 JENNIFER URBAN JOSE Sahron Ot Z98.51 TUBAL LIGATION STATUS 06/08/2017 NUBIA [...] DEPRESSIVE DISORDER, SINGLE EPISOD 08/16/2017 JENNIFER DO JOSE K Ot F41.9 ANXIETY DISORDER, UNSPECIFIED 08/16/2017 JENNIFER DO JOSE K Ot G43.909 MIGRAINE, UNSP, NOT INTRACTABLE, WITHOUT 08/16/2017 JENNIFER DO JOSE K Ot J45.909 UNSPECIFIED ASTHMA, UNCOMPLICATED 08/16/2017 JENNIFER DO JOSE K Ot K02.9 DENTAL CARIES, UNSPECIFIED 08/16/2017 [facility] PERIAPICAL ABSCESS WITHOUT [...] BREATH 11/06/2017 JOSE RODRIGUEZ DO Ot Z79.51 SENIOR CARE (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 OF INHALED STERO 11/06/2017 JOSE RODRIGUEZ DO Ot Z79.52 SENIOR CARE (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 OF SYSTEMIC STER 11/06/2017 JOSE [...] BREATH 11/09/2017 JOSE RODRIGUEZ DO Ot Z79.51 FIREWALL ENGINEER (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 OF INHALED STERO 11/09/2017 JOSE RODRIGUEZ DO Ot Z79.52 SENIOR CARE (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 OF SYSTEMIC STER 11/09/2017 JOSE [...] SMO 02/03/2018 NUBIA MURRAY APRN Ot Z79.51 FIREWALL ENGINEER (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 OF INHALED STERO 02/03/2018 NUBIA MURRAY APRN Ot Z79.52 SENIOR CARE (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 OF SYSTEMIC STER 02/03/2018 NUBIA [...] SMO 02/05/2018 NUBIA MURRAY APRN Ot Z79.51 FIREWALL ENGINEER (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 OF INHALED STERO 02/05/2018 NUBIA MURRAY APRN Ot Z79.52 FIREWALL ENGINEER (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 OF SYSTEMIC STER 02/05/2018 NUBIA [...] SMO 02/10/2018 NUBIA MURRAY APRN Ot Z79.51 FIREWALL ENGINEER (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 OF INHALED STERO 02/10/2018 NUBIA MURRAY APRN Ot Z79.52 FIREWALL ENGINEER (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 OF SYSTEMIC STER 02/10/2018 NUBIA [...] UNSPECIFIED SPRAIN OF RIGHT HIP, INITIAL 02/11/2018 UNBIA MURRAY APRN Ot X50.1XXA OVEREXERTION FROM PROLONGED STATIC OR AW 02/11/2018 NUBIA MURRAY APRN Ot Y92.[address] 02/11/2018 NUBIA MURRAY APRN Ot Y99.0 CIVILIAN ACTIVITY DONE FOR INCOME OR PAY 02/11/2018 NUBIA MURRAY APRN Ot Z77.22 CNTCT W AND EXPSR TO ENVIRON TOBACCO SMO 02/11/2018 NUBIA MURRAY APRN Ot Z79.51 FIREWALL ENGINEER (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 OF INHALED STERO 02/11/2018 NUBIA MURRAY APRN Ot Z79.52 FIREWALL ENGINEER (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 OF SYSTEMIC STER 02/11/2018 NUBIA [...] MURRAY APRN Ot Z88.8 ALLERGY STATUS TO [facility] DRUG/MEDS/BIOL SUB 02/11/2018 NUBIA MURRAY APRN Ot Z98.51 TUBAL LIGATION STATUS 02/11/2018 NUBIA MURRAY APRN Ot Z98.890 OTHER SPECIFIED POSTPROCEDURAL STATES 02/11/2018 ELLIOT ROMERO, MAAN Fried Ot R10.11 RIGHT UPPER QUADRANT PAIN [...] SMO 02/15/2018 NUBIA MURRAY APRN Ot Z79.51 SENIOR CARE (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 OF INHALED STERO 02/15/2018 NUBIA MURRAY APRN Ot Z79.52 FIREWALL ENGINEER (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 OF SYSTEMIC STER 02/15/2018 NUBIA [...] Wilde Ot J45.909 UNSPECIFIED ASTHMA, UNCOMPLICATED 02/22/2018 MONALISA ROMERO, DINORA Wilde Ot L03.113 CELLULITIS OF RIGHT UPPER LIMB 02/22/2018 MONALISA ROMERO, DINORA Wilde Ot Z82.49 FAMILY HX OF ISCHEM HEART DIS AND OTH DI 02/22/2018 MONALISA ROMERO, DINORA Wilde Ot Z87.19 PERSONAL HISTORY OF OTHER DISEASES OF TH 02/22/2018 MONALISA ROMERO, DINORA Wilde Ot Z87.442 PERSONAL HISTORY OF URINARY CALCULI 02/22/2018 MONALISA ROMERO, DINORA Wilde Ot Z87.448 PERSONAL HISTORY OF [...] F32.9 MAJOR DEPRESSIVE DISORDER, SINGLE EPISOD 02/25/2018 MONALISA ROMERO, DINORA Wilde Ot F41.9 ANXIETY DISORDER, UNSPECIFIED 02/25/2018 MONALISA ROMERO, DINORA Andry Ot G43.909 MIGRAINE, UNSP, NOT INTRACTABLE, WITHOUT 02/25/2018 DINORA SHELDON MD Ot J45.909 UNSPECIFIED ASTHMA, UNCOMPLICATED 02/25/2018 DINORA SHELDON MD Ot L03.113 CELLULITIS OF RIGHT [...] MANA ZARATE MD Ot R10.13 EPIGASTRIC PAIN 03/23/2018 SOPHIA JOSÉ MD Ot F17.210 NICOTINE DEPENDENCE, CIGARETTES, UNCOMPL 03/23/2018 SOPHIA JOSÉ MD Ot F32.9 MAJOR DEPRESSIVE DISORDER, SINGLE EPISOD 03/23/2018 SOPHIA JOSÉ MD Ot F41.9 ANXIETY DISORDER, UNSPECIFIED 03/23/2018 SOPHIA JOSÉ MD Ot G43.909 MIGRAINE, UNSP, NOT INTRACTABLE, WITHOUT 03/23/2018 SOPHIA JOSÉ MD Ot J45.909 UNSPECIFIED ASTHMA, UNCOMPLICATED 03/23/2018 SOPHIA JOSÉ MD Ot K08.89 OTHER SPECIFIED DISORDERS OF TEETH AND S 03/23/2018 SOPHIA JOSÉ MD Ot Z87.442 PERSONAL HISTORY OF URINARY CALCULI 03/23/2018 SOPHIA JOSÉ MD Ot Z88.6 ALLERGY STATUS TO ANALGESIC AGENT STATUS 03/23/2018 SOPHIA JOSÉ MD Ot Z88.8 ALLERGY STATUS TO OTH DRUG/MEDS/BIOL SUB 03/23/2018 SOPHIA JOSÉ MD Ot Z98.51 TUBAL LIGATION STATUS 03/25/2018 SOPHIA JOSÉ MD Ot F17.210 NICOTINE DEPENDENCE, CIGARETTES, UNCOMPL 03/25/2018 SOPHIA JOSÉ MD Ot F32.9 MAJOR DEPRESSIVE DISORDER, SINGLE EPISOD 03/25/2018 SOPHIA JOSÉ MD Ot F41.9 ANXIETY DISORDER, UNSPECIFIED 03/25/2018 SOPHIA JOSÉ MD Ot G43.909 MIGRAINE, UNSP, NOT INTRACTABLE, WITHOUT 03/25/2018 SOPHIA JOSÉ MD Ot J45.909 UNSPECIFIED ASTHMA, UNCOMPLICATED 03/25/2018 SOPHIA JOSÉ MD Ot K08.89 OTHER SPECIFIED DISORDERS OF TEETH AND S 03/25/2018 SOPHIA JOSÉ MD Ot Z87.442 PERSONAL HISTORY OF URINARY CALCULI 03/25/2018 SOPHIA JOSÉ MD, Ot Z88.6 ALLERGY STATUS TO ANALGESIC AGENT STATUS 03/25/2018 SOPHIA JOSÉ MD Ot Z88.8 ALLERGY STATUS TO OTH DRUG/MEDS/BIOL SUB 03/25/2018 SOPHIA JOSÉ MD Ot Z98.51 TUBAL LIGATION STATUS 03/27/2018 MANA ZARATE MD Ot R10.11 RIGHT UPPER QUADRANT PAIN 03/27/2018 MANA ZARATE MD Ot R10.13 EPIGASTRIC PAIN Procedures Code [place] [id number] ROUTINE VENIPUNCTURE 08/22/2014 THYANA THYROID ANALYZER 08/22/2014 [...] NRG Blood erythrocyte morphology finding identification NORMAL [facility] Comprehensive metabolic panel - [...] or plasma urea nitrogen/creatinine mass ratio 11 [facility] Serum or plasma creatinine measurement with calculation of estimated glomerular filtration rate > [facility] Serum or plasma glucose measurement (mass/volume) 184 [...] INFLUENZA A AND B ANTIGENS BY IA [facility] Bacterial blood culture - 06/06/17 18:44 Bacterial blood culture NG [facility] Bacterial blood culture - 06/06/17 18:48 Bacterial blood culture NG [facility] Complete urinalysis with reflex to culture - 11/05/17 23:30 Urine color determination YELLOW NRG Urine clarity determination SLIGHTLY CLOUDY [facility] Urine pH measurement by test strip 8 [...] Status Pt. Type Provider Facility Loc./Unit Complaint [id number] 08/22/2014 14:39:00 08/22/2014 23:59:59 CLS Outpatient MARTINES MARCUS URBAN [id number] 05/05/2017 08:35:00 05/05/2017 23:59:59 CLS Outpatient NINI MALDONADO [id number] 11/12/2017 15:04:29 11/12/2017 23:59:59 CLS Outpatient [id number] 03/23/2018 08:19:00 03/23/2018 10:45:00 DIS Emergency ESTEFANÍA ROMERO, SOPHIA Fields [facility] ER ROOF OF MOUTH HURTS [id number] 02/19/2018 09:01:00 02/19/2018 12:12:00 DIS Emergency MONALISA ROMERO, DINORA Wilde [facility] ER BUG BITE [id number] 02/11/2018 15:48:00 02/11/2018 18:35:00 DIS Emergency NUBIA MURRAY APRN [facility] ER R SIDE HIP PAIN,HEARD IT POP WHEN BENDING DOWN [id number] 02/03/2018 18:49:00 02/03/2018 19:20:00 DIS Emergency NUBIA MURRAY APRN [facility] ER L SIDE FACIAL/DENTAL PAIN [id number] 11/05/2017 22:32:00 11/06/2017 00:20:00 DIS Emergency JENNIFER JOSE K [facility] ER CONGESTION/SOB [id number] 10/11/2017 19:29:00 10/11/2017 20:20:00 DIS Emergency NUBIA MURRAY APRN [facility] ER R SHOULDER PAIN [id number] 08/15/2017 23:34:00 08/16/2017 00:17:00 DIS Emergency JENNIFER DO JOSE K [facility] ER TOOTH AND GUM PAIN [id number] 06/06/2017 17:47:00 06/06/2017 20:07:00 DIS Emergency JENNIFER DO JOSE K [facility] ER SOA [id number] 06/04/2017 17:23:00 06/04/2017 17:33:00 DIS Emergency NUBIA MURRAY APRN [facility] ER SORE THROAT [id number] 04/11/2017 20:49:00 04/12/2017 01:59:00 DIS Emergency DAX HELMS MD [facility] ER KIDNEY PAIN,NAUSEA [id number] 03/13/2017 18:29:00 03/13/2017 20:47:00 DIS Emergency NUBIA MURRAY APRN [facility] ER LIGHTHEADEDNESS,DIZZINESS, SOA [id number] 03/02/2017 16:48:00 03/02/2017 18:27:00 DIS Emergency NUBIA MURRAY APRN [facility] ER R SIDE LOWER BACK PAIN/ NAUSEA [id number] 01/03/2017 20:36:00 01/03/2017 21:51:00 DIS Emergency TATIANA CIFUENTES CUSTOM HARVESTER [facility] ER TOOTH PAIN [id number] 11/22/2016 18:25:00 11/22/2016 19:05:00 DIS Emergency NUBIA MURRAY APRN [facility] ER BACK PAIN [id number] 11/07/2016 17:13:00 11/07/2016 18:35:00 DIS Emergency DAX HELMS MD [facility] ER PAINFUL/ITCHY RED SPOTS ON SKIN [id number] 10/12/2016 13:14:00 10/12/2016 13:47:00 DIS Emergency NUBIA MURRAY APRN [facility] ER R SIDE DENTAL PAIN/ HEADACHE [id number] 06/29/2016 15:31:00 06/29/2016 16:09:00 DIS Emergency NUBIA MURRAY APRN [facility] ER N/V, SINUS TROUBLE [id number] 03/27/2016 17:52:00 03/27/2016 19:21:00 DIS Emergency JOSE RODRIGUEZ DO [facility] ER SOA [id number] 03/21/2016 11:40:00 03/21/2016 23:59:59 CLS Outpatient MANA ZARATE MD [facility] CARD RT UPPRER ABDOMINAL PAIN [id number] 03/06/2016 08:31:00 03/06/2016 23:59:59 CLS Outpatient MANA ZARATE MD [facility] RAD RUQ ABD PAIN [id number] 02/09/2016 07:28:00 02/09/2016 08:48:00 DIS Emergency SOPHIA JOSÉ MD [facility] ER BODY ACHES [id number] 01/07/2016 17:31:00 01/07/2016 18:53:00 DIS Emergency RICKY NELSON [facility] ER FEVER [id number] 12/21/2015 12:08:00 12/21/2015 13:24:00 DIS Emergency NUBIA MURRAY APRN [facility] ER RIGHT SHOULDER PAIN [id number] 08/08/2015 09:08:00 08/08/2015 12:16:00 DIS Emergency JOSE RODRIGUEZ DO [facility] ER MIGRAINE [id number] 07/17/2015 19:11:00 07/17/2015 21:23:00 DIS Emergency RICKY NELSON [facility] ER L EAR PAIN [id number] 06/01/2015 18:38:00 06/01/2015 19:47:00 DIS Emergency RICKY NELSON [facility] ER L FOOT INJ/PAIN [id number] 05/20/2015 23:50:00 05/21/2015 01:32:00 DIS Emergency SOPHIA JOSÉ MD [facility] ER RT LEG PAIN/KNOT [id number] 05/11/2015 21:12:00 05/11/2015 22:49:00 DIS Emergency SOPHIA JOSÉ MD [facility] ER SORE THROAT;COUGH; FEVER [id number] 05/06/2015 18:32:00 05/06/2015 23:32:00 DIS Emergency RICKY NELSON [facility] ER FEVER,CHILLS/BODY ACHES [id number] 03/26/2015 20:21:00 03/27/2015 00:12:00 DIS Emergency RICKY NELSON [facility] ER L HAND JULIET [id number] 01/20/2015 17:58:00 01/20/2015 19:17:00 DIS Emergency RICKY NELSON [facility] ER ORAL PAIN/LFT JAW [id number] 01/01/2015 18:57:00 01/01/2015 20:16:00 DIS Emergency DAX HELMS MD [facility] ER COUGHING,SOA [id number] 12/10/2014 21:39:00 12/10/2014 22:19:00 DIS Emergency RICKY NELSON [facility] ER SPIDER BITE [id number] 05/31/2014 16:59:00 05/31/2014 18:10:00 DIS Emergency RICKY NELSON [facility] ER INSECT BITE/STING [id number] 05/28/2014 16:45:00 05/28/2014 18:23:00 DIS Emergency NUBIA MURRAY APRN [facility] ER VOMITING,FEVER [id number] 09/02/2015 20:34:00 Document Registration [id number] 05/14/2015 18:01:00 Document Registration [id number] 05/14/2015 18:01:00 Document Registration [id number] 08/09/2014 01:45:00 Document Registration [id number] 10/15/2011 17:32:00 Document Registration [id number] 09/26/2011 12:18:00 Document Registration
[2018-04-01] MEDS: ONDANSETRON 4 MG (ZOFRAN) ORAL DISSOLVE TAB PO ONE (21:29)
[2018-04-01] MEDS: KETOROLAC 30 MG/ML VIAL IM ONE (21:29)
[2018-04-01] MEDS: RX-ONDANSETRON 4 MG ODT (ZOFRAN) PPK #4 PO STA (21:29)
--- NOTE | 2018-04-01 21:39 | ED EENT ---
History of Present Illness General Chief Complaint: Oral/Throat Problems Stated Complaint: DIZZY, VOMITTING Nursing Triage Note: PT [RESENTS TO ER WITH COMPLAINT OF SORE THROAT AND VOMITING. Source: patient Exam Limitations: no limitations History of Present Illness Date Seen by Provider: Apr 01, 2018 Time Seen by Provider: 21:24 Initial Comments The patient resents to ER by private conveyance with chief complaint of past couple days she's had some nasal congestion, sore throat runny nose nausea vomiting and inability to keep fluids down. She did go to work today but she felt so poorly she wanted to go home. She finished her shift and came to the ER for a check out. She's had no fevers or chills. 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 She's not having a cough. She has had 2 C-sections and no other abdominal surgeries. She has her tubes tied. Allergies and Home Medications Allergies Coded Allergies: metoclopramide (Unverified Allergy, Mild, 01/03/17) promethazine (Unverified Allergy, Mild, 01/03/17) vancomycin (Verified Allergy, Unknown, 02/19/18) morphine (Unverified Adverse Reaction, Severe, PAIN, 01/03/17) Home Medications Amoxicillin 500 Mg Capsule, 500 MG PO TID Prescribed by: SOPHIA JOSÉ on 03/23/18 1000 Amoxicillin/Potassium Clav 1 Each Tablet, 1 EACH PO BID Prescribed by: YVETTE CHRISTENSEN on 02/19/18 1125 Hydrocodone Bit/Acetaminophen 1 Tab Tab, 1 EACH PO Q6H PRN for PAIN-MODERATE Prescribed by: SOPHIA JOSÉ on 03/23/18 1000 Methocarbamol 750 Mg Tablet, 750 MG PO Q6H PRN for PAIN-SEVERE Prescribed by: NUBIA MURRAY on 02/11/18 1716 Sulfamethoxazole/Trimethoprim 1 Each Tablet, 1 EACH PO BID Prescribed by: YVETTE CHRISTENSEN on 02/19/18 1125 Patient Home Medication List Home Medication List Reviewed: Yes Review of Systems Review of Systems Constitutional: No chills, No diaphoresis Eyes: Denies Blindness, Denies Blurred Vision Ears: Denies Dizziness, Denies Pain Nose: denies clots; congestion; denies epistaxis, denies pain Mouth: denies pain, denies swelling Throat: pain; denies swelling, denies discharge Respiratory: No cough, No short of breath Cardiovascular: No chest pain, No edema Gastrointestinal: No abdominal pain, No constipation, No diarrhea; nausea, vomiting Past Drwvxnm-Zfjpzd-Tfpkch Hx Patient Social History Alcohol Use: Denies Use Recreational Drug Use: No Smoking Status: Current Everyday Smoker Type Used: Cigarettes 2nd Hand Smoke Exposure: Yes Recent Foreign Travel: No Contact w/Someone Who Travel: No Recent Infectious Disease Expo: No Recent Hopitalizations: No Immunizations Up To Date Tetanus Booster (TDap): Less than 5yrs PED Vaccines UTD: Yes Seasonal Allergies Seasonal Allergies: Yes Past Medical History Surgeries: Yes (S-CECTION X 2, BTL. 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 Sexually Transmitted Disease: No HIV/AIDS: No Genitourinary: Yes Kidney Stones Gastrointestinal: Yes Irritable Bowel Musculoskeletal: Yes Chronic Back Pain Endocrine: No HEENT: Yes (DENTAL CARIES) Loss of Vision: Denies Hearing Impairment: Denies Cancer: No Psychosocial: Yes Anxiety, Depression Integumentary: Yes (SHINGLES; CELLULITIS) Recent Skin Changes Blood Disorders: No Adverse Reaction/Blood Tranf: No Family Medical History Diabetes mellitus 19 FATHER Myocardial infarction 19 FATHER Thyroid disease G8 SISTER Heart Disease Physical Exam Vital Signs Vital Signs - First Documented 04/01/18 20:58 Temp 97.8 Pulse 60 Resp 16 B/P (MAP) 139/97 (111) Pulse Ox 99 O2 Delivery Room Air Height, Weight, BMI Height: 5'0" Weight: 155lbs. 0oz. 70.844339hy; 28.91 BMI Method:Stated General Appearance: WD/WN, no apparent distress Eyes: bilateral eye normal inspection, bilateral eye PERRL, bilateral eye EOMI Ears: bilateral ear auricle normal, bilateral ear canal normal, bilateral ear TM normal Nose: normal inspection; No discharge Mouth/Throat: normal mouth inspection, pharynx normal; No dental tenderness Neck: non-tender, full range of motion, supple, normal inspection Cardiovascular: normal peripheral pulses, regular rate, rhythm, no edema Respiratory: chest non-tender, lungs clear, normal breath sounds, no respiratory distress, no accessory muscle use Gastrointestinal: normal bowel sounds, non tender, soft Neurologic/Psychiatric: alert, oriented x 3 Skin: normal color, warm/dry Progress/Results/Core Measures Results/Orders My Orders Orders - FELICIA TOBIAS Ketorolac Injection (Toradol Injection) (04/01/18 21:30) Ondansetron Oral Dissolve Tab (Zofran (04/01/18 21:30) Rx-Ondansetron Po (Rx-Zofran Po) (04/01/18 21:20) Medications Given in ED Current Medications Medications Dose Ordered Sig/Elisabeth Route Start Time Stop Time Status Last Admin Dose Admin Ketorolac Tromethamine 30 mg ONCE ONCE IM 04/01/18 21:30 04/01/18 21:31 DC 04/01/18 21:29 30 MG Ondansetron HCl 4 mg ONCE ONCE PO 04/01/18 21:30 04/01/18 21:31 DC 04/01/18 21:29 4 MG Vital Signs/I&O 04/01/18 20:58 Temp 97.8 Pulse 60 Resp 16 B/P (MAP) 139/97 (111) Pulse Ox 99 O2 Delivery Room Air Blood Pressure Mean: 111 Progress Progress Note : Time: 21:38 Progress Note Family gastroenteritis probably from a virus considering how many systems intact. We have offered a strep culture and she is declining. He denies any fevers or adventitious vital signs right now. Relievers and Zofran take-home pack of Zofran and a prescription as well as instructions to use Imodium as necessary and Tylenol Motrin. We'll give her a Toradol shot for her body aches now. Departure Impression Primary Impression: Viral gastroenteritis Additional Impression: Viral upper respiratory tract infection Disposition: HOME, SELF-CARE Condition: Stable Departure-Patient Inst. Decision time for Depature: 21:39 Referrals: [facility] (PCP/Family) Primary Care Physician Patient Instructions: [id number] Add. Discharge Instructions: Drink plenty of fluids. Use the Zofran 1 tablet every 6 hours dissolve in your mouth and let absorb as needed for nausea. Use Tylenol 1000 mg every 8 hours and /or ibuprofen 800 mg every 8 hours as needed for body aches fevers or chills. If your symptoms worsen or last more than 5-7 days then you should follow-up with your primary care doctor for further evaluation. All discharge instructions reviewed with patient and/or family. Voiced understanding. Scripts Ondansetron (Ondansetron Odt) 4 Mg Tab.rapdis 4 MG PO Q6H PRN for NAUSEA/VOMITING, #8 TAB 0 Refills Prov: FELICIA TOBIAS 04/01/18 Work/School Note: Work Release Form Date Seen in the Emergency Department: Apr 01, 2018 Return to Work: Apr 03, 2018 Restrictions: No Restrictions FELICIA TOBIAS Apr 01, 2018 21:39
[2018-04-01] MEDS ORDERED: ONDA4TAB11 PO (21:40)
[2018-04-01 21:51] VITALS: BP 139/97
== END 2018-04-01 21:51 | disposition home or self-care (01) ==
LOC: EDUNIT# 19:27 → ER 19:29
DX: A08.4 Viral intestinal infection, unspecified (principal); J06.9 Acute upper respiratory infection, unspecified; J45.909 Unspecified asthma, uncomplicated; G43.909 Migraine, unspecified, not intractable, without status migrainosus; F41.9 Anxiety disorder, unspecified; F32.9 Major depressive disorder, single episode, unspecified; F17.210 Nicotine dependence, cigarettes, uncomplicated; Z98.890 Other specified postprocedural states; Z97.5 Presence of (intrauterine) contraceptive device; Z87.448 Personal history of other diseases of urinary system; Z82.49 Family history of ischemic heart disease and other diseases of the circulatory system; Z87.442 Personal history of urinary calculi; Z87.19 Personal history of other diseases of the digestive system; Z98.51 Tubal ligation status; Z88.0 Allergy status to penicillin; Z88.5 Allergy status to narcotic agent; Z88.8 Allergy status to other drugs, medicaments and biological substances
CPT/HCPCS: 96372; 99284

== ENCOUNTER 2018-05-29 12:11 | Emergency (ER) | payer OTHER ==
[~2018-05-29] VITALS: Ht 157.5 cm; Wt 63.5 kg
[~2018-05-29 12:11] MED LIST changes: +ONDA4TAB11 PO
[2018-05-29] MEDS ORDERED: ORPHENADRINE 60 MG/2 ML (NORFLEX) AMP IM ONE (12:30)
[2018-05-29] MEDS ORDERED: KETOROLAC 30 MG/ML VIAL IM ONE (12:30)
--- NOTE | 2018-05-29 13:00 | NUR ---
PT TAKEN BY W/C TO [facility] [employer] FOR [facility] SCREEN
[2018-05-29] MEDS ORDERED: CYCL10TA9 PO (14:03)
[2018-05-29] MEDS ORDERED: TRAM-42 PO (14:03)
--- NOTE | 2018-05-29 14:03 | ED Back Pain ---
General Chief Complaint: Back Problems Stated Complaint: BACK PAIN Nursing Triage Note: PT AMBULATED TO ROOM 5 PT CO OF BACK PAIN FROM LIFTING ICE CHEST FULL OF WATER YESTERDAY WHILE AT WORK. STATES HURT A LITTLE YEST BUT WHEN WOKE UP THIS AM CO OF L SIDE BACK PAIN, NUMBNESS AND TINGLING OF L LEG. RATES PAIN 8/10 Nursing Sepsis Screen: No Definite Risk Source of Information: Patient Exam Limitations: No Limitations History of Present Illness Date Seen by Provider: May 29, 2018 Time Seen by Provider: 12:17 Initial Comments This 28-year-old woman presents to the emergency room with complaints of left lower back pain radiating into her left leg. She is also experiencing some numbness in the left lower extremity. She denies any true weakness or bowel or bladder dysfunction. She has had some problems with back pain in the past but has not had radicular symptoms. She states her pain is presently 8/10. She took ibuprofen 800 mg and Tylenol 1000 mg last night. She also reports using her 's THC this morning in an effort to try to alleviate the pain. Pain started after she lifted an ice chest at work yesterday. Pain was mild at first but then became very intense this morning. There was no blunt trauma. Patient denies . Allergies and Home Medications Allergies Coded Allergies: metoclopramide (Unverified Allergy, Mild, 01/03/17) promethazine (Unverified Allergy, Mild, 01/03/17) vancomycin (Verified Allergy, Unknown, 02/19/18) morphine (Unverified Adverse Reaction, Severe, PAIN, 01/03/17) Home Medications Amoxicillin 500 Mg Capsule, 500 MG PO TID Prescribed by: SOPHIA JOSÉ on 03/23/18 1000 Amoxicillin/Potassium Clav 1 Each Tablet, 1 EACH PO BID Prescribed by: YVETTE CHRISTENSEN on 02/19/18 1125 Cyclobenzaprine HCl 10 Mg Tablet, 10 MG PO TID PRN for SPASMS Prescribed by: DAX SU on 05/29/18 1403 Hydrocodone Bit/Acetaminophen 1 Tab Tab, 1 EACH PO Q6H PRN for PAIN-MODERATE Prescribed by: SOPHIA JOSÉ on 03/23/18 1000 Methocarbamol 750 Mg Tablet, 750 MG PO Q6H PRN for PAIN-SEVERE Prescribed by: NUBIA MURRAY on 02/11/18 1716 Ondansetron 4 Mg Tab.rapdis, 4 MG PO Q6H PRN for NAUSEA/VOMITING Prescribed by: FELICIA TOBIAS on 04/01/18 2140 Sulfamethoxazole/Trimethoprim 1 Each Tablet, 1 EACH PO BID Prescribed by: YVETTE CHRISTENSEN on 02/19/18 1125 Tramadol HCl 50 Mg Tablet, 50 MG PO Q6H Prescribed by: DAX SU on 05/29/18 1403 Patient Home Medication List Home Medication List Reviewed: Yes Review of Systems Constitutional: no symptoms reported EENTM: no symptoms reported Respiratory: no symptoms reported Cardiovascular: no symptoms reported Gastrointestinal: no symptoms reported Genitourinary: no symptoms reported : No Musculoskeletal: see HPI Skin: no symptoms reported Psychiatric/Neurological: See HPI Past Fsnohoy-Jwdmdg-Mfwjjg Hx Past Med/Social Hx: Reviewed Nursing Past Med/Soc Hx Patient Social History Alcohol Use: Denies Use Recreational Drug Use: Yes (POT) Smoking Status: Current Everyday Smoker Type Used: Cigarettes 2nd Hand Smoke Exposure: Yes Recent Foreign Travel: No Contact w/Someone Who Travel: No Recent Infectious Disease Expo: No Recent Hopitalizations: No Immunizations Up To Date Tetanus Booster (TDap): Less than 5yrs PED Vaccines UTD: Yes Seasonal Allergies Seasonal Allergies: Yes Past Medical History Surgeries: Yes (S-CECTION X 2, BTL. 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 Sexually Transmitted Disease: No HIV/AIDS: No Genitourinary: Yes Kidney Stones Gastrointestinal: Yes Irritable Bowel Musculoskeletal: Yes Chronic Back Pain Endocrine: No HEENT: Yes (DENTAL CARIES) Loss of Vision: Denies Hearing Impairment: Denies Cancer: No Psychosocial: Yes Anxiety, Depression Integumentary: Yes (SHINGLES; CELLULITIS) Recent Skin Changes Blood Disorders: No Adverse Reaction/Blood Tranf: No Family Medical History Diabetes mellitus 19 FATHER Myocardial infarction 19 FATHER Thyroid disease G8 SISTER Heart Disease Physical Exam Vital Signs Vital Signs - First Documented 05/29/18 12:20 Temp 98.1 Pulse 81 Resp 18 B/P (MAP) 153/108 (123) Pulse Ox 98 Capillary Refill : Less Than 3 Seconds Height, Weight, BMI Height: 5'2.00" Weight: 140lbs. 0oz. [id number]; 28.91 BMI Method:Stated General Appearance: WD/WN, Moderate Distress HEENT: PERRL/EOMI, Normal ENT Inspection Neck: Normal Inspection Cardiovascular: Regular Rate, Rhythm, No Edema, No Murmur Respiratory: Lungs Clear, Normal Breath Sounds, No Accessory Muscle Use, No Respiratory Distress Gastrointestinal: Non Tender, Soft Back: Normal Inspection, No Vertebral Tenderness, Other (severe tenderness in the paraspinous muscles left of the lumbar spine and radiating down into the SI joint region.) Extremity: Normal Inspection, No Pedal Edema Neurologic/Psychiatric: Alert, Oriented x3, No Motor/Sensory Deficits, Normal Mood/Affect, 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 This provided some relief. She was additionally given a tramadol tablet. Work comp paperwork was completed. Prescriptions were provided. Patient was advised further workup may be appropriate, possibly MRI, if symptoms do not improve. Departure Impression Primary Impression: Low back strain Qualified Codes: S39.012A - Strain of muscle, fascia and tendon of lower back , initial encounter Additional Impression: Lumbar radiculopathy, acute Disposition: 01 HOME, SELF-CARE Condition: Improved Departure-Patient Inst. Decision time for Depature: 14:00 Referrals: [facility] (PCP/Family) Primary Care Physician Patient Instructions: Lumbar Muscle Strain (DC) Add. Discharge Instructions: You may take ibuprofen up to 600 mg every 6 hours as needed for pain. Add Tylenol (acetaminophen) up to 1000 mg every 6 hours as needed for additional pain relief. Use Ultram (tramadol) as prescribed for more severe pain not controlled by [id number] medications. Avoid heavy lifting, pushing, bending, etc. until symptoms have resolved. All discharge instructions reviewed with patient and/or family. Voiced understanding. Scripts Cyclobenzaprine HCl (Cyclobenzaprine HCl) 10 Mg Tablet 10 MG PO TID PRN for SPASMS, #10 TAB Prov: DAX HELMS MD 05/29/18 Tramadol HCl (Ultram) 50 Mg Tablet 50 MG PO Q6H, #10 TAB Prov: DAX HELMS MD 05/29/18 DAX HELMS MD May 29, 2018 14:03
[2018-05-29 14:10] VITALS: BP 122/72
== END 2018-05-29 14:10 | disposition home or self-care (01) ==
LOC: EDUNIT# 12:11 → ER 12:13
DX: S39.012A Strain of muscle, fascia and tendon of lower back, initial encounter (principal); M54.16 Radiculopathy, lumbar region; J45.909 Unspecified asthma, uncomplicated; G43.909 Migraine, unspecified, not intractable, without status migrainosus; F12.10 Cannabis abuse, uncomplicated; F41.9 Anxiety disorder, unspecified; F32.9 Major depressive disorder, single episode, unspecified; F17.210 Nicotine dependence, cigarettes, uncomplicated; Z98.51 Tubal ligation status; Z98.890 Other specified postprocedural states; Z87.448 Personal history of other diseases of urinary system; Z86.19 Personal history of other infectious and parasitic diseases; Z82.49 Family history of ischemic heart disease and other diseases of the circulatory system; Z87.442 Personal history of urinary calculi; Z87.19 Personal history of other diseases of the digestive system; Z88.5 Allergy status to narcotic agent; Z88.0 Allergy status to penicillin; Z88.8 Allergy status to other drugs, medicaments and biological substances; X50.0XXA Overexertion from strenuous movement or load, initial encounter; Y92.59 Other trade areas as the place of occurrence of the external cause; Y99.0 Civilian activity done for income or pay
CPT/HCPCS: 96372; 99284

== ENCOUNTER 2018-09-18 11:49 | Emergency (ER) | payer SELFPAY ==
[~2018-09-18] VITALS: Ht 152.4 cm; Wt 72.6 kg
[2018-09-18] MEDS ORDERED: METH-313 PO (11:56)
[2018-09-18] MEDS ORDERED: NAPR-1071 PO (11:56)
--- NOTE | 2018-09-18 11:56 | ED Back Pain ---
General Stated Complaint: LOWER BACK PAIN Source of Information: Patient Exam Limitations: No Limitations History of Present Illness Date Seen by Provider: Sep 18, 2018 Time Seen by Provider: 11:54 Initial Comments To ER with reports of midline low back pain that radiates down the left leg without loss of sensation of genitals or saddle anesthesia or fevers. History of this. This began last night about 3 AM she awakened with it and has no other symptoms. Timing/Duration: 4-6 Hours, 1-2 Days Severity: Moderate Pain/Injury Location: None Radiation: Upper Legs Modifying Factors: Worse With Movement Associated Symptoms: lower back pain Allergies and Home Medications Allergies Coded Allergies: metoclopramide (Unverified Allergy, Mild, 01/03/17) promethazine (Unverified Allergy, Mild, 01/03/17) vancomycin (Verified Allergy, Unknown, 02/19/18) morphine (Unverified Adverse Reaction, Severe, PAIN, 01/03/17) Home Medications Amoxicillin 500 Mg Capsule, 500 MG PO TID Prescribed by: SOPHIA JOSÉ on 03/23/18 1000 Amoxicillin/Potassium Clav 1 Each Tablet, 1 EACH PO BID Prescribed by: YVETTE CHRISTENSEN on 02/19/18 1125 Cyclobenzaprine HCl 10 Mg Tablet, 10 MG PO TID PRN for SPASMS Prescribed by: DAX SU on 05/29/18 1403 Hydrocodone Bit/Acetaminophen 1 Tab Tab, 1 EACH PO Q6H PRN for PAIN-MODERATE Prescribed by: SOPHIA JOSÉ on 03/23/18 1000 Methocarbamol 750 Mg Tablet, 750 MG PO Q6H PRN for PAIN-SEVERE Prescribed by: NUBIA MURRAY on 02/11/18 1716 Methocarbamol 750 Mg Tablet, 750 MG PO Q4H PRN for PAIN-MODERATE Prescribed by: NUBIA MURRAY on 09/18/18 1156 Naproxen 500 Mg Tablet, 500 MG PO BID PRN for PAIN-MODERATE Prescribed by: NUBIA MURRAY on 09/18/18 1156 Ondansetron 4 Mg Tab.rapdis, 4 MG PO Q6H PRN for NAUSEA/VOMITING Prescribed by: FELICIA TOBIAS on 04/01/18 2140 Sulfamethoxazole/Trimethoprim 1 Each Tablet, 1 EACH PO BID Prescribed by: YVETTE CHRISTENSEN on 02/19/18 1125 Tramadol HCl 50 Mg Tablet, 50 MG PO Q6H Prescribed by: DAX SU on 05/29/18 1403 Patient Home Medication List Home Medication List Reviewed: Yes Review of Systems Constitutional: see HPI EENTM: see HPI Respiratory: no symptoms reported Cardiovascular: no symptoms reported Genitourinary: no symptoms reported Musculoskeletal: see HPI, back pain Skin: no symptoms reported Psychiatric/Neurological: No Symptoms Reported Past Fdrnopm-Hrzfuj-Anzpmr Hx Patient Social History Type Used: Cigarettes 2nd Hand Smoke Exposure: Yes Recent Foreign Travel: No Contact w/Someone Who Travel: No Recent Hopitalizations: No Immunizations Up To Date Tetanus Booster (TDap): Less than 5yrs PED Vaccines UTD: Yes Seasonal Allergies Seasonal Allergies: Yes Past Medical History Surgeries: Yes (S-CECTION X 2, BTL. 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 Sexually Transmitted Disease: No HIV/AIDS: No Genitourinary: Yes Kidney Stones Gastrointestinal: Yes Irritable Bowel Musculoskeletal: Yes Chronic Back Pain Endocrine: No HEENT: Yes (DENTAL CARIES) Loss of Vision: Denies Hearing Impairment: Denies Cancer: No Psychosocial: Yes Anxiety, Depression Integumentary: Yes (SHINGLES; CELLULITIS) Recent Skin Changes Blood Disorders: No Adverse Reaction/Blood Tranf: No Family Medical History Diabetes mellitus 19 FATHER Myocardial infarction 19 FATHER Thyroid disease G8 SISTER Heart Disease Physical Exam Vital Signs Capillary Refill : Height, Weight, BMI Height: 5'2.00" Weight: 140lbs. 0oz. 63.738864mt; 28.91 BMI Method:Stated General Appearance: No Apparent Distress, WD/WN HEENT: PERRL/EOMI Respiratory: No Accessory Muscle Use, No Respiratory Distress Gastrointestinal: Non Tender, Soft Back: Normal Inspection Extremity: Normal Capillary Refill, Normal Inspection Neurologic/Psychiatric: Alert, Oriented x3 Skin: Normal Color, Warm/Dry Departure Impression Primary Impression: Back pain Qualified Codes: M54.5 - Low back pain Disposition: 01 HOME, SELF-CARE Condition: Stable Departure-Patient Inst. Decision time for Depature: 11:54 Referrals: [facility] (PCP/Family) Primary Care Physician Patient Instructions: Low Back Pain (DC) Add. Discharge Instructions: 1. Follow-up with your doctor next week 2. Scripts Methocarbamol (Robaxin-750) 750 Mg Tablet 750 MG PO Q4H PRN for PAIN-MODERATE, #20 TAB Prov: NUBIA MURRAY APRN 09/18/18 Naproxen (Naprosyn) 500 Mg Tablet 500 MG PO BID PRN for PAIN-MODERATE, #30 TAB Prov: NUBIA MURRAY APRN 09/18/18 Work/School Note: Work Release Form Date Seen in the Emergency Department: Sep 18, 2018 Return to Work: Sep 20, 2018 NUBIA MURRAY APRN Sep 18, 2018 11:56
[2018-09-18 11:58] VITALS: BP 143/90
== END 2018-09-18 11:58 | disposition home or self-care (01) ==
LOC: EDUNIT# 11:49 → ER 11:50
DX: M54.5 Low back pain (principal); J45.909 Unspecified asthma, uncomplicated; G43.909 Migraine, unspecified, not intractable, without status migrainosus; K58.9 Irritable bowel syndrome, unspecified; F41.9 Anxiety disorder, unspecified; F32.9 Major depressive disorder, single episode, unspecified; Z86.19 Personal history of other infectious and parasitic diseases; Z87.442 Personal history of urinary calculi; Z82.49 Family history of ischemic heart disease and other diseases of the circulatory system; Z87.448 Personal history of other diseases of urinary system; Z88.1 Allergy status to other antibiotic agents; Z88.8 Allergy status to other drugs, medicaments and biological substances; Z88.5 Allergy status to narcotic agent; Z77.22 Contact with and (suspected) exposure to environmental tobacco smoke (acute) (chronic); Z98.890 Other specified postprocedural states; Z98.51 Tubal ligation status
CPT/HCPCS: 99281

== ENCOUNTER 2018-09-29 06:46 | Emergency (ER) | payer SELFPAY ==
[~2018-09-29] VITALS: Ht 152.4 cm; Wt 68.0 kg
--- OUTSIDE RECORDS SUMMARY | 2018-09-29 06:58 | XMS REPORT | Continuity of Care Document ---
Author Organization Unknown Address Unknown Allergies Active Description Code Type Severity Reaction Onset Reported/Identified Relationship to Patient Clinical Status Yes Phenergan Drug Allergy N/A N/A 08/22/2014 Yes Reglan Drug Allergy N/A N/A 08/22/2014 Yes morphine [id number] Drug Allergy Severe PAIN 01/03/2017 Yes metoclopramide [id number] Drug Allergy Mild N/A 01/03/2017 Yes promethazine [id number] Drug Allergy Mild N/A 01/03/2017 Yes vancomycin [id number] Drug Allergy Unknown N/A 02/19/2018 Medications There [...] Ot F17.210 NICOTINE DEPENDENCE, CIGARETTES, UNCOMPL 05/21/2015 [employer] [place] MD, SOPHIA D Ot L03.115 CELLULITIS OF RIGHT LOWER LIMB 06/01/2015 RICKY NELSON Ot F17.210 NICOTINE DEPENDENCE, CIGARETTES, UNCOMPL 06/01/2015 RICKY NELSON Ot S93.602A UNSPECIFIED SPRAIN OF LEFT FOOT, INITIAL 06/01/2015 RICKY NELSON Ot W08.XXXA FALL FROM OTHER FURNITURE, INITIAL ENCOU 06/01/2015 RICKY NELSON Ot Y92.019 [facility] 06/01/2015 RICKY NELSON [...] DEPENDENCE, CIGARETTES, UNCOMPL 09/02/2015 Ot S46.[address] STRAIN [facility] MUSC/FASC/TEND AT SHLDR/UP A 09/02/2015 Ot X58.XXXA EXPOSURE TO OTHER SPECIFIED FACTORS, INI 09/02/[address] [facility] NON-INSTITUT (PRIVATE 09/02/2015 Ot Y99.0 [...] Ot R50.9 FEVER, UNSPECIFIED 02/09/2016 SOPHIA JOSÉ MD, Ot F17.210 NICOTINE DEPENDENCE, CIGARETTES, UNCOMPL 02/09/2016 [...] DO Ot R06.02 SHORTNESS OF BREATH 04/07/2016 ELILOT ROMERO, MANA Fried Ot R10.13 EPIGASTRIC PAIN [...] BIT/STUNG BY NONVENOM INSECT OTH NONVE 11/07/2016 ELLIOT MD, MANA G Ot R10.11 RIGHT UPPER QUADRANT PAIN 11/07/2016 [...] NONVENOM INSECT OTH NONVE 11/22/2016 NUBIA MURRAY AQUATICS INSTRUCTOR Ot F17.210 NICOTINE DEPENDENCE, CIGARETTES, UNCOMPL 11/22/2016 NUBIA MURRAY AQUATICS INSTRUCTOR Ot M54.5 LOW BACK PAIN 11/22/2016 NUBIA MURRAY APRN Ot Z87.442 PERSONAL HISTORY OF URINARY CALCULI 11/22/2016 MANA ZARATE MD Ot R10.11 RIGHT UPPER QUADRANT PAIN 11/22/2016 MANA ZARATE MD Ot R10.13 EPIGASTRIC PAIN 11/28/2016 NUBIA MURRAY APRN Ot F17.210 NICOTINE DEPENDENCE, CIGARETTES, UNCOMPL 11/28/2016 NUBIA MURRAY APRN Ot M54.5 LOW BACK PAIN 11/28/2016 NUBIA MURRAY APRN Ot Z87.442 PERSONAL HISTORY OF URINARY CALCULI 01/03/2017 MANA ZARATE MD Ot R10.11 RIGHT UPPER QUADRANT PAIN 01/03/2017 MANA ZARATE MD Ot R10.13 EPIGASTRIC PAIN 01/03/2017 TATIANA CIFUENTES Ot G43.909 MIGRAINE, UNSP, NOT INTRACTABLE, WITHOUT 01/03/2017 TATIANA CIFUENTES Ot G89.29 OTHER CHRONIC PAIN 01/03/2017 TATIANA CIFUENTES Ot J45.909 UNSPECIFIED ASTHMA, UNCOMPLICATED 01/03/2017 ESAU, TATIANA LICENSED THERAPIST Ot K02.9 DENTAL CARIES, UNSPECIFIED 01/03/2017 ESAU, TATIANA LICENSED THERAPIST Ot K04.7 PERIAPICAL ABSCESS WITHOUT SINUS 01/03/2017 ESAU, TATIANA LICENSED THERAPIST Ot K08.89 OTHER SPECIFIED DISORDERS OF TEETH AND S 01/03/2017 ESAU, TATIANA LICENSED THERAPIST Ot M54.9 DORSALGIA, UNSPECIFIED 01/03/2017 ESAU, TATIANA LICENSED THERAPIST Ot Z87.42 PERSONAL HISTORY OF OTH DISEASES OF THE 01/03/2017 ESAU, TATIANA LICENSED THERAPIST Ot Z87.442 PERSONAL HISTORY OF URINARY CALCULI 01/03/2017 ESAU, TATIANA LICENSED THERAPIST Ot Z87.59 PERSONAL HISTORY OF COMP OF PREG, CHLDBR 01/03/2017 ESAU, TATIANA LICENSED THERAPIST Ot Z98.51 TUBAL LIGATION STATUS 01/05/2017 ESAU, TATIANA LICENSED THERAPIST Ot G43.909 MIGRAINE, UNSP, NOT INTRACTABLE, WITHOUT 01/05/2017 ESAU, TATIANA LICENSED THERAPIST Ot G89.29 OTHER CHRONIC PAIN 01/05/2017 ESAU, TATIANA LICENSED THERAPIST Ot J45.909 UNSPECIFIED ASTHMA, UNCOMPLICATED 01/05/2017 ESAU, TATIANA LICENSED THERAPIST Ot K02.9 DENTAL CARIES, UNSPECIFIED 01/05/2017 ESAU, TATIANA LICENSED THERAPIST Ot K04.7 PERIAPICAL ABSCESS WITHOUT SINUS 01/05/2017 ESAU, TATIANA LICENSED THERAPIST Ot K08.89 OTHER SPECIFIED DISORDERS OF TEETH AND S 01/05/2017 ESAU, TATIANA LICENSED THERAPIST Ot M54.9 DORSALGIA, UNSPECIFIED 01/05/2017 ESAU, TATIANA LICENSED THERAPIST Ot Z87.42 PERSONAL HISTORY OF OTH DISEASES OF THE 01/05/2017 ESAU, TATIANA LICENSED THERAPIST Ot Z87.442 PERSONAL HISTORY OF URINARY CALCULI 01/05/2017 ESAU, TATIANA LICENSED THERAPIST Ot Z87.59 PERSONAL HISTORY OF COMP OF PREG, CHLDBR 01/05/2017 ESAU, TATIANA LICENSED THERAPIST Ot Z98.51 TUBAL LIGATION STATUS 01/09/2017 ESAU, TATIANA LICENSED THERAPIST Ot G43.909 MIGRAINE, UNSP, NOT INTRACTABLE, WITHOUT 01/09/2017 ESAU, TATIANA LICENSED THERAPIST Ot G89.29 OTHER CHRONIC PAIN 01/09/2017 ESAU, TATIANA LICENSED THERAPIST Ot J45.909 UNSPECIFIED ASTHMA, UNCOMPLICATED 01/09/2017 ESAU, TATIANA LICENSED THERAPIST Ot K02.9 DENTAL CARIES, UNSPECIFIED 01/09/2017 TATIANA CIFUENTESP Ot K04.7 PERIAPICAL ABSCESS WITHOUT SINUS 01/09/2017 TATIANA CIFUENTES LICENSED THERAPIST Ot K08.89 OTHER SPECIFIED DISORDERS OF TEETH AND S 01/09/2017 ESAU TATIANA JORDANP Ot M54.9 DORSALGIA, UNSPECIFIED 01/09/2017 ESAUTATIANA EngelP Ot Z87.42 PERSONAL HISTORY OF OTH DISEASES OF THE 01/09/2017 ESAUTATIANAP Ot Z87.442 PERSONAL HISTORY OF URINARY CALCULI 01/09/2017 TATIANA CIFUENTESP Ot Z87.59 PERSONAL HISTORY OF COMP OF [...] MD Ot M54.5 LOW BACK PAIN 04/12/2017 ANALIA ROMERO, DAX Foote Ot R10.32 LEFT LOWER QUADRANT PAIN 04/12/2017 ANALIA ROMERO, DAX Foote Ot Z82.49 FAMILY HX OF ISCHEM HEART [...] APRN Ot Z98.51 TUBAL LIGATION STATUS 06/04/2017 ELLIOT ROMERO, MANA Fried Ot R10.11 RIGHT UPPER QUADRANT PAIN 06/04/2017 MANA ZARATE MD Ot R10.13 EPIGASTRIC PAIN 06/06/2017 JOSE RODRIGUEZ DO Ot F17.210 NICOTINE DEPENDENCE, CIGARETTES, UNCOMPL 06/06/2017 JENNIFER URBAN JOSE Sharon Ot F32.9 MAJOR DEPRESSIVE DISORDER, SINGLE EPISOD 06/06/2017 JENNIFER JOSE URBAN Ot F41.9 ANXIETY DISORDER, UNSPECIFIED 06/06/2017 JENNIFER OJSE URBAN Ot G43.909 MIGRAINE, UNSP, NOT INTRACTABLE, WITHOUT 06/06/2017 JENNIFER JOSE K Ot J40 BRONCHITIS, NOT SPECIFIED ACUTE OR CH 06/06/2017 JENNIFER JOSE Herrera Ot R06.02 SHORTNESS OF BREATH 06/06/2017 JENNIFER JOSE Sharon Ot Z82.49 FAMILY HX OF ISCHEM HEART DIS AND OTH DI 06/06/2017 JENNIFER URBAN JOSE K Ot Z87.42 PERSONAL HISTORY OF OTH DISEASES OF THE 06/06/2017 JENNIFER JOSE Ot Z87.442 PERSONAL HISTORY OF URINARY CALCULI 06/06/2017 JENNIFER JOSE K Ot Z87.59 PERSONAL HISTORY OF [...] MD Ot R10.13 EPIGASTRIC PAIN 08/16/2017 JENNIFER DO JOSE K Ot F17.210 NICOTINE DEPENDENCE, CIGARETTES, UNCOMPL 08/16/2017 JENNIFER DO JOSE K Ot F32.9 MAJOR DEPRESSIVE DISORDER, SINGLE EPISOD 08/16/2017 JENNIFER DO JOSE K Ot F41.9 ANXIETY DISORDER, UNSPECIFIED 08/16/2017 JENNIFER DO JOSE K Ot G43.909 MIGRAINE, UNSP, NOT INTRACTABLE, WITHOUT 08/16/2017 JENNIFER DO JOSE K Ot J45.909 UNSPECIFIED ASTHMA, UNCOMPLICATED 08/16/2017 JENNIFER DO JOSE K Ot K02.9 DENTAL CARIES, UNSPECIFIED 08/16/2017 JENNIFER JOSE URBAN Ot K04.7 PERIAPICAL ABSCESS WITHOUT SINUS 08/16/2017 [...] HISTORY OF COMP OF PREG, CHLDBR 08/16/2017 JOSE RODRIGUEZ DO Ot Z88.5 ALLERGY STATUS TO NARCOTIC AGENT STATUS 08/16/2017 JENNIFER JOSE URBAN Ot Z88.8 ALLERGY STATUS TO OTH DRUG/MEDS/BIOL SUB 08/16/2017 JOSE RODRIGUEZ DO Ot Z97.5 PRESENCE OF (INTRAUTERINE) CONTRACEPTIVE 08/16/2017 JOSE RODRIGUEZ DO Ot Z98.51 TUBAL LIGATION STATUS 08/18/2017 JENNIFER JOSE URBAN Ot F17.210 NICOTINE DEPENDENCE, CIGARETTES, UNCOMPL 08/18/2017 JOSE RODRIGUEZ DO Ot F32.9 MAJOR DEPRESSIVE DISORDER, SINGLE EPISOD 08/18/2017 JENNIFER JOSE URBAN Ot F41.9 ANXIETY DISORDER, UNSPECIFIED 08/18/2017 JENNIFER JOSE URBAN Ot G43.909 MIGRAINE, UNSP, NOT INTRACTABLE, WITHOUT 08/18/2017 JOSE RODRIGUEZ DO Ot J45.909 UNSPECIFIED ASTHMA, UNCOMPLICATED 08/18/2017 JENNIFER JOSE URBAN Ot K02.9 DENTAL CARIES, UNSPECIFIED 08/18/2017 JENNIFER JOSE URBAN Ot K04.7 PERIAPICAL ABSCESS WITHOUT SINUS 08/18/2017 JENNIFER JOSE URBAN Ot K08.89 OTHER SPECIFIED DISORDERS OF TEETH AND S 08/18/2017 JOSE RODRIGUEZ DO Ot Z82.49 FAMILY HX OF ISCHEM HEART DIS AND OTH DI 08/18/2017 JOSE RODRIGUEZ DO Ot Z87.19 PERSONAL HISTORY OF OTHER DISEASES OF TH 08/18/2017 JENNIFER JOSE URBAN Ot Z87.448 PERSONAL HISTORY OF OTHER DISEASES OF UR 08/18/2017 JENNIFER URBAN JOSE Sharon Ot Z87.59 PERSONAL HISTORY OF COMP OF PREG, CHLDBR 08/18/2017 JENNIFER URBAN JOSE Sharon Ot Z88.5 ALLERGY STATUS TO NARCOTIC AGENT STATUS 08/18/2017 JENNIFER URBAN JOSE Sharon Ot Z88.8 ALLERGY STATUS TO OTH DRUG/MEDS/BIOL [...] BREATH 11/06/2017 JOSE RODRIGUEZ DO Ot Z79.51 FULL STACK ENGINEER (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 OF INHALED STERO 11/06/2017 JOSE RODRIGUEZ DO Ot Z79.52 MCC (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 OF SYSTEMIC STER 11/06/2017 JOSE RODRIGUEZ DO Ot Z82.49 FAMILY HX OF ISCHEM HEART DIS AND OTH DI 11/06/2017 JOSE RODRIGUEZ DO Ot Z87.442 PERSONAL HISTORY OF URINARY CALCULI 11/06/2017 JOSE RODRIGUEZ DO Ot Z87.448 PERSONAL HISTORY OF OTHER DISEASES OF UR 11/06/2017 JENNIFER JOSE URBAN Ot Z87.59 PERSONAL HISTORY OF COMP OF PREG, CHLDBR 11/06/2017 JENNIFER JOSE URBAN Ot Z88.5 ALLERGY STATUS TO NARCOTIC AGENT STATUS 11/06/2017 JENNIFER JOSE URBAN Ot Z88.8 ALLERGY STATUS TO OTH DRUG/MEDS/BIOL SUB 11/06/2017 JENNIFER JOSE URBAN Ot Z98.51 TUBAL LIGATION STATUS 11/09/2017 JOSE [...] BREATH 11/09/2017 JOSE RODRIGUEZ DO Ot Z79.51 FULL STACK ENGINEER (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 OF INHALED STERO 11/09/2017 JOSE RODRIGUEZ DO Ot Z79.52 FULL STACK ENGINEER (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 OF SYSTEMIC STER 11/09/2017 JENNIFER JOSE URBAN Ot Z82.49 FAMILY HX [...] ALLERGY STATUS TO OTH DRUG/MEDS/BIOL SUB 11/09/2017 JENNIFERJOSE Cristina DO Ot Z98.51 TUBAL LIGATION STATUS 02/03/2018 NUBIA [...] SMO 02/03/2018 NUBIA MURRAY APRN Ot Z79.51 FULL STACK ENGINEER (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 OF INHALED STERO 02/03/2018 NUBIA MURRAY APRN Ot Z79.52 MCC (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 OF SYSTEMIC STER 02/03/2018 NUBIA [...] SMO 02/05/2018 NUBIA MURRAY APRN Ot Z79.51 MCC (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 OF INHALED STERO 02/05/2018 NUBIA MURRAY APRN Ot Z79.52 FULL STACK ENGINEER (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 OF SYSTEMIC STER 02/05/2018 [...] Z88.8 ALLERGY STATUS TO OT DRUG/MEDS/BIOL SUB 02/05/2018 NUBIA MURRAY APRN Ot [...] SMO 02/10/2018 NUBIA MURRAY APRN Ot Z79.51 MCC (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 OF INHALED STERO 02/10/2018 NUBIA MURRAY APRN Ot Z79.52 MCC (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 OF SYSTEMIC STER 02/10/2018 NUBIA [...] SMO 02/11/2018 NUBIA MURRAY APRN Ot Z79.51 MCC (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 OF INHALED STERO 02/11/2018 NUBIA MURRAY APRN Ot Z79.52 FULL STACK ENGINEER (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 OF SYSTEMIC STER 02/11/2018 [...] Z88.8 ALLERGY STATUS TO OT DRUG/MEDS/BIOL SUB 02/11/2018 NUBIA MURRAY APRN Ot [...] SMO 02/15/2018 NUBIA MURRAY APRN Ot Z79.51 MCC (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 OF INHALED STERO 02/15/2018 NUBIA MURRAY APRN Ot Z79.52 FULL STACK ENGINEER (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 OF SYSTEMIC STER 02/15/2018 [...] Ot Z98.890 OTHER SPECIFIED POSTPROCEDURAL STATES 02/19/2018 DINORA SHELDON MD Ot F17.210 NICOTINE DEPENDENCE, CIGARETTES, UNCOMPL 02/19/2018 MONALISA ROMERO, DINORA Wilde Ot F32.9 MAJOR DEPRESSIVE DISORDER, SINGLE EPISOD 02/19/2018 DINORA SHELDON MD Ot F41.9 ANXIETY DISORDER, UNSPECIFIED 02/19/2018 DINORA SHELDON MD Ot G43.909 MIGRAINE, UNSP, NOT INTRACTABLE, WITHOUT 02/19/2018 DINORA SHELDON MD Ot J45.909 UNSPECIFIED ASTHMA, UNCOMPLICATED 02/19/2018 MONALISA ROMERO, DINORA Wilde Ot L03.113 CELLULITIS OF RIGHT UPPER LIMB 02/19/2018 DINORA SHELDON MD Ot Z82.49 FAMILY HX OF ISCHEM HEART DIS AND OTH DI 02/19/2018 DINORA SHELDON MD Ot Z87.19 PERSONAL HISTORY OF OTHER DISEASES OF TH 02/19/2018 DINORA SHELDON MD Ot Z87.442 PERSONAL HISTORY OF URINARY CALCULI 02/19/2018 DINORA SHELDON MD Ot Z87.448 PERSONAL HISTORY OF OTHER DISEASES OF UR 02/19/2018 DINORA SHELDON MD Ot Z88.5 ALLERGY STATUS [...] ALLERGY STATUS TO OTH DRUG/MEDS/BIOL SUB 02/22/2018 MONALISA ROMERO, DINORA Wilde Ot Z98.51 TUBAL LIGATION STATUS 02/22/2018 MONALISA ROMERO, DINORA Wilde Ot Z98.890 OTHER SPECIFIED POSTPROCEDURAL STATES 02/25/2018 MONALISA ROMERO, DINORA Wilde Ot F17.210 NICOTINE DEPENDENCE, CIGARETTES, UNCOMPL 02/25/2018 MONALISA ROMERO, DINORA Wilde Ot F32.9 MAJOR DEPRESSIVE DISORDER, SINGLE EPISOD 02/25/2018 MONALISA ROMERO, DINORA Wilde Ot F41.9 ANXIETY DISORDER, UNSPECIFIED 02/25/2018 MONALISA ROMERO, DINORA Wilde Ot G43.909 MIGRAINE, UNSP, NOT INTRACTABLE, WITHOUT 02/25/2018 DINORA SHELDON MD Ot J45.909 UNSPECIFIED ASTHMA, UNCOMPLICATED 02/25/2018 MONALISA ROMERO, DINORA Wilde Ot L03.113 CELLULITIS [...] MD Ot F41.9 ANXIETY DISORDER, UNSPECIFIED 03/25/2018 OSPHIA JOSÉ MD Ot G43.909 MIGRAINE, UNSP, NOT INTRACTABLE, WITHOUT 03/25/2018 SOPHIA JOSÉ MD Ot J45.909 UNSPECIFIED ASTHMA, UNCOMPLICATED 03/25/2018 SOPHIA JOSÉ MD Ot K08.89 OTHER SPECIFIED DISORDERS OF TEETH AND S 03/25/2018 SOPHIA JOSÉ MD Ot Z87.442 PERSONAL HISTORY OF URINARY CALCULI 03/25/2018 SOPHIA JOSÉ MD Ot Z88.6 ALLERGY STATUS TO ANALGESIC AGENT STATUS 03/25/2018 SOPHIA JOSÉ MD Ot Z88.8 ALLERGY STATUS TO OTH DRUG/MEDS/BIOL SUB 03/25/2018 SOPHIA JOSÉ MD Ot Z98.51 TUBAL LIGATION STATUS 03/27/2018 MANA ZARATE MD Ot R10.11 RIGHT UPPER QUADRANT PAIN 03/27/2018 MANA ZARATE MD Ot R10.13 EPIGASTRIC PAIN 04/01/2018 FELICIA TOBIAS MD Ot A08.4 VIRAL INTESTINAL INFECTION, UNSPECIFIED 04/01/2018 FELICIA TOBIAS MD Ot F17.210 NICOTINE DEPENDENCE, CIGARETTES, UNCOMPL 04/01/2018 FELICIA TOBIAS MD Ot F32.9 MAJOR DEPRESSIVE DISORDER, SINGLE EPISOD 04/01/2018 FELICIA TOBIAS MD Ot F41.9 ANXIETY DISORDER, UNSPECIFIED 04/01/2018 FELICIA TOBIAS MD Ot G43.909 MIGRAINE, UNSP, NOT INTRACTABLE, WITHOUT 04/01/2018 FELICIA TOBIAS MD Ot J06.9 ACUTE UPPER RESPIRATORY INFECTION, UNSPE 04/01/2018 FELICIA TOBIAS MD Ot J45.909 UNSPECIFIED ASTHMA, UNCOMPLICATED 04/01/2018 FELICIA TOBIAS MD Ot R09.81 NASAL CONGESTION 04/01/2018 FELICIA TOBIAS MD Ot Z82.49 FAMILY HX OF ISCHEM HEART DIS AND OTH DI 04/01/2018 FELICIA TOBIAS MD Ot Z87.19 PERSONAL HISTORY OF OTHER DISEASES OF TH 04/01/2018 FELICIA TOBIAS MD Ot Z87.442 PERSONAL HISTORY OF URINARY CALCULI 04/01/2018 FELICIA TOBIAS MD Ot Z87.448 PERSONAL HISTORY OF OTHER DISEASES OF UR 04/01/2018 FELICIA TOBIAS MD Ot Z88.0 ALLERGY STATUS TO PENICILLIN 04/01/2018 FELICIA TOBIAS MD Ot Z88.5 ALLERGY STATUS TO NARCOTIC AGENT STATUS 04/01/2018 FELICIA TOBIAS MD Ot Z88.8 ALLERGY STATUS TO OTH DRUG/MEDS/BIOL SUB 04/01/2018 FELICIA TOBIAS MD Ot Z97.5 PRESENCE OF (INTRAUTERINE) CONTRACEPTIVE 04/01/2018 FELICIA TOBIAS MD Ot Z98.51 TUBAL LIGATION STATUS 04/01/2018 FELICIA TOBIAS MD Ot Z98.890 OTHER SPECIFIED POSTPROCEDURAL STATES 04/05/2018 FELICIA TOBIAS MD Ot A08.4 VIRAL INTESTINAL INFECTION, UNSPECIFIED 04/05/2018 FELICIA TOBIAS MD Ot F17.210 NICOTINE DEPENDENCE, CIGARETTES, UNCOMPL 04/05/2018 FELICIA TOBIAS MD Ot F32.9 MAJOR DEPRESSIVE DISORDER, SINGLE EPISOD 04/05/2018 FELICIA TOBIAS MD Ot F41.9 ANXIETY DISORDER, UNSPECIFIED 04/05/2018 FELICIA TOBIAS MD Ot G43.909 MIGRAINE, UNSP, NOT INTRACTABLE, WITHOUT 04/05/2018 FELICIA TOBIAS MD Ot J06.9 ACUTE UPPER RESPIRATORY INFECTION, UNSPE 04/05/2018 FELICIA TOBIAS MD Ot J45.909 UNSPECIFIED ASTHMA, UNCOMPLICATED 04/05/2018 FELICIA TOBIAS MD Ot R09.81 NASAL CONGESTION 04/05/2018 FELICIA TOBIAS MD Ot Z82.49 FAMILY HX OF ISCHEM HEART DIS AND OTH DI 04/05/2018 FELICIA TOBIAS MD Ot Z87.19 PERSONAL HISTORY OF OTHER DISEASES OF TH 04/05/2018 FELICIA TOBIAS MD Ot Z87.442 PERSONAL HISTORY OF URINARY CALCULI 04/05/2018 FELICIA TOBIAS MD Ot Z87.448 PERSONAL HISTORY OF OTHER DISEASES OF UR 04/05/2018 FELICIA TOBIAS MD Ot Z88.0 ALLERGY STATUS TO PENICILLIN 04/05/2018 FELICIA TOBIAS MD Ot Z88.5 ALLERGY STATUS TO NARCOTIC AGENT STATUS 04/05/2018 FELICIA TOBIAS MD Ot Z88.8 ALLERGY STATUS TO OTH DRUG/MEDS/BIOL SUB 04/05/2018 FELICIA TOBIAS MD, Ot Z97.5 PRESENCE OF (INTRAUTERINE) CONTRACEPTIVE 04/05/2018 FELICIA TOBIAS MD, Ot Z98.51 TUBAL LIGATION STATUS 04/05/2018 FELICIA TOBIAS MD, Ot Z98.890 OTHER SPECIFIED POSTPROCEDURAL STATES 05/29/2018 MANA ZARATE MD Ot R10.11 RIGHT UPPER QUADRANT PAIN 05/29/2018 MANA ZARATE MD Ot R10.13 EPIGASTRIC PAIN 06/02/2018 DAX HELMS MD, Ot F12.10 CANNABIS ABUSE, UNCOMPLICATED 06/02/2018 DAX HELMS MD Ot F17.210 NICOTINE DEPENDENCE, CIGARETTES, UNCOMPL 06/02/2018 DAX HELMS MD, Ot F32.9 MAJOR DEPRESSIVE DISORDER, SINGLE EPISOD 06/02/2018 DAX HELMS MD, Ot F41.9 ANXIETY DISORDER, UNSPECIFIED 06/02/2018 DAX HELMS MD, Ot G43.909 MIGRAINE, UNSP, NOT INTRACTABLE, WITHOUT 06/02/2018 DAX HELMS MD, Ot J45.909 UNSPECIFIED ASTHMA, UNCOMPLICATED 06/02/2018 DAX HELMS MD, Ot M54.16 RADICULOPATHY, LUMBAR REGION 06/02/2018 DAX HELMS MD, Ot M54.5 LOW BACK PAIN 06/02/2018 DAX HELMS MD, Ot S39.012A STRAIN OF MUSCLE, FASCIA AND TENDON OF L 06/02/2018 DAX HELMS MD, Ot X50.0XXA OVEREXERTION FROM STRENUOUS MOVEMENT OR 06/02/2018 DAX HELMS MD, Ot Y92.[address] 06/02/2018 DAX HELMS MD, Ot Y99.0 CIVILIAN ACTIVITY DONE FOR INCOME OR PAY 06/02/2018 DAX HELMS MD, Ot Z82.49 FAMILY HX OF ISCHEM HEART DIS AND OTH DI 06/02/2018 DAX HELMS MD, Ot Z86.19 PERSONAL HISTORY OF OTHER INFECTIOUS AND 06/02/2018 DAX HELMS MD, Ot Z87.19 PERSONAL HISTORY OF OTHER DISEASES OF TH 06/02/2018 DAX HELMS MD, Ot Z87.442 PERSONAL HISTORY OF URINARY CALCULI 06/02/2018 DAX HELMS MD, Ot Z87.448 PERSONAL HISTORY OF OTHER DISEASES OF UR 06/02/2018 DAX HELMS MD, Ot Z88.0 ALLERGY STATUS TO PENICILLIN 06/02/2018 DAX HELMS MD, Ot Z88.5 ALLERGY STATUS TO NARCOTIC AGENT STATUS 06/02/2018 DAX HELMS MD, Ot Z88.8 ALLERGY STATUS TO [facility] DRUG/MEDS/BIOL SUB 06/02/2018 DAX HELMS MD Ot Z98.51 TUBAL LIGATION STATUS 06/02/2018 DAX HELMS MD, Ot Z98.890 OTHER SPECIFIED POSTPROCEDURAL STATES Procedures Code [place] [address] ROUTINE VENIPUNCTURE 08/22/2014 THYANA THYROID ANALYZER 08/22/2014 [...] NRG Blood erythrocyte morphology finding identification NORMAL NRG Comprehensive metabolic panel - 06/06/17 18:42 Serum [...] or plasma urea nitrogen/creatinine mass ratio 11 [facility] Serum or plasma creatinine measurement with calculation of estimated glomerular filtration rate > [facility] Serum or plasma glucose measurement [...] AND B ANTIGENS BY IA [facility] Bacterial blood culture - 06/06/17 18:44 Bacterial blood culture NG [facility] Bacterial blood culture - 06/06/17 18:48 Bacterial blood culture NG [facility] Complete urinalysis with reflex to culture - 11/05/17 23:30 Urine color determination YELLOW [facility] Urine clarity determination SLIGHTLY CLOUDY [facility] Urine pH measurement by test [...] Status Pt. Type Provider Facility Loc./Unit Complaint [id number] 08/22/2014 14:39:00 08/22/2014 23:59:59 [place] [id number] 05/05/2017 08:35:00 05/05/2017 23:59:59 CLS Outpatient NINI MALDONADO [id number] 11/12/2017 15:04:29 11/12/2017 23:59:59 CLS Outpatient [id number] 09/18/2018 11:50:00 09/18/2018 11:58:00 DIS Emergency NUBIA MURRAY APRN [facility] ER LOWER BACK PAIN [id number] 05/29/2018 12:13:00 05/29/2018 14:10:00 DIS Outpatient ANALIA ROMERO, DAX Foote [facility] ER BACK PAIN [id number] 04/01/2018 19:29:00 04/01/2018 21:51:00 DIS Emergency FELICIA TOBIAS MD [facility] ER DIZZY, VOMITTING [id number] 03/23/2018 08:19:00 03/23/2018 10:45:00 DIS Emergency ESTEFANÍA ROMERO, SOPHIA Fields [facility] ER ROOF OF MOUTH HURTS [id number] 02/19/2018 09:01:00 02/19/2018 12:12:00 DIS Emergency MONALISA ROMERO, DINORA Wilde [facility] ER BUG BITE [id number] 02/11/2018 15:48:00 02/11/2018 18:35:00 DIS Emergency NUBIA MURRAY APRN [facility] ER R SIDE HIP PAIN,HEARD IT POP WHEN BENDING DOWN [id number] 02/03/2018 18:49:00 02/03/2018 19:20:00 DIS Emergency NUBIA MURRAY APRN [facility] ER L SIDE FACIAL/DENTAL PAIN [id number] 11/05/2017 22:32:00 11/06/2017 00:20:00 DIS Emergency JENNIFER DOJOSE [facility] ER CONGESTION/SOB [id number] 10/11/2017 19:29:00 10/11/2017 20:20:00 DIS Emergency NUBIA MURRAY APRN [facility] ER R SHOULDER PAIN [id number] 08/15/2017 23:34:00 08/16/2017 00:17:00 DIS Emergency JENNIFER DOJOSE K [facility] ER TOOTH AND GUM PAIN [id number] 06/06/2017 17:47:00 06/06/2017 20:07:00 DIS Emergency JENNIFER DOJOSE K [facility] ER SOA [id number] 06/04/2017 17:23:00 06/04/2017 17:33:00 DIS Emergency NUBIA MURRAY APRN [facility] ER SORE THROAT [id number] 04/11/2017 20:49:00 04/12/2017 01:59:00 DIS Emergency ANALIA ROMERO, DAX Foote [facility] ER KIDNEY PAIN,NAUSEA [id number] 03/13/2017 18:29:00 03/13/2017 20:47:00 DIS Emergency NUBIA MURRAY APRN [facility] ER LIGHTHEADEDNESS,DIZZINESS, SOA [id number] 03/02/2017 16:48:00 03/02/2017 18:27:00 DIS Emergency NUBIA MURRAY APRN [facility] ER R SIDE LOWER BACK PAIN/ NAUSEA [id number] 01/03/2017 20:36:00 01/03/2017 21:51:00 DIS Emergency TATIANA CIFUENTES [facility] ER TOOTH PAIN [id number] 11/22/2016 18:25:00 11/22/2016 19:05:00 DIS Emergency NUBIA MURRAY APRN [facility] ER BACK PAIN [id number] 11/07/2016 17:13:00 11/07/2016 18:35:00 DIS Emergency DAX HELMS MD [facility] ER PAINFUL/ITCHY RED SPOTS ON SKIN [id number] 10/12/2016 13:14:00 10/12/2016 13:47:00 DIS Emergency NUBIA MURRAY APRN [facility] ER R SIDE DENTAL PAIN/ HEADACHE [id number] 06/29/2016 15:31:00 06/29/2016 16:09:00 DIS Emergency NUBIA MURRAY APRN [facility] ER N/V, SINUS TROUBLE [id number] 03/27/2016 17:52:00 03/27/2016 19:21:00 DIS Emergency JOSE RODRIGUEZ DO K [facility] ER SOA [id number] 03/21/2016 11:40:00 03/21/2016 23:59:59 CLS Outpatient MANA ZARATE MD [facility] CARD RT UPPRER ABDOMINAL PAIN [id number] 03/06/2016 08:31:00 03/06/2016 23:59:59 CLS Outpatient MANA ZARATE MD [facility] RAD RUQ ABD PAIN [id number] 02/09/2016 07:28:00 02/09/2016 08:48:00 DIS Emergency SOPHIA JOSÉ MD [facility] ER BODY ACHES [id number] 01/07/2016 17:31:00 01/07/2016 18:53:00 DIS Emergency RICKY NELSON [facility] ER FEVER [id number] 12/21/2015 12:08:00 12/21/2015 13:24:00 DIS Emergency NUBIA MURRAY APRN [facility] ER RIGHT SHOULDER PAIN [id number] 08/08/2015 09:08:00 08/08/2015 12:16:00 DIS Emergency JOSE RODRIGUEZ DO [facility] ER MIGRAINE [id number] 07/17/2015 19:11:00 07/17/2015 21:23:00 DIS Emergency RICKY NELSON [facility] ER L EAR PAIN [id number] 06/01/2015 18:38:00 06/01/2015 19:47:00 DIS Emergency RICKY NELSON [facility] ER L FOOT INJ/PAIN [id number] 05/20/2015 23:50:00 05/21/2015 01:32:00 DIS Emergency SOPHIA JOSÉ MD [facility] ER RT LEG PAIN/KNOT [id number] 05/11/2015 21:12:00 05/11/2015 22:49:00 DIS Emergency SOPHIA JOSÉ MD [facility] ER SORE THROAT;COUGH; FEVER [id number] 05/06/2015 18:32:00 05/06/2015 23:32:00 DIS Emergency RICKY NELSON [facility] ER FEVER,CHILLS/BODY ACHES [id number] 03/26/2015 20:21:00 03/27/2015 00:12:00 DIS Emergency RICKY NELSON [facility] ER L HAND JULIET [id number] 01/20/2015 17:58:00 01/20/2015 19:17:00 DIS Emergency RICKY NELSON [facility] ER ORAL PAIN/LFT JAW [id number] 01/01/2015 18:57:00 01/01/2015 20:16:00 DIS Emergency DAX HELMS MD [facility] ER COUGHING,SOA [id number] 12/10/2014 21:39:00 12/10/2014 22:19:00 DIS Emergency RICKY NELSON [facility] ER SPIDER BITE [id number] 05/31/2014 16:59:00 05/31/2014 18:10:00 DIS Emergency RICKY NELSON [facility] ER INSECT BITE/STING [id number] 05/28/2014 16:45:00 05/28/2014 18:23:00 DIS Emergency NUBIA MURRAY APRN [facility] ER VOMITING,FEVER [id number] 09/02/2015 20:34:00 Document Registration [id number] 05/14/2015 18:01:00 Document Registration [id number] 05/14/2015 18:01:00 Document Registration [id number] 08/09/2014 01:45:00 Document Registration [id number] 10/15/2011 17:32:00 Document Registration [id number] 09/26/2011 12:18:00 Document Registration
[2018-09-29] MEDS ORDERED: KETOROLAC 60 MG/2 ML VIAL IM ONE (07:15)
--- NOTE | 2018-09-29 07:16 | ED Back Pain ---
General Chief Complaint: Back Problems Stated Complaint: BACK & LEFT LEG PAIN,NAUSEA,FOOT IS NUMB Source of Information: Family Exam Limitations: No Limitations History of Present Illness Date Seen by Provider: September 29, 2018 Time Seen by Provider: 06:56 Initial Comments Patient presents to ER by private conveyance with chief complaint of back pain. She went to work last night having quite a bit of back pain to Tylenol and ibuprofen and when she was usp through her work she took another Naprosyn and Flexeril but her pain did not get better. She's been having this pain for couple weeks now and has been seen in the ER by [facility] which is where she got her muscle relaxants. She hasn't been on steroids. She does not have any significant history of back injury. She has not done anything that has triggered her back that about one or 2 months ago she was lifting an ice chest and had a small incidence of back pain on the left side as well. At that time she was treated conservatively and it seemed to got better. Today her back pain radiates down her left leg but it past the knees to her heel and when she started her shift she had numbness in her fourth and fifth left foot toes and by the end of the shift her entire foot was numb, tingling. She's never had numbness or tingling before. She's never had imaging of her back before is no history of surgeries on her back. She's had her tubes tied. She's been using multiple different types of back rubs Biofreeze, CBD oil etc. She also states she has urinary frequency and hesitancy but difficulty with micturition. No burning or discharge. Allergies and Home Medications Allergies Coded Allergies: metoclopramide (Unverified Allergy, Mild, 01/03/17) promethazine (Unverified Allergy, Mild, 01/03/17) vancomycin (Verified Allergy, Unknown, 02/19/18) morphine (Unverified Adverse Reaction, Severe, PAIN, 01/03/17) Home Medications Amoxicillin 500 Mg Capsule, 500 MG PO TID Prescribed by: SOPHIA JOSÉ on 03/23/18 1000 Amoxicillin/Potassium Clav 1 Each Tablet, 1 EACH PO BID Prescribed by: YVETTE CHRISTENSEN on 02/19/18 1125 Cyclobenzaprine HCl 10 Mg Tablet, 10 MG PO TID PRN for SPASMS Prescribed by: DAX SU on 05/29/18 1403 Hydrocodone Bit/Acetaminophen 1 Tab Tab, 1 EACH PO Q6H PRN for PAIN-MODERATE Prescribed by: SOPHIA JOSÉ on 03/23/18 1000 Methocarbamol 750 Mg Tablet, 750 MG PO Q6H PRN for PAIN-SEVERE Prescribed by: NUBIA MURRAY on 02/11/18 1716 Methocarbamol 750 Mg Tablet, 750 MG PO Q4H PRN for PAIN-MODERATE Prescribed by: NUBIA MURRAY on 09/18/18 1156 Naproxen 500 Mg Tablet, 500 MG PO BID PRN for PAIN-MODERATE Prescribed by: NUBIA MURRAY on 09/18/18 1156 Ondansetron 4 Mg Tab.rapdis, 4 MG PO Q6H PRN for NAUSEA/VOMITING Prescribed by: FELICIA TOBIAS on 04/01/18 2140 Sulfamethoxazole/Trimethoprim 1 Each Tablet, 1 EACH PO BID Prescribed by: YVETTE CHRISTENSEN on 02/19/18 1125 Tramadol HCl 50 Mg Tablet, 50 MG PO Q6H Prescribed by: DAX SU on 05/29/18 1403 Patient Home Medication List Home Medication List Reviewed: Yes Review of Systems Constitutional: No chills, No diaphoresis EENTM: No ear discharge, No hearing loss Respiratory: No cough, No short of breath Cardiovascular: No chest pain, No edema Gastrointestinal: No abdominal pain, No constipation, No diarrhea Genitourinary: see HPI; No discharge, No dysuria; hesitancy Musculoskeletal: see HPI, back pain Past Aghhsan-Bjfejo-Uohpzk Hx Patient Social History Alcohol Use: Denies Use Recreational Drug Use: No Smoking Status: Current Everyday Smoker Type Used: Cigarettes 2nd Hand Smoke Exposure: Yes Recent Foreign Travel: No Contact w/Someone Who Travel: No Recent Hopitalizations: No Immunizations Up To Date Tetanus Booster (TDap): Less than 5yrs PED Vaccines UTD: Yes Seasonal Allergies Seasonal Allergies: Yes Past Medical History Surgeries: Yes (S-CECTION X 2, BTL. 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, Ovarian Cyst FIELD SUPPORT REP History: Tubal Ligation Sexually Transmitted Disease: No HIV/AIDS: No Genitourinary: Yes Kidney Stones Gastrointestinal: Yes Irritable Bowel Musculoskeletal: Yes Chronic Back Pain Endocrine: No HEENT: Yes (DENTAL CARIES) Loss of Vision: Denies Hearing Impairment: Denies Cancer: No Psychosocial: Yes Anxiety, Depression Integumentary: Yes (SHINGLES; CELLULITIS) Recent Skin Changes Blood Disorders: No Adverse Reaction/Blood Tranf: No Family Medical History Diabetes mellitus 19 FATHER Myocardial infarction 19 FATHER Thyroid disease G8 SISTER Heart Disease Physical Exam Vital Signs Vital Signs - First Documented 09/29/18 06:54 Temp 98.4 Pulse 100 Resp 18 B/P (MAP) 156/109 (125) Pulse Ox 99 O2 Delivery Room Air Capillary Refill : Height, Weight, BMI Height: 5'2.00" Weight: 160lbs. 0oz. [id number]; 28.91 BMI Method:Stated General Appearance: Anxious, Mild Distress HEENT: Pharynx Normal, Moist Mucous Membranes Neck: Full Range of Motion, Normal Inspection Cardiovascular: Regular Rate, Rhythm, Normal Peripheral Pulses Respiratory: No Accessory Muscle Use, No Respiratory Distress Peripheral Pulses: 2+ Dorsalis Pedis (R), 2+ Left Dors-Pedis (L) Back: Vertebral Tenderness (low thoracic high lumbar midline tenderness to palpation.) Extremity: Normal Capillary Refill, Normal Inspection, Non Tender Neurologic/Psychiatric: Alert, Oriented x3, Sensory Deficit (decreased sensation left foot on the lateral side third digits) Skin: Normal Color, Warm/Dry Progress/Results/Core Measures Results/Orders Lab Results Laboratory Tests Test 09/29/18 07:18 Range/Units Urine Color YELLOW Urine Clarity CLEAR Urine pH 7 5-9 Urine Specific [place] 1.010 L 1.016-1.022 Urine Protein NEGATIVE NEGATIVE Urine Glucose (UA) NEGATIVE NEGATIVE Urine Ketones NEGATIVE NEGATIVE Urine Nitrite NEGATIVE NEGATIVE Urine Bilirubin NEGATIVE NEGATIVE Urine Urobilinogen NORMAL NORMAL MG/DL Urine Leukocyte Esterase NEGATIVE NEGATIVE Urine RBC (Auto) 2+ H NEGATIVE Urine RBC 5-10 H /HPF Urine WBC NONE /HPF Urine Squamous Epithelial Cells 5-10 /HPF Urine Crystals NONE /LPF Urine Bacteria TRACE /HPF Urine Casts NONE /LPF Urine Mucus MODERATE H /LPF Urine Culture Indicated NO My Orders Orders - FELICIA TOBIAS Ct Thoracic/Lumbar Spine Wo (09/29/18 07:08) Ketorolac Injection (Toradol Injection) (09/29/18 07:15) Ua Culture If Indicated (09/29/18 07:08) Urine Bedside (09/29/18 07:08) Ondansetron Oral Dissolve Tab (Zofran (09/29/18 07:30) Medications Given in ED Current Medications Medications Dose Ordered Sig/Elisabeth Route Start Time Stop Time Status Last Admin Dose Admin Ketorolac Tromethamine 60 mg ONCE ONCE IM 09/29/18 07:15 09/29/18 07:16 DC 09/29/18 07:24 60 MG Ondansetron HCl 4 mg ONCE ONCE PO 09/29/18 07:30 09/29/18 07:31 DC 09/29/18 07:24 4 MG Vital Signs/I&O 09/29/18 06:54 Temp 98.4 Pulse 100 Resp 18 B/P (MAP) 156/109 (125) Pulse Ox 99 O2 Delivery Room Air Progress Progress Note : Time: 07:[address] without contrast thoracic and lumbar spine. Start with Toradol and Zofran. UA as well as bedside . Diagnostic Imaging Diagonstic Imaging: CT (noncontrast) Plain Films/CT/US/NM/MRI: other (thoracolumbar spine) Comments [facility] [place] NAME: DIANA MATUTE [facility] REC#: [id number] PT STATUS: REG ER : 1990 PHYSICIAN: FELICIA TOBIAS MD ADMIT DATE: 09/29/18/ER Draft Date of Exam:09/29/18 CT THORACIC/LUMBAR SPINE WO PROCEDURE: CT thoracic and lumbar spine without contrast. TECHNIQUE: Multiple contiguous axial images were obtained through the thoracic and lumbar spine without the use of intravenous contrast. Sagittal and coronal reformations were then performed. INDICATION: Low back pain radiating into left leg FINDINGS: The alignment of the thoracic and lumbar spine is normal. Vertebral body heights are well-maintained. There is no spondylolysis or spondylolisthesis. There is no fracture or traumatic subluxation. There is no bone encroachment upon the spinal canal. The visualized lungs are clear. There are no focal soft tissue abnormalities. IMPRESSION: Unremarkable CT of the thoracic and lumbar spine. Dictated on workstation # [id number] Dict: 09/29/18 0805 Trans: 09/29/18 0808 [facility] [id number] Interpreted by: EYAD DUDLEY MD Electronically signed by: Reviewed: Reviewed by Me Departure Impression Primary Impression: Back pain Qualified Codes: M54.42 - Lumbago with sciatica, left side Disposition: 01 HOME, SELF-CARE Condition: Stable Departure-Patient Inst. Decision time for Depature: 08:41 Referrals: [facility] [place] ([place]/Family) Primary Care Physician Patient Instructions: Low Back Pain (DC) Add. Discharge Instructions: Obtain a back brace and wear it on the days that her back hurts. Use heat, topical creams such as icy hot etc. Use Tylenol 1000 g every 8 hours as necessary. Use the Naprosyn 500 mg capsule twice a day on a schedule for the next 2-4 weeks. Consider following up with a chiropractor. If you are not seeing some improvement after getting 5 days of the prednisone 2 capsules a day then you should follow up with your primary care doctor and discuss physical therapy. All discharge instructions reviewed with patient and/or family. Voiced understanding. Scripts Prednisone (Prednisone) 20 Mg Tab 40 MG PO DAILY for 5 Days, #10 TAB 0 Refills Prov: FELICIA TOBIAS 09/29/18 Cyclobenzaprine HCl (Cyclobenzaprine HCl) 10 Mg Tablet 10 MG PO Q8H PRN for SPASMS, #15 TAB 0 Refills Prov: FELICIA TOBIAS 09/29/18 Work/School Note: Work Release Form Date Seen in the Emergency Department: September 29, 2018 Return to Work: October 01, 2018 Restrictions: Need Release from Doctor Other Restrictions Listed Below: Do not lift, push or pull more than 20 pounds until 10/06/18. FELICIA TOBIAS September 29, 2018 07:16
[2018-09-29 07:27] LABS: BILIRUBIN,URINE NEGATIVE (NEGATIVE); CLARITY,URINE CLEAR; COLOR,URINE YELLOW; GLUCOSE, URINE (UA) NEGATIVE (NEGATIVE); KETONES,URINE NEGATIVE (NEGATIVE); LEUKOCYTE ESTERASE ,URINE NEGATIVE (NEGATIVE); NITRITE,URINE NEGATIVE (NEGATIVE); PH,URINE 7 (5-9); PROTEIN,URINE NEGATIVE (NEGATIVE); UROBILINOGEN,URINE NORMAL (NORMAL)
[2018-09-29] MEDS ORDERED: ONDANSETRON 4 MG (ZOFRAN) ORAL DISSOLVE TAB PO ONE (07:30)
[2018-09-29 07:38] LABS: BACTERIA,URINE TRACE /HPF
--- NOTE | 2018-09-29 08:09 | Diagnostic Imaging Report ---
PROCEDURE: CT thoracic and lumbar spine without contrast. TECHNIQUE: Multiple contiguous axial images were obtained through the thoracic and lumbar spine without the use of intravenous contrast. Sagittal and coronal reformations were then performed. INDICATION: Low back pain radiating into left leg FINDINGS: The alignment of the thoracic and lumbar spine is normal. Vertebral body heights are well-maintained. There is no spondylolysis or spondylolisthesis. There is no fracture or traumatic subluxation. There is no bone encroachment upon the spinal canal. The visualized lungs are clear. There are no focal soft tissue abnormalities. IMPRESSION: Unremarkable CT of the thoracic and lumbar spine. Dictated by: Dictated on workstation # [id number]
[2018-09-29] MEDS ORDERED: CYCL10TA9 PO (08:43)
[2018-09-29] MEDS ORDERED: PRD20T PO (08:43)
[2018-09-29] MEDS ORDERED: methylPREDNISolone 40 MG/ML (DEPO MEDROL) VIAL IM ONE (08:45)
[2018-09-29 08:50] VITALS: BP 130/100
== END 2018-09-29 08:54 | disposition home or self-care (01) ==
LOC: EDUNIT# 06:46 → ER 06:49
DX: M54.5 Low back pain (principal); J45.909 Unspecified asthma, uncomplicated; G43.909 Migraine, unspecified, not intractable, without status migrainosus; K58.9 Irritable bowel syndrome, unspecified; F41.9 Anxiety disorder, unspecified; F32.9 Major depressive disorder, single episode, unspecified; F17.210 Nicotine dependence, cigarettes, uncomplicated; Z98.51 Tubal ligation status; Z87.448 Personal history of other diseases of urinary system; Z86.19 Personal history of other infectious and parasitic diseases; Z98.890 Other specified postprocedural states; Z97.5 Presence of (intrauterine) contraceptive device; Z82.49 Family history of ischemic heart disease and other diseases of the circulatory system; Z88.8 Allergy status to other drugs, medicaments and biological substances; Z88.1 Allergy status to other antibiotic agents; Z88.5 Allergy status to narcotic agent; Z87.442 Personal history of urinary calculi
CPT/HCPCS: 72128; 72131; 81000; 84703